=== PATIENT | male | born 1970 | race Caucasian/White ===

== ENCOUNTER 2024-01-07 16:15 | Outpatient (RCR) | payer OTHER, SELFPAY | END 2024-01-07 23:59 | disposition home or self-care (01) | LOC: PURB 16:15 | PROVIDERS: ATTENDING PHYSICIAN Internal Medicine Critical Care Medicine; FAMILY PHYSICIAN Family Medicine | DX: J84.9 Interstitial pulmonary disease, unspecified (principal) | CPT/HCPCS: G0237 ==

== ENCOUNTER 2024-01-19 17:31 | Inpatient (IN) | payer OTHER, SELFPAY ==
[2024-01-19] VITALS (10 sets, daily range): BP systolic 141–188; BP diastolic 80–95; BMI 27.8; BMI 27.5
[2024-01-19 13:23] LABS: % Basophils 0.2 % (0-2); % Eosinophils 0.2 % (0-6); % Immature Granulocytes 0.4 % (0-0.5); % Monocytes 8.1 % (1.7-9.3); % Neutrophils 82.1 % (42.2-75.2); Absolute Immature Granulocytes 0.1 10^3/uL (0-0.05); Absolute Lymphocytes 1.6 10^3/uL (1.2-3.4); Absolute Monocytes 1.5 10^3/uL (0.1-0.6); Absolute Neutrophils 14.9 10^3/uL (1.4-6.5); Hematocrit 39.3 % (39.0-52.0); Hemoglobin 13.1 g/dL (13.0-18.0); Mean Corp Hgb Conc. 33.3 g/dL (33.0-37.0); Mean Corpuscular Hgb 30.1 pg (27.0-31.0); Mean Corpuscular Volume 90.3 fL (80.0-94.0); Mean Platelet Volume 9.6 fL (7.4-10.4); Nucleated Red Blood Cells % 0 % (-); Platelet Count 297 10^3/uL (130-400); Red Blood Cell Count 4.35 10^6/uL (4.70-6.10); Red Cell Dist. Width 13.6 % (11.5-14.5); White Blood Cell Count 18.2 10^3/uL (4.8-10.8)
[2024-01-19] MEDS: MAALOX 50 PO (13:23)
--- NOTE | 2024-01-19 13:26 | ED.GENMED ---
History of Present Illness
General
Chief Complaint: Abdominal Symptoms
Source: patient and spouse
Time Seen by Provider: 01/19/24 13:12
Travel History
Have you had any contact with someone who has COVID-19?: No
Do you have any symptoms of coronavirus? Fever > 100 degrees, chills, cough, shortness of breath, sore throat, loss of taste or smell, muscle aches, or headache?: No
History of Present Illness
History of Present Illness:
53-year-old male presents to the emergency room complaining of severe burning in his chest. Patient began feeling unwell on Saturday when he had some nausea vomiting. Patient thought he may have contracted a GI bug. Yesterday he was feeling a bit
better but during the evening last night he began to have burning in his chest. The burning has become quite severe today. He is breathing rapidly because of the pain. He does not feel particularly short of breath. Breathing does not make the
pain worse. Patient cannot associate any activity with making the pain worse. Patient only has taken a small amount of water today. Swallowing water does not seem to make it better or worse.
Past History
Past History
ED Past Medical History: Other (Microscopic polyangiitis, interstitial lung disease, pericarditis)
ED Past Surgical History: None
Social History
Tobacco: Non-smoker
Alcohol: Occasional
Drug: None
Personal:
Living: with family
Employment: Employed
Family History
Family History: Hypertension, CAD and Other (Grandmother with Parkinson's)
Phy Exam
Physical Exam
Physical Exam:
General: Awake, Alert, Oriented X3. Patient appears uncomfortable, breathing rapidly
Vitals: Tachypneic
Head: Atraumatic
Eyes: Pupils equal, EOMI
Throat: Airway intact, no exudates, dry mucosa
Neck: Trachea midline
Lungs: Clear and equal b/l
Heart: Regular rate, no murmurs
Abd: Soft, Nontender, No pulsatile mass
Neuro: Nonfocal
Skin: Warm, dry, no rash
Extremities: pulses equal b/l, no edema
Course
Orders/Labs/Results
Orders:
Orders
01/19/24 12:44
Electrocardiogram (*1) Urgent
Reason for Study: Abdominal Pain
01/19/24 13:16
Complete Blood Count/With Diff Urgent
Comprehensive Metabolic Panel Urgent
Lipase Urgent
Troponin I Urgent
01/19/24 13:20
Mag Hydrox/Al Hydrox/Simeth [Maalox] 30 ml Phenobarb/Hyoscy/Atropine/Scop [] 10 ml Viscous Lidocaine 2% [Xylocaine Viscous Cup] 10 ml PO NOW
CR Chest Portable - 1 View Urgent
Comment:
Reason For Exam: severe chest pain
Reason Study Needs to be Portable: Patient Unstable
01/19/24 13:22
Mag Hydrox/Al Hydrox/Simeth [Maalox] 30 ml .ROUTE .STK-MED ONE
Phenobarb/Hyoscy/Atropine/Scop [] 10 ml .ROUTE .STK-MED ONE
Viscous Lidocaine 2% [Xylocaine Viscous Cup] 15 ml .ROUTE .STK-MED ONE
01/19/24 13:41
HYDROmorphone [Dilaudid] 1 mg IV NOW STA
01/19/24 13:56
Iohexol [Omnipaque] See Protocol PO NOW STA
01/19/24 14:01
CT Abd/pelvis W Iv Cont Urgent
Comment:
Reason For Exam: abd pain
01/19/24 14:02
Electrocardiogram (*1) Urgent
Reason for Study: Abdominal Pain
01/19/24 14:23
HYDROmorphone [Dilaudid] 1 mg IV NOW STA
01/19/24 15:14
Ketorolac [Toradol] 15 mg IV NOW STA
01/19/24 15:53
HYDROmorphone [Dilaudid] 0.5 mg IV NOW STA
01/19/24 16:05
LevoFLOXacin 750 MG/150 ML [Levaquin] 750 mg in 150 ml IV NOW
MetroNIDAZOLE 500 MG/100 ML [Flagyl 500 mg] 100 ml IV NOW
01/19/24 17:14
Admit/Transfer Patient As Directed
Co-Sign Provider:
Level of Care: Inpatient admission
Assign to:: Telemetry
Physician / Group: samreen lombardo
Diagnosis: acute choleycystitis, dvt/pe hx on eliquis
Reason for Telemetry: Arrhythmia
Date to Stop Telemetry: 01/22/24
Time to Stop Telemetry: 11:00
Reason for Hospitalization: acute choleycystitis, dvt/pe hx on eliquis
Expected length of stay greater than two midnights?: Yes
ELOS- Estimated Length of Stay in days: 4
I certify the patient meets the requirements for IP care: Yes
01/19/24 17:18
Code Status As Directed
Resuscitation Status: Full Code
01/19/24 17:21
SURGICAL CONSULT Routine
Consulting Provider: Mark Reyes
Was physician already notified: Yes
Reason for consult: acute choleycystitis
01/19/24 17:29
HYDROmorphone [Dilaudid] 1 mg IV Q4HPRN PRN
01/19/24 17:33
HEMATOLOGY CONSULT Routine
Consulting Provider: Tru Lovell
Was physician already notified: Yes
Reason for consult: hx dvt pe jan 2023, ? heparin bridge
01/19/24 18:49
0.9% Sodium Chloride 1000 ml [Nss] 1,000 ml IV 100 mls/hr
Acetaminophen [Tylenol] 650 mg PO Q4HPRN PRN
HYDROmorphone [Dilaudid] 0.5 mg IV Q4HPRN PRN
Ondansetron Injectable [Zofran] 4 mg IV Q6HPRN PRN
01/19/24 18:49
VTE Contraindication Routine
VTE Mechanical Device Contraindication: Medical Contraindication
Pharmocologic Contraindication: Medical Contraindication
Comment: pt on eliquis
Activity As Directed
Activity Level: As Tolerated
Intake/ Output As Directed
Frequency: Per unit guidelines
Vital Signs As Directed
Frequency: Per unit guidelines
Pulse Ox/spot Check [RESP] Routine
Quantity: 1
Ot Eval And Treat Routine
Pt Eval And Treat Routine
Activity Level: As Tolerated
01/19/24 20:00
Clonidine [Catapres] 0.3 mg PO Q8
Famotidine [Pepcid] 20 mg IV Q12
01/19/24 22:00
Gabapentin [Neurontin] 400 mg PO TID
01/20/24 00:00
MetroNIDAZOLE 500 MG/100 ML [Flagyl 500 mg] 100 ml IV Q8H
01/20/24 06:29
Cardiovascular Evaluation IN AM
Complete Blood Count/With Diff IN AM
Comprehensive Metabolic Panel IN AM
01/20/24 08:00
Dapsone 100 mg PO DAILY
MethylPREDNISolone [Medrol] 6 mg PO DAILY
Sertraline HCl [Zoloft] 100 mg PO DAILY
01/20/24 16:00
LevoFLOXacin 500 MG/100 ML [Levaquin] 500 mg in 100 ml IV Q24H
01/21/24 06:00
Complete Blood Count/With Diff IN AM
Comprehensive Metabolic Panel IN AM
01/22/24 06:00
Complete Blood Count/With Diff IN AM
Comprehensive Metabolic Panel IN AM
01/22/24 11:00
DC Protocol for Telemetry ONCE
01/23/24 06:00
Complete Blood Count/With Diff IN AM
Comprehensive Metabolic Panel IN AM
Abnormal Lab Results
01/19/24
13:16
WBC 18.2 H 10^3/uL
(4.8-10.8)
RBC 4.35 L 10^6/uL
(4.70-6.10)
Abs Immat Gran (auto) 0.1 H 10^3/uL
(0-0.05)
Absolute Neuts (auto) 14.9 H 10^3/uL
(1.4-6.5)
Absolute Monos (auto) 1.5 H 10^3/uL
(0.1-0.6)
Neutrophils % 82.1 H %
(42.2-75.2)
Lymphocytes % 9.0 L %
(20.5-51.1)
Glucose 155 H mg/dl
(70-99)
Total Bilirubin 2.3 H mg/dl
(0.2-1.3)
01/19/24 13:16
01/19/24 13:16
Vital Signs
Initial and Last Documented VS:
Initial Vital Signs
Temp Pulse Resp BP Pulse Ox
98.2 F 63 16 166/92 98
01/19/24 12:42 01/19/24 12:42 01/19/24 12:42 01/19/24 12:42 01/19/24 12:42
Last Documented Vital Signs
Temp Pulse Resp BP Pulse Ox
99.5 F 77 19 98/61 94
01/20/24 07:00 01/20/24 07:00 01/20/24 07:00 01/20/24 07:00 01/20/24 07:00
MDM/Problems Addressed
Differential Diagnosis Includes:
Gastritis/esophagitis, acute coronary syndrome, pancreatitis, perforated viscus
MDM/Problems Addressed:
Patient presents with what is described as abdominal burning which began a couple days ago after vomiting and has increased in intensity. At the time of his arrival to the emergency room it is very intense. Patient is breathing rapidly though he
denies being short of breath. His EKG does not show any acute ischemic changes. He does endorse some pain with palpation of his abdomen but he does not appear to have a surgical abdomen. A repeat EKG was obtained to assure there is no dynamic
changes and the second EKG is unremarkable. Initial labs show a white count of 18,000 with an otherwise unremarkable CBC. Chemistry show a mildly elevated glucose of 155. His T bilirubin is mildly elevated at 2.3. His total bilirubin has been
elevated in a similar level previously and suspect this is [place] syndrome. Remainder of his chemistries are unremarkable including a troponin to <0.012.
CT of abd/pelvis shows findings c/w acute cholecystitis. Pt allergic to pcn so levaquin/flagyl orderd. Discussed with Dr. Reyes.....given last dose of Eliquis was today will need to allow for washout of anticoagulation effect prior to surgery.
Given complicated past medical hx pt will be admitted to hospitalist service. Pt has significant pain requiring frequent re-dosing of analgesia.
Chronic conditions affecting care: HTN and Other (ILD, thromboembolic dz, GERD)
*Radiology
Radiology exam reviewed: radiology read reviewed
*Pulse Oximetry
Patient hypoxic: no
*EKG
Interpreted by ED Provider?: Yes
Interpretation: abnormal
Heart Rate: 57
Rate: bradycardiac
Rhythm: sinus
Byars: normal axis
Interval: normal interval
QRS Pattern: normal QRS
Ischemia: non-specific ST changes
*[employer] Interpretation
Rate: bradycardiac
Heart Rate: 57
Rhythm: sinus
*Critical Care Note
Total Time (30-74mins, 75-104mins- exclusive of procedures): 35 min
comment:
Critical care statement: A total of 35 minutes of critical care time was provided for this patient. This includes management of unstable vital signs, evaluation of the patient at bedside, reviewing the patient's pertinent medical records, discussion
with consultants, review of old EKGs and review of pertinent medical records. This time with separate from time utilized to perform the aforementioned documented procedures
Patient Management
Social determinants of health affecting care: Strong social support
ED Attending Note
-
Portions of this chart may have been created with voice recognition software.� Occasional wrong word or��sound alike� substitutions may have occurred due to the inherent limitations of voice recognition software.
Discharge Plan
Departure
Patient Disposition: Admit
Date of Disposition: 01/19/24
Time of Disposition: 16:07
Presentation/result/management discussed w/ accepting MD/DO: Hospitalist
Condition: Fair
Discharge Problem:
Acute cholecystitis
Interventions
Interventions:
*Risk Screen - Suicide Last Done: 01/19/24 13:54
*General Assessment Last Done: 01/19/24 13:51
*Neglect/Abuse Screening Last Done: 01/19/24 13:30
ED- Fall Risk Assessment Last Done: 01/19/24 18:32
*ED COVID-19 Vaccine History Last Done: 01/19/24 12:42
*Nursing Disposition Last Done: 01/19/24 18:32
DZ-Tiqtuv-Znvyznknkh Assessment Last Done: 01/19/24 13:00
Discharge Date and Time
Discharge Date/Time: 01/19/24 18:30
[2024-01-19 13:43] LABS: ALT (SGPT) 25 U/L (0-50); AST (SGOT) 24 U/L (17-59); Albumin 4.2 g/dl (3.5-5.0); Alkaline Phosphatase 84 U/L (38-126); Blood Urea Nitrogen 14 mg/dl (9-20); Calcium 9.1 mg/dl (8.4-10.2); Carbon Dioxide 25 mmol/L (22-30); Chloride 103 mmol/L (98-107); Estimated Creatinine Clearance > 125 ml/min; Glucose 155 mg/dl (70-99); Lipase 45 U/L (23-300); Potassium 3.9 mmol/L (3.5-5.1); Sodium 136 mmol/L (135-145); Total Bilirubin 2.3 mg/dl (0.2-1.3); Total Protein 6.6 g/dl (6.3-8.2); eGFR > 60.00
[2024-01-19] MEDS: DILAUDID 1 MG IV ×5 (13:43→23:21)
[2024-01-19 13:46] LABS: Troponin I < 0.012 ng/ml
[2024-01-19] MEDS: TORADOL 15 MG IV ×2 (15:20→22:22)
[2024-01-19] MEDS: FLAGYL 500 MG 100 IV ×2 (16:14→23:22)
[2024-01-19] MEDS: DILAUDID 0.5 MG IV (16:14)
--- NOTE | 2024-01-19 16:23 | CON.GS ---
Addendum entered and electronically signed by Sagar Silver MD 01/20/24 09:49:
I saw and examined the patient independently.
The Tail Trimmer's note was reviewed and I agree with the note, assessment and plan except where noted below.
Comment: This is a 53-year-old gentleman with a history of PE on Eliquis (last dose 01/19/2024 10 AM) who presents with a 3-day history of postprandial right upper quadrant pain in the setting of several months of intermittent abdominal pain. CT
imaging and exam consistent with acute cholecystitis. Marked leukocytosis as well as elevated bilirubinemia concerning for superimposed choledocholithiasis/ascending cholangitis.
Rapid response overnight for soft blood pressures, and tachycardia.
N.p.o., IV fluids, IV levofloxacin/Flagyl.
Continue holding anticoagulation.
Urgent MRCP. If positive for choledocholithiasis would defer to GI for an ERCP. If negative for choledocholithiasis recommend IR consult for percutaneous cholecystostomy tube.
Ideally would like to wait 48 hours for the Eliquis to washout prior to surgery which we could consider this admission versus in 4 to 6 weeks pending clinical course.
General surgical continue to follow.
Original Note:
Medical History
-
Chief Complaint: Abdominal pain
History of Present Illness:
This is a 53 yo male with a h/o influenza with concurrent covid with 79 day admission at [facility] starting in November 2022 where he required ECMO and tracheostomy for VDRF complicated ICH and PE (On Eliquis which is to be discontinued this month as
testing WNL, LD 01/19 at 10am), ILD (wears O2 with exercise), recent PFT's with improvement and recent relatively normal echo who presents with epigastric discomfort which began 2 days ago a few hours after eating dinner accompanied by nausea and
vomiting. His pain was better the following day but he had poor appetite and ate very little. Today, he awakened early this morning and tried to eat breakfast. His pain worsened after this causing him to present for evaluation. He has been afebrile.
He notes his pain has improved since being medicated. He denies active nausea. He is tender to light palpation to the RUQ.
Past Medical History
Past Medical History: Other (ILD, Flu/covid with ECMO/VDRF/Trach 11/22)
Past Surgical History: Other (Previous tracheostomy)
Social History
Tobacco: Non-Smoker
Alcohol: Occasional
Personal:
Living: With Family
Family History
Family History: Reviewed & Not Pertinent
Allergies / Home Medications
Allergy/AdvReac Type Severity Reaction Status Date / Time
vancomycin Allergy Severe Anaphylaxis/throat Verified 01/19/24 12:44
irritation
latex Allergy swelling - Verified 01/19/24 12:44
long skin
Penicillins Allergy Hives Verified 01/19/24 12:44
Sulfa (Sulfonamide Allergy Rash Verified 01/19/24 12:44
Antibiotics)
venom-honey bee Allergy swelling - Verified 01/19/24 12:44
[bee venom (honey bee)] throat
tightness
Medication Instructions Recorded Confirmed Type
Pepcid 2 tab PO ONCE PRN stomach 01/19/24 01/19/24 History
discomfort
apixaban 5 mg tablet (Eliquis) 5 mg PO Q12H 01/19/24 01/19/24 History
ascorbic acid (vitamin C) 500 mg 500 mg PO DAILY 01/19/24 01/19/24 History
tablet (Vitamin C)
bismuth subsalicylate 262 mg 524 mg PO ONCE PRN stomach 01/19/24 01/19/24 History
tablet (Pepto-Bismol) discomfort
calcium carbonate 500 mg calcium 3,000 mg PO ONCE PRN stomach 01/19/24 01/19/24 History
(1,250 mg) chewable tablet discomfort
clonidine HCl 0.3 mg tablet 0.3 mg PO Q8H 01/19/24 01/19/24 History
dapsone 100 mg tablet 100 mg PO DAILY 01/19/24 01/19/24 History
famotidine 40 mg tablet 40 mg PO DAILY 01/19/24 01/19/24 History
gabapentin 400 mg capsule 400 mg PO TID 01/19/24 01/19/24 History
methylprednisolone 4 mg tablet 6 mg PO DAILY 01/19/24 01/19/24 History
sertraline 100 mg tablet 100 mg PO DAILY 01/19/24 01/19/24 History
Review of Systems
-
History Source: Patient and Family
All other systems: Negative unless noted
A 10 point review of systems was completed, and was negative except as per HPI.
Physical Exam
Vital Signs
Temp Pulse Resp BP Pulse Ox
98.2 F 62 25 171/89 95
01/19/24 12:42 01/19/24 13:45 01/19/24 13:45 01/19/24 13:43 01/19/24 13:45
01/18/24 01/19/24 01/20/24
06:59 06:59 06:59
Actual Weight 102.3 kg
Body Mass Index (BMI) 27.8
Lab Results
01/19/24 13:16
01/19/24 13:16
WBC 18.2 10^3/uL (4.8-10.8) H 01/19/24 13:16
Hgb 13.1 g/dL (13.0-18.0) 01/19/24 13:16
Hct 39.3 % (39.0-52.0) 01/19/24 13:16
Plt Count 297 10^3/uL (130-400) 01/19/24 13:16
Abs Immat Gran (auto) 0.1 10^3/uL (0-0.05) H 01/19/24 13:16
Neutrophils % 82.1 % (42.2-75.2) H 01/19/24 13:16
Physical Exam
General: Well Developed and No Apparent Distress
HEENT: Moist Mucous Membranes
Respiratory: Non Labored Respirations
GI: Soft, Non Distended and Tender (RUQ/epigastric area)
Skin: Warm and Dry
Neuro: Awake, Alert and AO x 3
Psych: Calm
Data Reviewed
-
CT Scan: Image Personally Visualized and interpreted, Report Reviewed by me, Discussed with Physician, Discussed with Nurse, Discussed with Patient and Discussed with Family
Labs: Labs Reviewed by me, Discussed with Physician, Discussed with Nurse, Discussed with Patient and Discussed with Family
Old Records: Reviewed
Assessment / Plan
-
Assessment:
53 yo male with a h/o influenza with concurrent covid with 79 day admission at [facility] starting in November 2022 where he required ECMO and tracheostomy for VDRF complicated ICH and PE (On Eliquis which was likely to be discontinued this month as
testing WNL, LD 01/19 at 10am), ILD (wears O2 with exercise) who developed RUQ/Epigastric pain 2 days ago several hours after a large meal. CT imaging and exam consistent with acute calculous cholecystitis. Leukocytosis and mild elevation in
bilirubin noted (has been mildly elevated in the past). AFVSS. Wearing O2 currently.
Plan:
--Being admitted to medicine service
--Ok for clear liquids
--Start IV abx
--Analgesics/antiemetics prn
--Tentative HIDA scan in am
--Trend LFT's
--Hold Eliquis: tentative OR for lap cesar later this week after Eliquis washout
--- NOTE | 2024-01-19 16:28 | HPS.HSE ---
Addendum entered and electronically signed by Manuelito Mcclure MD 01/19/24 19:23:
I saw and examined the patient.
The REPAIR ARMATURE WINDER HELPER or PA's note was reviewed and I agree with the note.
Comment:
53M hx Influenza/COVID/ARDS/PNA requiring ECMO prolonged Hospital Stay Nov 2022-March 2023 complicated w/ PE/DVT cardiac arrest stroke GIB cauterization, hx autoimmune vasculitis, hypertension, GERD, Neuropathy, ILD vs Long COVID p/w N/V/abd pain 2
days.� CT consistent with acute cholecystitis.� VSS stable.� Labs notable for leukocytosis and TBili elevation 2.3, LFTs otherwise wnl.�
Physical Exam
General:�Mild moderat distress d/t pain, jaundice
HEENT:�NormoCephalic, Scleral icterus, PERRLA, [place] Conjunctivae and No Ptosis
Respiratory:�Clear; No Wheezes, Rales or Rhonchi
Cardiac:�S1/S2 and Regular Rhythm; No Murmur, Rub, Gallop or Peripheral Edema
GI:�Soft, Normal Bowel Sounds, and Tender Midepigastric, upper left and right quadrant
Musculoskeletal:�No Clubbing, No Cyanosis and No Edema
Neuro:�AO x 3
Psych:�Calm
#Cholecystitis
#Hx PE/DVT on Eliquis
Surgery eval appreciated planned for cholecystectomy following Eliquis washout
Hematology eval requested for AM consideration Hep gtt while off vs monitoring off
pain control
trend wbc
abx flagyll Levaquin
diet as per surgery
Original Note:
Family Physician
-
Family Physician: Jabier Vela
Chief Complaint
-
Nausea, vomiting
History of Present Illness
53-year-old male complaining of nausea, vomiting since Saturday 2 days ago along with burning sensation in his chest. He reports only having water today but did not seem to make it better or worse. He denies fever, chills, chest pain, palpitations,
shortness breath, cough, diarrhea, urinary symptoms. In the ER he was noted to have acute cholecystitis on CT of his abdomen and pelvis. He is on oral Eliquis for history of DVT/PE while on ECMO nov 2022-jan 2023. He did take a dose of Eliquis
01/19/2024 in a.m. he has PMH influenza/COVID /ARDS /pneumonia requiring ECMO with prolonged hospital stay from November- March 18, 2023 DVT/PE while on ECMO on current Eliquis, cardiac arrest January 2023,'s CVA left frontal hemorrhagic
January 08, 2023, GI bleed requiring cauterization 2022, pneumonia requiring thoracentesis, prior autoimmune vasculitis, HTN,, GERD, neuropathy, ILD vs long COVID, COVID infection 2020 received antibodies, neuropathy bilateral feet and hands,
depression.
Medical History
Past Medical History
Past Medical History: Reports Other
Additional Past Medical History:
Microscopic polyangiitis vasculitis
Interstitial lung disease vs long covid
Gastroesophageal reflux disease
Influenza/COVID /ARDS requiring ECMO March 2023, DVT/PE while on ECMO on current Eliquis,
Cardiac arrest 2022
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
GI bleed January 2023 requiring cauterization
HTN
neuropathy hands and feet
depression
Past Surgical History: Reports Other (ecmo November 2022, pneumonia requiring thoracentesis, GI bleed, required cauterization during hospital stay January 2023)
Social History
Tobacco: Non-smoker
Alcohol: Occasional
Drug: Marijuana (Had been on medical marijuana in the past but has not taken for months)
Personal:
Living: With Family ()
Employment: Disabled
Family History
Family History: Other (Mother with coronary artery disease and essential hypertension, pancreatic cancer November 2023, father currently living with lymphoma)
Allergies / Home Medications
Allergies reflects when Allergies were last updated in [facility].
Home Medications with original date entered in [facility]
Allergy/Medication List:
Allergies
Allergy/AdvReac Type Severity Reaction Status Date / Time
vancomycin Allergy Severe Anaphylaxis/throat Verified 01/19/24 12:44
irritation
latex Allergy swelling - Verified 01/19/24 12:44
long skin
Penicillins Allergy Hives Verified 01/19/24 12:44
Sulfa (Sulfonamide Allergy Rash Verified 01/19/24 12:44
Antibiotics)
venom-honey bee Allergy swelling - Verified 01/19/24 12:44
[bee venom (honey bee)] throat
tightness
Home Medications
Pepcid 2 tab PO ONCE PRN stomach discomfort 01/19/24
apixaban 5 mg tablet (Eliquis) 5 mg PO Q12H 01/19/24
ascorbic acid (vitamin C) 500 mg tablet (Vitamin C) 500 mg PO DAILY 01/19/24
bismuth subsalicylate 262 mg tablet (Pepto-Bismol) 524 mg PO ONCE PRN stomach discomfort 01/19/24
calcium carbonate 500 mg calcium (1,250 mg) chewable tablet 3,000 mg PO ONCE PRN stomach discomfort 01/19/24
clonidine HCl 0.3 mg tablet 0.3 mg PO Q8H 01/19/24
dapsone 100 mg tablet 100 mg PO DAILY 01/19/24
famotidine 40 mg tablet 40 mg PO DAILY 01/19/24
gabapentin 400 mg capsule 400 mg PO TID 01/19/24
methylprednisolone 4 mg tablet 6 mg PO DAILY 01/19/24
sertraline 100 mg tablet 100 mg PO DAILY 01/19/24
Review of Systems
-
History Source: Patient and Family ( at bedside)
A 12 point ROS was completed and negative except as noted: Yes
Constitutional: Denies Fever, Fatigue or Chills
EENT: Denies Sore Throat or Runny Nose
Respiratory: Denies Cough or Trouble Breathing
Cardiac: Denies Chest Pain, Diaphoresis or Palpitations
Abdomen/GI: Reports Abdominal Pain (Upper abdomen and epigastric), Nausea and Vomiting; Denies Diarrhea, Constipated or Bloody Stools
: Denies Dysuria, Frequency, Flank Pain, Incontinence, Difficulty Voiding or Urgency
Musculoskeletal: Denies Joint Pain, Joint Swelling or Edema
Skin: Denies Itching or Rash
Neurological: Denies Dizzy, Headache or Weakness
Endocrine: Reports No Symptoms
Hematologic/Lymphatic: Reports No Symptoms
Psych: Reports Calm
Physical Exam
Vital Signs
Vital Signs
Temp Pulse Resp BP Pulse Ox
98.2 F 62 25 171/89 95
01/19/24 12:42 01/19/24 13:45 01/19/24 13:45 01/19/24 13:43 01/19/24 13:45
Physical Exam
General: Comfortable and Conversant; No Fever or Chills
HEENT: NormoCephalic, Anicteric, PERRLA, [place] Conjunctivae and No Ptosis
Respiratory: Clear; No Wheezes, Rales or Rhonchi
Cardiac: S1/S2 and Regular Rhythm; No Murmur, Rub, Gallop or Peripheral Edema
Breast: Deferred by me
GI: Soft, Non Distended, Normal Bowel Sounds and Tender (Midepigastric, upper left and right quadrant)
Rectal: Deferred by Provider
Genito-urinary: Deferred by me
Musculoskeletal: No Clubbing, No Cyanosis and No Edema
Neuro: AO x 3, No Motor Deficits, Nonfocal/grossly intact and No Sensory Deficits; No Slurred Speech, Facial Droop or Tremors
Psych: Calm
Laboratory Results
-
01/19/24 13:16
01/19/24 13:16
Laboratory Results
Total Bilirubin 2.3 mg/dl (0.2-1.3) H 01/19/24 13:16
AST 24 U/L (17-59) 01/19/24 13:16
ALT 25 U/L (0-50) 01/19/24 13:16
Alkaline Phosphatase 84 U/L (38-126) 01/19/24 13:16
Troponin I < 0.012 ng/ml 01/19/24 13:16
Lipase 45 U/L (23-300) 01/19/24 13:16
Data Reviewed
-
CT Scan: Report Reviewed by me
Lab Data: Labs Reviewed by me
Impression/Plan
-
Impression/plan:
Admit to [facility]
#Acute cholecystitis
WBC 18.2
-CLEARS today 01/19/24
-N.p.o. for OR 01/20/2024
-IV NSS 100 cc/hr
-HOLD Eliquis last dose 01/19/2020 4 AM
-Blood cultures x 2
-Consult Dr. Reyes
- Iv levaquin, flagyl
-IV Zofran
-IV Dilaudid as needed pain
-Follow CBC, CMP
-PT/OT/case management eval
CT abdomen pelvis: Acute cholecystitis
CXR: Chronic fibrotic changes both lungs. Increased mild patchy opacities bilaterally may be progression of fibrosis versus mild pneumonitis
EKG: NSR 62 bpm, QTc 424 MS otherwise normal
#History of ECMO [id number] 17, 2023 2/ ARDS/FLu /Covid/PNA
#DVT/PE while on ECMO
# Cardiac arrest during above hospital stay
-Is on current Eliquis
-HOLD Eliquis due to acute cholecystitis last dose was today 01/19/2020 AM
#GERD
#Hx GI bleed
Required cauterization during hospital stay January 2023
-Continue famotidine 40 mg daily
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
-No residual deficits
#ILD vs long COVID on chronic steroids
# Uses [place] O2 with exercise
#Hx COVID 2020 received antibodies
-Continue methylprednisolone 6 mg daily,
-Continue dapsone 100 mg daily
#HTN�benign
-Continue clonidine 0.3 mg 3 times daily
#Hx Erin syndrome
#Peripheral neuropathy hands and feet
-Continue gabapentin for 100 mg 3 times daily
#Depression
-Continue Zoloft 100 mg daily
dvt prop
hold Eliquis
Full code
[2024-01-19] MEDS: LEVAQUIN 150 IV (17:21)
[2024-01-19] MEDS: TYLENOL 650 MG PO (22:18)
[2024-01-19 22:19] LABS: Glucose - Point of Care 122 mg/dl (70-99)
--- NOTE | 2024-01-19 22:30 | PTCARENOTE ---
Pt change in condition. Increased respirations, increased pain with little response to meds, tachycardia, and a rectal temp of 102.8. PARISH NURSE called to assess further.
[2024-01-19] MEDS: NEURONTIN 400 MG PO (22:34)
[2024-01-19] MEDS: NSS 1000 IV (22:34)
[2024-01-19 22:35] LABS: % Basophils 0.2 % (0-2); % Immature Granulocytes 0.7 % (0-0.5); % Monocytes 8.8 % (1.7-9.3); % Neutrophils 86.3 % (42.2-75.2); Absolute Immature Granulocytes 0.2 10^3/uL (0-0.05); Absolute Lymphocytes 1.1 10^3/uL (1.2-3.4); Absolute Monocytes 2.3 10^3/uL (0.1-0.6); Absolute Neutrophils 22.8 10^3/uL (1.4-6.5); Hematocrit 38.1 % (39.0-52.0); Mean Corp Hgb Conc. 34.1 g/dL (33.0-37.0); Mean Corpuscular Hgb 29.4 pg (27.0-31.0); Mean Corpuscular Volume 86.2 fL (80.0-94.0); Mean Platelet Volume 9.4 fL (7.4-10.4); Nucleated Red Blood Cells % 0 % (-); Platelet Count 312 10^3/uL (130-400); Red Blood Cell Count 4.42 10^6/uL (4.70-6.10); Red Cell Dist. Width 13.4 % (11.5-14.5); White Blood Cell Count 26.4 10^3/uL (4.8-10.8)
[2024-01-19] MEDS: PEPCID 20 MG IV (22:35)
[2024-01-19] MEDS: CATAPRES 0.299999999999999989 MG PO (22:36)
[2024-01-19 22:45] LABS: INR 1.37; Lactic Acid 1.7 mmol/L (0.7-2.0); PT 16.7 Sec (11.4-14.6)
[2024-01-19 22:53] LABS: ALT (SGPT) 216 U/L (0-50); AST (SGOT) 271 U/L (17-59); Albumin 4.1 g/dl (3.5-5.0); Alkaline Phosphatase 222 U/L (38-126); Blood Urea Nitrogen 16 mg/dl (9-20); Calcium 9.2 mg/dl (8.4-10.2); Carbon Dioxide 19 mmol/L (22-30); Chloride 104 mmol/L (98-107); Estimated Creatinine Clearance > 125 ml/min; Glucose 124 mg/dl (70-99); Potassium 4.3 mmol/L (3.5-5.1); Sodium 135 mmol/L (135-145); Total Protein 6.6 g/dl (6.3-8.2); eGFR > 60.00
--- NOTE | 2024-01-19 23:01 | W.PN.UPDATE ---
Addendum entered and electronically signed by SIMA Padilla 01/20/24 01:26:
TT send to Dr garza to update on labs:
WBC 18.2 to 26.4
AST 271 was 24
ALT 216 was 25
Alk phos 222
T bili 5.0 was 2.3
With concerns for cholangitis dr garza request GI consult. Likely will need perc tube prior to OR.
TT sent to Dr Drummond GI--> Order MRCP with and without contrast urgent in am, and NPO
Original Note:
Update Note
Progress Note Update
HEALTH OUTCOMES LIAISON called due to increased respirations and pain. Pt admitted today with acute cholecystitis awaiting eliquis washout OR tues.
Found also to have temp 102.8 Rectal. On levaquin and flagyl.
Pain difficult to control since admit too- increased dilaudid frequency and added toradol x1
For completeness will check labs, blood cutlures, covid and flu swabs
Dr garza updated on above. Will see in am.
[2024-01-19 23:02] LABS: COVID-19 Antigen Negative (Negative)
[2024-01-20] VITALS (17 sets, daily range): BP systolic 20–168; BP diastolic 57–94; BMI 27.5
[2024-01-20] MEDS: CATAPRES PO ×2 (01:26→08:09)
[2024-01-20] MEDS: DILAUDID 0.5 MG IV ×5 (01:35→17:47)
[2024-01-20] MEDS: TYLENOL 650 MG PO ×2 (03:16→17:40)
[2024-01-20] MEDS: DILAUDID 1 MG IV ×5 (04:05→21:38)
[2024-01-20] MEDS: NSS 1000 IV ×3 (06:09→21:42)
[2024-01-20 06:55] LABS: % Basophils 0.2 % (0-2); % Eosinophils 0.1 % (0-6); % Immature Granulocytes 0.8 % (0-0.5); % Lymphocytes 4.8 % (20.5-51.1); % Monocytes 7.5 % (1.7-9.3); % Neutrophils 86.6 % (42.2-75.2); Absolute Immature Granulocytes 0.2 10^3/uL (0-0.05); Absolute Lymphocytes 1.2 10^3/uL (1.2-3.4); Absolute Monocytes 1.9 10^3/uL (0.1-0.6); Absolute Neutrophils 21.7 10^3/uL (1.4-6.5); Hematocrit 35.7 % (39.0-52.0); Hemoglobin 12.1 g/dL (13.0-18.0); Mean Corp Hgb Conc. 33.9 g/dL (33.0-37.0); Mean Corpuscular Volume 88.4 fL (80.0-94.0); Nucleated Red Blood Cells % 0 % (-); Red Blood Cell Count 4.04 10^6/uL (4.70-6.10); Red Cell Dist. Width 13.4 % (11.5-14.5)
--- NOTE | 2024-01-20 06:58 | W.PN.HOSP.TC ---
Today's Communication/Plan
-
transfer to IMU for closer monitoring
GI surgery IR eval cholecystectomy vs ERCP vs per cesar
Pulm eval risk assessment patient potentially may require intubation for above procedures (except per cesar)
cont pain control
diet as per GI
monitor LFTs
Assessment / Plan
Assessment / Plan
Physical Exam
General:�Mild moderat distress d/t pain, jaundice
HEENT:�NormoCephalic, Scleral icterus, PERRLA, [place] Conjunctivae and No Ptosis
Respiratory:�Clear; No Wheezes, Rales or Rhonchi
Cardiac:�S1/S2 and Regular Rhythm; No Murmur, Rub, Gallop or Peripheral Edema
GI:�Soft, Normal Bowel Sounds, and Tender Midepigastric, upper left and right quadrant
Musculoskeletal:�No Clubbing, No Cyanosis and No Edema
Neuro:�AO x 3
Psych:�Calm
53M hx Influenza/COVID/ARDS/PNA requiring ECMO prolonged Hospital Stay Nov 2022-March 2023 complicated w/ PE/DVT, CVA no residual symptoms, cardiac arrest stroke GIB cauterization, hx autoimmune vasculitis, hypertension, GERD, Neuropathy, ILD vs
Long COVID p/w N/V/abd pain 2 days.� CT consistent with acute cholecystitis.� Initial VSS stable. Patient however rapid response overnight soon following admission due to fever tachypnea intractable pain. Eventually pain control improved with
increased freq dose dilaudid. Overnight evaluation however concerning for biliary obstruction cholangitis worsening LFTs and Tbili elevation to 5. VSS otherwise stable following morning though low normotensive.
#Acute cholecystitis
#Likely Biliary Obstruction Cholangitis causing Liver Dysfunction bilirubinemia
#Leukocytosis
#Severe sepsis Fever Tachynea Tachycardia
-transferred to IMU for closer monitoring
-Monitor LFTs improving though Bili remains elevated
-NPO as per GI
-IVF NSS 100 cc/hr
-HOLD Eliquis last dose 01/19/2020 4 AM, Hematology eval requested question need for bridging vs considering discontinuing therapeutic anticoagulation given PE/DVT were provoked and yr ago
-follow cultures
-Surgery consult appreciated tentatively planned for cholecystectomy Tues Eliquis washout
-GI eval appreciated possible benefit ERCP vs per cholecystomy with IR (eval requested)
-MRCP appreciated possible gall stone inferior CBD no intra/extrahepatic dilation
- cont Iv levaquin, flagyl
-IV Zofran
-cont IV Dilaudid as needed pain
�� ��� CT abdomen pelvis: Acute cholecystitis
�� � ��CXR:�Chronic fibrotic changes both lungs.� Increased mild patchy opacities bilaterally may be progression of fibrosis versus mild pneumonitis
#History of ECMO [id number] 17, 2023 2/2 ARDS/FLu /Covid/PNA
#hx DVT/PE while on ECMO
# Cardiac arrest during previous hospital stay
#GERD
#Hx GI bleed
Required cauterization during hospital stay January 2023
-home famotidine converted to IV during acute illness current hospitalization GI ppx
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
-No residual deficits
#ILD vs long COVID on chronic steroids
# Uses [place] O2 with exercise
#Hx COVID 2020 received antibodies
#Acute hypoxic insufficiency/failure requiring 4L at rest
-Continue methylprednisolone 6 mg daily,
-Continue dapsone 100 mg daily
-pulm eval requested, potentially will require intubation if ERCP or surgery is performed
#hx HTN
#currently low normotensive
hold clonidine
cont IVF support
midodrine scheduled and prn started
#Hx Erin syndrome
#Peripheral neuropathy hands and feet
-Continue gabapentin for 100 mg 3 times daily
#Depression
-Continue Zoloft 100 mg daily
dvt prop SCD
gi ppx famotidine
Full code�
Discussed with patient and his Arlene, GI, IR, Pulm, Nurse
I spent a total of 60 minutes with the patient or on the floor. More than 50% of this time involved counseling and coordination of care.
Anticipated Discharge: > 48 hours
Subjective/Interval History
-
Date of Service: January 20, 2024
BOARD TURNER overnight due to fever tachypnea pain. Overnight evaluation notable for likely biliary obstruction cholangitis. Pain control improved with increased frequency Dilaudid and dose. BP low normotensive improved with IVF bolus. Respiratory status
stable on nasal cannula 4L
Objective Data
-
Labs:
Laboratory Results
01/19/24 01/20/24
22:28 06:29
WBC 26.4 H Pending
Hgb 13.0 Pending
Hct 38.1 L Pending
Plt Count 312 Pending
PT 16.7 H
INR 1.37
APTT 50.0 H
Sodium 135 Pending
Potassium 4.3 Pending
Chloride 104 Pending
Carbon Dioxide 19 L Pending
BUN 16 Pending
Creatinine 0.8 Pending
Glucose 124 H Pending
Calcium 9.2 Pending
Total Bilirubin 5.0 H D Pending
AST 271 H Pending
ALT 216 H Pending
Alkaline Phosphatase 222 H Pending
Vital Signs:
Vital Signs
Temp Pulse Resp BP Pulse Ox
99.7 F 81 22 112/57 95
01/20/24 06:17 01/20/24 03:25 01/20/24 03:25 01/20/24 03:25 01/20/24 03:25
I&O
01/18/24 01/19/24 01/20/24
06:59 06:59 06:59
Intake Total 1140 / 1140
Output Total 200 / 200
Balance 940 / 940
--- NOTE | 2024-01-20 07:00 | CON.GI ---
Addendum entered and electronically signed by Carolina Drummond MD 01/20/24 12:45:
I saw and examined the patient.
The SADDLE STITCH OPERATOR or PA's note was reviewed and I agree with the note.
Comment: 53-year-old male past medical history of interstitial lung disease with prolonged hospitalization as outlined below with COVID, history of PE and DVT on Eliquis, history of cardiac arrest, presenting with abdominal pain, nausea, vomiting.
Found to have leukocytosis up to 26,000, LFTs with bili of 6, fevers last night up to 102.8, blood pressure dipped down to the high 90s, underwent CT which showed acute cholecystitis. Surgery was consulted. GI was consulted for possible element of
cholangitis. I was called last night about the case and I recommended MRCP.
MRCP was done and reviewed the report which showed possible 1 mm choledocholithiasis no intra or extrahepatic bile duct dilation. I reviewed with our biliary team here who felt due to his overall tenuous clinical condition, they recommended to do a
PERC cholecystostomy rather than ERCP especially given the fact that the stone was so small and there is no dilation of the ducts. discussed with IR, surgery, hospitalist team. I went back and talk to the patient twice as well as his .
All questions were answered.
Plan for perc cholecystostomy today, trend LFTs, white blood cell, fever curve, continue broad-spectrum antibiotics, keep NPO. GI will continue to follow.
Original Note:
Consultation
-
Date/Time Consultation Requested: 01/19/24 [id number]
Date/Time Consultation Performed: 01/20/24 0830
Requesting Provider: SIMA Blackwell
Performing Provider: SIMA Espino, Renetta Drummond MD
Reason for Consultation: eval for cholangitis
Medical History
Chief Complaint / HPI
Chief Complaint: abdominal pain, fever
History of Present Illness:
Pt is a 53yo with hx prolonged hospital admission 11/2022- March 2023 with long covid requiring ecmo, trach, PE/DVT on Eliquis, cardiac arrest, GIB with cauterization,ICH, autoimmune vasculitis, HTN, GERD with onset of nausea, vomiting, abdominal
pain x 2 days. After admission noted with leukocytosis with WBC up to 26,400 and rise in LFT's to bili 6, AST 143, ALT 164, alk phos 170. Ct notable for acute cholecystitis. Pt was seen by surgery and recommended HIDA and hold Eliquis for possible
cesar but noted overnight with rapid response with increased pain and increased respirations with fever 102.8, Pt has been placed on Abx with cultures, MRI pending.
At this time patient complain of 8/10 abdominal pain with 10/10 pain on admission. He states pain started on Saturday with GERD, vomiting food and persistent symptoms since that time. He denies dysphagia, diarrhea, constipation, blood or black
in stools.
Past Medical History
Past Medical History: GERD, HTN and Other (PNA, interstitial lung disease, chronic bronchitis, PE/DVT, prior ecmo, ARDS, microscopic polyangitis, GI bleed, autoimmune vasculitis, connective tissue disease, cushings, pericarditis, covid 19, cardiac
arrest, hemorragic CVA, trach, neuropathy, colon polyps)
Social History
Tobacco: Non-Smoker
Alcohol: Occasional
Drug: Marijuana (in past )
Living: With Family
Employment: Employed
Family History
Family History: Other (no family hx colon CA or polyps, no family hx gallbladder problems that he is aware of )
Allergies / Home Medications
Allergy/AdvReac Type Severity Reaction Status Date / Time
vancomycin Allergy Severe Anaphylaxis/throat Verified 01/19/24 12:44
irritation
latex Allergy swelling - Verified 01/19/24 12:44
long skin
Penicillins Allergy Hives Verified 01/19/24 12:44
Sulfa (Sulfonamide Allergy Rash Verified 01/19/24 12:44
Antibiotics)
venom-honey bee Allergy swelling - Verified 01/19/24 12:44
[bee venom (honey bee)] throat
tightness
Medication Instructions Recorded
Pepcid 2 tab PO ONCE PRN stomach 01/19/24
discomfort
apixaban 5 mg tablet (Eliquis) 5 mg PO Q12H 01/19/24
ascorbic acid (vitamin C) 500 mg 500 mg PO DAILY 01/19/24
tablet (Vitamin C)
bismuth subsalicylate 262 mg 524 mg PO ONCE PRN stomach 01/19/24
tablet (Pepto-Bismol) discomfort
calcium carbonate 500 mg calcium 3,000 mg PO ONCE PRN stomach 01/19/24
(1,250 mg) chewable tablet discomfort
clonidine HCl 0.3 mg tablet 0.3 mg PO Q8H 01/19/24
dapsone 100 mg tablet 100 mg PO DAILY 01/19/24
famotidine 40 mg tablet 40 mg PO DAILY 01/19/24
gabapentin 400 mg capsule 400 mg PO TID 01/19/24
methylprednisolone 4 mg tablet 6 mg PO DAILY 01/19/24
sertraline 100 mg tablet 100 mg PO DAILY 01/19/24
Review of Systems
-
History Source: Patient
Constitutional: Reports Fever, Weight Loss (wt loss with covid then gain ) and Chills
EENT: Reports No Symptoms
Respiratory: Reports Trouble Breathing (chronic with ILD)
Cardiac: Reports Chest Pain (at time )
Abdomen/GI: Reports Abdominal Pain, Nausea and Vomiting
: Reports Dark Urine
Musculoskeletal: Reports No Symptoms
Skin: Reports No Symptoms
Neurological: Reports Weakness
Endocrine: Reports No Symptoms
Hematologic/Lymphatic: Reports Bleeding
Vital Signs
Temp Pulse Resp BP Pulse Ox
99.7 F 81 22 112/57 95
01/20/24 06:17 01/20/24 03:25 01/20/24 03:25 01/20/24 03:25 01/20/24 03:25
Physical Exam
Exam
General: Well Developed, Well Nourished and Other (some distress with pain )
HEENT: Normocephalic and Other (jaundice )
Respiratory: Other (course lungs )
Cardiac: Regular Rhythm
GI: Soft, Tender (RUQ with some guarding) and Distended (minimal )
Musculoskeletal: No Clubbing and No Cyanosis
Skin: Warm and Dry
Neuro: Awake, Alert and AO x 3
Psych: Calm
Results
WBC 26.4 10^3/uL (4.8-10.8) H 01/19/24:
Hgb 13.0 g/dL (13.0-18.0) 01/19/24:
Hct 38.1 % (39.0-52.0) L 01/19/24:
MCV 86.2 fL (80.0-94.0) 01/19/24:
Plt Count 312 10^3/uL (130-400) 01/19/24:
Absolute Neuts (auto) 22.8 10^3/uL (1.4-6.5) H 01/19/24:
PT 16.7 Sec (11.4-14.6) H 01/19/24:
INR 1.37 01/19/24:
APTT 50.0 Sec (23.4-35.0) H 01/19/24:
Sodium 135 mmol/L (135-145) 01/19/24:
Potassium 4.3 mmol/L (3.5-5.1) 01/19/24:
Chloride 104 mmol/L (98-107) 01/19/24:
Carbon Dioxide 19 mmol/L (22-30) L 01/19/24:
BUN 16 mg/dl (9-20) 01/19/24:
Creatinine 0.8 mg/dL (0.7-1.3) 01/19/24:
Calcium 9.2 mg/dl (8.4-10.2) 01/19/24 22:28
Total Bilirubin 5.0 mg/dl (0.2-1.3) H D 01/19/24 22:28
AST 271 U/L (17-59) H 01/19/24 22:28
ALT 216 U/L (0-50) H 01/19/24 22:28
Alkaline Phosphatase 222 U/L (38-126) H 01/19/24 22:28
Lipase 45 U/L (23-300) 01/19/24 13:16
Diagnostic Image Results:
01/19/24 CXR Chronic fibrotic changes in both lungs. Increased mild patchy opacities bilaterally may represent progression of fibrosis versus superimposed mild pneumonitis/pneumonia in the appropriate clinical setting.
01/19/24 CT Abd/pelvis W Iv Cont CT findings are most compatible with acute cholecystitis.
Prior GI Procedures:
EGD: at [place] with GI bleed ? NGT trauma with ulcer
Colonoscopy: 09/2022 [facility] 5mm polyp AC, diverticulosis, IH bx TA
Assessment / Plan
-
Pt is a 53yo with hx prolonged hospital admission 11/2022- March 2023 with long covid requiring ecmo, trach, PE/DVT on Eliquis, cardiac arrest, GIB with cauterization,ICH, autoimmune vasculitis, HTN, GERD with onset of nausea, vomiting, abdominal
pain x 2 days. After admission noted with leukocytosis with WBC up to 26,400 and rise in LFT's to bili 6, AST 143, ALT 164, alk phos 170. Ct notable for acute cholecystitis. On admission Eliquis hold for possible cesar but noted overnight with
rapid response with increased pain and increased respirations with fever 102.8, Pt has been placed on Abx with cultures, MRI pending.
-RUQ pain concern for acute cholecystitis vs cholangitis
-increased LFT's
-leukocytosis/fever with concern for sepsis with hypotension this am
-PE/DVT on Eliquis prior to admission
other medical problems:
-interstitial lung disease with prior prolonged covid, ecmo, trach
-hx GI bleed ? ulcer from NGT trauma per pt recall
-hx ICH
-vasculitis
-colon polyps
-HTN
-GERD
PLAN:
etiology of symptoms with concern for acute cholecystitis vs cholangitis with rise in LFT's vs other
reviewed with surgery Dr. Silver for MRI -staff called to do BENNIE
if + stone will need ERCP with ? stent with recent Eliquis (01/19 am)vs perc cesar tube
NPO
cont abx on Levaquin/flagyl with multiple allergies
blood cx pending
still with some shortness of breath at rest - for pulm eval if intervention needed
for heme eval with AC on hold
pain control
reviewed with Dr. Mcclure with concern for sepsis/hypotension for transfer to IMU
reviewed with Dr. Drummond
updated
-
-
Thank you for consultation and allowing me to participate in the patient's care. Please call the mission support specialist GI physician during the after hours with any questions or concerns.
[2024-01-20 07:06] LABS: ALT (SGPT) 164 U/L (0-50); AST (SGOT) 143 U/L (17-59); Albumin 3.2 g/dl (3.5-5.0); Alkaline Phosphatase 170 U/L (38-126); Blood Urea Nitrogen 21 mg/dl (9-20); Calcium 8.6 mg/dl (8.4-10.2); Carbon Dioxide 24 mmol/L (22-30); Chloride 102 mmol/L (98-107); Direct Bilirubin 3.4 mg/dl (0.0-0.4); Estimated Creatinine Clearance > 125 ml/min; Glucose 123 mg/dl (70-99); HDL Cholesterol 38 mg/dl; LDL Cholesterol, Calculated 93 mg/dl; Potassium 4.5 mmol/L (3.5-5.1); Sodium 136 mmol/L (135-145); Total Cholesterol 144 mg/dl (50-199); Total Protein 5.6 g/dl (6.3-8.2); Triglyceride 68 mg/dl (10-149); Very Low Density Lipoprotein 13 mg/dl (0-30); eGFR > 60.00
[2024-01-20 07:39] LABS: Mean Platelet Volume 9.7 fL (7.4-10.4)
[2024-01-20 07:40] LABS: Platelet Count 244 10^3/uL (130-400)
--- NOTE | 2024-01-20 08:15 | PTCARENOTE ---
assumed care of pt, who is awake and alert but complaining of 9/10 pain in the abdomen. BP low, tachypneic. pt requesting pain meds. Attending ordering IV bolus. GI at bedside, MRI late AM. pt NPO.
[2024-01-20] MEDS: NEURONTIN 400 MG PO ×3 (08:46→21:38)
[2024-01-20] MEDS: ZOLOFT 100 MG PO (08:47)
[2024-01-20] MEDS: PEPCID 20 MG IV ×2 (08:47→19:27)
[2024-01-20] MEDS: MEDROL 6 MG PO (08:48)
[2024-01-20] MEDS: FLAGYL 500 MG 100 IV ×2 (08:49→16:49)
[2024-01-20] MEDS: DAPSONE 100 MG PO (08:49)
[2024-01-20] MEDS: NSS 500 IV ×2 (08:53→17:47)
--- NOTE | 2024-01-20 09:56 | CON.ONC ---
Impression
Impression
Acute cholecystitis
Acute choledocholithiasis/cholangitis
H/o DVT and PE on eliquis
H/o stroke
Plan
Plan
- Hold eliquis for 48 hours until surgery.
- Patient is scheduled for MRCP for presumed acute choledocholithiasis
- Can start with IV heparin postop since no past history if HIT
- Platelet count WNL, elevated absolute neutrophile due to infection
-Hb level 12.1
Patient History
History of Present Illness
53-year-old male complaining of nausea, vomiting since Saturday 2 days ago along with burning sensation in his chest.� He reports only having water today but did not seem to make it better or worse.� He denies fever, chills, chest pain, palpitations,
shortness breath, cough, diarrhea, urinary symptoms.� In the ER he was noted to have acute cholecystitis on CT of his abdomen and pelvis.� He is on oral Eliquis for history of DVT/PE while on ECMO nov 2022-jan 2023. He did take a dose of Eliquis
01/19/2024 in a.m. he has PMH influenza/COVID /ARDS /pneumonia requiring ECMO with prolonged hospital stay from November- March 18, 2023� DVT/PE while on ECMO on current Eliquis, cardiac arrest January 2023,'s CVA left frontal hemorrhagic
January 08, 2023, GI bleed requiring cauterization 2022, pneumonia requiring thoracentesis, prior autoimmune vasculitis, HTN,, GERD, neuropathy, ILD vs long COVID, COVID infection 2020 received antibodies, neuropathy bilateral feet and hands,
depression.
Past-Medical/Surgical History
Microscopic polyangiitis vasculitis
Interstitial lung disease vs long covid
Gastroesophageal reflux disease
Influenza/COVID /ARDS requiring ECMO March 2023, DVT/PE while on ECMO on current Eliquis,
Cardiac arrest 2022
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
GI bleed January 2023 requiring cauterization
�HTN
neuropathy hands and feet
depression
Past Surgical History: Reports Other (ecmo November 2022, pneumonia requiring thoracentesis, GI bleed, required cauterization during hospital stay January 2023)
Patient Medication
Medication Instructions Recorded Confirmed Last Taken Type
Pepcid 2 tab PO ONCE PRN stomach 01/19/24 01/19/24 01/19/24 History
discomfort
apixaban 5 mg tablet (Eliquis) 5 mg PO Q12H 01/19/24 01/19/24 Unknown History
ascorbic acid (vitamin C) 500 mg 500 mg PO DAILY 01/19/24 01/19/24 Unknown History
tablet (Vitamin C)
bismuth subsalicylate 262 mg 524 mg PO ONCE PRN stomach 01/19/24 01/19/24 01/19/24 History
tablet (Pepto-Bismol) discomfort
calcium carbonate 500 mg calcium 3,000 mg PO ONCE PRN stomach 01/19/24 01/19/24 01/19/24 History
(1,250 mg) chewable tablet discomfort
clonidine HCl 0.3 mg tablet 0.3 mg PO Q8H 01/19/24 01/19/24 Unknown History
dapsone 100 mg tablet 100 mg PO DAILY 01/19/24 01/19/24 Unknown History
famotidine 40 mg tablet 40 mg PO DAILY 01/19/24 01/19/24 Unknown History
gabapentin 400 mg capsule 400 mg PO TID 01/19/24 01/19/24 01/18/24 History
methylprednisolone 4 mg tablet 6 mg PO DAILY 01/19/24 01/19/24 Unknown History
sertraline 100 mg tablet 100 mg PO DAILY 01/19/24 01/19/24 Unknown History
Active Medications
Generic Name Dose Route Start Last Admin
Trade Name Freq PRN Reason Stop Dose Admin
Acetaminophen 650 mg 01/19/24 18:49 01/20/24 03:16
Acetaminophen 325 Mg Tablet PO 02/16/24 18:48 650 mg
Q4HPRN PRN Administration
mild pain/CHRISTENSEN/temp> 100.4F
Clonidine HCl 0.3 mg 01/19/24 20:00 01/20/24 08:09
Clonidine 0.3 Mg Tablet PO 02/16/24 19:59 Not Given
Q8 LAMONT
Dapsone 100 mg 01/20/24 08:00 01/20/24 08:49
Dapsone 100 Mg Tablet PO 02/17/24 07:59 100 mg
DAILY LAMONT Administration
Famotidine 20 mg 01/19/24 20:00 01/20/24 08:47
Famotidine 20 Mg/2 Ml Vial IV 02/16/24 19:59 20 mg
Q12 LAMONT Administration
Gabapentin 400 mg 01/19/24 22:00 01/20/24 08:46
Gabapentin 400 Mg Capsule PO 02/16/24 21:59 400 mg
TID LAMONT Administration
Hydromorphone HCl 0.5 mg 01/19/24 18:49 01/20/24 01:35
Hydromorphone 0.5 Mg/0.5 Ml Syringe IV 02/02/24 18:48 0.5 mg
Q4HPRN PRN Administration
mod pain
Hydromorphone HCl 1 mg 01/19/24 21:53 01/20/24 06:10
Hydromorphone 1 Mg/Ml Carpuject IV 02/02/24 21:50 1 mg
Q2HPRN PRN Administration
severe pain
Levofloxacin/Dextrose 500 mg in 100 mls @ 100 mls/hr 01/20/24 16:00
Levaquin IV
Q24H LAMONT
Metronidazole 100 mls @ 100 mls/hr 01/20/24 00:00 01/20/24 08:49
Flagyl 500 Mg IV 100 mls
Q8H LAMONT Administration
Sodium Chloride 1,000 mls @ 125 mls/hr 01/19/24 18:49 01/20/24 06:09
Nss IV 1,000 mls
.Q8H LAMONT Administration
Methylprednisolone 6 mg 01/20/24 08:00 01/20/24 08:48
Methylprednisolone 4 Mg Tablet PO 02/17/24 07:59 6 mg
DAILY LAMONT Administration
Midodrine 5 mg 01/20/24 09:12
Midodrine 5 Mg Tablet PO 02/17/24 09:11
Q4HPRN PRN
SBP<110
Ondansetron HCl 4 mg 01/19/24 18:49
Ondansetron 4 Mg/2 Ml Vial IV 02/16/24 18:48
Q6HPRN PRN
NAUSEA/VOMITING
Sertraline HCl 100 mg 01/20/24 08:00 01/20/24 08:47
Sertraline 100 Mg Tablet PO 02/17/24 07:59 100 mg
DAILY LAMONT Administration
Sodium Chloride 0 flush 01/20/24 09:00
Sodium Chloride 0.9% (Flush) Syringe IV 02/17/24 08:59
PER PROTOCOL LAMONT
Review of Systems
-
History Source: Patient
Physical Exam
-
Cardiology: Normal Sinus Rhythm
Pulmonary: Clear
GI: Tense
Labs
Lab Results
WBC 25.0 10^3/uL (4.8-10.8) H 01/20/24 06:29
RBC 4.04 10^6/uL (4.70-6.10) L 01/20/24 06:29
Hgb 12.1 g/dL (13.0-18.0) L 01/20/24 06:29
Hct 35.7 % (39.0-52.0) L 01/20/24 06:29
MCV 88.4 fL (80.0-94.0) 01/20/24 06:29
MCH 30.0 pg (27.0-31.0) 01/20/24 06:29
MCHC 33.9 g/dL (33.0-37.0) 01/20/24 06:
RDW 13.4 % (11.5-14.5) 01/20/24 06:29
Plt Count 244 10^3/uL (130-400) D 01/20/24 06:29
MPV 9.7 fL (7.4-10.4) 01/20/24 06:
Abs Immat Gran (auto) 0.2 10^3/uL (0-0.05) H 01/20/24 06:29
Absolute Neuts (auto) 21.7 10^3/uL (1.4-6.5) H 01/20/24 06:
Absolute Lymphs (auto) 1.2 10^3/uL (1.2-3.4) 01/20/24 06:
Absolute Monos (auto) 1.9 10^3/uL (0.1-0.6) H 01/20/24 06:
Absolute Eos (auto) 0.0 10^3/uL (0-0.7) 01/20/24 06:
Absolute Basos (auto) 0.0 10^3/uL (0-0.2) 01/20/24:
Immature Gran % 0.8 % (0-0.5) H 01/20/24 06:
Neutrophils % 86.6 % (42.2-75.2) H 01/20/24 06:
Lymphocytes % 4.8 % (20.5-51.1) L 01/20/24 06:
Monocytes % 7.5 % (1.7-9.3) 01/20/24 06:
Eosinophils % 0.1 % (0-6) 01/20/24:
Basophils % 0.2 % (0-2) 01/20/24 06:
Creatinine 0.8 mg/dL (0.7-1.3) 01/20/24 06:
Vital Signs
Vital Signs
Temp Pulse Resp BP Pulse Ox
99.5 F 77 19 98/61 94
01/20/24 07:00 01/20/24 07:00 01/20/24 07:00 01/20/24 07:00 01/20/24 07:00
--- NOTE | 2024-01-20 12:17 | W.PN.UPDATE ---
Update Note
Progress Note Update
MRCP with tiny 1 mm stone in inferior CBD at level of ampulla. No duct dilation, acute cholecystitis. Reviewed with Dr. Drummond, Dr. López and surgery team. Will proceed with perc cesar tube today and follow need for ERCP at later date. Updated pt,
family, hospitalist, and IR.
--- NOTE | 2024-01-20 12:35 | PTCARENOTE ---
Patient received from 3W, at bedside. Patient was able to stand and pivot to IMU bed. In obvious pain, just received 0.5mg Dilaudid prior to arrival. Currently on 4L N/C, Room Air at baseline. Shallow breaths. BP stable. Oriented to room.
Call mariano in reach.
[2024-01-20] MEDS: ProAmatine 5 MG PO ×2 (12:44→18:27)
--- NOTE | 2024-01-20 14:44 | PTCARENOTE ---
Patient to IR
[2024-01-20] MEDS: LEVAQUIN 100 IV (16:49)
[2024-01-20] MEDS: ZOFRAN 4 MG IV (17:21)
--- NOTE | 2024-01-20 17:30 | PTCARENOTE ---
Patient with episode of Rigors. Temp 101, SaO2 85% on NRB +10L Midflow N/C, shivering. Hospitalist made aware. Dilaudid 0.5mg STAT given along with PRN dose that was already administered. 500mL NSS bolus also given. Ice packs placed. GI and IR
physicians made aware. Call mariano in reach.
--- NOTE | 2024-01-20 18:37 | CON.PUL ---
Consultation
Consultation Request
Date/Time Consultation Requested: 01-20-24
Date/Time Consultation Performed: 01-20-24
Requesting Provider: Hospitalist
Performing Provider: Dr Dudley
Medical History
-
Chief Complaint: abd pain
History of Present Illness:
Mr Errol Angela is a 53/M adm 01-19 with acute abd pain, work up revealed acute cholecystitis, seen by Azalea Red and GI, candidate for perc cholecystostomy, procedure performed with no issue 01-20.
Seen at IMU, recovering well from procedure
Past Medical History
Past Medical History: Other (see A&P for PMH/PSH)
Social History
Tobacco: Non-smoker
Alcohol: None
Drug: None
Personal:
Living: With Family
Family History
Family History: Reviewed & Not Pertinent
Allergies / Home Medications
Allergies
Allergy/AdvReac Type Severity Reaction Status Date / Time
vancomycin Allergy Severe Anaphylaxis/throat Verified 01/19/24 12:44
irritation
latex Allergy swelling - Verified 01/19/24 12:44
long skin
Penicillins Allergy Hives Verified 01/19/24 12:44
Sulfa (Sulfonamide Allergy Rash Verified 01/19/24 12:44
Antibiotics)
venom-honey bee Allergy swelling - Verified 01/19/24 12:44
[bee venom (honey bee)] throat
tightness
Home Medications
Medication Instructions Recorded Confirmed Last Taken Type
Pepcid 2 tab PO ONCE PRN stomach 01/19/24 01/19/24 01/19/24 History
discomfort
apixaban 5 mg tablet (Eliquis) 5 mg PO Q12H Blood Clot 01/19/24 01/19/24 Unknown History
Prevention/Tx
ascorbic acid (vitamin C) 500 mg 500 mg PO DAILY Supplement 01/19/24 01/19/24 Unknown History
tablet (Vitamin C)
bismuth subsalicylate 262 mg 524 mg PO ONCE PRN stomach 01/19/24 01/19/24 01/19/24 History
tablet (Pepto-Bismol) discomfort
calcium carbonate 500 mg calcium 3,000 mg PO ONCE PRN stomach 01/19/24 01/19/24 01/19/24 History
(1,250 mg) chewable tablet discomfort
clonidine HCl 0.3 mg tablet 0.3 mg PO Q8H blood pressure 01/19/24 01/19/24 Unknown History
dapsone 100 mg tablet 100 mg PO DAILY Autoimmune Disorder 01/19/24 01/19/24 Unknown History
famotidine 40 mg tablet 40 mg PO DAILY Gastrointestinal 01/19/24 01/19/24 Unknown History
Issue
gabapentin 400 mg capsule 400 mg PO TID Pain 01/19/24 01/19/24 01/18/24 History
methylprednisolone 4 mg tablet 6 mg PO DAILY Anti-Inflammatory 01/19/24 01/19/24 Unknown History
sertraline 100 mg tablet 100 mg PO DAILY depression 01/19/24 01/19/24 Unknown History
Review of Systems
-
History Source: Patient
All other systems: Negative unless noted
Abdomen/GI: Abdominal Pain
Neuro: Weakness
Vitals / Labs / Diagnostic Testing
Vital Signs
Temp Pulse Resp BP Pulse Ox
101.1 F H 107 24 108/71 93
01/20/24 17:30 01/20/24 18:27 01/20/24 16:15 01/20/24 18:27 01/20/24 16:00
Lab Data
01/20/24 06:29
01/20/24 06:29
Laboratory Results
01/19/24
22:28
PT 16.7 H
INR 1.37
APTT 50.0 H
Microbiology
01/20/24 15:35 Bile Gram Stain - Preliminary
01/19/24 23:00 Nasal Swab Influenza Types A & B (NEIL) - Final
Negative for Influenza A & B, NAAT
Negative results must be combined with clinical observations
and patient history.
Nucleic Acid Amplification test (NAAT)performed on the
[employer] NOW platform.
Diagnostic Testing:
Physical Exam
-
HEENT: Normocephalic and Moist Mucous Membranes
Cardiovascular: Regular Rhythm, Murmur (n), Peripheral Edema (n), Calf Tenderness and JVD (n)
Respiratory: Rales (subtle basilar velcro) and Non-Labored Respirations
GI: Soft, Non Distended, Tender and Other (RUQ cholecystostomy)
Neurology: Awake, AO x 3 and No Motor Deficits
Skin: Dry
General: Respiratory Distress (n)
Assessment
-
Assessment:
Mr Errol Angela is a 53/M adm 01-19 with acute abd pain, work up revealed acute cholecystitis, seen by [facility]a Red and GI, candidate for perc cholecystostomy, procedure performed with no issue 01-20. Seen at IMU, recovering well from procedure
Impression:
Acute abdomen
Acute cholecystitis
MRCP: 1 mm choledocholithiasis
S/p percutaneous cholecystostomy 01-20
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
Influenza/COVID/ARDS/PNA requiring ECMO prolonged Hospital Stay Nov 2022-March 2023, complicated w/ PE/DVT, cardiac arrest, ICH, GI. On apixaban
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
GIB Jan 2023, required cauterization
Influenza A, adm 10-29 to [id number] 2021
COVID pneumonia, adm 17 to 24 , d/c on O2 2L
Breakthrough case in vaccinated Pfizer/J&J
2 weeks onset of symptoms, COVID + 10/13/22
Did not receive Paxlovid
Diffuse GGOs consistent with COVID PNA
Received remdesivir and dexamethasone
Completed 5 d atbs (doxycycline) through 10-23
Checked PR2/MPO negative, IgG 496 (10-24)
Chronic immunosuppression
History of microscopic polyangiitis, on chronic methylprednisone 6 mg qd, past h/o use of rituxan
Follows with Rheum Dr. Velázquez ([phone])
ILD: multifactorial, bilateral fibrotic changes, traction bronchiectasis
GERD
Restrictive lung disease
History of pneumonia
Mixed simple and mucopurulent chronic bronchitis
Nonsmoker
Depression
Medical marijuana
Plan:
Continue O2 protocol
Was on home O2 2LPM after COVID pneumonia in Oct 2023
Did not require to continue O2 as recovered well few m after above
Reportedly told to return to O2 at 2L for the last 3-4 m
Has h/o ILD with fibrotic changes
Evaluate O2 needs PTD
S/p perc cholecystostomy 01-20
Continue empiric atbs: levofloxacin/metronidazole IV
Follow bile cx and blood cxs
GI and Sx following closely
IS
Asp precs
DVT prophylaxis: was on AC COORDINATING PRODUCER (apixaban, h/o VTE), return to full AC once OK by Sx
OOB as tolerated
Pain mgmt
Follow with Dr Gonzalez at [facility] and Dr Henry ([facility])
Follow with Rheum Dr Velázquez, on dapsone(?)as rec by Rheum
From PJP prophylaxis perspective does not need dapsone as dose of MP is very low and below threshold for prophylaxis
D/w Mr Angela and his at bedside 01-20, all questions answered to satisfaction
Diagnostic Data
CXR 01-19-24: no change in mild basilar fibrotic changes
Chest CTA 10/18/22
Comparison examination: 08/21/2022
FINDINGS:
There is no pulmonary embolism.
There is no aortic dissection.
There is no pneumothorax.
There are no abnormal pleural or parenchymal masses.
There is no pleural effusion.
There are patchy ground-glass opacities throughout all lobes. This is moderate. This is most prominent in the lower lobes and left upper lobe.
The mediastinum is normal.
There is no hilar or mediastinal lymphadenopathy.
There is no axillary lymphadenopathy.
No significant osseous abnormalities are demonstrated.
There is a small hiatal hernia.
The osseous structures show mild degenerative disease.
IMPRESSION: No evidence of pulmonary embolus.
Moderate bilateral patchy ground-glass opacities as described above concerning for developing pneumonia. This pattern is commonly seen with Covid 19 type pneumonia.
document embedded image
HRCT 08-21, c/w CT April 2021
COMPARISON STUDY: CT chest 04/27/2021
Technique: Noncontiguous 1 mm slices and 5 mm contiguous slices were obtained through the lungs to survey the lung parenchyma. Supine inspiratory and expiratory images were obtained.
FINDINGS:
* Mild peripheral interstitial thickening throughout the mid to lower lung zones bilaterally.
* No significant ground glass opacities, centrilobular nodules, emphysematous changes, bronchiectasis, fibrosis/honeycombing. No pleural effusion
* Mild to moderate coronary artery calcifications. Fusiform ectasia of the ascending thoracic aorta measuring up to 4.0 cm.
IMPRESSION:
1. Mild peripheral interstitial thickening throughout the mid to lower lung zones bilaterally which may be on the basis of mild/developing interstitial lung disease, not otherwise specified. No fibrosis.
2. Fusiform ectasia of the ascending thoracic aorta measuring up to 4.0 cm.
document embedded image
[2024-01-21] VITALS (15 sets, daily range): BP systolic 97–162; BP diastolic 68–85; PULSE 72–74; O2SAT 94; BMI 27.7
[2024-01-21] MEDS: ZOFRAN 4 MG IV ×2 (00:08→10:45)
[2024-01-21] MEDS: DILAUDID 1 MG IV ×6 (02:03→21:06)
[2024-01-21 03:35] LABS: % Basophils 0.2 % (0-2); % Immature Granulocytes 0.6 % (0-0.5); % Lymphocytes 3.6 % (20.5-51.1); % Monocytes 6.3 % (1.7-9.3); % Neutrophils 89.3 % (42.2-75.2); Absolute Basophils 0.1 10^3/uL (0-0.2); Absolute Immature Granulocytes 0.1 10^3/uL (0-0.05); Absolute Lymphocytes 0.8 10^3/uL (1.2-3.4); Absolute Monocytes 1.5 10^3/uL (0.1-0.6); Absolute Neutrophils 20.8 10^3/uL (1.4-6.5); Hematocrit 32.3 % (39.0-52.0); Hemoglobin 10.7 g/dL (13.0-18.0); Mean Corp Hgb Conc. 33.1 g/dL (33.0-37.0); Mean Corpuscular Hgb 30.7 pg (27.0-31.0); Mean Corpuscular Volume 92.6 fL (80.0-94.0); Mean Platelet Volume 9.5 fL (7.4-10.4); Nucleated Red Blood Cells % 0 % (-); Platelet Count 234 10^3/uL (130-400); Red Blood Cell Count 3.49 10^6/uL (4.70-6.10); Red Cell Dist. Width 13.9 % (11.5-14.5); White Blood Cell Count 23.3 10^3/uL (4.8-10.8)
[2024-01-21 04:03] LABS: ALT (SGPT) 120 U/L (0-50); AST (SGOT) 64 U/L (17-59); Albumin 3.1 g/dl (3.5-5.0); Alkaline Phosphatase 166 U/L (38-126); Blood Urea Nitrogen 20 mg/dl (9-20); Carbon Dioxide 21 mmol/L (22-30); Chloride 110 mmol/L (98-107); Estimated Creatinine Clearance 115 ml/min; Glucose 91 mg/dl (70-99); Potassium 4.8 mmol/L (3.5-5.1); Sodium 137 mmol/L (135-145); Total Bilirubin 5.6 mg/dl (0.2-1.3); Total Protein 5.3 g/dl (6.3-8.2); eGFR > 60.00
--- NOTE | 2024-01-21 05:37 | PTCARENOTE ---
No acute events overnight. Afebrile. Remains on 10 liters midflow. PRN dilaudid given for pain every 2 hours overnight. Right cesar drain with brown drainage.
[2024-01-21] MEDS: NSS 1000 IV ×3 (06:03→23:29)
--- NOTE | 2024-01-21 07:29 | W.PN.HOSP.TC ---
Today's Communication/Plan
-
diet as per GI
ID eval
continue levaquin flagyll for now, consider switch to meropenem if patient's fever returns or patient develops signs worsening infection, avoiding zosyn d/t pcn allergy
pain control
headach control
follow cultures
monitor LFTs.
start hep gtt
wean oxygen supplementation as tolerated
Assessment / Plan
Assessment / Plan
Physical Exam
General:�Mild moderat distress d/t headache, jaundice
HEENT:�NormoCephalic, Scleral icterus, pinpoint pupils b/l, [place] Conjunctivae and No Ptosis
Respiratory:�Clear; No Wheezes, Rales or Rhonchi
Cardiac:�S1/S2 and Regular Rhythm; No Murmur, Rub, Gallop or Peripheral Edema
GI:�Soft, Normal Bowel Sounds, and Tender Midepigastric, upper left and right quadrant
Musculoskeletal:�No Clubbing, No Cyanosis and No Edema
Neuro:�AO x 3
Psych:�Calm
53M hx Influenza/COVID/ARDS/PNA requiring ECMO prolonged Hospital Stay Nov 2022-March 2023 complicated w/ PE/DVT, CVA no residual symptoms, cardiac arrest stroke GIB cauterization, hx autoimmune vasculitis, hypertension, GERD, Neuropathy, ILD vs
Long COVID p/w N/V/abd pain 2 days.� CT consistent with acute cholecystitis.� Initial VSS stable. Patient however rapid response overnight soon following admission due to fever tachypnea intractable pain. Eventually pain control improved with
increased freq dose dilaudid. Overnight evaluation however concerning for biliary obstruction cholangitis worsening LFTs and Tbili elevation to 5. VSS otherwise stable following morning though low normotensive.
#Acute cholecystitis
#Likely Biliary Obstruction Cholangitis causing Liver Dysfunction bilirubinemia
#Leukocytosis
#Severe sepsis Fever Tachynea Tachycardia
-transferred to IMU for closer monitoring
-Monitor LFTs improving though Bili remains elevated
-NPO as per GI
-IVF NSS 100 cc/hr
-HOLD Eliquis last dose 01/19/2020 4 AM, Hematology eval appreciated as below
-follow cultures
-MRCP appreciated possible gall stone inferior CBD no intra/extrahepatic dilation
-IR eval appreciated per cesar placed 01/20 post-procedure complicated with rigors tachypnea tachypneaa pain fever, eventually resolved with Tylenol IVF bolus 500 cc and additional prn Dilaudid increased oxygen supplementation
-Patient since improved in morning
- cont Iv levaquin, flagyl, consider switch to meropenem if fever returns/persists/pt worsens (avoiding zosyn due to hx pcn allergy)
-ID eval requested
-Surgery Eval appreciated Cholecystostomy tube to remain in place for 4-6 weeks, outpatient discussion regarding cholecystectomy
-GI eval appreciated diet advanced to clear liquid, ERCP on hold for now given clinical and LFT improvement
-IV Zofran prn
-cont IV Dilaudid as needed pain
�� ��� CT abdomen pelvis: Acute cholecystitis
�� � ��CXR:�Chronic fibrotic changes both lungs.� Increased mild patchy opacities bilaterally may be progression of fibrosis versus mild pneumonitis
#Headache 01/21 refractory to Tylenol
Headache cocktail Benadryl Compazine Toradol given with improvement
#History of ECMO [id number] 17, 2023 2/2 ARDS/FLu /Covid/PNA
#hx DVT/PE while on ECMO
home Eliquis on hold as above
Hematology eval appreciated, though provoked event, anticoagulation is lifelong given severity of even, hep gtt started 01/21
# Cardiac arrest during previous hospital stay
#GERD
#Hx GI bleed Required cauterization during hospital stay January 2023
-home famotidine converted to IV during acute illness current hospitalization GI ppx
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
-No residual deficits
#ILD vs long COVID on chronic steroids
# Uses [place] O2 with exercise
#Hx COVID 2020 received antibodies
#Acute hypoxic insufficiency/failure requiring 4L at rest, increased to midflow 10L d/t rigors post- per cesar as noted above, since weaned down to 4L at rest
-Continue methylprednisolone 6 mg daily,
-Continue dapsone 100 mg daily
-jasbir nugent appreciated encourage incentive spirometer use
-wean O2 supplementation as tolerated
#hx HTN
#currently low normotensive
hold clonidine
cont IVF support
midodrine scheduled and prn started
#Hx [place] syndrome
#Peripheral neuropathy hands and feet
-Continue gabapentin for 100 mg 3 times daily
#Depression
-Continue Zoloft 100 mg daily
dvt prop SCD
gi ppx famotidine
Full code�
Discussed with patient and his ArleneELOISE Pulm, Surgery Nurse
I spent a total of 60 minutes with the patient or on the floor. More than 50% of this time involved counseling and coordination of care.
Anticipated Discharge: > 48 hours
Subjective/Interval History
-
Date of Service: January 21, 2024
Vitals improved fever resolved abdomen pain signficantly improved. Reporting headache on high oxygen feeling anxious possibly due to oxygen level. Weaned from 8L to 4L doing well saturating mid 90s denies shortness of breath reports some relief.
Reports headache w associated nausea Tylenol no improvement. Some improvement nausea.
Objective Data
-
Labs:
Laboratory Results
01/21/24
03:22
WBC 23.3 H
Hgb 10.7 L
Hct 32.3 L
Plt Count 234
Sodium 137
Potassium 4.8
Chloride 110 H
Carbon Dioxide 21 L
BUN 20
Creatinine 0.9
Glucose 91
Calcium 8.0 L
Total Bilirubin 5.6 H
AST 64 H
ALT 120 H
Alkaline Phosphatase 166 H
Vital Signs:
Vital Signs
Temp Pulse Resp BP Pulse Ox
97.7 F 77 12 108/68 94
01/21/24 03:53 01/21/24 06:15 01/21/24 06:15 01/21/24 06:15 01/21/24 06:15
I&O
01/20/24 01/21/24 01/22/24
06:59 06:59 06:59
Intake Total 1140 / 1140 2825 / 2825
Output Total 200 / 200 780 / 780
Balance 940 / 940 2044 / 2044
[2024-01-21] MEDS: FLAGYL 500 MG 100 IV ×4 (08:13→23:29)
[2024-01-21] MEDS: PEPCID 20 MG IV ×2 (08:14→19:51)
[2024-01-21] MEDS: ZOLOFT 100 MG PO (08:16)
[2024-01-21] MEDS: MEDROL 6 MG PO (08:16)
[2024-01-21] MEDS: NEURONTIN 400 MG PO ×3 (08:16→21:04)
[2024-01-21] MEDS: ProAmatine PO ×3 (08:17→17:58)
[2024-01-21] MEDS: DAPSONE 100 MG PO (08:17)
[2024-01-21] MEDS: TYLENOL 650 MG PO (08:23)
--- NOTE | 2024-01-21 08:33 | W.PN.GS2 ---
Today's Communication / Plan
-
-- NPO, IVF
-- Zosyn
-- Would continue to hold Eliquis until sure no further procedures needed, OK for Hep gtt from surgical perspective
-- Cholecystostomy tube to remain in place for 4-6 weeks, outpatient discussion regarding cholecystectomy
Assessment / Plan
-
Patient is a 53 yo M p/w choledocholithiasis and cholangitis vs acute cholecystitis
IR cholecystostomy tube (01/20): no opacification of cystic duct or CBD
Febrile overnight
Leukocytosis, bilirubin and LFTs down slightly
-- NPO, IVF
-- Zosyn
-- Would continue to hold Eliquis until sure no further procedures needed, OK for Hep gtt from surgical perspective
-- GI consulted, holding on ERCP for now, trend labs
-- Cholecystostomy tube to remain in place for 4-6 weeks, outpatient discussion regarding cholecystectomy
Subjective Data
-
Date of Service: January 21, 2024
Slightly better after IR tube placement yesterday, complains of continued abdominal pain this AM. Febrile overnight postprocedure, currently afebrile. Nauseous, no vomiting.
Objective Data
-
Intake and Output
01/20/24 01/21/24 01/22/24
06:59 06:59 06:59
Intake Total 1140 / 1140 2825 / 2825
Output Total 200 / 200 780 / 780 200 / 200
Balance 940 / 940 2045 / 2045 -200 / -200
Intake:
Oral fluids 240 / 240 325 / 325
IV fluids (Total) 800 / 800 2000 / 1999
IV piggybacks 100 / 100 500 / 500
Output:
Drain Output (Total)
Right Upper Abdomen
Urine, Voided 200 / 200 575 / 575 200 / 200
Other:
Number of approximated MODERATE 1
amounts of urine
Vital Signs
Temp Pulse Resp BP Pulse Ox
97.7 F 77 12 108/68 94
01/21/24 03:53 01/21/24 06:15 01/21/24 06:15 01/21/24 06:15 01/21/24 06:15
Lab Results
01/21/24 03:22
01/21/24 03:22
Calcium 8.0 mg/dl (8.4-10.2) L 01/21/24 03:22
Total Bilirubin 5.6 mg/dl (0.2-1.3) H 01/21/24 03:22
Direct Bilirubin 3.4 mg/dl (0.0-0.4) H 01/20/24 06:29
AST 64 U/L (17-59) H 01/21/24 03:22
ALT 120 U/L (0-50) H 01/21/24 03:22
Alkaline Phosphatase 166 U/L (38-126) H 01/21/24 03:22
Total Protein 5.3 g/dl (6.3-8.2) L 01/21/24 03:22
Albumin 3.1 g/dl (3.5-5.0) L 01/21/24 03:22
Physical Exam
-
Gen: uncomfortable
Skin: jaundice
Abd: soft, tender within upper abdomen, distended, non-peritoneal, IR drain with bloody brown bile, insertion site c/d/i
--- NOTE | 2024-01-21 09:23 | W.PN.GI.CBS2 ---
Today's Communication / Plan
-
Blood culture today
Add miralax
Adv to full liquid diet
Monitor biliary fluid output and LFTs
Will follow with you
Assessment / Plan
-
Pt is a 53yo with hx prolonged hospital admission 11/2022- March 2023 with long covid requiring ecmo, trach, PE/DVT on Eliquis, cardiac arrest, GIB with cauterization,ICH, autoimmune vasculitis, HTN, GERD with onset of nausea, vomiting, abdominal
pain x 2 days. After admission noted with leukocytosis with WBC up to 26,400 and rise in LFT's to bili 6, AST 143, ALT 164, alk phos 170. Ct notable for acute cholecystitis. On admission Eliquis hold for possible cesar but noted overnight with
rapid response with increased pain and increased respirations with fever 102.8, Pt has been placed on Abx with cultures, MRI pending.
Impression:
-RUQ pain concern for acute cholecystitis vs cholangitis
-increased LFT's
-leukocytosis/fever with concern for sepsis with hypotension this am
-PE/DVT on Eliquis prior to admission
-interstitial lung disease with prior prolonged covid, ecmo, trach
-hx GI bleed ? ulcer from NGT trauma per pt recall
-hx ICH
-vasculitis
-colon polyps
-HTN
-GERD
Plan:
- s/p IR perc drain 01/20
- Monitor output
- C/w abx
- Repeat blood cultures today given fever yesterday
- Appreciate surgical recs
- Agree with holding oral anticoagulation. Ok to start heparin gtt if indicated per primary team
- Serial LFT
- Advance to FLD
- Start miralax
Will follow with you
Subjective
Subjective
Date of Service: January 21, 2024
He states abd pain much improved. Denies nausea/vomiting. Wants diet advancement
Objective
Data Reviewed
Laboratory Data:
Laboratory Results
01/21/24 03:22
01/21/24 03:22
Laboratory Results
PT 16.7 Sec (11.4-14.6) H 01/19/24 22:28
INR 1.37 01/19/24 22:28
APTT 50.0 Sec (23.4-35.0) H 01/19/24 22:28
Total Bilirubin 5.6 mg/dl (0.2-1.3) H 01/21/24 03:22
AST 64 U/L (17-59) H 01/21/24 03:22
ALT 120 U/L (0-50) H 01/21/24 03:22
Alkaline Phosphatase 166 U/L (38-126) H 01/21/24 03:22
Lipase 45 U/L (23-300) 01/19/24 13:16
Vital Signs and I&O:
Vital Signs
Temp Pulse Resp BP Pulse Ox
98.2 F 75 11 121/74 94
01/21/24 07:51 01/21/24 08:00 01/21/24 08:00 01/21/24 08:00 01/21/24 08:31
I&O
01/20/24 01/21/24 01/22/24
06:59 06:59 06:59
Intake Total 1140 / 1140 2825 / 2825
Output Total 200 / 200 780 / 780 200 / 200
Balance 940 / 940 2045 / 2045 -200 / -200
Physical Exam
Physical Exam
GEN: No acute distress, conversant, pleasant
HEENT: anicteric, extraocular movements intact, clear oropharynx without exudates
GI: soft, obese -distended, not tender to palpation, normal active bowel sounds, no hepatosplenomegaly
EXT: warm, well perfused, trace edema bilaterally
NEURO: AAOx3, non-focal
--- NOTE | 2024-01-21 10:33 | W.PN.ONC ---
Addendum entered and electronically signed by Patsy Tirado MD 01/21/24 16:09:
Agree w/ A&P as below
Original Note:
Today's Communication / Plan
-
01/21 Hgb 10.7
Transfuse as needed to maintain Hgb >7
CBC w/ diff daily
Urinalysis ordered
Reticulocyte count added
Monitor biliary output
Supportive care
Holding Eliquis until no further procedures are planned
Recommend resuming AC with heparin gtt 12-24 hours after surgery assuming hemostasis with transition back to home Eliquis dose prior to discharge.
We will continue to follow
Impression
Impression
Acute cholecystitis
Acute choledocholithiasis/cholangitis
IR cholecystostomy tube (01/20/24)
Leukocytosis
Fevers
Hx DVT/PE on Eliquis
Hx CVA
Subjective/Objective
Subjective/Objective
Patient is resting in bed. He complains of acute headache unrelieved by Tylenol and intermittent nausea. Denies pain at tube site.
Vital Signs:
Vital Signs
Temp Pulse Resp BP Pulse Ox
98.2 F 75 11 121/74 94
01/21/24 07:51 01/21/24 08:00 01/21/24 08:00 01/21/24 08:00 01/21/24 08:31
physical exam:
aaox3, pleasant, jaundice
HRR, lungs dim, 6L nasal cannula
hypoactive bowel sounds
RUQ perc cesar tube with dark bilious output
urinal with dark je/blood-tinged urine
Lab Results:
Laboratory Data
WBC 23.3 10^3/uL (4.8-10.8) H 01/21/24 03:22
Hgb 10.7 g/dL (13.0-18.0) L 01/21/24 03:22
Plt Count 234 10^3/uL (130-400) 01/21/24 03:22
PT 16.7 Sec (11.4-14.6) H 01/19/24 22:28
INR 1.37 01/19/24 22:28
APTT 50.0 Sec (23.4-35.0) H 01/19/24 22:28
eGFR > 60.00 01/21/24 03:22
01/19/24 CT abd/pelvis: CT findings are most compatible with acute cholecystitis
01/20/24: Percutaneous drainage: Return of dark brown blood-tinged bile from the gallbladder with placement, sample sent for microbiology. No opacification of the distal cystic duct or the common bile duct with contrast injection. Satisfactory
position of percutaneous cholecystostomy tube post placement. Ultrasound and fluoroscopically guided percutaneous cholecystostomy tube placement as described.
01/20/24 Abdominal MRI/MRCP: Possible tiny 1 mm choledocholithiasis in the inferior common bile duct at the level of the ampulla. No intrahepatic or extrahepatic bile duct dilatation. Acute cholecystitis.
[2024-01-21] MEDS: TORADOL 30 MG IV (11:28)
[2024-01-21] MEDS: BENADRYL 25 MG IV ×2 (11:28→19:50)
[2024-01-21] MEDS: COMPAZINE 10 MG IV ×2 (11:29→19:50)
--- NOTE | 2024-01-21 11:36 | CM ---
CM met with pt and spouse bedside
They resides in a multi-level home with 1 TIFFANY
14 steps up to 2nd floor bed and bathroom
Pt is independent with his ADLs
Denies use of DMEs and no current home O2 needs but has home O2 set up/[employer] from past medical issues
Pt has concentrators on each floor of home with capacity to 10 L- he has a [employer] up to 5L as well
Pt has hx with [facility] and they are preferred provider
PCP- Jabier Vela
Rx- [facility] [address]
Plan for perc cesar drain to remain on dc
VN recommended by PT
Referral made to [facility] and pending
Discharge Disposition- home with VN
--- NOTE | 2024-01-21 11:45 | W.PN.PUL3 ---
Today's Communication / Plan
-
O2
Atbs
Asp precs
IS
AC
Assessment
-
Assessment:
Mr Errol Angela is a 53/M adm 01-19 with acute abd pain, work up revealed acute cholecystitis, seen by [facility] and GI, candidate for perc cholecystostomy, procedure performed with no issue 01-20. Seen at IMU, recovering well from procedure
Impression:
Acute abdomen
Acute cholecystitis
MRCP: 1 mm choledocholithiasis
S/p percutaneous cholecystostomy 01-20
Conditions present [employer]:
Influenza/COVID/ARDS/PNA requiring ECMO prolonged Hospital Stay Nov 2022-March 2023, complicated w/ PE/DVT, cardiac arrest, ICH, GI. On apixaban
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
GIB Jan 2023, required cauterization
Influenza A, adm 10-29 to [id number] 2022
COVID pneumonia, adm 10-18 to , d/c on O2 2L
Breakthrough case in vaccinated Pfizer/J&J
2 weeks onset of symptoms, COVID + 10/13/22
Did not receive Paxlovid
Diffuse GGOs consistent with COVID PNA
Received remdesivir and dexamethasone
Completed 5 d atbs (doxycycline) through 10-23
Checked PR2/MPO negative, IgG 496 (10-24)
Chronic immunosuppression
History of microscopic polyangiitis, on chronic methylprednisone 6 mg qd, past h/o use of rituxan
Follows with Rheum Dr. Velázquez ([phone])
ILD: multifactorial, bilateral fibrotic changes, traction bronchiectasis
GERD
Restrictive lung disease
History of pneumonia
Mixed simple and mucopurulent chronic bronchitis
Nonsmoker
Depression
Medical marijuana
Plan:
Continue O2 protocol
Was on home O2 2LPM after COVID pneumonia in Oct 2023
Did not require to continue O2 as recovered well few m after above
Reportedly told to return to O2 at 2L for the last 3-4 m
Has h/o ILD with fibrotic changes
Evaluate O2 needs PTD
S/p perc cholecystostomy 01-20
Continue empiric atbs: levofloxacin/metronidazole IV
Follow bile cx and blood cxs: pending
GI and Sx following closely
IS encouraged
Asp precs, keep HOB elevated at least 30 degree and as higher as tolerated
DVT prophylaxis: was on AC [employer] (apixaban, h/o VTE), return to full AC once OK by Sx, can start IV heparin nomogram now, d/w Dr Mcclure
OOB as tolerated
Pain mgmt
Follow with Dr Gonzalez at [facility] and Dr Henry ([facility])
Follow with Rheum Dr Velázquez, on dapsone(?)as rec by Rheum
From PJP prophylaxis perspective does not need dapsone as dose of MP is very low and below threshold for prophylaxis
D/w Mr Angela and his at bedside , all questions answered to satisfaction
Diagnostic Data
CXR 01-19-24: no change in mild basilar fibrotic changes
Chest CTA 10/18/22
Comparison examination: 08/21/2022
FINDINGS:
There is no pulmonary embolism.
There is no aortic dissection.
There is no pneumothorax.
There are no abnormal pleural or parenchymal masses.
There is no pleural effusion.
There are patchy ground-glass opacities throughout all lobes. This is moderate. This is most prominent in the lower lobes and left upper lobe.
The mediastinum is normal.
There is no hilar or mediastinal lymphadenopathy.
There is no axillary lymphadenopathy.
No significant osseous abnormalities are demonstrated.
There is a small hiatal hernia.
The osseous structures show mild degenerative disease.
IMPRESSION: No evidence of pulmonary embolus.
Moderate bilateral patchy ground-glass opacities as described above concerning for developing pneumonia. This pattern is commonly seen with Covid 19 type pneumonia.
document embedded image
HRCT 08-21, c/w CT April 2021
COMPARISON STUDY: CT chest 04/27/2021
Technique: Noncontiguous 1 mm slices and 5 mm contiguous slices were obtained through the lungs to survey the lung parenchyma. Supine inspiratory and expiratory images were obtained.
FINDINGS:
* Mild peripheral interstitial thickening throughout the mid to lower lung zones bilaterally.
* No significant ground glass opacities, centrilobular nodules, emphysematous changes, bronchiectasis, fibrosis/honeycombing. No pleural effusion
* Mild to moderate coronary artery calcifications. Fusiform ectasia of the ascending thoracic aorta measuring up to 4.0 cm.
IMPRESSION:
1. Mild peripheral interstitial thickening throughout the mid to lower lung zones bilaterally which may be on the basis of mild/developing interstitial lung disease, not otherwise specified. No fibrosis.
2. Fusiform ectasia of the ascending thoracic aorta measuring up to 4.0 cm.
document embedded image
Subjective Data
-
Date of Service:
Date of Service: January 21, 2024
Chief Complaint: Pulmonary Follow Up
Subjective:
No major events overnight
Migraine today, n/v
Incisional pain
Review of Systems
General: Fever (latest 101.1 at 5:30 pm yesterday), Sweats (n), Chills (n) and Satisfactory Appetite (n)
HEENT: Epistaxis (n) and Dysphagia (n)
Cardiopulmonary: Dyspnea (n), Cough (n), Chest Pain and Hemoptysis (n)
GI: Abdominal Pain (incisional), Nausea and Vomiting
Neuro: Weakness
Objective Data
Data Reviewed
Vital Signs / I&O / Oxygen:
Vital Signs
Temp Pulse Resp BP Pulse Ox
98.7 F 75 11 121/74 94
01/21/24 11:37 01/21/24 08:00 01/21/24 08:00 01/21/24 08:00 01/21/24 08:31
Intake and Output
01/20/24 01/21/24 01/22/24
06:59 06:59 06:59
Intake Total 1140 / 1140 2825 / 2825
Output Total 200 / 200 780 / 780 200 / 200
Balance 940 / 940 2045 / 2045 -200 / -200
SaO2 94
Nasal Cannula flow liters per 8
minute
Physical Exam
General: Respiratory Distress (n)
HEENT: Normocephalic and Moist Mucous Membranes
Cardiovascular: Regular Rhythm, Murmur, Peripheral Edema (n) and Calf Tenderness (n)
Respiratory: Clear, Non-Labored Respirations and Stridor (n)
Neurology: Awake, AO x 3 and No Motor Deficits
Skin: Dry
Labs/Micro/Reports
Lab Data
01/21/24 03:22
01/21/24 03:22
Microbiology
01/19/24 22:44 Blood/Venous Blood Culture - Preliminary
No Growth in 24 hours- Final report to follow
01/19/24 22:44 Blood/Venous Blood Culture - Preliminary
No Growth in 24 hours- Final report to follow
01/20/24 15:35 Bile Gram Stain - Preliminary
01/19/24 23:00 Nasal Swab Influenza Types A & B (NEIL) - Final
Negative for Influenza A & B, NAAT
Negative results must be combined with clinical observations
and patient history.
Nucleic Acid Amplification test (NAAT)performed on the
[employer] platform.
[2024-01-21] MEDS: HEPARIN 25000 UNITS/250 ML IV (11:53)
[2024-01-21 11:55] LABS: Reticulocyte Count 2.2 % (0.4-2.8)
[2024-01-21 12:09] LABS: APTT 60.4 Sec (23.4-35.0)
--- NOTE | 2024-01-21 14:48 | PTCARENOTE ---
Pt presents as assessed. Aox3. NSR on tele monitor. Weaned to 5L MF with sats in the low to mid 90's. Medicated with PRN pain meds for abdominal pain, nauea, and headaches. R cesar tube draining dark liquid; flushed per orders. IVF infusing. Heparin
gtt initiated per orders- see MAR and intervention. at bedside, both updated on plan of care. Ringing appropriately, call mariano within reach.
[2024-01-21 14:59] LABS: Urine Albumin 1+ (Neg - Trace); Urine Bilirubin 2+ (Negative); Urine Character Clear (Clear); Urine Color Brown; Urine Glucose Negative (Negative); Urine Ketone 3+ (Negative); Urine Leukocyte 1+ (Negative); Urine Nitrite Positive (Negative); Urine Occult Blood 1+ (Negative); Urine Specific Gravity 1.025 (<1.030); Urine Urobilinogen 3+ (Neg - 1+)
[2024-01-21 15:19] LABS: Urine Red Blood Cell 0-2 /HPF (0-2); Urine White Cell 0-2 /HPF (0-5)
[2024-01-21] MEDS: LEVAQUIN 100 IV (17:58)
--- NOTE | 2024-01-21 18:59 | CON.ID ---
Consultation
-
Date/Time Consultation Requested: 01/20/24 18:00
Date/Time Consultation Performed: 01/21/24 12:32
Requesting Provider: Dr Mcclure
Performing Provider: Dr Gutiérrez
Reason for Consultation: severe sepsis cholecystitis cholangitis s/p per cesar
Chief Complaint / Past History
Chief Complaint
abdominal pain
History of Present Illness
Mr Angela is a 53 year old male with history of complicated hospitalization due to COVID/influenza requiring ECMO 11/22-03/24, hx autoimmune vasculitis who presented here 01/20 for nausea, vomiting, abdominal pain x2 days.
Since arrival here he has been afebrile, bp stable, wbc initially 18.2 peaked at 26 and downtrending to 23 today, hgb 10.7, plt 234, L shift has persisted throughout this time, cr 0.9, t bili peaked at 6.0 now 5.6, d bili 3.4, ast peaked at 271 now
64, alt peaked at 216 now 120, alk phos 220 now 166, CT a/p 01/19 with acute cholecystitis, 01/20 patient underwent percutaneous drain placement with brown/blood tinged bile, with good positioning, no opacification of the cystic duct or common bile
duct, body fluid thus far with enterocococcus, blood cultures x2 now growth to date. Patient reports anaphylaxis to vancomycin and hives to penicillin. He remains on levofloxacin and metronidazole. ID is consulted for assistance with management.
Past History
Additional Past Medical History:
Microscopic polyangiitis vasculitis
Interstitial lung disease vs long covid
Gastroesophageal reflux disease
Influenza/COVID /ARDS requiring ECMO March 2023, DVT/PE while on ECMO on current Eliquis,
Cardiac arrest 2022
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
GI bleed January 2023 requiring cauterization
�HTN
neuropathy hands and feet
depression
Additional Past Surgical History:
ecmo November 2022, pneumonia requiring thoracentesis, GI bleed, required cauterization during hospital stay January 2023
Allergy History:
vancomycin Allergy (Severe, Verified 01/19/24 12:44)
Anaphylaxis/throat irritation
latex Allergy (Verified 01/19/24 12:44)
swelling - long skin
Penicillins Allergy (Verified 01/19/24 12:44)
Hives
Sulfa (Sulfonamide Antibiotics) Allergy (Verified 01/19/24 12:44)
Rash
venom-honey bee [bee venom (honey bee)] Allergy (Verified 01/19/24 12:44)
swelling - throat tightness
Medications Reviewed: Yes
Social History
Tobacco: Non-Smoker
Alcohol: Occasional
Drug: Marijuana
Family History
Family History: Not Pertinent
Review of Systems
Review of Systems
General: Negative Fever or Chills
All systems: All other systems were reviewed and were negative
Vital Signs
Temp Pulse Resp BP Pulse Ox
98.6 F 77 15 134/75 93
01/21/24 15:42 01/21/24 18:00 01/21/24 18:00 01/21/24 18:00 01/21/24 18:00
Physical Exam
Physical Exam
Constitutional: No Acute Distress
Cardiovascular: Regular Rate and S1/S2; Negative Murmur or Rub
Pulmonary: Clear and Symmetric; Negative Wheezes, Rales or Rhonchi
Gastrointestinal: Soft, Non Tender, Non Distended and Normal Bowel Sounds
Skin: Warm and Dry; Negative Rash or Jaundice
Neurological: Negative Awake
Lines: Other (drain with bloody fluid)
Lab / Diagnostic Study Results
01/21/24 03:22
01/21/24 03:22
Abs Immat Gran (auto) 0.1 10^3/uL (0-0.05) H 01/21/24 03:22
Absolute Neuts (auto) 20.8 10^3/uL (1.4-6.5) H 01/21/24 03:22
Absolute Lymphs (auto) 0.8 10^3/uL (1.2-3.4) L 01/21/24 03:22
Absolute Monos (auto) 1.5 10^3/uL (0.1-0.6) H 01/21/24 03:22
Absolute Basos (auto) 0.1 10^3/uL (0-0.2) 01/21/24 03:22
Immature Gran % 0.6 % (0-0.5) H 01/21/24 03:22
Neutrophils % 89.3 % (42.2-75.2) H 01/21/24 03:22
Lymphocytes % 3.6 % (20.5-51.1) L 01/21/24 03:22
Monocytes % 6.3 % (1.7-9.3) 01/21/24 03:22
Eosinophils % 0.0 % (0-6) 01/21/24 03:22
Basophils % 0.2 % (0-2) 01/21/24 03:22
PT 16.7 Sec (11.4-14.6) H 01/19/24 22:28
INR 1.37 01/19/24 22:28
Lactic Acid 1.7 mmol/L (0.7-2.0) 01/19/24 22:28
Microbiology Results
Micro:
01/21/24 14:37 Urine Culture - Pending
Urine
01/20/24 15:35 Body Fluid Culture - Preliminary
Bile Enterococcus species
Gram Stain - Preliminary
01/21/24 11:33 Blood Culture - Pending
Blood/Venous
01/19/24 22:44 Blood Culture - Preliminary
Blood/Venous No Growth in 24 hours- Final report to follow
01/19/24 22:44 Blood Culture - Preliminary
Blood/Venous No Growth in 24 hours- Final report to follow
01/19/24 23:00 Influenza Types A & B (NEIL) - Final
Nasal Swab Negative for Influenza A & B, NAAT
Negative results must be combined with clinical observations
and patient history.
Nucleic Acid Amplification test (NAAT)performed on the
[employer] platform.
Assessment / Plan
Cholecystitis
Leukocytosis
H/o allergy to vancomycin, penicillin, sulfa
- body fluid with enterococcus
- blood cultures no growth to date
- QTc acceptable
- continue levofloxacin/metronidazole
- follow clinically
[2024-01-21 19:45] LABS: APTT 62.4 Sec (23.4-35.0)
[2024-01-21] MEDS: TORADOL 15 MG IV (19:48)
[2024-01-21] MEDS: SENOKOT-S PO (20:02)
[2024-01-21] MEDS: SENOKOT-S 1 TABLET PO (21:10)
--- NOTE | 2024-01-21 23:43 | W.PN.UPDATE ---
Update Note
Progress Note Update
At 193 RN notified SCHOOL LABORATORY TECHNICIAN, patient has migraine headache. Cocktail of IV Benadryl, Compazine and Toradol was given.
At 2321, Patient still c/o headache, will give one dose of Fioricet now and monitor.
At 010, patient continuing to c/o headache, seen and evaluated. neurologically intact, complaints frontal headache, nausea without aura, sensitive to light, PERRL Stated he never had this margo headache before though has hx of Migraine.
will order CT head to rule out aneurism
CT head resulted negative.
Patient resting in bed at present per nursing.
RN stated Ca 6.6, Corrected Calcium noted to be 8.2, wont replete at this time
[2024-01-22] VITALS (14 sets, daily range): BP systolic 136–170; BP diastolic 83–97; BMI 28.2
[2024-01-22] MEDS: FIORICET 2 TAB PO (00:02)
[2024-01-22] MEDS: HEPARIN 25000 UNITS/250 ML IV ×2 (00:26→13:32)
--- NOTE | 2024-01-22 01:04 | PTCARENOTE ---
Addendum entered by Rose Alva RN 01/22/24 06:35:
Stat head CT obtained.
Original Note:
Patient with ongoing headache since dayshift. Start of shift patient requested something to help his headache. call center operations manager provider made aware and ordered 'migraine cocktail.' Administered without relief. PRN dilaudid administered x1 with no relief. On
call provider made aware and ordered 1x dose fiorcet. Fiorcet administered without relief. Patient continues with 8/10 headache. call center operations manager provider made aware.
[2024-01-22 04:17] LABS: % Basophils 0.1 % (0-2); % Eosinophils 0.2 % (0-6); % Immature Granulocytes 0.5 % (0-0.5); % Lymphocytes 3.5 % (20.5-51.1); % Monocytes 4.6 % (1.7-9.3); % Neutrophils 91.1 % (42.2-75.2); Absolute Immature Granulocytes 0.1 10^3/uL (0-0.05); Absolute Lymphocytes 0.3 10^3/uL (1.2-3.4); Absolute Monocytes 0.5 10^3/uL (0.1-0.6); Absolute Neutrophils 8.9 10^3/uL (1.4-6.5); Hematocrit 29.7 % (39.0-52.0); Hemoglobin 9.5 g/dL (13.0-18.0); Mean Corpuscular Hgb 30.4 pg (27.0-31.0); Mean Corpuscular Volume 95.2 fL (80.0-94.0); Nucleated Red Blood Cells % 0 % (-); Platelet Count 239 10^3/uL (130-400); Red Blood Cell Count 3.12 10^6/uL (4.70-6.10); Red Cell Dist. Width 14.5 % (11.5-14.5); White Blood Cell Count 9.8 10^3/uL (4.8-10.8)
[2024-01-22 04:19] LABS: APTT 106.4 Sec (23.4-35.0)
--- NOTE | 2024-01-22 04:19 | DOWNTIME ---
There was a [employer] Client Pellet Post Inspector Downtime on 01/22/2024 from 0111 to 01/22/2024 at 0405. Downtime documentation of patient's care, including medication administrations, has been reconciled in the electronic record per guidelines. Refer to the
patient's paper chart under the miscellaneous tab to see printed paper medication records and downtime forms.
[2024-01-22 04:38] LABS: ALT (SGPT) 57 U/L (0-50); AST (SGOT) 22 U/L (17-59); Alkaline Phosphatase 100 U/L (38-126); Blood Urea Nitrogen 16 mg/dl (9-20); Calcium 6.6 mg/dl (8.4-10.2); Carbon Dioxide 17 mmol/L (22-30); Chloride 113 mmol/L (98-107); Estimated Creatinine Clearance > 125 ml/min; Glucose 101 mg/dl (70-99); Potassium 3.8 mmol/L (3.5-5.1); Sodium 139 mmol/L (135-145); Total Bilirubin 1.3 mg/dl (0.2-1.3); Total Protein 3.9 g/dl (6.3-8.2); eGFR > 60.00
[2024-01-22] MEDS: NSS 1000 IV ×2 (06:30→20:08)
--- NOTE | 2024-01-22 07:14 | W.PN.HOSP.TC ---
Today's Communication/Plan
-
Follow up CT Head
sumatriptan prn if headache worsens
start oxycodone prn mod severe pain, dilaudid remains available for severe breakthrough pain
cont abx
follow up culture sensitivities
check Mg Phos levels
Assessment / Plan
Assessment / Plan
Physical Exam
General:�appears comfortable at this time, less jaundice compared to prior presentation
HEENT:�NormoCephalic, Scleral icterus, pinpoint pupils b/l, Ramsey Conjunctivae and No Ptosis
Respiratory:�Clear; No Wheezes, Rales or Rhonchi
Cardiac:�S1/S2 and Regular Rhythm; No Murmur, Rub, Gallop or Peripheral Edema
GI:�Soft, Normal Bowel Sounds, and Tender Midepigastric, upper left and right quadrant
Musculoskeletal:�No Clubbing, No Cyanosis and No Edema
Neuro:�AO x 3
Psych:�Calm
53M hx Influenza/COVID/ARDS/PNA requiring ECMO prolonged Hospital Stay Nov 2022-March 2023 complicated w/ PE/DVT, CVA no residual symptoms, cardiac arrest stroke GIB cauterization, hx autoimmune vasculitis, hypertension, GERD, Neuropathy, ILD vs
Long COVID p/w N/V/abd pain 2 days.� CT consistent with acute cholecystitis.� Initial VSS stable. Patient however rapid response overnight soon following admission due to fever tachypnea intractable pain. Eventually pain control improved with
increased freq dose dilaudid. Overnight evaluation however concerning for biliary obstruction cholangitis worsening LFTs and Tbili elevation to 5. VSS otherwise stable following morning though low normotensive.
#Acute cholecystitis
#Likely Biliary Obstruction Cholangitis causing Liver Dysfunction bilirubinemia
#Leukocytosis
#Severe sepsis Fever Tachynea Tachycardia
-transferred to IMU for closer monitoring
-Monitor LFTs improving though Bili remains elevated
-NPO as per GI
-IVF NSS 100 cc/hr
-HOLD Eliquis last dose 01/19/2020 4 AM, Hematology eval appreciated as below
-Bile Culture appreciated Enterococcus species, awaiting identification sensitivities
-MRCP appreciated possible gall stone inferior CBD no intra/extrahepatic dilation
-IR eval appreciated per cesar placed 01/20 post-procedure complicated with rigors tachypnea tachypneaa pain fever, eventually resolved with Tylenol IVF bolus 500 cc and additional prn Dilaudid increased oxygen supplementation
- cont Iv levaquin, flagyl, patient improving white count resolved afebrile
-ID eval requested
-Surgery Eval appreciated Cholecystostomy tube to remain in place for 4-6 weeks, outpatient discussion regarding cholecystectomy
-GI eval appreciated diet advanced to clear liquid, ERCP on hold for now given clinical and LFT improvement
-IV Zofran prn
-started oxycodone to wean off IV dilaudid, dilaudid remains available severe breakthrough pain
�� ��� CT abdomen pelvis: Acute cholecystitis
�� � ��CXR:�Chronic fibrotic changes both lungs.� Increased mild patchy opacities bilaterally may be progression of fibrosis versus mild pneumonitis
#Headache 01/21 refractory to Tylenol
Headache cocktail Benadryl Compazine Toradol given with improvement
Headache later returned overnight, headache cocktail not effective then, fioricet also attempted
agree CT head as ordered by night staff will follow
prn sumatriptan ordered, headache starting to improve this am however 01/22
check Mg and phos levels, replete as necessary
#Hypocalcemia mild
6.6 corrected for low albumin 8.2
though mild would correct as electrolyte abn's can contribute to headache
monitor and replete as necessary
#History of ECMO [id number] 17, 2023 2/2 ARDS/FLu /Covid/PNA
#hx DVT/PE while on ECMO
home Eliquis on hold as above
Hematology eval appreciated, though provoked event, anticoagulation is lifelong given severity of even, hep gtt started 01/21
# Cardiac arrest during previous hospital stay
#GERD
#Hx GI bleed Required cauterization during hospital stay January 2023
-home famotidine converted to IV during acute illness current hospitalization GI ppx
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
-No residual deficits
#ILD vs long COVID on chronic steroids
# Uses [place] O2 with exercise
#Hx COVID 2020 received antibodies
#Acute hypoxic insufficiency/failure requiring 4L at rest, increased to midflow 10L d/t rigors post- per cesar as noted above, since weaned down to 4L at rest
-Continue methylprednisolone 6 mg daily,
-Continue dapsone 100 mg daily
-pulsukhjinder nugent appreciated encourage incentive spirometer use
-wean O2 supplementation as tolerated
#hx HTN
clonidine held due to low normotensive values severe sepsis, patient since improved,
BP increasing resumed clonidine with holding parameters at reduced dose 0.1 TID instead of 0.3
prn midodrine discontinued has not required
#Hx Erin syndrome
#Peripheral neuropathy hands and feet
-Continue gabapentin for 100 mg 3 times daily
#Depression
-Continue Zoloft 100 mg daily
dvt prop SCD
gi ppx famotidine
Full code�
Discussed with patient and his ArleneELOISE Pulm, Surgery Nurse
I spent a total of 60 minutes with the patient or on the floor. More than 50% of this time involved counseling and coordination of care.
Anticipated Discharge: > 48 hours
Subjective/Interval History
-
Date of Service: January 22, 2024
overnight events reviewed. Continues to report headache this morning but reports improving. Pain controlled at this time with current regimen.
Objective Data
-
Labs:
Laboratory Results
01/21/24 01/22/24 01/22/24
19:28 03:05 10:30
WBC 9.8
Hgb 9.5 L
Hct 29.7 L
Plt Count 239
APTT 62.4 H 106.4 H Pending
Sodium 139
Potassium 3.8
Chloride 113 H
Carbon Dioxide 17 L
BUN 16
Creatinine 0.4 L
Glucose 101 H
Calcium 6.6 L*
Total Bilirubin 1.3 D
AST 22
ALT 57 H
Alkaline Phosphatase 100
Vital Signs:
Vital Signs
Temp Pulse Resp BP Pulse Ox
98.3 F 83 21 156/96 95
01/22/24 03:00 01/22/24 06:00 01/22/24 06:00 01/22/24 06:00 01/22/24 06:00
I&O
01/21/24 01/22/24 01/23/24
06:59 06:59 06:59
Intake Total 2825 / 2825 1830 / 1830
Output Total 780 / 780 830 / 830 600 / 600
Balance 2045 / 2045 1000 / 1000 -600 / -600
[2024-01-22 08:09] LABS: Magnesium 1.8 mg/dl (1.6-2.3); Phosphorus 2.3 mg/dl (2.5-4.5)
[2024-01-22] MEDS: CALCIUM GLUCONATE 100 IV (08:23)
--- NOTE | 2024-01-22 08:34 | W.PN.GI.CBS2 ---
Addendum entered and electronically signed by Luz Elena Zamarripa Do, MD 01/22/24 12:36:
I saw and examined the patient.
The [employer] [employer]'s note was reviewed and I agree with the note.
Comment: He had head ache overnight. CT head was done. This AM abd pain is improved down to 4 out of 10 in nature. Tolerating FLD. Vitals stable AF in past 24hrs. obese abd NTTP, biliary drain with je fluid. Labs reviewed LFTs improving.
BC thus far upon repeat NGTD
Recommendations
- s/p IR perc drain 01/20 for acute cholecystitis and choledocholithiasis
- C/w abx course per ID
- C/w monitor of biliary drain OP
- Adv to low fat diet
- LFTs downtrending
At this juncture GI will sign off. Will need FU with Dr López or GI [facility] [employer] [facility] in 3-4 wks for possible ERCP.
Original Note:
Today's Communication / Plan
-
continue antibiotics, blood cx pending
advance to full liquid diet
continue Miralax
Assessment / Plan
-
Pt is a 53yo with hx prolonged hospital admission 11/2022- March 2023 with long covid requiring ecmo, trach, PE/DVT on Eliquis, cardiac arrest, GIB with cauterization,ICH, autoimmune vasculitis, HTN, GERD with onset of nausea, vomiting, abdominal
pain x 2 days. After admission noted with leukocytosis with WBC up to 26,400 and rise in LFT's to bili 6, AST 143, ALT 164, alk phos 170. Ct notable for acute cholecystitis. On admission Eliquis hold for possible cesar but noted overnight with
rapid response with increased pain and increased respirations with fever 102.8, Pt has been placed on Abx with cultures, MRI pending.
Impression:
-RUQ pain concern for acute cholecystitis vs cholangitis
-increased LFT's
-leukocytosis/fever with concern for sepsis with hypotension this am
-PE/DVT on Eliquis prior to admission
-interstitial lung disease with prior prolonged covid, ecmo, trach
-hx GI bleed ? ulcer from NGT trauma per pt recall
-hx ICH
-vasculitis
-colon polyps
-HTN
-GERD
Plan:
- s/p IR perc drain 01/20
- Monitor output
- C/w abx
- Repeat blood culture pending
- Appreciate surgical recs
- LFTs improving, will continue to trend
- Pt was on clears, will advance to full liquid diet
- Continue Miralax
- Oral anticoagulation currently held. Cholecystostomy tube in place, draining. OK to re-start Eliquis from a GI standpoint as we will plan for outpatient followup and eventual ERCP
Will follow with you
Subjective
Subjective
Date of Service: January 22, 2024
abdominal pain improved. He had a 'bad migraine' yesterday and last night, improved with pain medication.
-denies fever, chills, vomiting. +mild nausea
Objective
Data Reviewed
Laboratory Data:
Laboratory Results
01/22/24 03:05
01/22/24 03:05
Laboratory Results
PT 16.7 Sec (11.4-14.6) H 01/19/24 22:28
INR 1.37 01/19/24 22:28
APTT 106.4 Sec (23.4-35.0) H 01/22/24 03:05
Phosphorus 2.3 mg/dl (2.5-4.5) L 01/22/24 03:05
Magnesium 1.8 mg/dl (1.6-2.3) 01/22/24 03:05
Total Bilirubin 1.3 mg/dl (0.2-1.3) D 01/22/24 03:05
AST 22 U/L (17-59) 01/22/24 03:05
ALT 57 U/L (0-50) H 01/22/24 03:05
Alkaline Phosphatase 100 U/L (38-126) 01/22/24 03:05
Lipase 45 U/L (23-300) 01/19/24 13:16
Vital Signs and I&O:
Vital Signs
Temp Pulse Resp BP Pulse Ox
98.3 F 76 24 161/93 94
01/22/24 03:00 01/22/24 08:00 01/22/24 08:00 01/22/24 08:00 01/22/24 08:00
I&O
01/21/24 01/22/24 01/23/24
06:59 06:59 06:59
Intake Total 2825 / 2825 1830 / 1830
Output Total 780 / 780 830 / 830 600 / 600
Balance 2045 / 2045 1000 / 1000 -600 / -600
Physical Exam
Physical Exam
HEENT: Anicteric
Cardiology: Normal Sinus Rhythm
Pulmonary: Clear
GI: Soft, Non Distended, Tender (+mildly tender RUQ and epigastric) and Other (obese abdomen)
Extremities: No Edema
[2024-01-22] MEDS: FLAGYL 500 MG 100 IV ×2 (08:39→15:37)
[2024-01-22] MEDS: ROXICODONE 5 MG PO (08:39)
[2024-01-22] MEDS: SENOKOT-S 1 TABLET PO ×2 (08:42→20:07)
[2024-01-22] MEDS: NEURONTIN 400 MG PO ×3 (08:42→20:08)
[2024-01-22] MEDS: DAPSONE 100 MG PO (08:42)
[2024-01-22] MEDS: ZOLOFT 100 MG PO (08:42)
[2024-01-22] MEDS: PEPCID 20 MG IV ×2 (08:42→20:11)
[2024-01-22] MEDS: CATAPRES 0.100000000000000006 MG PO ×2 (08:42→15:38)
[2024-01-22] MEDS: MEDROL 6 MG PO (08:44)
--- NOTE | 2024-01-22 09:32 | W.PN.PUL3 ---
Today's Communication / Plan
-
O2
IS
Atbs
AC
Assessment
-
Assessment:
Mr Errol Angela is a 53/M adm 01-19 with acute abd pain, work up revealed acute cholecystitis, seen by [facility] and GI, candidate for perc cholecystostomy, procedure performed with no issue 01-20. Seen at IMU, recovering well from procedure
Impression:
Acute abdomen
Acute cholecystitis
MRCP: 1 mm choledocholithiasis
S/p percutaneous cholecystostomy 01-20
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
Influenza/COVID/ARDS/PNA requiring ECMO prolonged Hospital Stay Nov 2022-March 2023, complicated w/ PE/DVT, cardiac arrest, ICH, GI. On apixaban
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
GIB Jan 2023, required cauterization
Influenza A, adm 10-29 to [id number] 2022
COVID pneumonia, adm 10-18 to , d/c on O2 2L
Breakthrough case in vaccinated Pfizer/J&J
2 weeks onset of symptoms, COVID + 10/13/22
Did not receive Paxlovid
Diffuse GGOs consistent with COVID PNA
Received remdesivir and dexamethasone
Completed 5 d atbs (doxycycline) through 10-23
Checked PR2/MPO negative, IgG 496 (10-24)
Chronic immunosuppression
History of microscopic polyangiitis, on chronic methylprednisone 6 mg qd, past h/o use of rituxan
Follows with Rheum Dr. Velázquez ([phone])
ILD: multifactorial, bilateral fibrotic changes, traction bronchiectasis
GERD
Restrictive lung disease
History of pneumonia
Mixed simple and mucopurulent chronic bronchitis
Nonsmoker
Depression
Medical marijuana
Plan:
Continue O2 protocol
Was on home O2 2LPM after COVID pneumonia in Oct 2023
Did not require to continue O2 as recovered well few m after above
Reportedly told to return to O2 at 2L for the last 3-4 m
Has h/o ILD with fibrotic changes
Evaluate O2 needs PTD
S/p perc cholecystostomy 01-20
Continue empiric atbs: levofloxacin/metronidazole IV
Bile cx with Ent sp
Blood cxs: so far negative
GI and Sx following closely
IS encouraged
Asp precs, keep HOB elevated at least 30 degree and as higher as tolerated
DVT prophylaxis: was on AC CAMP NURSE (apixaban, h/o VTE), started IV heparin nomogram 01-21
OOB as tolerated
Pain mgmt
Migraine
Negative head CT 01-22 re acute findings (showed encephalomalacia at L frontal lobe from prior ICH)
Follow with Dr Gonzalez at [facility] and Dr Henry ([facility])
Follow with Rheum Dr Velázquez, on dapsone(?)as rec by Rheum
From PJP prophylaxis perspective does not need dapsone as dose of MP is very low and below threshold for prophylaxis
D/w Mr Angela and his at bedside , all questions answered to satisfaction
Diagnostic Data
CXR 01-19-24: no change in mild basilar fibrotic changes
Chest CTA 10/18/22
Comparison examination: 08/21/2022
FINDINGS:
There is no pulmonary embolism.
There is no aortic dissection.
There is no pneumothorax.
There are no abnormal pleural or parenchymal masses.
There is no pleural effusion.
There are patchy ground-glass opacities throughout all lobes. This is moderate. This is most prominent in the lower lobes and left upper lobe.
The mediastinum is normal.
There is no hilar or mediastinal lymphadenopathy.
There is no axillary lymphadenopathy.
No significant osseous abnormalities are demonstrated.
There is a small hiatal hernia.
The osseous structures show mild degenerative disease.
IMPRESSION: No evidence of pulmonary embolus.
Moderate bilateral patchy ground-glass opacities as described above concerning for developing pneumonia. This pattern is commonly seen with Covid 19 type pneumonia.
document embedded image
HRCT 08-21, c/w CT April 2021
COMPARISON STUDY: CT chest 04/27/2021
Technique: Noncontiguous 1 mm slices and 5 mm contiguous slices were obtained through the lungs to survey the lung parenchyma. Supine inspiratory and expiratory images were obtained.
FINDINGS:
* Mild peripheral interstitial thickening throughout the mid to lower lung zones bilaterally.
* No significant ground glass opacities, centrilobular nodules, emphysematous changes, bronchiectasis, fibrosis/honeycombing. No pleural effusion
* Mild to moderate coronary artery calcifications. Fusiform ectasia of the ascending thoracic aorta measuring up to 4.0 cm.
IMPRESSION:
1. Mild peripheral interstitial thickening throughout the mid to lower lung zones bilaterally which may be on the basis of mild/developing interstitial lung disease, not otherwise specified. No fibrosis.
2. Fusiform ectasia of the ascending thoracic aorta measuring up to 4.0 cm.
document embedded image
Subjective Data
-
Date of Service:
Date of Service: January 22, 2024
Chief Complaint: Pulmonary Follow Up
Subjective:
No major events reported x for migraine
Review of Systems
General: Fever (n), Sweats (n), Chills and Satisfactory Appetite
HEENT: Epistaxis and Dysphagia (n)
Cardiopulmonary: Dyspnea (n), Cough (trace), Sputum Production (n), Wheezing (n), Chest Pain and Hemoptysis (n)
GI: Abdominal Pain (incisional)
Neuro: Headache
Objective Data
Data Reviewed
Vital Signs / I&O / Oxygen:
Vital Signs
Temp Pulse Resp BP Pulse Ox
98.2 F 76 24 161/93 94
01/22/24 07:15 01/22/24 08:00 01/22/24 08:00 01/22/24 08:00 01/22/24 08:00
Intake and Output
01/21/24 01/22/24 01/23/24
06:59 06:59 06:59
Intake Total 2825 / 2825 1830 / 1830 440 / 440
Output Total 780 / 780 830 / 830 790 / 790
Balance 2044 1000 / 1000 -350 / -350
SaO2 94
Nasal Cannula flow liters per 5
minute
Physical Exam
General: Respiratory Distress (n)
HEENT: Normocephalic and Moist Mucous Membranes
Cardiovascular: Regular Rhythm, Murmur, Peripheral Edema (n) and Calf Tenderness (n)
Respiratory: Clear, Non-Labored Respirations and Stridor (n)
Neurology: Awake, AO x 3 and No Motor Deficits
Skin: Dry
Labs/Micro/Reports
Lab Data
01/22/24 03:05
01/22/24 03:05
Laboratory Results
01/21/24 01/21/24 01/21/24
11:33 18:14 19:28
APTT 60.4 H Cancelled 62.4 H
01/22/24
03:05
APTT 106.4 H
Microbiology
01/19/24 22:44 Blood/Venous Blood Culture - Preliminary
No Growth in 48 hours- Final report to follow
01/19/24 22:44 Blood/Venous Blood Culture - Preliminary
No Growth in 48 hours- Final report to follow
01/20/24 15:35 Bile Body Fluid Culture - Preliminary
Enterococcus species
01/20/24 15:35 Bile Gram Stain - Preliminary
01/19/24 23:00 Nasal Swab Influenza Types A & B (NEIL) - Final
Negative for Influenza A & B, NAAT
Negative results must be combined with clinical observations
and patient history.
Nucleic Acid Amplification test (NAAT)performed on the
[employer] platform.
--- NOTE | 2024-01-22 09:49 | W.PN.ID1 ---
Date of Service
Date of Service: January 22, 2024
Today's Communication
improving on levo/metro
Assessment / Plan
Cholecystitis
Leukocytosis
H/o allergy to vancomycin, penicillin, sulfa
- body fluid with enterococcus - lab will release sensi for quinolones when available
- blood cultures no growth to date
- QTc acceptable
- continue levofloxacin/metronidazole
- follow clinically
Chief Complaint
-: Other (cholecystitis)
Subjective / Review of Systems
no further fevers
bp hypertensive
leukocytosis resolved
L shift persists
lfts further improved
MRCP last ngiht - Possible tiny 1 mm choledocholithiasis in the inferior common bile duct at the level of the ampulla. No intrahepatic or extrahepatic bile duct dilatation.
ct head encephalomalacia
mild abdominal tenderness
Vital Signs / Physical Exam
Vital Signs
Vital Signs
Temp Pulse Resp BP Pulse Ox
98.2 F 76 24 161/93 94
01/22/24 07:15 01/22/24 08:00 01/22/24 08:00 01/22/24 08:00 01/22/24 08:00
Physical Exam
Constitutional: No Acute Distress
Cardiovascular: Regular Rate and S1/S2; Negative Murmur or Rub
Pulmonary: Clear and Symmetric; Negative Wheezes or Rales
Gastrointestinal: Soft, Tender (mild diffuse), Non Distended and Normal Bowel Sounds
Skin: Warm and Dry; Negative Rash or Jaundice
Objective Data
Lab Data
Lab Results
01/22/24 03:05
01/22/24 03:05
PT 16.7 Sec (11.4-14.6) H 01/19/24 22:28
INR 1.37 01/19/24 22:28
APTT 106.4 Sec (23.4-35.0) H 01/22/24 03:05
Estimated Creat Clear > 125 ml/min 01/22/24 03:05
Lactic Acid 1.7 mmol/L (0.7-2.0) 01/19/24 22:28
Total Bilirubin 1.3 mg/dl (0.2-1.3) D 01/22/24 03:05
AST 22 U/L (17-59) 01/22/24 03:05
ALT 57 U/L (0-50) H 01/22/24 03:05
Alkaline Phosphatase 100 U/L (38-126) 01/22/24 03:05
Most recent labs reviewed.
Micro Results:
01/19/24 22:44 Blood Culture - Preliminary
Blood/Venous No Growth in 48 hours- Final report to follow
01/19/24 22:44 Blood Culture - Preliminary
Blood/Venous No Growth in 48 hours- Final report to follow
01/21/24 14:37 Urine Culture - Pending
Urine
01/20/24 15:35 Body Fluid Culture - Preliminary
Bile Enterococcus species
Gram Stain - Preliminary
01/21/24 11:33 Blood Culture - Pending
Blood/Venous
01/19/24 23:00 Influenza Types A & B (NEIL) - Final
Nasal Swab Negative for Influenza A & B, NAAT
Negative results must be combined with clinical observations
and patient history.
Nucleic Acid Amplification test (NAAT)performed on the
[employer] platform.
[2024-01-22] MEDS: POTASSIUM PHOSPHATE 259.090899999999976 MEQ IV (10:20)
[2024-01-22] MEDS: MAGNESIUM SULFATE 50 IV (10:21)
--- NOTE | 2024-01-22 10:53 | PTCARENOTE ---
Patient tolerated full liquid diet for breakfast. Rachele drain intact, dressing c/d/i. Draining brown colored drainage. Replacing electrolytes as ordered. Heparin drip infusing at 2200 units, 22mls/hr. Headache after pain medication is now 3/10.
[2024-01-22] MEDS: ROXICODONE 10 MG PO (12:41)
[2024-01-22] MEDS: MIRALAX 17 GRAMS PO (12:41)
--- NOTE | 2024-01-22 13:17 | PN.CDI ---
CDI
- -
CDI:
Physician Documentation Request
Admit Date: 01/19/24 17:31
Dear Doctor Ren,
Patient admitted with acute cholecystitis.
01/22 Hospitalist PN: 'Acute hypoxic insufficiency/failure requiring 4L at rest, increased to midflow 10L d/t rigors post- per cesar as noted above, since weaned down to 4L at rest'
Clarify which of the following accurately represents the type of insufficiency/failure being treated/monitored:
Respiratory
Other
Use of terms such as suspected, likely, concern for, or probable (associated with a specific diagnosis that is being evaluated, monitored, or treated as if it exists) are acceptable and can be coded in the inpatient setting, when documented at the
time of discharge.
Thank you,
Marilia Troy RN, BSN
CDI Specialist
Available via [employer] text
Please use your independent medical judgment in providing your response.
[2024-01-22 13:31] LABS: APTT 79.8 Sec (23.4-35.0)
[2024-01-22] MEDS: DILAUDID 0.5 MG IV (13:34)
[2024-01-22] MEDS: FLUSH (NSS) 1 FLUSH IV ×2 (13:35→18:28)
[2024-01-22] MEDS: SODIUM BICARBONATE 650 MG PO (15:38)
[2024-01-22] MEDS: IMITREX PO (15:38)
[2024-01-22] MEDS: TYLENOL 650 MG PO (15:47)
[2024-01-22 16:38] LABS: Blood Urea Nitrogen 11 mg/dl (9-20); Calcium 8.3 mg/dl (8.4-10.2); Carbon Dioxide 27 mmol/L (22-30); Chloride 106 mmol/L (98-107); Estimated Creatinine Clearance > 125 ml/min; Glucose 100 mg/dl (70-99); Magnesium 2.2 mg/dl (1.6-2.3); Phosphorus 3.3 mg/dl (2.5-4.5); Potassium 4.3 mmol/L (3.5-5.1); Sodium 138 mmol/L (135-145); eGFR > 60.00
[2024-01-22] MEDS: CATAPRES 0.200000000000000011 MG PO (16:57)
[2024-01-22] MEDS: IMITREX 50 MG PO (16:57)
[2024-01-22] MEDS: FLEXERIL 5 MG PO ×2 (16:57→21:35)
[2024-01-22] MEDS: ZOSTRIX 0.025% CREAM 1 APPLIC TOPICAL ×2 (16:59→20:07)
[2024-01-22] MEDS: LEVAQUIN 100 IV (16:59)
--- NOTE | 2024-01-22 17:00 | PTCARENOTE ---
Patient headache seemed to be improving after pain medication. Patient then started complaining of left sided neck/shoulder pain. This then seemed to make his headache pain worse. Oxygen demand increased and patient now on 7 L of 02. Spo2
89%-92% Dr. Mcclure notified and new orders obtained. Dr. Mcclure back to room to assess the patient.
--- NOTE | 2024-01-22 17:16 | CM ---
Patient with Dx Acute cholecystitis, Likely Biliary Obstruction Cholangiti, sepsis, S/p percutaneous cholecystostomy 01-20. Per prior CM notes- Plan for perc cesar drain to remain at d/c. Receiving heparin gtt, IV levaquin, IV Flagyl. PT
recommends HH. OT recommends outpatient therapy.
Maikel accepted in [employer].
CM continuing to follow.
Plan home with Maikel FLORES.
--- NOTE | 2024-01-22 18:08 | PTCARENOTE ---
Heparin drip discontinued as per MD order. Eliquis will be restarted tonight.
[2024-01-22] MEDS: BENADRYL 25 MG IV (18:26)
[2024-01-22] MEDS: COMPAZINE 10 MG IV (18:28)
[2024-01-22] MEDS: TORADOL 30 MG IV (18:31)
--- NOTE | 2024-01-22 19:00 | PTCARENOTE ---
Administered headache cocktail as per MD order. Midflow o2 at 10L. Patient is currently sleeping. Sp02 92% SR with HR in the 60's.
[2024-01-22] MEDS: LIDOCAINE 4% PATCH 1 PATCH TOPICAL (20:07)
[2024-01-22] MEDS: ELIQUIS 5 MG PO (20:08)
[2024-01-22] MEDS: NSS IV (20:14)
[2024-01-23] VITALS (18 sets, daily range): BP systolic 102–141; BP diastolic 66–84; PULSE 64; O2SAT 94
[2024-01-23] MEDS: CATAPRES 0.200000000000000011 MG PO ×4 (00:09→23:19)
[2024-01-23] MEDS: FLAGYL 500 MG 100 IV ×2 (00:09→09:14)
[2024-01-23 03:39] LABS: % Basophils 0.3 % (0-2); % Eosinophils 2.3 % (0-6); % Immature Granulocytes 0.4 % (0-0.5); % Lymphocytes 8.7 % (20.5-51.1); % Monocytes 10.4 % (1.7-9.3); % Neutrophils 77.9 % (42.2-75.2); Absolute Eosinophils 0.2 10^3/uL (0-0.7); Absolute Lymphocytes 0.8 10^3/uL (1.2-3.4); Absolute Neutrophils 7.3 10^3/uL (1.4-6.5); Hematocrit 28.4 % (39.0-52.0); Hemoglobin 9.2 g/dL (13.0-18.0); Mean Corp Hgb Conc. 32.4 g/dL (33.0-37.0); Mean Corpuscular Hgb 29.4 pg (27.0-31.0); Mean Corpuscular Volume 90.7 fL (80.0-94.0); Mean Platelet Volume 9.4 fL (7.4-10.4); Nucleated Red Blood Cells % 0 % (-); Platelet Count 266 10^3/uL (130-400); Red Blood Cell Count 3.13 10^6/uL (4.70-6.10); Red Cell Dist. Width 14.2 % (11.5-14.5); White Blood Cell Count 9.4 10^3/uL (4.8-10.8)
[2024-01-23 03:56] LABS: ALT (SGPT) 47 U/L (0-50); AST (SGOT) 19 U/L (17-59); Albumin 2.5 g/dl (3.5-5.0); Alkaline Phosphatase 95 U/L (38-126); Blood Urea Nitrogen 12 mg/dl (9-20); Calcium 7.7 mg/dl (8.4-10.2); Carbon Dioxide 26 mmol/L (22-30); Chloride 109 mmol/L (98-107); Estimated Creatinine Clearance > 125 ml/min; Glucose 127 mg/dl (70-99); Phosphorus 2.9 mg/dl (2.5-4.5); Potassium 4.2 mmol/L (3.5-5.1); Sodium 137 mmol/L (135-145); Total Bilirubin 1.1 mg/dl (0.2-1.3); Total Protein 4.5 g/dl (6.3-8.2); eGFR > 60.00
[2024-01-23] MEDS: NSS 1000 IV (05:43)
--- NOTE | 2024-01-23 06:14 | PTCARENOTE ---
No acute events overnight. No complaints of pain. Patient drowsy but awakes to voice- slept throughout the night. Remains on 10 liters midflow.
--- NOTE | 2024-01-23 06:44 | W.PN.HOSP.TC ---
Today's Communication/Plan
-
stop IVF
transition IV abx to oral
check Chest XR
pain control
wean O2 supplementation as tolerated
Assessment / Plan
Assessment / Plan
Physical Exam
General:�appears comfortable at this time, less jaundice compared to prior presentation, no acute distress
HEENT:�NormoCephalic, Scleral icterus, pinpoint pupils b/l, [place] Conjunctivae and No Ptosis
Respiratory:�Clear; No Wheezes, Rales or Rhonchi, Decreased breath sounds lower lobes
Cardiac:�S1/S2 and Regular Rhythm; No Murmur, Rub, Gallop or Peripheral Edema
GI:�Soft, Normal Bowel Sounds, and Tender Midepigastric, upper left and right quadrant
Musculoskeletal:�No Clubbing, No Cyanosis and No Edema
Neuro:�AO x 3
Psych:�Calm
53M hx Influenza/COVID/ARDS/PNA requiring ECMO prolonged Hospital Stay Nov 2022-March 2023 complicated w/ PE/DVT, CVA no residual symptoms, cardiac arrest stroke GIB cauterization, hx autoimmune vasculitis, hypertension, GERD, Neuropathy, ILD vs
Long COVID p/w N/V/abd pain 2 days.� CT consistent with acute cholecystitis.� Initial VSS stable. Patient however rapid response overnight soon following admission due to fever tachypnea intractable pain. Eventually pain control improved with
increased freq dose dilaudid. Overnight evaluation however concerning for biliary obstruction cholangitis worsening LFTs and Tbili elevation to 5. VSS otherwise stable following morning though low normotensive.
#Acute cholecystitis
#Likely Biliary Obstruction Cholangitis causing Liver Dysfunction bilirubinemia
#Leukocytosis
#Severe sepsis Fever Tachynea Tachycardia
-transferred to IMU for closer monitoring
-Monitor LFTs improving though Bili remains elevated
-NPO as per GI
-IVF NSS 100 cc/hr
-Eliquis briefly held for possible procedure since resumed, Hematology eval appreciated as below
-Bile Culture appreciated Enterococcus species, awaiting identification sensitivities
-MRCP appreciated possible gall stone inferior CBD no intra/extrahepatic dilation
-IR eval appreciated per cesar placed 01/20 post-procedure complicated with rigors tachypnea tachypneaa pain fever, eventually resolved with Tylenol IVF bolus 500 cc and additional prn Dilaudid increased oxygen supplementation
- cont Iv levaquin, flagyl, patient improving white count resolved afebrile, transitioned to oral 01/23
-ID eval requested
-Surgery Eval appreciated Cholecystostomy tube to remain in place for 4-6 weeks, outpatient discussion regarding cholecystectomy
-GI eval appreciated diet advanced to clear liquid, ERCP on hold for now given clinical and LFT improvement
-IV Zofran prn
-started oxycodone to wean off IV dilaudid, dilaudid remains available severe breakthrough pain
�� ��� CT abdomen pelvis: Acute cholecystitis
�� � ��CXR:�Chronic fibrotic changes both lungs.� Increased mild patchy opacities bilaterally may be progression of fibrosis versus mild pneumonitis
#Severe Headache migraine 01/21-01/22
CT head appreciated no acute abn's
prn sumatriptan received one dose
received migraine cocktail benadryl compazine toradol with mixed results
oxygen supplementation increased possible headache exacerbated by hypoxia
since resolved
Left Sided Neck shoulder pain
-likely muscle strain vs cramping
-eventually resolved with lidocaine patch and flexeril
#Hypophosphatemia
#Hypomagnesemia
#Hypocalcemia
monitor and replete as necessary
#History of ECMO [id number] 17, 2023 2/2 ARDS/FLu /Covid/PNA
#hx DVT/PE while on ECMO
home Eliquis briefly held for procedure since resumed
Hematology eval appreciated, though provoked event, anticoagulation is lifelong given severity of even, hep gtt started 01/21 transitioned to Eliquis 01/22
discussed with patient's outpt Logging Worker and there was a plan to discontinue Eliquis based on repeat D-dimer, however recommends against discontinuing anticoagulation at this time given acute illness increased risk thromboembolism event.
# Cardiac arrest during previous hospital stay
#GERD
#Hx GI bleed Required cauterization during hospital stay January 2023
-home famotidine converted to IV during acute illness current hospitalization GI ppx
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
-No residual deficits
#ILD vs long COVID on chronic steroids
# Uses [place] O2 with exercise
#Hx COVID 2020 received antibodies
#Acute hypoxic respiratory insufficiency/failure oxygen requirement increased to 10L midflow during this hospitalization
-Continue methylprednisolone 6 mg daily,
-Continue dapsone 100 mg daily
-pulm eval appreciated encourage incentive spirometer use
-wean O2 supplementation as tolerated
-checking repeat CXR 01/23
#hx HTN
clonidine held due to low normotensive values severe sepsis, patient since improved
BP increasing resumed clonidine with holding parameters at reduced dose 0.1 TID instead of 0.3, since titrated up to 0.2 TID
prn midodrine discontinued has not required
#Hx [place] syndrome
#Peripheral neuropathy hands and feet
-Continue gabapentin for 100 mg 3 times daily
#Depression
-Continue Zoloft 100 mg daily
dvt prop SCD
gi ppx famotidine
Full code�
Discussed with patient and his Arlene, Infectious disease, Nurse
I spent a total of 55 minutes with the patient or on the floor. More than 50% of this time involved counseling and coordination of care.
Anticipated Discharge: 24 - 48 hours
Subjective/Interval History
-
Date of Service: January 23, 2024
Seen and examined at bedside in no acute distress reports feeling well. Headache resolved. Left neck shoulder pain also resolved. Tolerating diet. Overall patient reports feeling well. Nasal congestion noted. Oxygen requirement high on midflow
10L though no respiratory distress.
Objective Data
-
Labs:
Laboratory Results
01/23/24
03:18
WBC 9.4
Hgb 9.2 L
Hct 28.4 L
Plt Count 266
Sodium 137
Potassium 4.2
Chloride 109 H
Carbon Dioxide 26
BUN 12
Creatinine 0.5 L
Glucose 127 H
Calcium 7.7 L
Total Bilirubin 1.1
AST 19
ALT 47
Alkaline Phosphatase 95
Vital Signs:
Vital Signs
Temp Pulse Resp BP Pulse Ox
97.4 F 47 17 102/66 93
01/23/24 03:04 01/23/24 06:00 01/23/24 06:00 01/23/24 06:00 01/23/24 06:00
I&O
01/21/24 01/22/24 01/23/24
06:59 06:59 06:59
Intake Total 2825 / 2825 1830 / 1830 4055 / 4055
Output Total 780 / 780 830 / 830 2710 / 2710
Balance 2045 / 2045 1000 / 1000 1345 / 1345
[2024-01-23] MEDS: ELIQUIS 5 MG PO ×2 (09:13→19:43)
[2024-01-23] MEDS: DAPSONE 100 MG PO (09:13)
--- NOTE | 2024-01-23 09:13 | W.PN.PUL3 ---
Addendum entered and electronically signed by Alfie Dudley MD 01/23/24 17:21:
CXR: increase in pulm vasc and parenchymal congestion
Respiratory flores appears only in mild resp distress
Reports no change in mild cough, though now expectorating tiny amount of sputum, cannot tell color of expectorate
Continues on O2 10L
Received one dose of furosemide 40 mg IV this afternoon. Pending BNP
Instructed on correct use of IS
Already ordered acapella valve, not yet brought to bedside, RT called by RN
Sputum cx ordered
Opiate naive, speech evaluation ordered
Repeat CXR in AM
TTE in AM
Original Note:
Today's Communication / Plan
-
O2
Atbs
Acap, guaifen, IS
CXR
Assessment
-
Assessment:
Mr Errol Angela is a 53/M adm 01-19 with acute abd pain, work up revealed acute cholecystitis, seen by [facility] and GI, candidate for perc cholecystostomy, procedure performed with no issue 01-20. Seen at IMU, recovering well from procedure
Impression:
Acute abdomen
Acute cholecystitis
MRCP: 1 mm choledocholithiasis, Ent faec
S/p percutaneous cholecystostomy 01-20
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
Influenza/COVID/ARDS/PNA requiring ECMO prolonged Hospital Stay Nov 2022-March 2023, complicated w/ PE/DVT, cardiac arrest, ICH, GI. On apixaban
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
GIB Jan 2023, required cauterization
Influenza A, adm 10-29 to [id number] 2022
COVID pneumonia, adm 10-18 to , d/c on O2 2L
Breakthrough case in vaccinated Pfizer/J&J
2 weeks onset of symptoms, COVID + 10/13/22
Did not receive Paxlovid
Diffuse GGOs consistent with COVID PNA
Received remdesivir and dexamethasone
Completed 5 d atbs (doxycycline) through 10-23
Checked PR2/MPO negative, IgG 496 (10-24)
Chronic immunosuppression
History of microscopic polyangiitis, on chronic methylprednisone 6 mg qd, past h/o use of rituxan
Follows with Rheum Dr. Velázquez ([phone])
ILD: multifactorial, bilateral fibrotic changes, traction bronchiectasis
GERD
Restrictive lung disease
History of pneumonia
Mixed simple and mucopurulent chronic bronchitis
Nonsmoker
Depression
Medical marijuana
Plan:
Continue O2 protocol
Was on home O2 2LPM after COVID pneumonia in Oct 2023
Did not require to continue O2 as recovered well few m after above
Reportedly told to return to O2 at 2L for the last 3-4 m
Has h/o ILD with fibrotic changes
Evaluate O2 needs PTD
Currently on 10L, POx 94%, increased O2 needs likely due to acute cholecystitis and splinting from abd pain, compounding underlying ILD
Update CXR 01-23
Remains afebrile and hemodyn stable
S/p perc cholecystostomy 01-20
Continue empiric atbs: levofloxacin/metronidazole IV
Bile cx with Ent faecalis
Blood cxs: so far negative
Ucx negative
ID following
IS encouraged to continue
Added acapella valve and mucolytic
Asp precs, keep HOB elevated at least 30 degree and as higher as tolerated
OOB as tolerated
Continue PT/OT: 01-23, able to walk up to 200 ft in between room and hallway, POx on 10L 94% at rest and 95% on activity
DVT prophylaxis: was on AC SHINGLE CARRIER (apixaban, h/o VTE), started IV heparin nomogram 01-21, now transitioned to apixaban since 01-22
OOB as tolerated
Pain mgmt
Migraine
Negative head CT 01-22 re acute findings (showed encephalomalacia at L frontal lobe from prior ICH)
Follow with Dr Gonzalez at [facility] and Dr Henry ([facility])
Follow with Rheum Dr Velázquez, on dapsone(?)as rec by Rheum
From PJP prophylaxis perspective does not need dapsone as dose of MP is very low and below threshold for prophylaxis
D/w Mr Angela and his at bedside on daily basis, all questions answered to satisfaction
Diagnostic Data
CXR 01-19-24: no change in mild basilar fibrotic changes
Chest CTA 10/18/22
Comparison examination: 08/21/2022
FINDINGS:
There is no pulmonary embolism.
There is no aortic dissection.
There is no pneumothorax.
There are no abnormal pleural or parenchymal masses.
There is no pleural effusion.
There are patchy ground-glass opacities throughout all lobes. This is moderate. This is most prominent in the lower lobes and left upper lobe.
The mediastinum is normal.
There is no hilar or mediastinal lymphadenopathy.
There is no axillary lymphadenopathy.
No significant osseous abnormalities are demonstrated.
There is a small hiatal hernia.
The osseous structures show mild degenerative disease.
IMPRESSION: No evidence of pulmonary embolus.
Moderate bilateral patchy ground-glass opacities as described above concerning for developing pneumonia. This pattern is commonly seen with Covid 19 type pneumonia.
document embedded image
HRCT 08-21, c/w CT April 2021
COMPARISON STUDY: CT chest 04/27/2021
Technique: Noncontiguous 1 mm slices and 5 mm contiguous slices were obtained through the lungs to survey the lung parenchyma. Supine inspiratory and expiratory images were obtained.
FINDINGS:
* Mild peripheral interstitial thickening throughout the mid to lower lung zones bilaterally.
* No significant ground glass opacities, centrilobular nodules, emphysematous changes, bronchiectasis, fibrosis/honeycombing. No pleural effusion
* Mild to moderate coronary artery calcifications. Fusiform ectasia of the ascending thoracic aorta measuring up to 4.0 cm.
IMPRESSION:
1. Mild peripheral interstitial thickening throughout the mid to lower lung zones bilaterally which may be on the basis of mild/developing interstitial lung disease, not otherwise specified. No fibrosis.
2. Fusiform ectasia of the ascending thoracic aorta measuring up to 4.0 cm.
document embedded image
Subjective Data
-
Date of Service:
Date of Service: January 23, 2024
Chief Complaint: Pulmonary Follow Up
Subjective:
No major events reported
Continues on supplemental O2
Still with incisional RUQ pain
Review of Systems
General: Fever (n), Sweats (n), Chills and Satisfactory Appetite (n)
HEENT: Dysphagia (n)
Cardiopulmonary: Dyspnea (n at rest on O2), Dyspnea on Exertion (mild), Cough (trace), Sputum Production (n), Wheezing, Edema (n) and Hemoptysis (n)
GI: Abdominal Pain (RUQ), Nausea (n) and Vomiting
Neuro: Weakness
Objective Data
Data Reviewed
Vital Signs / I&O / Oxygen:
Vital Signs
Temp Pulse Resp BP Pulse Ox
97.7 F 47 17 102/66 93
01/23/24 07:00 01/23/24 06:00 01/23/24 06:00 01/23/24 06:00 01/23/24 06:00
Intake and Output
01/22/24 01/23/24 01/24/24
06:59 06:59 06:59
Intake Total 1830 / 1830 4055 / 4055
Output Total 830 / 830 2710 / 2710
Balance 1000 / 1000 1345 / 1345
SaO2 93
Nasal Cannula flow liters per 10
minute
Physical Exam
General: Respiratory Distress (n)
HEENT: Normocephalic and Moist Mucous Membranes
Cardiovascular: Regular Rhythm, Murmur, Peripheral Edema (n) and Calf Tenderness (n)
Respiratory: Clear, Non-Labored Respirations and Stridor (n)
GI: Soft, Non Distended, Tender and Other (cholecystostomy tube)
Neurology: Awake, AO x 3 and No Motor Deficits
Skin: Dry
Labs/Micro/Reports
Lab Data
01/23/24 03:18
01/23/24 03:18
Laboratory Results
01/22/24
13:14
APTT 79.8 H
Microbiology
01/19/24 22:44 Blood/Venous Blood Culture - Preliminary
No Growth in 72 hours- Final report to follow
01/19/24 22:44 Blood/Venous Blood Culture - Preliminary
No Growth in 72 hours- Final report to follow
01/20/24 15:35 Bile Body Fluid Culture - Final
Enterococcus faecalis
01/20/24 15:35 Bile Gram Stain - Final
01/21/24 14:37 Urine Urine Culture - Final
NO GROWTH
01/21/24 11:33 Blood/Venous Blood Culture - Preliminary
No Growth in 24 hours- Final report to follow
[2024-01-23] MEDS: FLEXERIL 5 MG PO ×3 (09:14→21:16)
[2024-01-23] MEDS: LIDOCAINE 4% PATCH 1 PATCH TOPICAL (09:15)
[2024-01-23] MEDS: MEDROL 6 MG PO (09:15)
[2024-01-23] MEDS: MIRALAX 17 GRAMS PO (09:16)
[2024-01-23] MEDS: NEURONTIN 400 MG PO ×3 (09:16→21:17)
[2024-01-23] MEDS: PEPCID 20 MG PO ×2 (09:16→19:43)
[2024-01-23] MEDS: ZOLOFT 100 MG PO (09:17)
[2024-01-23] MEDS: SENOKOT-S 1 TABLET PO ×2 (09:17→19:43)
--- NOTE | 2024-01-23 10:53 | W.PN.ID1 ---
Date of Service
Date of Service: January 23, 2024
Today's Communication
- continue levofloxacin/metronidazole x 10 days total 01/19-01/28
- drain management per surgery
- follow up with surgery
Assessment / Plan
Cholecystitis
Leukocytosis
H/o allergy to vancomycin, penicillin, sulfa
- body fluid with enterococcus - sensitive to quinolones as expected
- blood cultures no growth to date
- QTc acceptable
- continue levofloxacin/metronidazole x 10 days total 01/19-01/28
- drain management per surgery
- follow up with surgery
Chief Complaint
-: Other (cholecystitis)
Subjective / Review of Systems
afebrile
bp stable
without leukocytosis
cr stable
sensi back on the enterococcus
Vital Signs / Physical Exam
Vital Signs
Vital Signs
Temp Pulse Resp BP Pulse Ox
97.7 F 63 17 122/75 91
01/23/24 07:00 01/23/24 09:11 01/23/24 06:00 01/23/24 09:11 01/23/24 10:41
Physical Exam
Constitutional: No Acute Distress
Cardiovascular: Regular Rate and S1/S2; Negative Murmur or Rub
Pulmonary: Clear and Symmetric; Negative Wheezes or Rales
Gastrointestinal: Soft, Non Tender, Non Distended and Normal Bowel Sounds
Skin: Warm and Dry; Negative Rash or Jaundice
Objective Data
Lab Data
Lab Results
01/23/24 03:18
01/23/24 03:18
PT 16.7 Sec (11.4-14.6) H 01/19/24 22:28
INR 1.37 01/19/24 22:28
APTT 79.8 Sec (23.4-35.0) H 01/22/24 13:14
Estimated Creat Clear > 125 ml/min 01/23/24 03:18
Lactic Acid 1.7 mmol/L (0.7-2.0) 01/19/24 22:28
Total Bilirubin 1.1 mg/dl (0.2-1.3) 01/23/24 03:18
AST 19 U/L (17-59) 01/23/24 03:18
ALT 47 U/L (0-50) 01/23/24 03:18
Alkaline Phosphatase 95 U/L (38-126) 01/23/24 03:18
Most recent labs reviewed.
Micro Results:
01/19/24 22:44 Blood Culture - Preliminary
Blood/Venous No Growth in 72 hours- Final report to follow
01/19/24 22:44 Blood Culture - Preliminary
Blood/Venous No Growth in 72 hours- Final report to follow
01/20/24 15:35 Body Fluid Culture - Final
Bile Enterococcus faecalis
Gram Stain - Final
01/21/24 14:37 Urine Culture - Final
Urine NO GROWTH
01/21/24 11:33 Blood Culture - Preliminary
Blood/Venous No Growth in 24 hours- Final report to follow
01/19/24 23:00 Influenza Types A & B (NEIL) - Final
Nasal Swab Negative for Influenza A & B, NAAT
Negative results must be combined with clinical observations
and patient history.
Nucleic Acid Amplification test (NAAT)performed on the
[employer] platform.
[2024-01-23] MEDS: TYLENOL 650 MG PO (11:16)
--- NOTE | 2024-01-23 11:30 | W.PN.ONC ---
Today's Communication / Plan
-
Leukocytosis resolved
Initiated apixaban
Hb level 9.2
Impression
Impression
Acute cholecystitis
Acute choledocholithiasis/cholangitis
IR cholecystostomy tube (01/20/24)
Leukocytosis
Fevers
Hx DVT/PE on Eliquis
Hx CVA
Subjective/Objective
Subjective/Objective
Sitting in a chair comfortable.
Vital Signs:
Vital Signs
Temp Pulse Resp BP Pulse Ox
97.7 F 61 24 113/77 91
01/23/24 07:00 01/23/24 10:58 01/23/24 10:58 01/23/24 10:58 01/23/24 11:02
Physical exam unchanged
Lab Results:
Laboratory Data
WBC 9.4 10^3/uL (4.8-10.8) 01/23/24 03:18
Hgb 9.2 g/dL (13.0-18.0) L 01/23/24 03:18
Plt Count 266 10^3/uL (130-400) 01/23/24 03:18
PT 16.7 Sec (11.4-14.6) H 01/19/24 22:28
INR 1.37 01/19/24 22:28
APTT 79.8 Sec (23.4-35.0) H 01/22/24 13:14
eGFR > 60.00 01/23/24 03:18
[2024-01-23] MEDS: CLARITIN 10 MG PO (12:21)
--- NOTE | 2024-01-23 13:40 | PTCARENOTE ---
Accompanied Pt to chest XR. Pt tolerated transport and returned to bed and is now resting, on 10L with humidification, 02 Sats at rest 92%. Pt complained of headache at a /, administered Tylenol for head pain with good effect. Pt has no new
complaints at this time.
[2024-01-23] MEDS: FLAGYL 500 MG PO ×2 (16:39→23:19)
[2024-01-23] MEDS: LASIX 40 MG PO (16:58)
[2024-01-23] MEDS: LEVAQUIN 500 MG PO (17:04)
[2024-01-23 17:41] LABS: NT-proBNP 2980 pg/ml
[2024-01-24] VITALS (10 sets, daily range): BP systolic 88–134; BP diastolic 53–81
--- NOTE | 2024-01-24 04:00 | PTCARENOTE ---
Pt drowsy, but arousable to voice. Maintains 10L O2 midflow with SaO2 90-94%. SR-SB on monitor, 54-65. Pt denies any complaints at this time. Pt able to use urinal in the bed independently. Call mariano placed within reach.
[2024-01-24 05:03] LABS: Hematocrit 28.7 % (39.0-52.0); Hemoglobin 9.3 g/dL (13.0-18.0); Mean Corp Hgb Conc. 32.4 g/dL (33.0-37.0); Mean Corpuscular Hgb 29.3 pg (27.0-31.0); Mean Corpuscular Volume 90.5 fL (80.0-94.0); Mean Platelet Volume 9.3 fL (7.4-10.4); Platelet Count 291 10^3/uL (130-400); Red Blood Cell Count 3.17 10^6/uL (4.70-6.10); Red Cell Dist. Width 14.4 % (11.5-14.5); White Blood Cell Count 11.3 10^3/uL (4.8-10.8)
[2024-01-24 05:22] LABS: Blood Urea Nitrogen 15 mg/dl (9-20); Carbon Dioxide 32 mmol/L (22-30); Chloride 102 mmol/L (98-107); Estimated Creatinine Clearance > 125 ml/min; Glucose 119 mg/dl (70-99); Magnesium 1.8 mg/dl (1.6-2.3); Phosphorus 3.3 mg/dl (2.5-4.5); Potassium 3.5 mmol/L (3.5-5.1); Sodium 136 mmol/L (135-145); eGFR > 60.00
[2024-01-24] MEDS: TYLENOL 650 MG PO ×3 (06:12→23:54)
--- NOTE | 2024-01-24 07:36 | W.PN.HOSP.TC ---
Today's Communication/Plan
-
cont abx as per ID
lasix 40 mg PO BID
follow up ECHO
oxygen prn, wean as tolerated
daily weight I/O
Assessment / Plan
Assessment / Plan
Physical Exam
General:�appears comfortable at this time, less jaundice compared to prior presentation, no acute distress
HEENT:�NormoCephalic, Scleral icterus, pinpoint pupils b/l, [place] Conjunctivae and No Ptosis
Respiratory:�Clear; No Wheezes, Rales or Rhonchi, Decreased breath sounds lower lobes
Cardiac:�S1/S2 and Regular Rhythm; No Murmur, Rub, Gallop or Peripheral Edema
GI:�Soft, Normal Bowel Sounds, and Tender Midepigastric, upper left and right quadrant
Musculoskeletal:�No Clubbing, No Cyanosis and No Edema
Neuro:�AO x 3
Psych:�Calm
53M hx Influenza/COVID/ARDS/PNA requiring ECMO prolonged Hospital Stay Nov 2022-March 2023 complicated w/ PE/DVT, CVA no residual symptoms, cardiac arrest stroke GIB cauterization, hx autoimmune vasculitis, hypertension, GERD, Neuropathy, ILD vs
Long COVID p/w N/V/abd pain 2 days.� CT consistent with acute cholecystitis.� Initial VSS stable. Patient however rapid response overnight soon following admission due to fever tachypnea intractable pain. Eventually pain control improved with
increased freq dose dilaudid. Overnight evaluation however concerning for biliary obstruction cholangitis worsening LFTs and Tbili elevation to 5. VSS otherwise stable following morning though low normotensive.
#Acute cholecystitis
#Likely Biliary Obstruction Cholangitis causing Liver Dysfunction bilirubinemia
#Leukocytosis
#Severe sepsis Fever Tachynea Tachycardia
-transferred to IMU for closer monitoring
-Monitor LFTs improving though Bili remains elevated
-NPO as per GI
-IVF NSS 100 cc/hr
-Eliquis briefly held for possible procedure since resumed, Hematology eval appreciated as below
-Bile Culture appreciated Enterococcus species, awaiting identification sensitivities
-MRCP appreciated possible gall stone inferior CBD no intra/extrahepatic dilation
-IR eval appreciated per cesar placed 01/20 post-procedure complicated with rigors tachypnea tachypneaa pain fever, eventually resolved with Tylenol IVF bolus 500 cc and additional prn Dilaudid increased oxygen supplementation
- cont Iv levaquin, flagyl, patient improving white count resolved afebrile, transitioned to oral 01/23
-ID eval requested
-Surgery Eval appreciated Cholecystostomy tube to remain in place for 4-6 weeks, outpatient discussion regarding cholecystectomy
-GI eval appreciated diet advanced to clear liquid, ERCP on hold for now given clinical and LFT improvement
-IV Zofran prn
-started oxycodone to wean off IV dilaudid, dilaudid remains available severe breakthrough pain
�� ��� CT abdomen pelvis: Acute cholecystitis
�� � ��CXR:�Chronic fibrotic changes both lungs.� Increased mild patchy opacities bilaterally may be progression of fibrosis versus mild pneumonitis
#Severe Headache migraine 01/21-01/22
CT head appreciated no acute abn's
prn sumatriptan received one dose
received migraine cocktail benadryl compazine toradol with mixed results
oxygen supplementation increased possible headache exacerbated by hypoxia
since resolved
Left Sided Neck shoulder pain
-likely muscle strain vs cramping
-eventually resolved with lidocaine patch and flexeril
-patch discontinued, flexeril converted to prn
#Hypophosphatemia
#Hypomagnesemia
#Hypocalcemia
monitor and replete as necessary
#History of ECMO [id number] 17, 2023 2/2 ARDS/FLu /Covid/PNA
#hx DVT/PE while on ECMO
home Eliquis briefly held for procedure since resumed
Hematology eval appreciated, though provoked event, anticoagulation is lifelong given severity of even, hep gtt started 01/21 transitioned to Eliquis 01/22
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
# Cardiac arrest during previous hospital stay
#GERD
#Hx GI bleed Required cauterization during hospital stay January 2023
-home famotidine converted to IV during acute illness current hospitalization GI ppx
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
-No residual deficits
#ILD vs long COVID on chronic steroids
# Uses [place] O2 with exercise
#Hx COVID 2020 received antibodies
#Acute hypoxic respiratory insufficiency/failure oxygen requirement increased to 10L midflow during this hospitalization
#Fluid Overloaded possible iatrogenic non-cardiogenic pulm edema vs heart failure
-Continue methylprednisolone 6 mg daily,
-Continue dapsone 100 mg daily
-pulm eval appreciated encourage incentive spirometer use
-wean O2 supplementation as tolerated
-CXR 01/23 concerning for edema, weight gain noted, started on lasix, increased urine output noted, Checking ECHO
#hx HTN
clonidine held due to low normotensive values severe sepsis, patient since improved
BP increasing resumed clonidine with holding parameters at reduced dose 0.1 TID instead of 0.3, since titrated up to 0.2 TID
prn midodrine discontinued has not required
#Hx [place] syndrome
#Peripheral neuropathy hands and feet
-Continue gabapentin for 100 mg 3 times daily
#Depression
-Continue Zoloft 100 mg daily
dvt prop SCD
gi ppx famotidine
Full code�
Discussed with patient and his Arlene
I spent a total of 57 minutes with the patient or on the floor. More than 50% of this time involved counseling and coordination of care.
Anticipated Discharge: 24 - 48 hours
Subjective/Interval History
-
Date of Service: January 24, 2024
Seen and examined at bedside in no acute distress resting comfortably in bed. Reports overall feeling well. Mild headache in morning resolved with tylenol. Left neck shoulder pain resolved. remains on 10L
Objective Data
-
Labs:
Laboratory Results
01/24/24
04:38
WBC 11.3 H
Hgb 9.3 L
Hct 28.7 L
Plt Count 291
Sodium 136
Potassium 3.5
Chloride 102
Carbon Dioxide 32 H
BUN 15
Creatinine 0.6 L
Glucose 119 H
Calcium 8.0 L
Vital Signs:
Vital Signs
Temp Pulse Resp BP Pulse Ox
99.2 F 64 23 124/73 90
01/24/24 03:37 01/24/24 06:00 01/24/24 06:00 01/24/24 02:00 01/24/24 06:00
I&O
01/23/24 01/24/24 01/25/24
06:59 06:59 06:59
Intake Total 4055 / 4055 1175 / 1175
Output Total 2710 / 2710 3975 / 3975
Balance 1345 / 1345 -2800 / -2800
--- NOTE | 2024-01-24 09:05 | PTOTSP ---
Speech Language Pathology
Pt seen for clinical bedside swallow evaluation. Set up pt to brush teeth. He reported hx of dysphagia with prolonged hospitalization in [id number] (at another institution). 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 He was started
on softer foods initially, but was advanced to regular solids/thin liquids by time of discharge. He reports some 'throat changes' since that hospitalization, such as dry throat and feeling like he has to swallow harder at times. He reported
occasional globus sensation specifically with meats. Stated he saw GI in the last year for reflux, but did not mention this. Question whether related to esophageal phase of swallow function given issue only with meats, but pharyngeal issue
possible given hx. He denied having had PNA since last hospitalization.
P.O. trials of puree, regular solids, and thin liquids provided. Adequate mastication, bolus formation, and A-P transit noted with no oral residue. No overt signs of aspiration. Also seen with multiple pills whole at once with liquid with no
difficulty.
As pt tolerating diet at this time and has had VSEs in the past clearing pt for P.O. intake coupled with lack of PNA since last hospitalization, will defer repeat VSE.
Recommend:
(1) Continue regular solids/thin liquids
(2) General aspiration precautions
(3) Meds as tolerated
(4) [employer] to sign off. Please reconsult as indicated
[2024-01-24] MEDS: LIDOCAINE 4% PATCH 1 PATCH TOPICAL (09:08)
[2024-01-24] MEDS: MIRALAX 17 GRAMS PO (09:08)
[2024-01-24] MEDS: MEDROL 6 MG PO (09:11)
[2024-01-24] MEDS: CLARITIN 10 MG PO (09:11)
[2024-01-24] MEDS: NEURONTIN 400 MG PO ×3 (09:11→21:11)
[2024-01-24] MEDS: ZOLOFT 100 MG PO (09:12)
[2024-01-24] MEDS: SENOKOT-S 1 TABLET PO ×2 (09:13→19:22)
[2024-01-24] MEDS: FLAGYL 500 MG PO ×3 (09:13→23:55)
[2024-01-24] MEDS: ELIQUIS 5 MG PO ×2 (09:13→19:22)
[2024-01-24] MEDS: DAPSONE 100 MG PO (09:13)
[2024-01-24] MEDS: CATAPRES 0.200000000000000011 MG PO ×3 (09:13→23:57)
[2024-01-24] MEDS: PEPCID 20 MG PO ×2 (09:13→19:22)
[2024-01-24] MEDS: FLEXERIL 5 MG PO (09:13)
[2024-01-24] MEDS: LASIX 40 MG PO (09:14)
--- NOTE | 2024-01-24 09:58 | W.PN.PUL.V3 ---
Today's Communication / Plan
-
Still tenuous
Recommend continuing antibiotics
Methylprednisolone without change
Wean supplemental oxygen-still on high flow
Mucus clearing devices added
Diuresis recommended as tolerated
Outpatient pulmonary follow-up
Assessment
-
Assessment:
Mr Errol Angela is a 53/M adm 01-19 with acute abd pain, work up revealed acute cholecystitis, seen by [facility] and GI, candidate for perc cholecystostomy, procedure performed with no issue 01-20. Seen at IMU, recovering well from procedure
Impression:
Acute abdomen
Acute cholecystitis
MRCP: 1 mm choledocholithiasis, Ent faec
S/p percutaneous cholecystostomy 01-20
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
Influenza/COVID/ARDS/PNA requiring ECMO prolonged Hospital Stay Nov 2022-March 2023, complicated w/ PE/DVT, cardiac arrest, ICH, GI. On apixaban
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
GIB Jan 2023, required cauterization
Influenza A, adm 10-29 to [id number] 2022
COVID pneumonia, adm 10-18 to , d/c on O2 2L
Breakthrough case in vaccinated Pfizer/J&J
2 weeks onset of symptoms, COVID + 10/13/22
Did not receive Paxlovid
Diffuse GGOs consistent with COVID PNA
Received remdesivir and dexamethasone
Completed 5 d atbs (doxycycline) through 10-23
Checked PR2/MPO negative, IgG 496 (10-24)
Chronic immunosuppression
History of microscopic polyangiitis, on chronic methylprednisone 6 mg qd, past h/o use of rituxan
Follows with Rheum Dr. Velázquez ([phone])
ILD: multifactorial, bilateral fibrotic changes, traction bronchiectasis
GERD
Restrictive lung disease
History of pneumonia
Mixed simple and mucopurulent chronic bronchitis
Nonsmoker
Depression
Medical marijuana
Plan:
Respiratory status remains tenuous-still on high flow oxygen-baseline 2 L at home after lengthy hospitalization outlined above October 2023
Recommend assessing discharge supplemental oxygen needs with rest and exercise oximetry prior to discharge
Incentive spirometry
Flutter
Aspiration precautions recommended
Out of bed mobilization
Side and prone positioning if able
Patient is status post percutaneous cholecystostomy 01/20/2024
Empiric antibiotics continue
Follow cultures
Infectious disease following-correspondence reviewed
DVT prophylaxis-on Eliquis
GI prophylaxis-on famotidine
Nutrition
Physical therapy/Occupational Therapy
Follow with Dr Gonzalez at [facility] and Dr Henry ([facility])
Follow with Rheum Dr Velázquez, on dapsone(?)as rec by Rheum
From PJP prophylaxis perspective does not need dapsone as dose of MP is very low and below threshold for prophylaxis
Reviewed with nursing
Diagnostic Data
CXR 01-19-24: no change in mild basilar fibrotic changes
Chest CTA 10/18/22
Comparison examination: 08/21/2022
FINDINGS:
There is no pulmonary embolism.
There is no aortic dissection.
There is no pneumothorax.
There are no abnormal pleural or parenchymal masses.
There is no pleural effusion.
There are patchy ground-glass opacities throughout all lobes. This is moderate. This is most prominent in the lower lobes and left upper lobe.
The mediastinum is normal.
There is no hilar or mediastinal lymphadenopathy.
There is no axillary lymphadenopathy.
No significant osseous abnormalities are demonstrated.
There is a small hiatal hernia.
The osseous structures show mild degenerative disease.
IMPRESSION: No evidence of pulmonary embolus.
Moderate bilateral patchy ground-glass opacities as described above concerning for developing pneumonia. This pattern is commonly seen with Covid 19 type pneumonia.
document embedded image
HRCT 08-21, c/w CT April 2021
COMPARISON STUDY: CT chest 04/27/2021
Technique: Noncontiguous 1 mm slices and 5 mm contiguous slices were obtained through the lungs to survey the lung parenchyma. Supine inspiratory and expiratory images were obtained.
FINDINGS:
* Mild peripheral interstitial thickening throughout the mid to lower lung zones bilaterally.
* No significant ground glass opacities, centrilobular nodules, emphysematous changes, bronchiectasis, fibrosis/honeycombing. No pleural effusion
* Mild to moderate coronary artery calcifications. Fusiform ectasia of the ascending thoracic aorta measuring up to 4.0 cm.
IMPRESSION:
1. Mild peripheral interstitial thickening throughout the mid to lower lung zones bilaterally which may be on the basis of mild/developing interstitial lung disease, not otherwise specified. No fibrosis.
2. Fusiform ectasia of the ascending thoracic aorta measuring up to 4.0 cm.
document embedded image
Subjective Data
-
Date of Service:
Date of Service: January 24, 2024
Chief Complaint: Pulmonary Follow Up and Dyspnea Follow Up
Subjective:
Still short of breath with minimal exertion, no chest pain, minimal productive cough, no pleurisy, abdominal pain controlled
Review of Systems
General: Other (Per HPI)
Objective Data
Data Reviewed
Vital Signs / I&O:
Vital Signs
Temp Pulse Resp BP Pulse Ox
98.2 F 64 23 124/73 90
01/24/24 07:24 01/24/24 06:00 01/24/24 06:00 01/24/24 02:00 01/24/24 06:00
Intake and Output
01/23/24 01/24/24 01/25/24
06:59 06:59 06:59
Intake Total 4055 / 4055 1175 / 1175
Output Total 2710 / 2710 3975 / 3975
Balance 1345 / 1345 -2800 / -2800
SaO2: 90
Nasal Cannula flow liters per minute: 10
Physical Exam
General: Respiratory Distress (n)
HEENT: Normocephalic, Anicteric and Moist Mucous Membranes
Cardiovascular: Regular Rhythm, Murmur, Peripheral Edema (n) and Calf Tenderness (n)
Respiratory: Clear, Wheeze (n), Crackles (Bases), Non-Labored Respirations and Stridor (n)
GI: Soft, Non Distended, Tender and Other (cholecystostomy tube)
Neurology: Awake, Alert and No Motor Deficits
Skin: Dry, Good Color, Cyanosis (n), Jaundice (n) and Rash (n)
Labs/Micro/Reports
Lab Data
01/24/24 04:38
01/24/24 04:38
Microbiology
01/19/24 22:44 Blood/Venous Blood Culture - Preliminary
No Growth in 4 days- Final report to follow
01/19/24 22:44 Blood/Venous Blood Culture - Preliminary
No Growth in 4 days- Final report to follow
01/21/24 11:33 Blood/Venous Blood Culture - Preliminary
No Growth in 48 hours- Final report to follow
01/20/24 15:35 Bile Body Fluid Culture - Final
Enterococcus faecalis
01/20/24 15:35 Bile Gram Stain - Final
01/21/24 14:37 Urine Urine Culture - Final
NO GROWTH
--- NOTE | 2024-01-24 10:26 | W.PN.ID1 ---
Date of Service
Date of Service: January 24, 2024
Today's Communication
- agree with diuresis given hypoxemia, my suspicion for pneumonia at this time is low
- continue levofloxacin/metronidazole x 10 days total 01/19-01/28
- drain management per surgery
Assessment / Plan
Cholecystitis
Leukocytosis
H/o allergy to vancomycin, penicillin, sulfa
- agree with diuresis given hypoxemia, my suspicion for pneumonia at this time is low
- body fluid with enterococcus - sensitive to quinolones as expected
- continue levofloxacin/metronidazole x 10 days total 01/19-01/28
- drain management per surgery
- follow up with surgery
Chief Complaint
-: Other (cholecystitis)
Subjective / Review of Systems
afebrile
bp stable
progressive O2 requirements overnight - now back to 6L during my exam
minimal leukocytosis today
cr 0.6
cxr: most likely atelectasis and scarring
no cough, no sputum production
Vital Signs / Physical Exam
Vital Signs
Vital Signs
Temp Pulse Resp BP Pulse Ox
98.2 F 64 22 121/75 90
01/24/24 07:24 01/24/24 10:00 01/24/24 10:00 01/24/24 09:11 01/24/24 10:03
Physical Exam
Constitutional: No Acute Distress
Cardiovascular: Regular Rate and S1/S2; Negative Murmur or Rub
Pulmonary: Clear and Symmetric; Negative Wheezes or Rales
Gastrointestinal: Soft, Non Tender, Non Distended and Normal Bowel Sounds
Skin: Warm and Dry; Negative Rash or Jaundice
Lines: Other (drain)
Objective Data
Lab Data
Lab Results
01/24/24 04:38
01/24/24 04:38
PT 16.7 Sec (11.4-14.6) H 01/19/24 22:28
INR 1.37 01/19/24 22:28
APTT 79.8 Sec (23.4-35.0) H 01/22/24 13:14
Estimated Creat Clear > 125 ml/min 01/24/24 04:38
Lactic Acid 1.7 mmol/L (0.7-2.0) 01/19/24 22:28
Total Bilirubin 1.1 mg/dl (0.2-1.3) 01/23/24 03:18
AST 19 U/L (17-59) 01/23/24 03:18
ALT 47 U/L (0-50) 01/23/24 03:18
Alkaline Phosphatase 95 U/L (38-126) 01/23/24 03:18
Most recent labs reviewed.
Micro Results:
01/19/24 22:44 Blood Culture - Preliminary
Blood/Venous No Growth in 4 days- Final report to follow
01/19/24 22:44 Blood Culture - Preliminary
Blood/Venous No Growth in 4 days- Final report to follow
01/21/24 11:33 Blood Culture - Preliminary
Blood/Venous No Growth in 48 hours- Final report to follow
01/20/24 15:35 Body Fluid Culture - Final
Bile Enterococcus faecalis
Gram Stain - Final
01/21/24 14:37 Urine Culture - Final
Urine NO GROWTH
01/19/24 23:00 Influenza Types A & B (NEIL) - Final
Nasal Swab Negative for Influenza A & B, NAAT
Negative results must be combined with clinical observations
and patient history.
Nucleic Acid Amplification test (NAAT)performed on the
[employer] platform.
[2024-01-24] MEDS: LASIX 40 MG IV (16:50)
[2024-01-24] MEDS: LEVAQUIN 500 MG PO (16:50)
--- NOTE | 2024-01-24 17:07 | CM ---
Patient with Dx Acute cholecystitis, Likely Biliary Obstruction Cholangitis, sepsis, S/p percutaneous cholecystostomy 01-20. Per prior CM notes- Plan for perc cesar drain to remain at d/c. O2 10L midflow. Receiving IV Lasix. PT Eval 01/23;
recommend home PT v pulm rehab. OT recommends outpatient therapy.
Per prior CM notes: was not using home O2 but has [facility]2 [facility].
CM continuing to follow.
Plan home with Maikel FLORES.
--- NOTE | 2024-01-24 17:15 | PTCARENOTE ---
Pt resting throughout the day. Aox3 and pleasant. NSR on tele monitor. Weaned to 6L NC and pt tolerating well. Medicated for generalized body aches with PRN Tylenol with good effect. Rachele drain dressing C/D/I. Pt encouraged to get OOB to chair,
requests to try later this evening. at bedside, updated on plan of care. Pt ringing appropriately, call mariano within reach.
[2024-01-25] VITALS (16 sets, daily range): BP systolic 92–138; BP diastolic 59–89; PULSE 104; O2SAT 90–93; BMI 26.9
--- NOTE | 2024-01-25 03:54 | PTCARENOTE ---
Pt drowsy, but arousable to voice. Presents very pleasant and thankful for care. Pt able to use urinal independently in the bed. R cesar drain patent and producing thin brown drainage, see I&O. Maintained on 6L O2 at 90-94% SaO2, denies SOB or FRIEDMAN.
Pt stood and got OOB to chair for bed bath while this RN and PCT changed bedsheets. Pt back in bed and resting comfortably. Pt c/o general aches and headache once and requested tylenol which seemed to relieve pt's discomfort.
[2024-01-25 04:36] LABS: Hematocrit 33.2 % (39.0-52.0); Hemoglobin 10.8 g/dL (13.0-18.0); Mean Corp Hgb Conc. 32.5 g/dL (33.0-37.0); Mean Corpuscular Hgb 29.5 pg (27.0-31.0); Mean Corpuscular Volume 90.7 fL (80.0-94.0); Mean Platelet Volume 9.4 fL (7.4-10.4); Platelet Count 319 10^3/uL (130-400); Red Blood Cell Count 3.66 10^6/uL (4.70-6.10); Red Cell Dist. Width 14.3 % (11.5-14.5); White Blood Cell Count 13.3 10^3/uL (4.8-10.8)
[2024-01-25 05:02] LABS: Blood Urea Nitrogen 20 mg/dl (9-20); Calcium 8.8 mg/dl (8.4-10.2); Carbon Dioxide 34 mmol/L (22-30); Chloride 95 mmol/L (98-107); Estimated Creatinine Clearance > 125 ml/min; Glucose 98 mg/dl (70-99); Magnesium 1.7 mg/dl (1.6-2.3); Phosphorus 4.9 mg/dl (2.5-4.5); Potassium 3.5 mmol/L (3.5-5.1); Sodium 138 mmol/L (135-145); eGFR > 60.00
[2024-01-25] MEDS: LASIX 40 MG IV ×2 (07:18→17:38)
[2024-01-25] MEDS: MEDROL 6 MG PO (07:18)
[2024-01-25] MEDS: NEURONTIN 400 MG PO ×3 (07:18→22:13)
[2024-01-25] MEDS: CLARITIN 10 MG PO (07:19)
[2024-01-25] MEDS: ROXICODONE 10 MG PO ×2 (07:19→14:05)
[2024-01-25] MEDS: CATAPRES 0.200000000000000011 MG PO ×2 (07:20→17:38)
[2024-01-25] MEDS: FLEXERIL 5 MG PO ×3 (07:20→22:10)
[2024-01-25] MEDS: SENOKOT-S 1 TABLET PO ×2 (07:20→19:41)
[2024-01-25] MEDS: PEPCID 20 MG PO ×2 (07:20→19:41)
[2024-01-25] MEDS: ELIQUIS 5 MG PO ×2 (07:20→19:41)
[2024-01-25] MEDS: ZOLOFT 100 MG PO (07:20)
[2024-01-25] MEDS: DAPSONE 100 MG PO (07:21)
[2024-01-25] MEDS: MIRALAX 17 GRAMS PO (07:21)
[2024-01-25] MEDS: FLAGYL 500 MG PO ×2 (07:21→17:38)
--- NOTE | 2024-01-25 07:37 | W.PN.HOSP.TC ---
Today's Communication/Plan
-
cont abx as per ID
cont lasix 40 mg IV BID
oxygen prn, wean as tolerated
daily weight I/O
drain care
Assessment / Plan
Assessment / Plan
Physical Exam
General:�appears comfortable at this time, less jaundice compared to prior presentation, no acute distress
HEENT:�NormoCephalic, Scleral icterus, pinpoint pupils b/l, Halfway Conjunctivae and No Ptosis
Respiratory:�Clear; No Wheezes, Rales or Rhonchi, Decreased breath sounds lower lobes
Cardiac:�S1/S2 and Regular Rhythm; No Murmur, Rub, Gallop or Peripheral Edema
GI:�Soft, Normal Bowel Sounds, and Tender Midepigastric, upper left and right quadrant
Musculoskeletal:�No Clubbing, No Cyanosis and No Edema
Neuro:�AO x 3
Psych:�Calm
53M hx Influenza/COVID/ARDS/PNA requiring ECMO prolonged Hospital Stay Nov 2022-March 2023 complicated w/ PE/DVT, CVA no residual symptoms, cardiac arrest stroke GIB cauterization, hx autoimmune vasculitis, hypertension, GERD, Neuropathy, ILD vs
Long COVID p/w N/V/abd pain 2 days.� CT consistent with acute cholecystitis.� Initial VSS stable. Patient however rapid response overnight soon following admission due to fever tachypnea intractable pain. Eventually pain control improved with
increased freq dose dilaudid. Overnight evaluation however concerning for biliary obstruction cholangitis worsening LFTs and Tbili elevation to 5. VSS otherwise stable following morning though low normotensive.
#Acute cholecystitis
#Likely Biliary Obstruction Cholangitis causing Liver Dysfunction bilirubinemia
#Leukocytosis
#Severe sepsis Fever Tachynea Tachycardia
-transferred to IMU for closer monitoring
-Monitor LFTs improving though Bili remains elevated
-NPO as per GI
-IVF NSS 100 cc/hr
-Eliquis briefly held for possible procedure since resumed, Hematology eval appreciated as below
-Bile Culture appreciated Enterococcus species, awaiting identification sensitivities
-MRCP appreciated possible gall stone inferior CBD no intra/extrahepatic dilation
-IR eval appreciated per cesar placed 01/20 post-procedure complicated with rigors tachypnea tachypneaa pain fever, eventually resolved with Tylenol IVF bolus 500 cc and additional prn Dilaudid increased oxygen supplementation
- cont Iv levaquin, flagyl, patient improving white count resolved afebrile, transitioned to oral 01/23
-ID eval requested
-Surgery Eval appreciated Cholecystostomy tube to remain in place for 4-6 weeks, outpatient discussion regarding cholecystectomy
-GI eval appreciated diet advanced to clear liquid, ERCP on hold for now given clinical and LFT improvement
-IV Zofran prn
-started oxycodone to wean off IV dilaudid, dilaudid remains available severe breakthrough pain
�� ��� CT abdomen pelvis: Acute cholecystitis
�� � ��CXR:�Chronic fibrotic changes both lungs.� Increased mild patchy opacities bilaterally may be progression of fibrosis versus mild pneumonitis
#Severe Headache migraine 01/21-01/22
CT head appreciated no acute abn's
prn sumatriptan received one dose
received migraine cocktail benadryl compazine toradol with mixed results
oxygen supplementation increased possible headache exacerbated by hypoxia
since resolved
Left Sided Neck shoulder pain resolved
-likely muscle strain vs cramping
-eventually resolved with lidocaine patch and flexeril
-patch discontinued, flexeril converted to prn
#Hypophosphatemia
#Hypomagnesemia
#Hypocalcemia
monitor and replete as necessary
#History of ECMO [id number] 17, 2023 2/ ARDS/FLu /Covid/PNA
#hx DVT/PE while on ECMO
home Eliquis briefly held for procedure since resumed
Hematology eval appreciated, though provoked event, anticoagulation is lifelong given severity of even, hep gtt started 01/21 transitioned to Eliquis 01/22
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
# Cardiac arrest during previous hospital stay
#GERD
#Hx GI bleed Required cauterization during hospital stay January 2023
-home famotidine converted to IV during acute illness current hospitalization GI ppx
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
-No residual deficits
#ILD vs long COVID on chronic steroids
# Uses [place] O2 with exercise
#Hx COVID 2020 received antibodies
#Acute hypoxic respiratory insufficiency/failure oxygen requirement increased to 10L midflow during this hospitalization
#Fluid Overloaded possible iatrogenic non-cardiogenic pulm edema vs heart failure
-Continue methylprednisolone 6 mg daily,
-Continue dapsone 100 mg daily
-pulm eval appreciated encourage incentive spirometer use
-wean O2 supplementation as tolerated
-CXR 01/23 concerning for edema, weight gain noted, started on lasix, increased urine output noted
-Official ECHO results 01/24 remains pending but results discussed with cardio, no significant acute abn's noted EF remains preserved
#hx HTN
clonidine held due to low normotensive values severe sepsis, patient since improved
BP increasing resumed clonidine with holding parameters at reduced dose 0.1 TID instead of 0.3, since titrated up to 0.2 TID
prn midodrine discontinued has not required
#Hx Concord syndrome
#Peripheral neuropathy hands and feet
-Continue gabapentin for 100 mg 3 times daily
#Depression
-Continue Zoloft 100 mg daily
dvt prop SCD
gi ppx famotidine
Full code�
Discussed with patient and his Arlene
I spent a total of 55 minutes with the patient or on the floor. More than 50% of this time involved counseling and coordination of care.
Anticipated Discharge: 24 - 48 hours
Subjective/Interval History
-
Date of Service: January 25, 2024
Reports feeling well at this time. denies new acute issues at this time. Weight notably improved. Oxygen requirement weaned to 5L.
Objective Data
-
Labs:
Laboratory Results
01/25/24
04:14
WBC 13.3 H
Hgb 10.8 L
Hct 33.2 L
Plt Count 319
Sodium 138
Potassium 3.5
Chloride 95 L
Carbon Dioxide 34 H
BUN 20
Creatinine 0.6 L
Glucose 98
Calcium 8.8
Vital Signs:
Vital Signs
Temp Pulse Resp BP Pulse Ox
97.8 F 63 14 124/68 89
01/25/24 07:06 01/25/24 06:00 01/25/24 06:00 01/25/24 06:00 01/25/24 06:00
I&O
01/24/24 01/25/24 01/26/24
06:59 06:59 06:59
Intake Total 1175 / 1175
Output Total 3975 / 3975 2570 / 2570 200 / 200
Balance -2800 / -2800 -2570 / -2570 -200 / -200
--- NOTE | 2024-01-25 09:32 | W.PN.ID1 ---
Date of Service
Date of Service: January 25, 2024
Today's Communication
- continue levofloxacin/metronidazole x 10 days total 01/19-01/28
- drain management per surgery - output may be dropping off
- follow up with surgery
Assessment / Plan
Cholecystitis -resolving
Leukocytosis - on steroids
H/o allergy to vancomycin, penicillin, sulfa
- agree with diuresis given hypoxemia, my suspicion for pneumonia remains low at this time given lack of cough/sputum production
- body fluid with enterococcus - sensitive to quinolones as expected
- continue levofloxacin/metronidazole x 10 days total 01/19-01/28
- drain management per surgery - output may be dropping off
- follow up with surgery
Chief Complaint
-: Other (cholecystitis)
Subjective / Review of Systems
afebrile
bp stable now, intermittent mild hypotension
remains on 6L NC
small increase in wbc count on steroids
cr stable
no cough, no sputum production
in the chair - no edema of the lower extremitis - 'im peeing a lot'
minimal abdominal tenderness
Vital Signs / Physical Exam
Vital Signs
Vital Signs
Temp Pulse Resp BP Pulse Ox
97.8 F 63 14 124/68 93
01/25/24 07:06 01/25/24 06:00 01/25/24 06:00 01/25/24 06:00 01/25/24 08:09
Physical Exam
Constitutional: No Acute Distress
Cardiovascular: Regular Rate and S1/S2; Negative Murmur or Rub
Pulmonary: Clear and Symmetric; Negative Wheezes or Rales
Gastrointestinal: Soft, Tender (minimal tenderness), Non Distended and Normal Bowel Sounds
Skin: Warm and Dry; Negative Rash or Jaundice
Lines: Other (drain - minimal output)
Objective Data
Lab Data
Lab Results
01/25/24 04:14
01/25/24 04:14
PT 16.7 Sec (11.4-14.6) H 01/19/24 22:28
INR 1.37 01/19/24 22:28
APTT 79.8 Sec (23.4-35.0) H 01/22/24 13:14
Estimated Creat Clear > 125 ml/min 01/25/24 04:14
Lactic Acid 1.7 mmol/L (0.7-2.0) 01/19/24 22:28
Total Bilirubin 1.1 mg/dl (0.2-1.3) 01/23/24 03:18
AST 19 U/L (17-59) 01/23/24 03:18
ALT 47 U/L (0-50) 01/23/24 03:18
Alkaline Phosphatase 95 U/L (38-126) 01/23/24 03:18
Most recent labs reviewed.
Micro Results:
01/19/24 22:44 Blood Culture - Final
Blood/Venous No Growth - Final Report
01/19/24 22:44 Blood Culture - Final
Blood/Venous No Growth - Final Report
01/21/24 11:33 Blood Culture - Preliminary
Blood/Venous No Growth in 72 hours- Final report to follow
01/20/24 15:35 Body Fluid Culture - Final
Bile Enterococcus faecalis
Gram Stain - Final
01/21/24 14:37 Urine Culture - Final
Urine NO GROWTH
01/19/24 23:00 Influenza Types A & B (NEIL) - Final
Nasal Swab Negative for Influenza A & B, NAAT
Negative results must be combined with clinical observations
and patient history.
Nucleic Acid Amplification test (NAAT)performed on the
[employer] platform.
--- NOTE | 2024-01-25 14:56 | W.PN.PUL3 ---
Today's Communication / Plan
-
Ambulate and assess oxygenation with walk test
Incentive spirometry, airway clearance
No change with methylprednisolone
Continue anticoagulation
Disposition efforts
Assessment
-
Mr Errol Angela is a 53/M adm 01-19 with acute abd pain, work up revealed acute cholecystitis, seen by [facility] and GI, candidate for perc cholecystostomy, procedure performed with no issue 01-20. Seen at IMU, recovering well from procedure
Acute abdomen
Acute cholecystitis
MRCP: 1 mm choledocholithiasis, Ent faec
S/p percutaneous cholecystostomy 01-20
Conditions present [employer]:
Influenza/COVID/ARDS/PNA requiring ECMO prolonged Hospital Stay Nov 2022-March 2023, complicated w/ PE/DVT, cardiac arrest, ICH, GI. On apixaban
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
GIB Jan 2023, required cauterization
Influenza A, adm 10-29 to [id number] 2022
COVID pneumonia, adm 10-18 to , d/c on O2 2L
Breakthrough case in vaccinated Pfizer/J&J
2 weeks onset of symptoms, COVID + 10/13/22
Did not receive Paxlovid
Diffuse GGOs consistent with COVID PNA
Received remdesivir and dexamethasone
Completed 5 d atbs (doxycycline) through 10-23
Checked PR2/MPO negative, IgG 496 (10-24)
Chronic immunosuppression
History of microscopic polyangiitis, on chronic methylprednisone 6 mg qd, past h/o use of rituxan
Follows with Rheum Dr. Velázquez ([phone])
ILD: multifactorial, bilateral fibrotic changes, traction bronchiectasis
GERD
Restrictive lung disease
History of pneumonia
Mixed simple and mucopurulent chronic bronchitis
Nonsmoker
Depression
Medical marijuana
Plan:
Patient appears to be comfortable
Presently 90% on 5 L
Chest exam with crackles, right greater than left
Abdominal imaging when compared to August 2023, lung bases without any worsening interstitial process
Moving forward
Increase activity as able, wean oxygen as able
Patient is status post percutaneous cholecystostomy 01/20/2024
Empiric antibiotics continue
Follow cultures
Infectious disease following-correspondence reviewed
DVT prophylaxis-on Eliquis, resumed. This should continue for at least the next month
GI prophylaxis-on famotidine
Nutrition
Physical therapy/Occupational Therapy
Follow with Dr Gonzalez at [facility] and Dr Henry ([facility])
Follow with Rheum Dr Velázquez
Disposition efforts
Diagnostic Data
CXR 01-19-24: no change in mild basilar fibrotic changes
Chest CTA 10/18/22
Comparison examination: 08/21/2022
FINDINGS:
There is no pulmonary embolism.
There is no aortic dissection.
There is no pneumothorax.
There are no abnormal pleural or parenchymal masses.
There is no pleural effusion.
There are patchy ground-glass opacities throughout all lobes. This is moderate. This is most prominent in the lower lobes and left upper lobe.
The mediastinum is normal.
There is no hilar or mediastinal lymphadenopathy.
There is no axillary lymphadenopathy.
No significant osseous abnormalities are demonstrated.
There is a small hiatal hernia.
The osseous structures show mild degenerative disease.
IMPRESSION: No evidence of pulmonary embolus.
Moderate bilateral patchy ground-glass opacities as described above concerning for developing pneumonia. This pattern is commonly seen with Covid 19 type pneumonia.
document embedded image
HRCT 08-21, c/w CT April 2021
COMPARISON STUDY: CT chest 04/27/2021
Technique: Noncontiguous 1 mm slices and 5 mm contiguous slices were obtained through the lungs to survey the lung parenchyma. Supine inspiratory and expiratory images were obtained.
FINDINGS:
* Mild peripheral interstitial thickening throughout the mid to lower lung zones bilaterally.
* No significant ground glass opacities, centrilobular nodules, emphysematous changes, bronchiectasis, fibrosis/honeycombing. No pleural effusion
* Mild to moderate coronary artery calcifications. Fusiform ectasia of the ascending thoracic aorta measuring up to 4.0 cm.
IMPRESSION:
1. Mild peripheral interstitial thickening throughout the mid to lower lung zones bilaterally which may be on the basis of mild/developing interstitial lung disease, not otherwise specified. No fibrosis.
2. Fusiform ectasia of the ascending thoracic aorta measuring up to 4.0 cm.
document embedded image
Subjective Data
-
Date of Service:
Date of Service: January 25, 2024
Chief Complaint: Pulmonary Follow Up and Dyspnea Follow Up
Subjective:
Patient seen and examined earlier this morning. Mild shortness of breath noted, but otherwise in good spirits. Has mild cough but denies chest pain, abdominal pain, nausea. Mild pain at p cholecystostomy tube
Objective Data
Data Reviewed
Vital Signs / I&O / Oxygen:
Vital Signs
Temp Pulse Resp BP Pulse Ox
97.8 F 75 24 108/72 90
01/25/24 12:36 01/25/24 12:00 01/25/24 10:00 01/25/24 12:00 01/25/24 12:34
Intake and Output
01/24/24 01/25/24 01/26/24
06:59 06:59 06:59
Intake Total 1175 / 1175
Output Total 3975 / 3975 2570 / 2570 200 / 200
Balance -2800 / -2800 -2570 / -2570 -200 / -200
SaO2 90
Nasal Cannula flow liters per 5
minute
Physical Exam
General: Comfortable
HEENT: Normocephalic, Anicteric and Moist Mucous Membranes
Cardiovascular: Regular Rhythm, Murmur, Peripheral Edema (n) and Calf Tenderness (n)
Respiratory: Clear, Wheeze (n), Crackles (Bases, right greater than left), Non-Labored Respirations and Stridor (n)
GI: Soft, Non Distended, Tender and Other (cholecystostomy tube)
Neurology: Awake, Alert and No Motor Deficits
Skin: Cyanosis (n), Jaundice (n) and Rash (n)
Labs/Micro/Reports
Lab Data
01/25/24 04:14
01/25/24 04:14
Microbiology
01/21/24 11:33 Blood/Venous Blood Culture - Preliminary
No Growth in 4 days- Final report to follow
01/19/24 22:44 Blood/Venous Blood Culture - Final
No Growth - Final Report
01/19/24 22:44 Blood/Venous Blood Culture - Final
No Growth - Final Report
01/20/24 15:35 Bile Body Fluid Culture - Final
Enterococcus faecalis
01/20/24 15:35 Bile Gram Stain - Final
01/21/24 14:37 Urine Urine Culture - Final
NO GROWTH
--- NOTE | 2024-01-25 16:09 | PTCARENOTE ---
Pt resting throughout the day. Aox3 and pleasant. NSR on tele monitor. Weaned to 5L NC and pt tolerating well. Medicated for pain with PRN Flexeril and Kasey with good effect. Rachele drain dressing C/D/I. Pt ambulated in elena and OOB to chair.
and many other family members at bedside. Able to make needs known. Pt ringing appropriately, call mariano within reach.
[2024-01-25] MEDS: LEVAQUIN 500 MG PO (17:38)
[2024-01-25] MEDS: ROXICODONE 5 MG PO (22:11)
[2024-01-26] VITALS (7 sets, daily range): BP systolic 107–120; BP diastolic 70–86; O2SAT 92–94; BMI 26.8
[2024-01-26] MEDS: CATAPRES 0.200000000000000011 MG PO ×3 (00:02→15:17)
[2024-01-26] MEDS: FLAGYL 500 MG PO ×3 (00:03→15:17)
[2024-01-26] MEDS: MELATONIN 5 MG PO (00:05)
[2024-01-26] MEDS: TYLENOL 650 MG PO (00:05)
[2024-01-26 04:41] LABS: Hematocrit 32.9 % (39.0-52.0); Hemoglobin 11.1 g/dL (13.0-18.0); Mean Corp Hgb Conc. 33.7 g/dL (33.0-37.0); Mean Corpuscular Hgb 30.2 pg (27.0-31.0); Mean Corpuscular Volume 89.4 fL (80.0-94.0); Mean Platelet Volume 9.5 fL (7.4-10.4); Platelet Count 381 10^3/uL (130-400); Red Blood Cell Count 3.68 10^6/uL (4.70-6.10); Red Cell Dist. Width 14.4 % (11.5-14.5); White Blood Cell Count 15.7 10^3/uL (4.8-10.8)
[2024-01-26 05:26] LABS: Blood Urea Nitrogen 26 mg/dl (9-20); Calcium 8.7 mg/dl (8.4-10.2); Carbon Dioxide 35 mmol/L (22-30); Chloride 95 mmol/L (98-107); Estimated Creatinine Clearance > 125 ml/min; Glucose 107 mg/dl (70-99); Magnesium 1.7 mg/dl (1.6-2.3); Phosphorus 4.6 mg/dl (2.5-4.5); Potassium 3.8 mmol/L (3.5-5.1); Sodium 134 mmol/L (135-145); eGFR > 60.00
--- NOTE | 2024-01-26 07:20 | W.PN.HOSP.TC ---
Today's Communication/Plan
-
discharge
Assessment / Plan
Assessment / Plan
Physical Exam
General:�appears comfortable at this time, no jaundice, no acute distress
HEENT:�NormoCephalic, Scleral icterus, pinpoint pupils b/l, [place] Conjunctivae and No Ptosis
Respiratory:�Clear; No Wheezes, Rales or Rhonchi, Decreased breath sounds lower lobes
Cardiac:�S1/S2 and Regular Rhythm; No Murmur, Rub, Gallop or Peripheral Edema
GI:�Soft, Normal Bowel Sounds, and Tender Midepigastric, upper left and right quadrant
Musculoskeletal:�No Clubbing, No Cyanosis and No Edema
Neuro:�AO x 3
Psych:�Calm
53M hx Influenza/COVID/ARDS/PNA requiring ECMO prolonged Hospital Stay Nov 2022-March 2023 complicated w/ PE/DVT, CVA no residual symptoms, cardiac arrest stroke GIB cauterization, hx autoimmune vasculitis, hypertension, GERD, Neuropathy, ILD vs
Long COVID p/w N/V/abd pain 2 days.� CT consistent with acute cholecystitis.� Initial VSS stable. Patient however rapid response overnight soon following admission due to fever tachypnea intractable pain. Eventually pain control improved with
increased freq dose dilaudid. Overnight evaluation however concerning for biliary obstruction cholangitis worsening LFTs and Tbili elevation to 5. VSS otherwise stable following morning though low normotensive.
#Acute cholecystitis
#Likely Biliary Obstruction Cholangitis causing Liver Dysfunction bilirubinemia
#Leukocytosis
#Severe sepsis Fever Tachynea Tachycardia
-transferred to IMU for closer monitoring
-transaminitis bilirubin elevation resolved
-IVF support completed
-Eliquis briefly held for possible procedure since resumed, Hematology eval appreciated as below
-Bile Culture appreciated Enterococcus species appreciated pansensitive
-MRCP appreciated possible gall stone inferior CBD no intra/extrahepatic dilation
-IR eval appreciated per cesar placed 01/20 post-procedure complicated with rigors tachypnea tachypneaa pain fever, eventually resolved with Tylenol IVF bolus 500 cc and additional prn Dilaudid increased oxygen supplementation
- cont Iv levaquin, flagyl, patient improving white count resolved afebrile, transitioned to oral 01/23 course to continue for total 10 days 01/19-01/28 as per ID
-ID eval appreciated
-Surgery Eval appreciated Cholecystostomy tube to remain in place for 4-6 weeks, outpatient discussion regarding cholecystectomy
-GI eval appreciated diet advanced to clear liquid, ERCP on hold for now given clinical and LFT improvement
-IV Zofran prn
-started oxycodone to wean off IV dilaudid, dilaudid remains available severe breakthrough pain
�� ��� CT abdomen pelvis: Acute cholecystitis
�� � ��CXR:�Chronic fibrotic changes both lungs.� Increased mild patchy opacities bilaterally may be progression of fibrosis versus mild pneumonitis
#Severe Headache migraine 01/21-01/22
CT head appreciated no acute abn's
prn sumatriptan received one dose
received migraine cocktail benadryl compazine toradol with mixed results
oxygen supplementation increased possible headache exacerbated by hypoxia
since resolved
Left Sided Neck shoulder pain resolved
-likely muscle strain vs cramping
-eventually resolved with lidocaine patch and flexeril
-patch discontinued, flexeril converted to prn
#Hypophosphatemia
#Hypomagnesemia
#Hypocalcemia
monitor and replete as necessary
#History of ECMO [id number] 17, 2023 2/2 ARDS/FLu /Covid/PNA
#hx DVT/PE while on ECMO
home Eliquis briefly held for procedure since resumed
Hematology eval appreciated, though provoked event, anticoagulation is lifelong given severity of even, hep gtt started 01/21 transitioned to Eliquis 01/22
discussed with patient's outpt Utility Manager and there was a plan to discontinue Eliquis based on repeat D-dimer, however recommends against discontinuing anticoagulation at this time given acute illness increased risk thromboembolism event.
# Cardiac arrest during previous hospital stay
#GERD
#Hx GI bleed Required cauterization during hospital stay January 2023
-home famotidine converted to IV during acute illness current hospitalization GI ppx
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
-No residual deficits
#ILD vs long COVID on chronic steroids
# Uses [place] O2 with exercise
#Hx COVID 2020 received antibodies
#Acute hypoxic respiratory insufficiency/failure oxygen requirement increased to 10L midflow during this hospitalization
#Fluid Overloaded possible iatrogenic non-cardiogenic pulm edema vs heart failure
-Continue methylprednisolone 6 mg daily,
-Continue dapsone 100 mg daily
-pulm eval appreciated encourage incentive spirometer use
-wean O2 supplementation as tolerated
-CXR 01/23 concerning for edema, weight gain noted, started on lasix, increased urine output noted
-Official ECHO results 01/24 remains pending but results discussed with cardio, no significant acute abn's noted EF remains preserved
#hx HTN
clonidine held due to low normotensive values severe sepsis, patient since improved
BP increasing resumed clonidine with holding parameters at reduced dose 0.1 TID instead of 0.3, since titrated up to 0.2 TID
prn midodrine discontinued has not required
#Hx Erin syndrome
#Peripheral neuropathy hands and feet
-Continue gabapentin for 100 mg 3 times daily
#Depression
-Continue Zoloft 100 mg daily
dvt prop SCD
gi ppx famotidine
Full code�
Medically stable for discharge home with VN and outpatient follow up recommendations.
Discussed with patient and his Arlene
Total Time Preparing Discharge __50 minutes including examination of the patient, summary of the hospital stay, instructions for continuing care to all relevant caregivers; and preparation of discharge records, prescriptions, and referral
forms if necessary.
Anticipated Discharge: Today
Subjective/Interval History
-
Date of Service: January 26, 2024
Seen and examined at bedside in no acute distress ambulating without issues. Reports feeling well. Denies new acute issues. Eager to go home
Objective Data
-
Labs:
Laboratory Results
01/26/24
04:26
WBC 15.7 H
Hgb 11.1 L
Hct 32.9 L
Plt Count 381
Sodium 134 L
Potassium 3.8
Chloride 95 L
Carbon Dioxide 35 H
BUN 26 H
Creatinine 0.7
Glucose 107 H
Calcium 8.7
Vital Signs:
Vital Signs
Temp Pulse Resp BP Pulse Ox
98.4 F 64 16 107/81 94
01/26/24 03:28 01/26/24 04:00 01/26/24 04:00 01/26/24 04:00 01/26/24 04:00
I&O
01/25/24 01/26/24 01/27/24
06:59 06:59 06:59
Intake Total 480 / 480
Output Total 2570 / 2570 1300 / 1300 425 / 425
Balance -2570 / -2570 -820 / -820 -425 / -425
[2024-01-26] MEDS: MAGNESIUM SULFATE 50 IV (07:56)
[2024-01-26] MEDS: ZOLOFT 100 MG PO (07:56)
[2024-01-26] MEDS: DAPSONE 100 MG PO (07:56)
[2024-01-26] MEDS: SENOKOT-S PO (07:57)
[2024-01-26] MEDS: MEDROL 6 MG PO (07:58)
[2024-01-26] MEDS: PEPCID 20 MG PO (07:58)
[2024-01-26] MEDS: ELIQUIS 5 MG PO (07:58)
[2024-01-26] MEDS: NEURONTIN 400 MG PO ×2 (07:58→15:17)
[2024-01-26] MEDS: CLARITIN 10 MG PO (07:59)
[2024-01-26] MEDS: LASIX 40 MG IV (07:59)
[2024-01-26] MEDS: KCL 40 MEQ PO (08:05)
[2024-01-26] MEDS: MIRALAX PO (08:05)
--- NOTE | 2024-01-26 09:18 | CM ---
CM was consulted for VN. As per previous CM notes, patient has been referred to [facility].
--- NOTE | 2024-01-26 09:25 | W.PN.ID1 ---
Date of Service
Date of Service: January 26, 2024
Today's Communication
- continue levofloxacin/metronidazole x 10 days total 01/19-01/28
- drain management per surgery
- follow up with surgery
Assessment / Plan
Cholecystitis -resolving
Leukocytosis - on steroids
H/o allergy to vancomycin, penicillin, sulfa
- continue levofloxacin/metronidazole x 10 days total 01/19-01/28
- drain management per surgery
- follow up with surgery
Chief Complaint
-: Other (cholecystitis)
Subjective / Review of Systems
afebrile
bp stable
down to 2L NC
leukocytosis persists on steroids
cr stable
blood cultures no growth to date
Vital Signs / Physical Exam
Vital Signs
Vital Signs
Temp Pulse Resp BP Pulse Ox
97.7 F 71 16 114/78 92
01/26/24 07:30 01/26/24 07:59 01/26/24 04:00 01/26/24 07:59 01/26/24 07:54
Physical Exam
Constitutional: No Acute Distress
Cardiovascular: Regular Rate and S1/S2; Negative Murmur or Rub
Pulmonary: Clear and Symmetric; Negative Wheezes or Rales
Gastrointestinal: Soft, Non Tender, Non Distended and Normal Bowel Sounds
Skin: Warm and Dry; Negative Rash or Jaundice
Lines: Other (drain with minimal fluid)
Objective Data
Lab Data
Lab Results
01/26/24 04:26
01/26/24 04:26
PT 16.7 Sec (11.4-14.6) H 01/19/24 22:28
INR 1.37 01/19/24 22:28
APTT 79.8 Sec (23.4-35.0) H 01/22/24 13:14
Estimated Creat Clear > 125 ml/min 01/26/24 04:26
Lactic Acid 1.7 mmol/L (0.7-2.0) 01/19/24 22:28
Total Bilirubin 1.1 mg/dl (0.2-1.3) 01/23/24 03:18
AST 19 U/L (17-59) 01/23/24 03:18
ALT 47 U/L (0-50) 01/23/24 03:18
Alkaline Phosphatase 95 U/L (38-126) 01/23/24 03:18
Most recent labs reviewed.
Micro Results:
01/21/24 11:33 Blood Culture - Preliminary
Blood/Venous No Growth in 4 days- Final report to follow
01/19/24 22:44 Blood Culture - Final
Blood/Venous No Growth - Final Report
01/19/24 22:44 Blood Culture - Final
Blood/Venous No Growth - Final Report
01/20/24 15:35 Body Fluid Culture - Final
Bile Enterococcus faecalis
Gram Stain - Final
01/21/24 14:37 Urine Culture - Final
Urine NO GROWTH
01/19/24 23:00 Influenza Types A & B (NEIL) - Final
Nasal Swab Negative for Influenza A & B, NAAT
Negative results must be combined with clinical observations
and patient history.
Nucleic Acid Amplification test (NAAT)performed on the
[employer] platform.
Care Review
Plan reviewed with: Physician (Dr Mcclure - leukocytosis)
--- NOTE | 2024-01-26 11:38 | W.PN.PUL3 ---
Today's Communication / Plan
-
Continue oxygen therapy, requires 5 L with activity
Antibiotics per ID
Encourage incentive spirometry, activity, ambulation
Cholecystostomy tube in place
Remains on anticoagulation
Follow-up with pulmonary, information left in chart
Okay for discharge from pulmonary standpoint. We will sign off. Please call with questions
Assessment
-
Mr Errol Angela is a 53/M adm 01-19 with acute abd pain, work up revealed acute cholecystitis, seen by [facility] and GI, candidate for perc cholecystostomy, procedure performed with no issue 01-20. Seen at IMU, recovering well from procedure
Acute abdomen
Acute cholecystitis
MRCP: 1 mm choledocholithiasis, Ent faec
S/p percutaneous cholecystostomy 01-20
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
Influenza/COVID/ARDS/PNA requiring ECMO prolonged Hospital Stay Nov 2022-March 2023, complicated w/ PE/DVT, cardiac arrest, ICH, GI. On apixaban
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
GIB Jan 2023, required cauterization
Influenza A, adm 10-29 to [id number] 2022
COVID pneumonia, adm 10-18 to , d/c on O2 2L
Breakthrough case in vaccinated Pfizer/J&J
2 weeks onset of symptoms, COVID + 10/13/22
Did not receive Paxlovid
Diffuse GGOs consistent with COVID PNA
Received remdesivir and dexamethasone
Completed 5 d atbs (doxycycline) through 10-23
Checked PR2/MPO negative, IgG 496 (10-24)
Chronic immunosuppression
History of microscopic polyangiitis, on chronic methylprednisone 6 mg qd, past h/o use of rituxan
Follows with Rheum Dr. Velázquez ([phone])
ILD: multifactorial, bilateral fibrotic changes, traction bronchiectasis
GERD
Restrictive lung disease
History of pneumonia
Mixed simple and mucopurulent chronic bronchitis
Nonsmoker
Depression
Medical marijuana
Plan:
Patient appears to be comfortable
Presently 97% on 6 L
Wean down to 2 L while examined by myself. Maintain saturation 93 to 96%
Chest exam with mild crackles, right greater than left
Abdominal imaging when compared to August 2023, lung bases without any worsening interstitial process
Walk test today, adequate on 5 L, 90 to 92%
Moving forward
Increase activity as able, wean oxygen as able
Patient has to concentrators is at home, able to increase oxygen as needed
Patient is status post percutaneous cholecystostomy 01/20/2024
Empiric antibiotics continue, remains on Levaquin/Flagyl for 10 days total to end 01/28
Follow cultures
Infectious disease following-correspondence reviewed
DVT prophylaxis-on Eliquis, resumed. This should continue for at least the next month
GI prophylaxis-on famotidine
Nutrition
Physical therapy/Occupational Therapy
Follow with Dr Gonzlaez at [facility] and Dr Henry ([facility])
Follow with Rheum Dr Velázquez
Disposition efforts. Okay for discharge from pulmonary standpoint
We will sign off. Please call with questions
Diagnostic Data
CXR 01-19-24: no change in mild basilar fibrotic changes
Chest CTA 10/18/22
Comparison examination: 08/21/2022
FINDINGS:
There is no pulmonary embolism.
There is no aortic dissection.
There is no pneumothorax.
There are no abnormal pleural or parenchymal masses.
There is no pleural effusion.
There are patchy ground-glass opacities throughout all lobes. This is moderate. This is most prominent in the lower lobes and left upper lobe.
The mediastinum is normal.
There is no hilar or mediastinal lymphadenopathy.
There is no axillary lymphadenopathy.
No significant osseous abnormalities are demonstrated.
There is a small hiatal hernia.
The osseous structures show mild degenerative disease.
IMPRESSION: No evidence of pulmonary embolus.
Moderate bilateral patchy ground-glass opacities as described above concerning for developing pneumonia. This pattern is commonly seen with Covid 19 type pneumonia.
document embedded image
HRCT 08-21, c/w CT April 2021
COMPARISON STUDY: CT chest 04/27/2021
Technique: Noncontiguous 1 mm slices and 5 mm contiguous slices were obtained through the lungs to survey the lung parenchyma. Supine inspiratory and expiratory images were obtained.
FINDINGS:
* Mild peripheral interstitial thickening throughout the mid to lower lung zones bilaterally.
* No significant ground glass opacities, centrilobular nodules, emphysematous changes, bronchiectasis, fibrosis/honeycombing. No pleural effusion
* Mild to moderate coronary artery calcifications. Fusiform ectasia of the ascending thoracic aorta measuring up to 4.0 cm.
IMPRESSION:
1. Mild peripheral interstitial thickening throughout the mid to lower lung zones bilaterally which may be on the basis of mild/developing interstitial lung disease, not otherwise specified. No fibrosis.
2. Fusiform ectasia of the ascending thoracic aorta measuring up to 4.0 cm.
document embedded image
Subjective Data
-
Date of Service:
Date of Service: January 26, 2024
Chief Complaint: Pulmonary Follow Up and Dyspnea Follow Up
Subjective:
Patient is feeling well. Mild cough, mild incisional discomfort at cholecystostomy tube placement. Lying flat. Denies nausea, abdominal pain
Objective Data
Data Reviewed
Vital Signs / I&O / Oxygen:
Vital Signs
Temp Pulse Resp BP Pulse Ox
97.7 F 93 14 119/82 89
01/26/24 07:30 01/26/24 10:27 01/26/24 08:00 01/26/24 10:27 01/26/24 10:27
Intake and Output
01/25/24 01/26/24 01/27/24
06:59 06:59 06:59
Intake Total 480 / 480
Output Total 2570 / 2570 1300 / 1300 425 / 425
Balance -2570 / -2570 -820 / -820 -425 / -425
SaO2 89
Nasal Cannula flow liters per 2
minute
Physical Exam
General: Comfortable
HEENT: Normocephalic, Anicteric and Moist Mucous Membranes
Cardiovascular: Regular Rhythm, Murmur, Peripheral Edema (n) and Calf Tenderness (n)
Respiratory: Clear, Wheeze (n), Crackles (Bases, right greater than left), Non-Labored Respirations and Stridor (n)
GI: Soft, Non Distended, Tender and Other (cholecystostomy tube)
Neurology: Awake, Alert and No Motor Deficits
Skin: Cyanosis (n), Jaundice (n) and Rash (n)
Labs/Micro/Reports
Lab Data
01/26/24 04:26
01/26/24 04:26
Microbiology
01/21/24 11:33 Blood/Venous Blood Culture - Preliminary
No Growth in 4 days- Final report to follow
01/19/24 22:44 Blood/Venous Blood Culture - Final
No Growth - Final Report
01/19/24 22:44 Blood/Venous Blood Culture - Final
No Growth - Final Report
--- NOTE | 2024-01-26 12:56 | PTCARENOTE ---
Pt decreased to 2 L NC, at rest 92%. RT walked pt in hallways, requiring 6L NC. Pt tolerated well. DC planning continues. L biliary drain instruction and education given to pt by this RN. VSS. NSR w/ ambulation, on monitor. Will continue to
monitor.
--- NOTE | 2024-01-26 14:12 | CM ---
Addendum entered by Alycia Gaxiola RN 01/26/24 14:48:
CM updated [facility] with today discharge.
PLAN: Home with [facility]
Original Note:
CM spoke with patient to confirm that he has oxygen at home. Patient's know to bring concentrator to hospital for discharge. CM will update [facility] if discharged today.
PLAN: home with [facility]
--- NOTE | 2024-01-26 14:46 | W.DCSUMMARY ---
Discharge Summary
Discharge Data
Date of Admission: 01/19/24
Date of Discharge: 01/26/24
-
Pending Results: No
Hospital Course
53M hx Influenza/COVID/ARDS/PNA required ECMO prolonged Hospital Stay Nov 2022-March 2023 complicated w/ PE/DVT, CVA no residual symptoms, cardiac arrest stroke GIB cauterization, hx autoimmune vasculitis, hypertension, GERD, Neuropathy, ILD vs Long
COVID p/w N/V/abd pain 2 days.� CT consistent with acute cholecystitis.� Initial VSS stable. Patient however rapid response overnight soon following admission due to fever tachypnea intractable pain.� Eventually pain control improved with increased
freq dose Dilaudid.� Overnight evaluation however concerning for biliary obstruction cholangitis worsening LFTs and Tbili elevation to 5.� VSS otherwise stable following morning though low normotensive.� Acute cholecystitis, likely Biliary
Obstruction Cholangitis causing Liver Dysfunction bilirubinemia, Leukocytosis, Severe sepsis Fever Tachynea Tachycardia, transferred to IMU for closer monitoring. Eliquis briefly held for possible procedure, Bile Culture appreciated Enterococcus
species appreciated pansensitive. MRCP appreciated possible gall stone inferior CBD no intra/extrahepatic dilation. IR evaluated and performed per cesar placed 01/20 post-procedure complicated with rigors tachypnea tachypnea pain fever, eventually
resolved with Tylenol IVF bolus 500 cc and additional prn Dilaudid increased oxygen supplementation.
Symptoms eventually improved with antibiotic regimen Levaquin and Flagyll as per ID recommendations. Surgery evaluated and recommended Cholecystostomy tube to remain in place for 4-6 weeks, outpatient follow up for potential cholecystectomy. GI
evaluated and advanced diet, potential ERCP on hold given clinical and LFT improvement, outpatient follow up recommended. Severe Headache migraine 01/21-01/22, CT head appreciated no acute abn's, prn sumatriptan received one dose,
received migraine cocktail benadryl compazine toradol with mixed results, oxygen supplementation increased possible headache exacerbated by hypoxia. Headache since resolved. Left Sided Neck shoulder pain, likely muscle strain vs cramping
eventually resolved with Lidocaine patch and Flexeril- patch was eventually discontinued and Flexeril converted to prn. ILD vs long COVID on chronic steroids, uses [place] O2 with exercise, Hx COVID 2020 received antibodies, Acute hypoxic respiratory
insufficiency/failure oxygen requirement increased to 10L midflow during this hospitalization. Fluid Overloaded possible iatrogenic non-cardiogenic pulm edema vs heart failure. CXR 01/23 concerning for edema, weight gain noted, started on lasix,
increased urine output noted. Official ECHO results 01/24 remained pending but results discussed with cardio, no significant acute abn's noted EF remains preserved. Patient on diuresis was eventually weaned to 5L. Hx HTN, clonidine held due to
low normotensive values severe sepsis, patient since improved. BP increasing resumed clonidine with holding parameters at reduced dose 0.1 TID instead of 0.3, since titrated up to 0.2 TID prior to discharge. Medically stabilized, patient was
discharged home with home services and outpatient follow up recommendations.
Discharge Plan
-
Patient Disposition: Home with Home Care
Discharge Diagnosis/Procedures: Acute Abdomen
Severe Sepsis due to Acute cholecystitis status post percutaneous cholecystostomy 01-20
Non-Cardiogenic Pulmonary Edema vs heart failure with preserved ejection fraction
Hypertension
History Pulmonary Embolism/Deep Vein thrombosis
Acute on Chronic Hypoxic Respiratory Failure
Interstitial Lung Disease vs Long COVID
Condition: Fair
Diet: Low Fat
Activity: As tolerated
Driving Restrictions: Not until seen by your Dr
Bathing Restrictions: None
Blood Work: Please repeat CBC and CMP in 2-3 days of discharge, results to be forwarded to primary care provider and Pulmonology, script has been provided to facilitate
Wound Care: Cover the drain in your abdomen with gauze and change daily and as needed if soiled. If the drain is pulled out/accidentally removed, please call your surgeon or come to the emergency room as soon as possible.
Specialty Instructions: Weigh Daily- Call MD for wt gain/loss 3 lbs overnight/5 lbs in 1 week
Stop these medications:: Clonidine 0.3 mg has been discontinued in favor of 0.2 mg as blood pressure has been well controlled on reduced dose. Please follow up with primary care provider and/or other healthcare provider involved in your care before
considering to resume prior dosing.
Activity Restrictions/Additional Instructions:
Please follow up with primary care provider in 1 week of discharge, surgeon in 2-3 weeks of discharge, keep your appointment with GI, and continue follow up with your finisher plate.
Pepcid 2 tab PO ONCE PRN stomach discomfort
apixaban 5 mg tablet (Eliquis) 5 mg PO Q12H Blood Clot Prevention/Tx
ascorbic acid (vitamin C) 500 mg tablet (Vitamin C) 500 mg PO DAILY Supplement
bismuth subsalicylate 262 mg tablet (Pepto-Bismol) 524 mg PO ONCE PRN stomach discomfort
calcium carbonate 500 mg calcium (1,250 mg) chewable tablet 3,000 mg PO ONCE PRN stomach discomfort
dapsone 100 mg tablet 100 mg PO DAILY Autoimmune Disorder
famotidine 40 mg tablet 40 mg PO DAILY Gastrointestinal Issue
gabapentin 400 mg capsule 400 mg PO TID Pain
methylprednisolone 4 mg tablet 6 mg PO DAILY Anti-Inflammatory
sertraline 100 mg tablet 100 mg PO DAILY depression
New/Changed medications
clonidine HCl 0.2 mg tablet 0.2 mg PO Q8 For hypertension home dose reduced from 0.3 to 0.2 mg
furosemide 40 mg tablet (Lasix) 40 mg PO DAILY for likely non-cardiogenic pulmonary edema, please discuss with primary care provider when safe to discontinue or convert to as needed. Also discuss with your primary care provider if outpatient
cardiology follow-up is warranted.
levofloxacin 500 mg tablet 500 mg PO QPM for septic cholecystitis, last day 01/28
metronidazole 500 mg tablet 500 mg PO Q8 for septic cholecystitis, last day 01/28
oxycodone 5 mg tablet 5 mg PO Q8HPRN PRN moderate pain #21 tabs prescribed, ok to take 10 mg (2tabs) if pain is severe
sennosides 8.6 mg-docusate sodium 50 mg tablet (Stool Softener-Stimulant Laxative) 1 tab PO BID to prevent opiate induced constipation, ok to discontinue if not on opiate pain meds.
Please take prescriptions as prescribed/recommended and follow up with primary care provider and/or other healthcare provider involved in your care for refills and/or further adjustments to your medication regimen as necessary.
Referrals:
Keshia Gonzalez MD [Active] - (Due for appt in April 2024)
Jabier Vela MD [Family Provider] - in one week
Travis López MD [Active] - 02/21/24 7:30 am
(acute cholecystitis, choledcoho bacteremia. FU with Dr López in 3-4wks for possible ERCP
Please call our office if you are not able to keep this appointment.)
Sagar Silver MD [Active] - in two to three weeks
Prescriptions:
New
metronidazole 500 mg Tablet
500 mg PO Q8 Qty: 9 0RF
Rx Instructions:
continue through 01/28/24 then stop
clonidine HCl 0.2 mg Tablet
0.2 mg PO Q8 30 Days Qty: 90 0RF
levofloxacin 500 mg Tablet
500 mg PO QPM Qty: 2 0RF
Rx Instructions:
continue through 01/28/24 then stop
oxycodone 5 mg Tablet
5 mg PO Q8HPRN PRN (Reason: moderate pain) Qty: 21 0RF
Rx Instructions:
take 10 mg (2 tabs) if pain is severe
sennosides-docusate sodium [Stool Softener-Stimulant Laxat] 8.6-50 mg Tablet
1 tab PO BID 30 Days Qty: 60 0RF
Rx Instructions:
hold if diarrhea. Ok to stop if not taking opiate pain meds
furosemide [Lasix] 40 mg tablet
40 mg PO DAILY 30 Days Qty: 30 0RF
Continued
famotidine 40 mg Tablet
40 mg PO DAILY
gabapentin 400 mg Capsule
400 mg PO TID
sertraline 100 mg Tablet
100 mg PO DAILY
methylprednisolone 4 mg Tablet
6 mg PO DAILY
ascorbic acid (vitamin C) [Vitamin C] 500 mg Tablet
500 mg PO DAILY
dapsone 100 mg Tablet
100 mg PO DAILY
Pepto-Bismol 262 mg Tablet
524 mg PO ONCE PRN (Reason: stomach discomfort)
calcium carbonate 500 mg calcium (1,250 mg) Tablet,Chewable
3,000 mg PO ONCE PRN (Reason: stomach discomfort)
Eliquis 5 mg Tablet
5 mg PO Q12H
Pepcid tablet
2 tab PO ONCE PRN (Reason: stomach discomfort)
Patient Comments:
01/19/2024, OTC but spouse unsure of strength.
Discontinued
clonidine HCl 0.3 mg Tablet
0.3 mg PO Q8H
Discharge Orders:
Discharge Patient (As Directed); Ordered 01/26/24
Ordered By: Manuelito Mcclure
Discharge Date and Time
Discharge Date/Time: 01/26/24 15:26
== END 2024-01-26 15:26 | disposition home health service (06) | DRG 871 ==
LOC: IMU 17:31
PROVIDERS: Clinical Nurse Specialist Family Health; Nurse Practitioner Family; Radiology Vascular & Interventional Radiology; Registered Nurse; ADMITTING PHYSICIAN Internal Medicine; CONSULT PHYSICIAN Internal Medicine Gastroenterology; CONSULT PHYSICIAN Student in an Organized Health Care Education/Training Program; EMERGENCY PHYSICIAN Emergency Medicine; FAMILY PHYSICIAN Family Medicine; OTHER PHYSICIAN Internal Medicine Hematology & Oncology; OTHER PHYSICIAN Internal Medicine Pulmonary Disease; OTHER PHYSICIAN Surgery
PROC: 0F9430Z Drainage of Gallbladder with Drainage Device, Percutaneous Approach (ICD-10-PCS; 2024-01-20)
DX: A41.9 Sepsis, unspecified organism (principal); J96.21 Acute and chronic respiratory failure with hypoxia; K80.63 Calculus of gallbladder and bile duct with acute cholecystitis with obstruction; J84.9 Interstitial pulmonary disease, unspecified; M31.7 Microscopic polyangiitis; D84.9 Immunodeficiency, unspecified; J81.1 Chronic pulmonary edema; R65.20 Severe sepsis without septic shock; J98.4 Other disorders of lung; J41.8 Mixed simple and mucopurulent chronic bronchitis; K21.9 Gastro-esophageal reflux disease without esophagitis; E83.39 Other disorders of phosphorus metabolism; B95.2 Enterococcus as the cause of diseases classified elsewhere; E83.42 Hypomagnesemia; E83.51 Hypocalcemia; I11.9 Hypertensive heart disease without heart failure; F32.A Depression, unspecified; K76.89 Other specified diseases of liver; G62.9 Polyneuropathy, unspecified; R51.9 Headache, unspecified; Z82.0 Family history of epilepsy and other diseases of the nervous system; Z82.49 Family history of ischemic heart disease and other diseases of the circulatory system; Z11.52 Encounter for screening for COVID-19; Z86.711 Personal history of pulmonary embolism; Z86.718 Personal history of other venous thrombosis and embolism; Z86.16 Personal history of COVID-19; Z87.01 Personal history of pneumonia (recurrent); Z86.74 Personal history of sudden cardiac arrest; Z86.73 Personal history of transient ischemic attack (TIA), and cerebral infarction without residual deficits; Z87.19 Personal history of other diseases of the digestive system; Z92.81 Personal history of extracorporeal membrane oxygenation (ECMO); Z88.0 Allergy status to penicillin; Z88.2 Allergy status to sulfonamides; Z88.1 Allergy status to other antibiotic agents; Z91.030 Bee allergy status; Z91.040 Latex allergy status; Z79.01 Long term (current) use of anticoagulants; Z86.010 Personal history of colon polyps; Z79.52 Long term (current) use of systemic steroids
CPT/HCPCS: 47490; 70450; 71045; 71046; 74177; 74181; 80048; 80053; 80061; 81003; 81015; 82248; 82962; 83605; 83690; 83735; 83880; 84100; 84484; 85025; 85027; 85045; 85610; 85730; 87015; 87040; 87070; 87077; 87086; 87186; 87205; 87502; 87811; 92610; 93005; 93306; 94761; 96365; 96375; 96376; 97116; 97162; 97167; 97530; 99152; 99291; C1729; C1769; Q9967

== ENCOUNTER 2024-03-17 06:34 | Day surgery (SDC) | payer OTHER, SELFPAY ==
[2024-03-05 12:17] VITALS: BMI 28.0
--- NOTE | 2024-03-05 13:36 | PTCARENOTE ---
ECG from 01/19/[address] at [address] abnormality, and was unchanged when compared with ECG of 11/04/24 at 0341.
[2024-03-17] VITALS (10 sets, daily range): BP systolic 136–167; BP diastolic 85–100; BMI 28.0
[2024-03-17] MEDS: NORMOSOL-R 1000 IV (08:17)
[2024-03-17] MEDS: TYLENOL 1000 MG PO (08:18)
--- NOTE | 2024-03-17 11:17 | W.SUR.PREOP ---
Pre-Operative Surgical Note
-
I have examined this patient prior to the performance of the scheduled procedure.
The patient's condition is unchanged from the time of the current History and
Physical and the patient is able to undergo the scheduled procedure.
--- NOTE | 2024-03-17 11:18 | W.IMMPOSTOP ---
Surgical Immed Post Op Note
-
Primary Surgeon: Sagar Silver MD
Assisting Surgeon: None
Pre-op Diagnosis: Acute cholecystitis, presence of percutaneous cholecystostomy tube
Post-op Diagnosis: Same
Procedure Performed:
1. Laparoscopic cholecystectomy and cholangiogram, with removal of percutaneous cholecystostomy tube
Anesthesia Type: General
Specimen / Cultures: gallbladder and contents
Estimated Blood Loss: 11 cc
Complications: None
Operative Findings: Chronically inflamed gallbladder with percutaneous cholecystostomy going transhepatically into the fundus of the gallbladder. The tube was removed early to allow for better mobilization of the gallbladder. There is significant
adhesions over the surface of the gallbladder which were carefully lysed with bipolar electrocautery. The gallbladder was chronically inflamed but we were able to carefully dissect in the cystic triangle. The cystic artery and posterior branch
were identified high on the gallbladder and ligated with 5 mm titanium clips. A critical view of safety was obtained on the duct prior to a cholangiogram which demonstrated normal biliary anatomy and no distal filling defects. Duct was ligated
with a 5 mm titanium clip and a 0 PDS Endoloop. There was some spillage of presumably infected bile from the percutaneous cholecystostomy tube site but no spillage of stones.
POST OP PLAN:
Will discharge home with a course of antibiotics x1wk.
--- NOTE | 2024-03-17 11:25 | OR.RPT ---
Operative Report
Operative Report
Patient Name: Errol Vu
: 1970
Date of Operation: 03/17/2024
Preoperative Diagnosis: Acute cholecystitis, presence of percutaneous cholecystostomy tube
Postoperative Diagnosis: Same
Procedure(s):
Laparoscopic Cholecystectomy with Cholangiogram, and removal of tube
Surgeon(s):
Dr. Silver
Petroleum Engineering Professor(s):
Dr. Arauz
Anesthesia: General
Estimated Blood Loss: 11 cc
Urine Output: None
Drains/Lines/Implants: None
Specimens:
1. Gallbladder and contents
HPI/Surgical Indications:
This is a 54-year-old male with a history significant for COVID/ARDS requiring ECMO and prolonged hospital stay in November 2022 to March 2023 complicated by PE/DVT on Eliquis, CVA with no residual symptoms, cardiac arrest, stroke, GI bleed who
presented to our hospital in mid January with abdominal pain found to have acute cholecystitis. He was managed with percutaneous cholecystostomy tube and did quite well. He was seen in the office for counseling on interval laparoscopic
cholecystectomy and removal of his percutaneous tube. Risks/Benefits/Alternatives were discussed at length, and the patient agreed to proceed with surgery.
Operative Findings: Chronically inflamed gallbladder with percutaneous cholecystostomy going transhepatically into the fundus of the gallbladder. The tube was removed early to allow for better mobilization of the gallbladder. There was significant
adhesions over the surface of the gallbladder which were carefully lysed with bipolar electrocautery. The gallbladder was chronically inflamed but we were able to carefully dissect in the cystic triangle. The cystic artery and posterior branch
were identified high on the gallbladder and ligated with 5 mm titanium clips. A critical view of safety was obtained on the duct prior to a cholangiogram which demonstrated normal biliary anatomy and no distal filling defects. There is brisk flow
of contrast into duodenum. The duct was ligated with a 5 mm titanium clip and a 0 PDS Endoloop. There was some spillage of bile from the percutaneous cholecystostomy tube site but no spillage of stones.
Procedure Description:
The patient was brought to the Operating Room and placed in the supine position. IV antibiotics were infused and sequential compression devices were confirmed to be on. Following uneventful induction of general endotracheal anesthesia, an
orogastric tube was placed. The abdomen was prepped and draped in the usual sterile fashion. The abdomen was entered using an infraumbilical open Carmina technique with a 12 mm trochar. Pneumoperitoneum to 15 mmHg pressure was obtained without
difficulty and we confirmed that no injury had occurred during our entry. The patient was positioned in reverse trendelenberg and rotated with the right side up slightly. Three (3) 5mm trocars were then placed along the right subcostal margin. The
fundus of the gallbladder was readily visible however there is significant inflammation and adhesions to the surface of the gallbladder wall which also appeared somewhat contracted and intrahepatic. Percutaneous cholecystostomy tube could be seen
coming from the abdominal wall transhepatically into the gallbladder, this was divided/removed to allow for better mobilization of the gallbladder. A locking grasping forceps was placed on the fundus of the gallbladder where it was then retracted
cephalad and to the right. Using appropriate grasping instruments, the adhesions overlying the gallbladder wall were carefully lysed using a ligasure (bipolar cautery). The duodenum was identified and dissected off with blunt and sharp dissection.
The peritoneum overlying the triangle of Calot was incised and the space was carefully dissected. It was at this part of the operation the Dr. Arauz scrubbed in to assist with providing appropriate traction and countertraction as no other
qualified marketing assistant manager was available and his assistance was needed for safe dissection at this critical point of the operation. Anterior and posterior branches of the cystic artery were identified and ligated with 5 mm titanium clips high on the
gallbladder. These were divided to help improve exposure in the cystic triangle. The lateral aspect of the gallbladder wall was also carefully dissected and the window was made through the gallbladder and the cystic plate was exposed completing
our critical view. A clip was then placed on the cystic duct/gallbladder junction and an intraoperative cholangiogram performed using fluoroscopy, which showed good flow of dye into the duodenum. There were no intra- or extrahepatic bile duct
filling defects. The biliary anatomy appeared normal. Following completion of the cholangiogram, the catheter was removed. Two clips were then placed proximally on the cystic duct and the duct divided. The cystic duct stump was reinforced with a
0 PDS Endoloop. The remaining soft tissue attachments of the gallbladder to the liver bed were then divided using electrocautery. There was some spillage of bile, but no spillage of stones. The gallbladder bed was inspected and excellent
hemostasis was obtained. The gallbladder was extracted through the 12 mm trocar site using an endocatch bag. The abdomen was again irrigated and excellent hemostasis was assured. All remaining trocars were then removed and the pneumoperitoneum was
evacuated. The 12 mm trocar site was closed using a figure of 8 of 0 PDS. All trocar sites were closed at the skin level using 4-0 Monocryl followed by Dermabond. Overall, the patient tolerated the procedure well and was taken to the Recovery
Room postoperatively in stable condition.
I was the attending physician and performed the procedure with assistance from Dr. Arauz as detailed above. I was present for all portions of the case
Sagar Silver MD
--- NOTE | 2024-03-17 12:11 | SUR.PHASEI ---
Dr. Denise castaneda to send pt home with sat's 88% or higher on RA and if need can go home on 2LNC which he wears at night. Will continue to monitor
== END 2024-03-17 13:10 | disposition home or self-care (01) ==
LOC: SDS 06:34
PROVIDERS: ATTENDING PHYSICIAN Surgery; FAMILY PHYSICIAN Family Medicine; OTHER PHYSICIAN Internal Medicine Cardiovascular Disease; OTHER PHYSICIAN Internal Medicine Critical Care Medicine
DX: K81.0 Acute cholecystitis (principal); Z96.89 Presence of other specified functional implants
CPT/HCPCS: 47563; 88304; 36415; 74300; 76000; 93005; A4300

== ENCOUNTER 2024-03-19 17:00 | Inpatient (IN) | payer OTHER, SELFPAY ==
[2024-03-18 22:03] VITALS: BMI 27.4
[2024-03-18 22:08] VITALS: BP 145/77
[2024-03-18 22:29] VITALS: BP 160/97
[2024-03-18 22:58] LABS: % Basophils 0.2 % (0-2); % Eosinophils 0.1 % (0-6); % Immature Granulocytes 0.5 % (0-0.5); % Lymphocytes 9.6 % (20.5-51.1); % Monocytes 4.1 % (1.7-9.3); % Neutrophils 85.5 % (42.2-75.2); Absolute Immature Granulocytes 0.1 10^3/uL (0-0.05); Absolute Monocytes 0.9 10^3/uL (0.1-0.6); Hematocrit 42.2 % (39.0-52.0); Hemoglobin 13.1 g/dL (13.0-18.0); Mean Corpuscular Hgb 28.3 pg (27.0-31.0); Mean Corpuscular Volume 91.1 fL (80.0-94.0); Mean Platelet Volume 9.6 fL (7.4-10.4); Nucleated Red Blood Cells % 0 % (-); Platelet Count 308 10^3/uL (130-400); Red Blood Cell Count 4.63 10^6/uL (4.70-6.10); Red Cell Dist. Width 14.8 % (11.5-14.5); White Blood Cell Count 21.1 10^3/uL (4.8-10.8)
[2024-03-18 23:00] VITALS: BP 143/72
[2024-03-18] MEDS: ZOFRAN 4 MG IV (23:07)
[2024-03-18] MEDS: DILAUDID 1 MG IV (23:07)
[2024-03-18 23:10] LABS: Lactic Acid 3.7 mmol/L (0.7-2.0)
[2024-03-18] MEDS: NSS 1000 IV (23:11)
[2024-03-18 23:18] LABS: ALT (SGPT) 102 U/L (0-50); AST (SGOT) 76 U/L (17-59); Albumin 4.8 g/dl (3.5-5.0); Alkaline Phosphatase 70 U/L (38-126); Blood Urea Nitrogen 13 mg/dl (9-20); Calcium 9.2 mg/dl (8.4-10.2); Carbon Dioxide 25 mmol/L (22-30); Chloride 104 mmol/L (98-107); Glucose 116 mg/dl (70-99); Lipase 108 U/L (23-300); Total Bilirubin 1.4 mg/dl (0.2-1.3); Total Protein 7.2 g/dl (6.3-8.2); eGFR > 60.00
[2024-03-18 23:24] LABS: Potassium 5.1 mmol/L (3.5-5.1); Sodium 140 mmol/L (135-145)
--- NOTE | 2024-03-18 23:56 | ED.GENMED ---
History of Present Illness
General
Chief Complaint: Abdominal Pain
Source: patient, spouse and previous hospital records (Previous hospitalization November 2022 with severe COVID requiring transfer to tertiary care center for ECMO and prolonged hospital stay from November 2022 to March 2023. More recent
hospitalization January 19 to January 26 for acute cholecystitis requiring T-tube. Recent cholecystectomy yesterd)
Exam Limitations: none
Time Seen by Provider: 03/18/24 22:41
Nursing documentation reviewed up to this point in time: agreed with
Travel History
Have you had any contact with someone who has COVID-19?: No
Do you have any symptoms of coronavirus? Fever > 100 degrees, chills, cough, shortness of breath, sore throat, loss of taste or smell, muscle aches, or headache?: No
History of Present Illness
History of Present Illness:
This is a 54-year-old gentleman who has extensive past medical history with severe COVID/influenza/are not/pneumonia requiring ECMO and prolonged hospital stay November 2022 to March 2023 complicated with PE/DVT, CVA with no residual symptoms,
cardiac arrest, GI bleed, autoimmune vasculitis, hypertension, GERD, neuropathy, interstitial lung disease requiring supplemental oxygen.
He was then hospitalized January 19 to January 26 for acute cholecystitis requiring T-tube which remained in place until laparoscopic cholecystectomy performed yesterday by Dr. Silver.
Patient was discharged home yesterday and states he was feeling relatively well this morning and this afternoon, taking Tylenol as well as Aleve for pain. He was prescribed oxycodone but did not feel he needed this but then tonight, around 6:30 PM
he began with nausea, multiple episodes of bilious vomitus as well as moderate to severe generalized upper abdominal pain.
He has been using nasal cannula oxygen since discharge yesterday and with increased pain tonight he has had increased shortness of breath and upon arrival to the ED was noted to be moderate hypoxic with initial pulse ox 86%.
He denies cough or chest pain. He does not believe he has been running a fever.
He did pass soft stool earlier today. He denies hematemesis.
Currently feeling mildly to moderately improved with nonrebreather mask in place. Continues with moderate generalized upper abdominal pain and nausea but overall nausea has improved.
Past History
Past History
ED Past Medical History: COPD (Interstitial lung disease/restrictive airway disease status post severe COVID requiring ECMO), Other (Microscopic polyangiitis, interstitial lung disease, pericarditis) and Other (Severe COVID/ours requiring ECMO with
prolonged hospitalization November 2022 to March 2023. Hospitalization complicated by DVT/PE-on Eliquis, CVA with no residual symptoms, cardiac arrest, GI bleed.)
ED Past Surgical History: Cholecystectomy (March 18, 2024) and Other (Tracheostomy during prolonged hospitalization November 2022 to March 2023)
Social History
Tobacco: Non-smoker
Alcohol: Occasional
Drug: None
Personal:
Living: with family
Employment: Employed
Family History
Family History: Hypertension, CAD and Other (Grandmother with Parkinson's)
Phy Exam
Physical Exam
Physical Exam:
GENERAL: 54-year-old gentleman appears his stated age, awake and alert, appears in moderate distress related to pain. Nonrebreather mask in place, mild resting tachypnea. Able to speak in short sentences. and 2 sons are accompanying.
EYE: pupils equal and reactive. anicteric
NECK: Supple, nontender, no meningismus, no significant adenopathy.
ENT: posterior pharynx is clear, oral mucosa is mildly dry. No rhinorrhea.
CARDIAC: Regular rate and rhythm. no murmur.
LUNGS: Mild resting tachypnea, mildly decreased breath sounds bilateral bases with rales right base.
ABDOMEN: Rotund, soft, minimally distended, upper abdomen as well as periumbilical laparoscopy sites dry and intact with wound glue intact, moderate generalized upper abdominal tenderness, no r/g, no cvat. normoactive BS.
NEUROLOGICAL: Alert and oriented x3, no focal neuro deficits.
SKIN: Warm and dry, mild peripheral cyanosis initially, has cleared with nonrebreather mask in place, skin intact. No rash.
MUSCULOSKELETAL: No clubbing no edema, mild peripheral/nailbed cyanosis has resolved with nonrebreather mask in place. Peripheral pulses are full and equal b/l. No palpable tenderness.
PSYCH: Normal and appropriate interaction.
Course
Orders/Labs/Results
Orders:
Orders
03/18/24 22:49
Complete Blood Count/With Diff Urgent
Comprehensive Metabolic Panel Urgent
Lactic Acid Q4H
Comment: ON ICE, CANCEL 2ND ORDER IF FIRST LACTIC ACID LEVEL <2
Lipase Urgent
Blood Culture Q30M
E[facility] Source: Blood/Venous
Specimen Description:
Comment: FROM 2 SEPARATE SITES
03/18/24 22:56
0.9% Sodium Chloride 1000 ml [Nss] 1,000 ml IV BOLUS
HYDROmorphone [Dilaudid] 1 mg IV NOW STA
Ondansetron Injectable [Zofran] 4 mg IV NOW STA
03/18/24 23:20
Blood Culture Q30M
EUG[facility] Source: Blood/Venous
Specimen Description:
Comment: FROM 2 SEPARATE SITES
03/19/24 00:10
CT Abd/pelvis W Iv Cont Urgent
Reason For Exam: severe upper abd pain, N/V-cesar yesterday
03/19/24 01:44
HYDROmorphone [Dilaudid] 0.5 mg IV NOW STA
LevoFLOXacin 500 MG/100 ML [Levaquin] 500 mg in 100 ml IV NOW
MetroNIDAZOLE 500 MG/100 ML [Flagyl 500 mg] 100 ml IV NOW
03/19/24 02:09
Admit/Transfer Patient As Directed
Co-Sign Provider:
Level of Care: Observation services
Assign to:: Medical/Surgical
Physician / Group: [facility]/General Surgery Service
Diagnosis: intractable post op pain, nausea,vomiting, hypoxia
03/19/24 02:12
Code Status As Directed
Resuscitation Status: Full Code
03/19/24 03:03
Lactic Acid Q4H
Comment: ON ICE, CANCEL 2ND ORDER IF FIRST LACTIC ACID LEVEL <2
03/19/24 03:53
0.9% Sodium Chloride 1000 ml [Nss] 1,000 ml IV 60 mls/hr
HYDROmorphone [Dilaudid] 0.5 mg IV Q2HPRN PRN
Prochlorperazine [Compazine] 10 mg IV Q6HPRN PRN
03/19/24 03:53
Activity As Directed
Activity Level: Out of Bed-Early Mobility
Anti-embolism (YAIMA) Hose As Directed
Type: Thigh high
Intake/ Output As Directed
Frequency: Per unit guidelines
Pneumatic Compression Sleeves As Directed
Type: Thigh high
Vital Signs As Directed
Frequency: Per unit guidelines
DX Deep Vein Thrombosis Video Routine
03/19/24 04:01
CBC/No Diff [Complete Blood Count/No Diff] IN AM
CMP [Comprehensive Metabolic Panel] IN AM
03/19/24 Breakfast
NPO
Allow oral meds: No
Allow clear liquids: No
03/19/24 10:00
MetroNIDAZOLE 250 MG/50 ML [Flagyl 250 mg] 50 ml IV Q8H
03/20/24 02:00
LevoFLOXacin 500 MG/100 ML [Levaquin] 500 mg in 100 ml IV Q24H
Abnormal Lab Results
03/18/24
22:49
WBC 21.1 H 10^3/uL
(4.8-10.8)
RBC 4.63 L 10^6/uL
(4.70-6.10)
MCHC 31.0 L g/dL
(33.0-37.0)
RDW 14.8 H %
(11.5-14.5)
Abs Immat Gran (auto) 0.1 H 10^3/uL
(0-0.05)
Absolute Neuts (auto) 18.0 H 10^3/uL
(1.4-6.5)
Absolute Monos (auto) 0.9 H 10^3/uL
(0.1-0.6)
Neutrophils % 85.5 H %
(42.2-75.2)
Lymphocytes % 9.6 L %
(20.5-51.1)
Glucose 116 H mg/dl
(70-99)
Lactic Acid 3.7 H mmol/L
(0.7-2.0)
Total Bilirubin 1.4 H mg/dl
(0.2-1.3)
AST 76 H U/L
(17-59)
ALT 102 H U/L
(0-50)
03/18/24 22:49
03/18/24 22:49
Vital Signs
Initial and Last Documented VS:
Initial Vital Signs
Pulse Resp BP Pulse Ox
79 45 145/77 87
03/18/24 22:08 03/18/24 22:08 03/18/24 22:08 03/18/24 22:08
Last Documented Vital Signs
Temp Pulse Resp BP Pulse Ox
97.9 F 90 23 101/67 92
03/18/24 23:00 03/19/24 06:45 03/19/24 06:45 03/19/24 06:00 03/19/24 06:45
MDM/Problems Addressed
Differential Diagnosis Includes:
Acute on chronic hypoxic respiratory failure may be postop pain related, concern for acute postop pancreatitis, acute bile leak, atelectasis, pleural effusion. Postop infection/sepsis is much less likely.
Will initiate IV fluids and give IV Dilaudid and Zofran for pain and nausea.
To consider imaging/CT abdomen pelvis.
*Radiology
Radiology exam reviewed: radiology read reviewed
*Pulse Oximetry
Patient hypoxic: yes
*Supervisor Dials Interpretation
Rate: normal
Interpretation: normal
Rhythm: sinus
*Critical Care Note
Total Time (30-74mins, 75-104mins- exclusive of procedures): 30
comment:
Critical care statement: A total of 30 minutes of critical care time was provided for this patient. This includes management of unstable vital signs, evaluation of the patient at bedside, reviewing the patient's pertinent medical records, discussion
with consultants, review of old EKGs and review of pertinent medical records. This time with separate from time utilized to perform the aforementioned documented procedures
Update Note
Update Note:
Patient feeling markedly improved after IV Dilaudid and Zofran.
Continues with moderate right upper quadrant tenderness with palpation but no rebound or guarding.
Labs reveal moderately elevated white blood cell count at 21, mildly elevated LFTs as well as T. bili 1.4, normal alkaline phosphatase. Mildly elevated lactic acid at 3.7
CT shows 4 x 4.5 x 3.8 low-density fluid collection in the cholecystectomy bed which could represent seroma versus biloma. Mild surrounding soft tissue stranding and trace pneumoperitoneum likely all postsurgical changes. There is scarring within
the visualized lung bases and bibasilar atelectasis.
These findings can all be routine postop in nature including postoperative pain but must consider postop bile leak.
With elevated lactic acid will initiate IV Levaquin and Flagyl for potential postoperative infection. Blood cultures are pending.
Other consideration is increased O2 requirement, acute on chronic hypoxic respiratory failure which again could be postop pain related but will require acute hospitalization for continued pain control, continued supplemental oxygen and close
monitoring.
Will admit to general surgery service.
ED Attending Note
-
Portions of this chart may have been created with voice recognition software.� Occasional wrong word or��sound alike� substitutions may have occurred due to the inherent limitations of voice recognition software.
Discharge Plan
Departure
Patient Disposition: Admit
Date of Disposition: 03/19/24
Time of Disposition: 01:12
Admit to: Med/Surg
Admit to doctor: Regla
Presentation/result/management discussed w/ accepting MD/DO: gen surgery
Condition: Fair
Discharge Problem:
Intractable post operative pain, Intractable nausea and vomiting, Acute and chronic respiratory failure with hypoxia, post operative seroma vs biloma, Status post laparoscopic cholecystectomy, Elevated lactic acid level
Interventions
Interventions:
*Risk Screen - Suicide Last Done: 03/18/24 22:40
*General Assessment Last Done: 03/18/24 22:09
*Neglect/Abuse Screening Last Done: 03/18/24 22:40
ED- Fall Risk Assessment Last Done: 03/18/24 22:40
*ED COVID-19 Vaccine History Last Done: 03/18/24 22:08
QJ-Dopwcc-Edztsumeka Assessment Last Done: 03/18/24 23:39
[2024-03-19] VITALS (33 sets, daily range): BP systolic 5–153; BP diastolic 62–85
[2024-03-19] MEDS: LEVAQUIN 100 IV (01:56)
[2024-03-19] MEDS: DILAUDID 0.5 MG IV ×5 (01:56→16:56)
[2024-03-19] MEDS: FLAGYL 500 MG 100 IV ×3 (01:56→17:02)
--- NOTE | 2024-03-19 02:41 | HPS.HSE ---
Addendum entered and electronically signed by Mark Reyes MD 03/31/24 08:05:
Severe sepsis, POA, (lactate >2.0 bilirubin >2.0 respiratory rate 29) presumedly due to bile leak pending OR findings
Addendum entered and electronically signed by Mark Reyes MD 03/19/24 12:33:
Patient seen and examined independently of admitting nurse practitioner. Agree with documented history and physical/H&P with additions noted in this addendum.
HPI: 54-year-old male postoperative day 2 today status post laparoscopic cholecystectomy on Saturday. Discharged home but began taking a of increasing abdominal pain yesterday day throughout to the early evening. Subsequently had intractable nausea
with vomiting and shortness of breath secondary to right upper quadrant abdominal pain prompting emergency department evaluation. Imaging notable for postoperative fluid collection in the cholecystectomy field.
Afebrile, sinus tachycardia improving with IV fluid hydration. Normotensive
Acutely ill-appearing and uncomfortable evaluated in the emergency department.
Appears jaundiced and icteric
Abdomen softly distended diffuse tenderness on palpation but localized in the right upper quadrant with voluntary guarding and rebound
laboratory testing reviewed notable for white blood cell count of 27, hemoglobin 11.4 platelet count 188. Electrolytes within normal limits including BUN and creatinine. Bilirubin is up to 2.3. AST ALT elevated. Lipase normal 108.
CT abdomen/pelvis imaging with right upper quadrant fluid collection in the region of cholecystectomy also adjacent to periduodenal tissues. There does not appear to be extraluminal air.
Assessment/plan: 54-year-old male with probable early postoperative bile leak versus intra-abdominal infected fluid collection but given the timing of his recent operation and acute onset of pain bile leak is more likely. Also possibility of
retained stone/choledocholithiasis but intraoperative cholangiogram was performed intraoperatively and negative.
Reviewed with patient and his at bedside. Recommended prompt surgical evaluation with diagnostic laparoscopy, possible laparotomy, abdominal washout. If cystic duct stump leak/bile leak identified and able to be controlled surgically then
will go ahead with this. Otherwise may just be surgical drainage/drain placement. Will also evaluate for potential surrounding iatrogenic injury to additional viscera, we discussed the possibility of this and surgical interventions that would be
needed for repair.
Any of the patient's or his 's concerns or questions were fully addressed and informed consent was obtained.
Original Note:
Family Physician
-
Family Physician: Jabier Vela
Chief Complaint
-
abdominal pain, unable to take deep breaths with nausea/vomiting
History of Present Illness
This is a very pleasant 54 year old male who comes to the ED with his family due to intractable abdominal pain, n/v and difficulty breathing due to pain. He has complicated PMH as outlined thoroughly in HPI of ED record including [place]
hospital[place] after COVID diagnosis requiring ECMO and including CVA (no residual), PE/DVT, cardiac arrest and GI bleed from Nov 2022 to March 2023. PMH includes autoimmune vasculitis, HTN, GERD, COPD, interstitial lung disease (with home
oxygen). In January 2024 he had 7 day stay for acute cholecystitis with T tube placement. Yesterday he underwent cholecystectomy with Dr. Silver. He was discharged home in stable condition but abdominal pain gradually increased earlier today.
Nothing made the pain better. Eventually he started with nausea and vomiting of bilious fluld and unable to take deep breaths. Upon arrival in ED his pulse oximetry was 86%. He had soft stool today but still has stool burden on CT scan. Upon my
interview he has vastly improved stating pain is controlled and he is without further n/v.
Medical History
Past Medical History
Past Medical History: Reports COPD (interstitial lung disease/restrictive airway disease. S/P severe COVID Nov 2022 with ECMO.), CVA (no residual effects), HTN and Other (microscopic polyangitis, pericarditis. Hx DVT/PE, cardiac arrest and GI bleed
during prolonged hospital stay 11/22-03/24 due to COVID/influenza Nov 2022 requiring ECMO.)
Past Surgical History: Reports Cholecystectomy (03/18/24)
Social History
Tobacco: Non-smoker
Alcohol: None
Drug: None
Personal:
Living: With Family
Employment: Employed
Family History
Family History: CAD, Hypertension and Other (grandmother with parkinson's disease)
Allergies / Home Medications
Allergies reflects when Allergies were last updated in [facility].
Home Medications with original date entered in [facility]
Allergy/Medication List:
Allergies
Allergy/AdvReac Type Severity Reaction Status Date / Time
vancomycin Allergy Severe Anaphylaxis/throat Verified 03/17/24 08:12
irritation
latex Allergy swelling - Verified 03/17/24 08:12
long skin
Penicillins Allergy Hives Verified 03/17/24 08:12
Sulfa (Sulfonamide Allergy Rash; Verified 03/17/24 08:12
Antibiotics) tolerates
furosemide
venom-honey bee Allergy swelling - Verified 03/17/24 08:12
[bee venom (honey bee)] throat
tightness
Home Medications
apixaban 5 mg tablet (Eliquis) 5 mg PO Q12H Blood Clot Prevention/Tx 01/19/24
ascorbic acid (vitamin C) 500 mg tablet (Vitamin C) 500 mg PO DAILY Supplement 01/19/24
calcium carbonate 500 mg PO PRN PRN stomach discomfort 01/19/24
dapsone 100 mg tablet 100 mg PO DAILY Autoimmune Disorder 01/19/24
famotidine 40 mg tablet 40 mg PO DAILY Gastrointestinal Issue 01/19/24
gabapentin 400 mg capsule 400 mg PO TID Pain 01/19/24
methylprednisolone 4 mg tablet 6 mg PO DAILY Anti-Inflammatory 01/19/24
sertraline 100 mg tablet 100 mg PO DAILY depression 01/19/24
acetaminophen 325 mg tablet 650 mg (2 x 325 mg) PO Q6HPRN PRN mild pain #14 tabs 03/17/24
clindamycin HCl 300 mg capsule 300 mg PO TID 7 days #21 caps 03/17/24
oxycodone 5 mg tablet 5 mg PO Q6HPRN PRN breakthrough/severe pain #8 tabs 03/17/24
Review of Systems
-
History Source: Patient, Family and Coordinated Provider (previously obtained medical records)
A 12 point ROS was completed and negative except as noted: Yes
Constitutional: Reports Fatigue
EENT: Reports No Symptoms
Respiratory: Reports Other
Cardiac: Reports No Symptoms
Abdomen/GI: Reports Abdominal Pain and Nausea
: Reports No Symptoms
Musculoskeletal: Reports No Symptoms
Skin: Reports No Symptoms
Neurological: Reports No Symptoms
Endocrine: Reports No Symptoms
Hematologic/Lymphatic: Reports No Symptoms
Psych: Reports No Symptoms
Physical Exam
Vital Signs
Vital Signs
Temp Pulse Resp BP Pulse Ox
97.9 F 107 29 111/70 93
03/18/24 23:00 03/19/24 00:15 03/19/24 00:15 03/19/24 00:00 03/19/24 00:15
Physical Exam
General: Well Developed, Well Nourished, Comfortable and Conversant
HEENT: NormoCephalic and Moist mucous membranes
Respiratory: Rales, Non Labored Respirations and Decreased Breath Sounds
Breast: Deferred by me
GI: Soft and Non Distended
Rectal: Deferred by Provider
Musculoskeletal: No Clubbing, No Cyanosis and No Edema
Skin: Warm, Dry and Other (stab sites from robotic procedure CDI)
Neuro: Awake, Alert, AO x 3 and No Motor Deficits
Hematologic/Lymphatic: No Lymphadenopathy
Psych: Calm
Laboratory Results
-
03/18/24 22:49
03/18/24 22:49
Laboratory Results
Lactic Acid 3.7 mmol/L (0.7-2.0) H 03/18/24 22:49
Total Bilirubin 1.4 mg/dl (0.2-1.3) H 03/18/24 22:49
AST 76 U/L (17-59) H 03/18/24 22:49
ALT 102 U/L (0-50) H 03/18/24 22:49
Alkaline Phosphatase 70 U/L (38-126) 03/18/24 22:49
Lipase 108 U/L (23-300) 03/18/24 22:49
Data Reviewed
-
CT Scan: Report Reviewed by me
Lab Data: Labs Reviewed by me
Old Records: Reviewed
Impression/Plan
-
IMPRESSION: intractable abdominal pain with n/v, hypoxia-evaluate possible post op bile leak
PLAN: This is a very pleasant 54 year old male who comes to the ED with his family due to intractable abdominal pain, n/v and difficulty breathing due to pain. He has complicated PMH as outlined thoroughly in HPI of ED record including [place]ization [place] after COVID diagnosis requiring ECMO and including CVA (no residual), PE/DVT, cardiac arrest and GI bleed from Nov 2022 to March 2023. PMH includes autoimmune vasculitis, HTN, GERD, COPD, interstitial lung disease (with home
oxygen). In January 2024 he had 7 day stay for acute cholecystitis with T tube placement. Yesterday he underwent cholecystectomy with Dr. Silver. He was discharged home in stable condition but abdominal pain gradually increased earlier today.
Nothing made the pain better. Eventually he started with nausea and vomiting of bilious fluld and unable to take deep breaths. Upon arrival in ED his pulse oximetry was 86%. He had soft stool today but still has stool burden on CT scan. Upon my
interview he has vastly improved stating pain is controlled and he is without further n/v.
*Lactic acidosis: With mildly elevated WBCs, LFTs and T bili. possible fluid collection noted on CT Abdomen. Continue Levaquin and Flagyl IV. NS IVF. Trend labs in am
*Intractable abdominal pain: S/P Cholecystectomy. Dilaudid IV.
*Intractable n/v: Zofran IV
*Hypoxia: Oxygen to keep saturations >92%
*DVT prophylaxis: SCDs, oob as able. Heparin SQ if ok with surgery service.
*Disposition: FC. Resume home medications as able per General Surgery.
[2024-03-19 03:25] LABS: Lactic Acid 1.5 mmol/L (0.7-2.0)
[2024-03-19 04:09] LABS: Hematocrit 36.3 % (39.0-52.0); Hemoglobin 11.4 g/dL (13.0-18.0); Mean Corp Hgb Conc. 31.4 g/dL (33.0-37.0); Mean Corpuscular Hgb 28.4 pg (27.0-31.0); Mean Corpuscular Volume 90.3 fL (80.0-94.0); Mean Platelet Volume 9.4 fL (7.4-10.4); Platelet Count 188 10^3/uL (130-400); Red Blood Cell Count 4.02 10^6/uL (4.70-6.10); Red Cell Dist. Width 14.6 % (11.5-14.5); White Blood Cell Count 27.2 10^3/uL (4.8-10.8)
[2024-03-19] MEDS: NSS 1000 IV ×2 (04:28→16:06)
[2024-03-19 04:36] LABS: ALT (SGPT) 127 U/L (0-50); AST (SGOT) 94 U/L (17-59); Albumin 3.5 g/dl (3.5-5.0); Alkaline Phosphatase 79 U/L (38-126); Blood Urea Nitrogen 14 mg/dl (9-20); Calcium 8.4 mg/dl (8.4-10.2); Carbon Dioxide 24 mmol/L (22-30); Chloride 109 mmol/L (98-107); Estimated Creatinine Clearance > 125 ml/min; Glucose 98 mg/dl (70-99); Potassium 4.2 mmol/L (3.5-5.1); Sodium 138 mmol/L (135-145); Total Bilirubin 2.3 mg/dl (0.2-1.3); Total Protein 5.5 g/dl (6.3-8.2); eGFR > 60.00
--- NOTE | 2024-03-19 14:22 | W.IMMPOSTOP ---
Addendum entered and electronically signed by Mark Reyes MD 03/24/24 16:27:
#[id number]
Original Note:
Surgical Immed Post Op Note
-
Primary Surgeon: Eric
Assisting Surgeon: Shay Enamorado PGY -1
Pre-op Diagnosis: Peritonitis/Post op intra-abominal fluid collection
Post-op Diagnosis: Bile Peritonitis/biloma; suspected bile duct leak
Procedure Performed: Dx Laparoscopy, Evacuation Biloma, Drain placement; EGD
Anesthesia Type: GETA
Specimen / Cultures: no specimens/biloma-abdominal fluid for culture
Estimated Blood Loss: 6mL
Complications: none immediate
Operative Findings: bile peritonitis found in b/l upper quadrants. biloma and bilious ascites evacuated/washed out. 19blake drain placed x 2. suspected bile leak from region of common hepatic or right branch of hepatic ducts. EGD normal - no
duodenal/gastric abnormality.
Drains: 19 mark x 2 - subhepatic and RUQ and second drain subhepatic into LUQ
[2024-03-19] MEDS: DILAUDID 0.25 MG IV ×3 (15:14→15:42)
--- NOTE | 2024-03-19 17:47 | PTCARENOTE ---
Pt received from OR. Pt AAO, pleasant, c/o slight pain post op. at bedside. Pt RR 24 on 10L simple mask, satting 94%. BP 122/78 (89). Pt c/o difficulty taking deep breaths r/t pain. Pt lungs coarse throughout. Pt with NGT to low int suction,
flushed without difficulty, output light brown. Pt has 2 right sided A&B MARTA drains putting out light yellow drainage. A-10cc and B-20cc. Pt states having slight stomach pain. Pt given Dilaudid per order for pain. See full nursing shift assessment
for head to toe. Call mariano in reach.
[2024-03-19] MEDS: DILAUDID 1 MG IV ×3 (18:14→22:34)
[2024-03-19] MEDS: NSS (PRESERVATIVE FREE) 10 ML IV (20:16)
[2024-03-19] MEDS: PROTONIX IV 40 MG IV (20:16)
[2024-03-19] MEDS: SOLU-CORTEF 50 MG IV (20:17)
--- NOTE | 2024-03-19 21:37 | SUR.PHASEI ---
late pacu addendum - patient in pacu post op -history of covid with complications, sats in pacu 88-95% on 10l mask, Dr Reyes and Dr Gray aware, initially bloody secretions in mouth. NG placement verified with air - to low int suction - no
drainage. pain controlled - discharge to IMU with hand off at bedside.
[2024-03-20] VITALS (32 sets, daily range): BP systolic 65–161; BP diastolic 71–95
[2024-03-20] MEDS: DILAUDID 1 MG IV ×6 (00:40→20:31)
[2024-03-20] MEDS: NSS 1000 IV ×2 (00:41→07:43)
--- NOTE | 2024-03-20 01:33 | PTCARENOTE ---
Received pt at start of shift. aaox3, very pleasant. NSR. Was on 15L simple mask at start of shift, transitioned to 10LMF around 0030. Tolerating well. NGT in place to suction, irrigated Q4h. MARTA drains emptied and assessed Q4h. Abdalla in place,
draining yellow. Ivabx. IVF. Will continue to monitor.
[2024-03-20] MEDS: FLAGYL 500 MG 100 IV ×3 (02:52→18:36)
[2024-03-20] MEDS: LEVAQUIN 100 IV (02:52)
[2024-03-20] MEDS: SOLU-CORTEF 50 MG IV ×2 (07:44→20:28)
[2024-03-20] MEDS: PROTONIX IV 40 MG IV ×2 (07:48→20:27)
[2024-03-20] MEDS: NSS (PRESERVATIVE FREE) 10 ML IV ×2 (07:48→20:28)
[2024-03-20 08:24] LABS: Hematocrit 33.1 % (39.0-52.0); Hemoglobin 10.4 g/dL (13.0-18.0); Mean Corp Hgb Conc. 31.4 g/dL (33.0-37.0); Mean Corpuscular Volume 92.2 fL (80.0-94.0); Mean Platelet Volume 9.6 fL (7.4-10.4); Platelet Count 207 10^3/uL (130-400); Red Blood Cell Count 3.59 10^6/uL (4.70-6.10); Red Cell Dist. Width 14.8 % (11.5-14.5); White Blood Cell Count 25.2 10^3/uL (4.8-10.8)
--- NOTE | 2024-03-20 08:47 | CON.GI ---
Addendum entered and electronically signed by uRth Carranza DO 03/20/24 09:53:
Briefly, Errol Angela is a 54 y.o. male with recent acute cholecystitis s/p cholecystostomy tube with subsequent laparoscopic cholecystectomy on 03/17/24, initially discharged home, later to return with worsening abdominal pain and bilious emesis
found to be septic due to bile leak, now s/p diagnostic laparoscopy, evacuation of biloma and drain placement x2.Blood culture 1/2 positive for enterococcus faecalis. Leukocytosis is starting to downtrend, he remains uncomfortable on exam. He is
afebrile this morning. Plan for ERCP with biliary stent placement today.
Original Note:
Consultation
-
Date/Time Consultation Requested: 03/19/24 1501
Date/Time Consultation Performed: 03/20/24 0815
Requesting Provider: Dr. Reyes
Performing Provider: Dr. Carranza/SIMA Lundberg
Reason for Consultation: bile leak
Medical History
Chief Complaint / HPI
Chief Complaint: abdominal pain, fever
History of Present Illness:
54yo with hx prolonged hospital admission 11/2022- March 2023 with long covid requiring ecmo, trach, PE/DVT on Eliquis, cardiac arrest, GIB with cauterization, ICH, autoimmune vasculitis, HTN, GERD who was hospitalized in January 2024 for acute
cholecystitis requiring cholecystostomy tube. The patient had laparoscopic cholecystectomy on 03/17/24 and was discharged to home. That evening he started to have acute abdominal discomfort out of proportion from what he was feeling earlier that day
associated with bilious vomiting. He also had associated shortness of breath. At that point he presented to the emergency room. The patient had a CT of the abdomen and pelvis with IV contrast that showed surgical clips in the gallbladder fossa.
Small fluid collection in the gallbladder fossa measuring 4.9 x 4.2 x 3.7. Small bubbles of gas seen within the right abdominal wall likely related to recent surgery. No significant biliary ductal dilatation. No pancreatic mass or adjacent
inflammatory change. There is suggestion of mild constipation. No intestinal obstruction. There is reticular interstitial thickening in each lung base unchanged from prior CT. 2.5 cm fluid collection anterior to the left common femoral vessels
likely representing seroma or liquefied hematoma unchanged from prior CT. On presentation the patient had WBC of 21.1, hemoglobin of 13.1, hematocrit 42.2, platelet count of 308. The patient was started on Levaquin and Flagyl. The patient has an
NG tube in place. The patient was seen by surgery and on 03/19/2024 went to the OR for a diagnostic laparoscopy. He had evacuation of a biloma and bilious ascites evacuated and washed out and a 2 drains placed (subhepatic/right upper quadrant and
subhepatic into the left upper quadrant). The patient had an EGD performed that was normal. There were no duodenal or gastric abnormalities noted. Suspected bile leak from region of common hepatic or right branch of hepatic ducts. Patient's
liver function tests are currently total bilirubin of 2.3 with an AST of 94, ALT of 127 alk phos 79 from 03/19/2024. Current labs from today are pending.
The patient was febrile on 03/19/2024 Tmax 101.0. No further fevers patient currently is having abdominal discomfort in the upper abdomen/periumbilical area. Blood culture x 2 ordered, 1 blood culture so far is positive for Enterococcus
faecalis. Other blood culture shows no growth in 24 hours. Body fluid culture pending.
Past Medical History
Past Medical History: GERD, HTN and Other (PNA, interstitial lung disease, chronic bronchitis, PE/DVT, prior ecmo, ARDS, microscopic polyangitis, GI bleed, autoimmune vasculitis, connective tissue disease, cushings, pericarditis, covid 19, cardiac
arrest, hemorragic CVA, trach, neuropathy, colon polyps)
Past Surgical History: Cholecystectomy and Other (Cholecystostomy tube)
Social History
Tobacco: Non-Smoker
Alcohol: Occasional
Drug: Marijuana (in past )
Living: With Family
Employment: Employed
Family History
Family History: Other (no family hx colon CA or polyps, no family hx gallbladder problems that he is aware of )
Allergies / Home Medications
Allergy/AdvReac Type Severity Reaction Status Date / Time
vancomycin Allergy Severe Anaphylaxis/throat Verified 03/17/24 08:12
irritation
latex Allergy swelling - Verified 03/17/24 08:12
long skin
Penicillins Allergy Hives Verified 03/17/24 08:12
Sulfa (Sulfonamide Allergy Rash; Verified 03/17/24 08:12
Antibiotics) tolerates
furosemide
venom-honey bee Allergy swelling - Verified 03/17/24 08:12
[bee venom (honey bee)] throat
tightness
�Medication �Instructions �Recorded
apixaban 5 mg tablet (Eliquis) 5 mg PO Q12H Blood Clot 01/19/24
Prevention/Tx
ascorbic acid (vitamin C) 500 mg 500 mg PO DAILY Supplement 01/19/24
tablet (Vitamin C)
calcium carbonate 500 mg PO PRN PRN stomach 01/19/24
discomfort
dapsone 100 mg tablet 100 mg PO DAILY Autoimmune Disorder 01/19/24
famotidine 40 mg tablet 40 mg PO DAILY Gastrointestinal 01/19/24
Issue
gabapentin 400 mg capsule 400 mg PO TID Pain 01/19/24
methylprednisolone 4 mg tablet 6 mg PO DAILY Anti-Inflammatory 01/19/24
sertraline 100 mg tablet 100 mg PO DAILY depression 01/19/24
acetaminophen 325 mg tablet 650 mg (2 x 325 mg) PO Q6HPRN PRN 03/17/24
mild pain #14 tabs
oxycodone 5 mg tablet 5 mg PO Q6HPRN PRN 03/17/24
breakthrough/severe pain #8 tabs
clindamycin HCl 300 mg capsule 300 mg PO TID Infection 03/20/24
Review of Systems
-
All other systems: A 12 pt ROS was Negative except as stated above in HPI
Vital Signs
Temp Pulse Resp BP Pulse Ox
97.5 F 69 21 119/77 94
03/20/24 02:56 03/20/24 06:00 03/20/24 06:00 03/20/24 06:00 03/20/24 06:00
Physical Exam
Exam
General: Well Developed
HEENT: Anicteric
Respiratory: Clear (Decreased bases bilaterally)
Cardiac: Regular Rhythm
GI: Soft, Non Distended, Tender (Generalized tenderness right upper quadrant, periumbilical) and Other (Hypoactive bowel sounds, ecchymosis periumbilical postoperatively, postop laparoscopic incisions covered, subhepatic and right upper quadrant
drain, tube right upper quadrant with dark bilious brown fluid)
Musculoskeletal: No Edema and Other (SCDs in place)
Skin: Warm and Dry
Neuro: AO x 3
Psych: Calm
Results
WBC 25.2 10^3/uL (4.8-10.8) H 03/20/24 08:03
Hgb 10.4 g/dL (13.0-18.0) L 03/20/24 08:03
Hct 33.1 % (39.0-52.0) L 03/20/24 08:03
MCV 92.2 fL (80.0-94.0) 03/20/24 08:03
Plt Count 207 10^3/uL (130-400) 03/20/24 08:03
Absolute Neuts (auto) 18.0 10^3/uL (1.4-6.5) H 03/18/24 22:49
Sodium 138 mmol/L (135-145) 03/19/24 04:01
Potassium 4.2 mmol/L (3.5-5.1) 03/19/24 04:01
Chloride 109 mmol/L (98-107) H 03/19/24 04:01
Carbon Dioxide 24 mmol/L (22-30) 03/19/24 04:01
BUN 14 mg/dl (9-20) 03/19/24 04:01
Creatinine 0.7 mg/dL (0.7-1.3) 03/19/24 04:01
Calcium 8.4 mg/dl (8.4-10.2) 03/19/24 04:01
Total Bilirubin 2.3 mg/dl (0.2-1.3) H D 03/19/24 04:01
AST 94 U/L (17-59) H 03/19/24 04:01
ALT 127 U/L (0-50) H 03/19/24 04:01
Alkaline Phosphatase 79 U/L (38-126) 03/19/24 04:01
Lipase 108 U/L (23-300) 03/18/24 22:49
Diagnostic Image Results:
CT of the abdomen and pelvis with IV contrast only 03/19/2024:
IMPRESSION:
1. Status post cholecystectomy. Small fluid collection within the gallbladder fossa, measuring 4.9 x 3.7 x 4.2 cm, suggestive of postoperative fluid, seroma, or biloma. Abscess is considered less likely, given that his cholecystectomy was only 2
days ago.
2. Suggestion of mild constipation. No intestinal obstruction.
3. Reticular interstitial thickening at each lung base, unchanged compared to prior CT, suggestive of mild interstitial fibrosis. Interstitial fibrosis was also seen on prior chest CT dated 08/21/2023.
4. 2.5 cm fluid collection anterior to the left common femoral vessels, likely representing seroma or liquefied hematoma. Unchanged compared to prior CT.
Findings are in agreement with the after hours [facility] radiology report.
Electronically signed by Mark Prescott MD 03/19/2024 8:48 AM
Intraoperative cholangiogram 03/17/2024: No filling defect to suggest choledocholithiasis. Thin ringlike stricture suspected in the distal common bile duct with mild luminal narrowing.
Prior GI Procedures:
EGD: EGD: at [place] with GI bleed ? NGT trauma with ulcer
Colonoscopy: 09/2022 [facility] 5mm polyp AC, diverticulosis, IH bx TA
Assessment / Plan
-
54yo with hx prolonged hospital admission 11/2022- March 2023 with long covid requiring ecmo, trach, PE/DVT on Eliquis, cardiac arrest, GIB with cauterization, ICH, autoimmune vasculitis, HTN, GERD who was hospitalized in January 2024 for acute
cholecystitis requiring cholecystostomy tube. Had laparoscopic cholecystectomy on 03/17/2024. Presents back to the hospital on 03/18/2024 with nausea vomiting and increased abdominal pain. Found to have Small fluid collection in the gallbladder
fossa measuring 4.9 x 4.2 x 3.7. The patient was started on Levaquin and Flagyl and taken to the OR on 03/19/2024 for a diagnostic laparoscopy. He had evacuation of a biloma and bilious ascites evacuated and washed out and a 2 drains placed
(subhepatic/right upper quadrant and subhepatic into the left upper quadrant). The patient had an EGD performed that was normal. There were no duodenal or gastric abnormalities noted. Suspected bile leak from region of common hepatic or right
branch of hepatic ducts. Patient's liver function tests are currently total bilirubin of 2.3 with an AST of 94, ALT of 127 alk phos 79 from 03/19/2024. We are asked to evaluate for bile leak and placement of biliary stenting.
Impression:
Bile leak
Evacuation of biloma and bilious ascites
Interstitial lung disease
Constipation, review of imaging shows most stool in right side of colon. Mild amount of stool in rectosigmoid area
Plan:
-Continue Levaquin/Flagyl
-N.p.o./IV fluids
-Plan for ERCP with biliary stenting today with Dr. López
-Trend labs
-Patient with 1 out of 2 positive blood cultures. In the setting of immunosuppression on chronic steroids. May require ID consultation again.
-After procedures would consider enema to help with constipation. When able to take an oral with then start with bowel regimen from above.
-CBC, BMP, LFTs in a.m.
-Recommend incentive spirometer
-Further recommendations to follow.
-
-
Thank you for consultation and allowing me to participate in the patient's care. Please call the paleontological helper GI physician during the after hours with any questions or concerns.
[2024-03-20 09:00] LABS: ALT (SGPT) 85 U/L (0-50); AST (SGOT) 43 U/L (17-59); Alkaline Phosphatase 88 U/L (38-126); Blood Urea Nitrogen 18 mg/dl (9-20); Calcium 8.5 mg/dl (8.4-10.2); Carbon Dioxide 26 mmol/L (22-30); Chloride 106 mmol/L (98-107); Estimated Creatinine Clearance > 125 ml/min; Glucose 106 mg/dl (70-99); Potassium 4.7 mmol/L (3.5-5.1); Sodium 138 mmol/L (135-145); Total Bilirubin 1.8 mg/dl (0.2-1.3); Total Protein 5.1 g/dl (6.3-8.2); eGFR > 60.00
[2024-03-20 09:22] LABS: Amylase 41 U/L (30-110); INR 1.57; Lipase 13 U/L (23-300); PT 18.6 Sec (11.4-14.6)
[2024-03-20 09:23] LABS: Direct Bilirubin 0.5 mg/dl (0.0-0.4)
--- NOTE | 2024-03-20 13:02 | W.PN.GS2 ---
Today's Communication / Plan
-
-- GI consult, ERCP with stent
-- Transfer to ICU
Assessment / Plan
-
Patient is a 54 yo M POD#3 s/p laparoscopic cholecystectomy with IOC on 03/17. Representation and complication of bile duct injury. POD#1 s/p diagnostic laparoscopy, abdominal washout and drainage placement
Difficult to determine based on operative findings exact location of bile duct injury (appeared intra-hepatic, possible duct of Luschka), ERCP will help determine and treat. Control of leak via MARTA drains. GI consulted and tentative plans for ERCP
today. High risk situation given injury/location and patient medical comorbidities.
-- GI consult, ERCP with stent
-- NPO, NGT to suctions
-- Steroids given chronic use
-- Pain control: IV Dialudid PRN
-- Abx: Levo/Flagyl
-- PPI
-- Lovenox
-- Transfer to ICU
Subjective Data
-
Date of Service: March 20, 2024
Complains of abdominal pain. No nausea or vomiting. No fevers.
Objective Data
-
Intake and Output
03/19/24 03/20/24 03/21/24
06:59 06:59 06:59
Intake Total 2400 / 2400 560 / 560
Output Total 1785 / 1785 550 / 550
Balance 615 / 615
Intake:
Oral fluids 0 / 0
IV fluids (Total) 2079 / 0 560 / 560
Normosol 400 / 400
IV piggybacks 200 / 200
Amount instilled into GI Tube ( 120 / 120
Total)
Craig Sump 120 / 120
Output:
Drain Output (Total) 235 / 235 150 / 150
Right Abdomen Rubén-Sood B 40 / 40
Right Lower Abdomen Rubén- 195 / 195 140 / 140
Sood A
Gastrointestinal tube output ( 0 / 0
Total)
Craig Sump 0 / 0
Urine, Abdalla 1550 / 1550
Urine, Voided 400 / 400
Vital Signs
Temp Pulse Resp BP Pulse Ox
97.6 F 72 26 130/81 92
03/20/24 07:10 03/20/24 11:00 03/20/24 11:00 03/20/24 10:00 03/20/24 11:04
Lab Results
03/20/24 08:03
03/20/24 08:03
Calcium 8.5 mg/dl (8.4-10.2) 03/20/24 08:03
Total Bilirubin 1.8 mg/dl (0.2-1.3) H 03/20/24 08:03
Direct Bilirubin 0.5 mg/dl (0.0-0.4) H 03/20/24 08:51
AST 43 U/L (17-59) 03/20/24 08:03
ALT 85 U/L (0-50) H 03/20/24 08:03
Alkaline Phosphatase 88 U/L (38-126) 03/20/24 08:03
Total Protein 5.1 g/dl (6.3-8.2) L 03/20/24 08:03
Albumin 3.0 g/dl (3.5-5.0) L 03/20/24 08:03
Physical Exam
-
Gen: uncomfortable, pain
HEENT: NGT with light bilious outputs
Abd: soft, diffusely tender, moderately distended, mild peritonitis, incisions c/d/i - ecchymosis at umbilicus, no erythema, or drainage, MARTA with bilious output (medial > lateral)
--- NOTE | 2024-03-20 15:13 | CM ---
Addendum entered by Rosalia Dillard RN 03/20/24 15:29:
NPO, IVF, NGT. MARTA Drain.
Original Note:
Patient with recent lap cesar with Dx abdominal pain who is s/p ERCP with stent today. O2 4L. Receiving IV Solucortef, IV Abx, IV Dilaudid prn. Transferred from IMU to ICU.
Spoke with patient's Arlene;
the patient resides in a 3 story house with 1 TIFFANY and 12 steps to 2nd floor bedroom/bath.
He has been independent in ADLs and ambulation.
The patient was active and working.
DME - O2 concentrators on 3 floors of the home, concentrator/portables through [employer], patient purchased [employer] portable capable 4L continuous/6L pulse dose. Has RW, shower seat & w/c available.
Prior [facility]
No prior SNF
PCP - Jabier Vela
Pharmacy - [facility] [address]
CM continuing to follow for d/c needs.
Plan TBD when less medically acute.
--- NOTE | 2024-03-20 15:32 | CON.PUL ---
Consultation
Consultation Request
Date/Time Consultation Requested: 03-20-24
Date/Time Consultation Performed: 03-20-24
Requesting Provider: Dr Arauz
Performing Provider: Dr Dudley
Reason for Consultation: hypoxemia
Medical History
-
Chief Complaint: abd pain
History of Present Illness:
Mr Errol Angela is a 54/M readm 03-18 with recurrent abd pain, n/v with bilious emesis after receiving outpatient laparoscopic cholecystectomy with cholangiogram and removal of previously placed percutaneous cholecystostomy tube on 03-17 (h/o
percutaneous cholecystostomy on 01-20 for acute cholecystitis).
At ER, POx 85% on RA, started on O2 NC, IVFs and empiric atbs (levofloxacin/metronidazole), stress dose HC (h/o chronic use of oral MP for h/o microscopic polyangiitis). Received diagnostic laparoscopy which showed biliary leak, received evacuation
of biloma and drain placement x2 on 03-19. Showed E faecalis bacteriemia. GI consulted, received ERCP 03-20 with biliary sphincterotomy and plastic stent placement at R hepatic duct. ICU transfer after procedure was considered initially, but was
then deemed stable to return to IMU.
Seen at ICU, mild incisional abd pain. Mild dyspnea, no cough
Past Medical History
Past Medical History: Other (see A&P for PMH/PSH)
Social History
Tobacco: Non-smoker
Alcohol: None
Drug: None
Personal:
Living: With Family
Family History
Family History: Reviewed & Not Pertinent
Allergies / Home Medications
Allergies
Allergy/AdvReac Type Severity Reaction Status Date / Time
vancomycin Allergy Severe Anaphylaxis/throat Verified 03/17/24 08:12
irritation
latex Allergy swelling - Verified 03/17/24 08:12
long skin
Penicillins Allergy Hives Verified 03/17/24 08:12
Sulfa (Sulfonamide Allergy Rash; Verified 03/17/24 08:12
Antibiotics) tolerates
furosemide
venom-honey bee Allergy swelling - Verified 03/17/24 08:12
[bee venom (honey bee)] throat
tightness
Home Medications
�Medication �Instructions �Recorded �Confirmed �Last Taken �Type
apixaban 5 mg tablet (Eliquis) 5 mg PO Q12H Blood Clot 01/19/24 03/18/24 03/14/24 22:30 History
Prevention/Tx
ascorbic acid (vitamin C) 500 mg 500 mg PO DAILY Supplement 01/19/24 03/18/24 03/18/24 History
tablet (Vitamin C)
calcium carbonate 500 mg PO PRN PRN stomach 01/19/24 03/18/24 01/19/24 History
discomfort
dapsone 100 mg tablet 100 mg PO DAILY Autoimmune Disorder 01/19/24 03/18/24 03/18/24 History
famotidine 40 mg tablet 40 mg PO DAILY Gastrointestinal 01/19/24 03/18/24 03/18/24 History
Issue
gabapentin 400 mg capsule 400 mg PO TID Pain 01/19/24 03/18/24 03/18/24 History
methylprednisolone 4 mg tablet 6 mg PO DAILY Anti-Inflammatory 01/19/24 03/18/24 03/18/24 History
sertraline 100 mg tablet 100 mg PO DAILY depression 01/19/24 03/18/24 03/18/24 History
acetaminophen 325 mg tablet 650 mg (2 x 325 mg) PO Q6HPRN PRN 03/17/24 03/18/24 Unknown Rx
mild pain #14 tabs
oxycodone 5 mg tablet 5 mg PO Q6HPRN PRN 03/17/24 03/18/24 Unknown Rx
breakthrough/severe pain #8 tabs
clindamycin HCl 300 mg capsule 300 mg PO TID Infection 03/20/24 03/18/24 03/18/24 History
Review of Systems
-
History Source: Patient
All other systems: Negative unless noted
Constitutional: Fatigue
Respiratory: Trouble Breathing
Abdomen/GI: Abdominal Pain
Neuro: Weakness
Vitals / Labs / Diagnostic Testing
Vital Signs
Temp Pulse Resp BP Pulse Ox
98.8 F 69 11 154/95 95
03/20/24 14:15 03/20/24 14:30 03/20/24 14:30 03/20/24 14:30 03/20/24 14:30
Lab Data
03/20/24 08:03
03/20/24 08:03
Laboratory Results
03/20/24
08:51
PT 18.6 H
INR 1.57
Microbiology
03/19/24 13:50 Peritoneal Fluid Body Fluid Culture - Preliminary
Streptococcus agalactiae
03/19/24 13:50 Peritoneal Fluid Gram Stain - Preliminary
03/18/24 22:49 Blood/Venous Blood Culture - Preliminary
Enterococcus faecalis
03/18/24 22:49 Blood/Venous Gram Stain - Preliminary
03/18/24 23:20 Blood/Venous Blood Culture - Preliminary
No Growth in 24 hours- Final report to follow
Diagnostic Testing:
Physical Exam
-
HEENT: Normocephalic, Moist Mucous Membranes and Thrush (n)
Cardiovascular: Regular Rhythm, Murmur, Peripheral Edema and JVD (n)
Respiratory: Clear and Accessory Resp Muscle Use (trace)
GI: Soft, Non Distended, Tender and Other (laparoscopy wounds, Jean Claude drains x2)
Neurology: Awake, AO x 3 and No Motor Deficits
Skin: Warm
General: Respiratory Distress (trace)
Assessment
-
Assessment:
Mr Errol Angela is a 54/M readm 03-18 with recurrent abd pain, n/v with bilious emesis after receiving outpatient laparoscopic cholecystectomy with cholangiogram and removal of previously placed percutaneous cholecystostomy tube on 03-17 (h/o
percutaneous cholecystostomy on 01-20 for acute cholecystitis). At ER, POx 85% on RA, started on O2 NC, IVFs and empiric atbs (levofloxacin/metronidazole), stress dose HC (h/o chronic use of oral MP for h/o microscopic polyangiitis). Received
diagnostic laparoscopy which showed biliary leak, received evacuation of biloma and drain placement x2 on 03-19. Showed E faecalis bacteriemia. GI consulted, received ERCP 03-20 with biliary sphincterotomy and plastic stent placement at R hepatic
duct. ICU transfer after procedure was considered initially but was then deemed stable to return to IMU.
Impression:
Biliary leak
S/p ERCP 03-20: biliary sphincterotomy and plastic stent placement at R hepatic duct
S/p outpatient laparoscopic cholecystectomy with cholangiogram and removal of previously placed percutaneous cholecystostomy tube on 03-17 (h/o percutaneous cholecystostomy on 01-20 for acute cholecystitis)
Hypoxemia
H/o nocturnal hypoxemia on nocturnal O2 2LPM
Ent faecalis bacteriemia (1/2 blood cxs 03-18)
Strep agalactiae bilious ascites 03-19 (reportedly specimen leaked in transit to micro lab, possible contamination)
Conditions present ORDER EXPEDITER:
Acute cholecystitis
MRCP: 1 mm choledocholithiasis, Ent faec
S/p percutaneous cholecystostomy 01-20
Influenza/COVID/ARDS/PNA requiring ECMO prolonged Hospital Stay Nov 2022-March 2023, complicated w/ PE/DVT, cardiac arrest, ICH, GI. On apixaban
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
GIB Jan 2023, required cauterization
Influenza A, adm 10-29 to [id number] 2021
COVID pneumonia, adm 10-18 to , d/c on O2 2L
Breakthrough case in vaccinated Pfizer/J&J
2 weeks onset of symptoms, COVID + 10/13/22
Did not receive Paxlovid
Diffuse GGOs consistent with COVID PNA
Received remdesivir and dexamethasone
Completed 5 d atbs (doxycycline) through 10-23
Checked PR2/MPO negative, IgG 496 (10-24)
Chronic immunosuppression
History of microscopic polyangiitis, on chronic methylprednisone 6 mg qd, past h/o use of rituxan
Follows with Rheum Dr. Velázquez ([phone])
ILD: multifactorial, bilateral fibrotic changes, traction bronchiectasis
GERD
Restrictive lung disease
History of pneumonia
Mixed simple and mucopurulent chronic bronchitis
Nonsmoker
Depression
Medical marijuana
Plan:
Continue O2 protocol
Known multifactorial ILD
Known nocturnal hypoxemia, on nocturnal O2 2LPM
Not on outpatient BDs
Asp precs
IS
Update CXR, reviewed, chronic fibrotic changes, increase in L basilar density seen since Jan 2024 (not seen on basilar cuts from CT abd 03-19) which could represent atelectatic changes
Empiric atbs by Surgery, consider ID consultation
IVFs
Follow cxs to assure clearance of bacteriemia
Continue HC stress dosing for now
Has remained hemodyn stable since adm
H/o chronic use of oral MP 6 mg qd per Rheum (microscopic polyangiitis)
H/o PE/DVT deemed secondary to COVID illness by en 2021/early 2022, kept on apixaban AC
Resumed AC once OK by surgery
D/w Mr Angela
Follow [facility] after d/c, known to Dr Gonzalez
--- NOTE | 2024-03-20 16:15 | PTCARENOTE ---
Received s/p ERCP, AAOx3 89% on 4L increased to 6L and encouraged PLB/ C/DB now maintaining sao2 94%. MARTA drainsx2 intact. C/o diffuse abd. pain 06/10- IV Dilaudid given - will monitor. IVF restarted per prior order. SR 62 on tele. BP 160/94.
Face flushed- had cool cloth on forehead. at bedside- appreciative of care.
--- NOTE | 2024-03-20 16:33 | PTCARENOTE ---
Patient arrived back from ERCP without NGT in place. Patient treated for pain, in good spirits with at bedside.
[2024-03-20] MEDS: LOVENOX 40 MG SC (18:34)
[2024-03-20] MEDS: LR 1000 IV (20:28)
[2024-03-20] MEDS: COMPAZINE 10 MG IV (22:48)
[2024-03-21] VITALS (34 sets, daily range): BP systolic 140–181; BP diastolic 83–101; BMI 28.8
[2024-03-21] MEDS: LEVAQUIN 100 IV (02:51)
[2024-03-21] MEDS: DILAUDID 0.5 MG IV ×3 (03:00→08:58)
[2024-03-21] MEDS: FLAGYL 500 MG 100 IV ×2 (04:01→10:35)
--- NOTE | 2024-03-21 04:26 | PTCARENOTE ---
Received pt at change of shift. Pt drowsy but easily arousable. Pt c/o of pain 5-8. Pain medication provided per orders (see MAR). Pt also c/o nausea for which he received Compazine for (see MAR). MARTA drainx2 intact. Abd tender to palpation
and distended with good bowel sounds. Surgical glue appears intact. Pt resting in bed with call mariano in reach.
[2024-03-21 04:52] LABS: % Basophils 0.1 % (0-2); % Eosinophils 0.2 % (0-6); % Immature Granulocytes 0.4 % (0-0.5); % Lymphocytes 6.6 % (20.5-51.1); % Monocytes 4.6 % (1.7-9.3); % Neutrophils 88.1 % (42.2-75.2); Absolute Immature Granulocytes 0.1 10^3/uL (0-0.05); Absolute Lymphocytes 1.1 10^3/uL (1.2-3.4); Absolute Monocytes 0.7 10^3/uL (0.1-0.6); Absolute Neutrophils 14.1 10^3/uL (1.4-6.5); Hematocrit 31.9 % (39.0-52.0); Hemoglobin 10.1 g/dL (13.0-18.0); Mean Corp Hgb Conc. 31.7 g/dL (33.0-37.0); Mean Corpuscular Hgb 27.9 pg (27.0-31.0); Mean Corpuscular Volume 88.1 fL (80.0-94.0); Mean Platelet Volume 9.5 fL (7.4-10.4); Nucleated Red Blood Cells % 0 % (-); Platelet Count 239 10^3/uL (130-400); Red Blood Cell Count 3.62 10^6/uL (4.70-6.10); Red Cell Dist. Width 14.2 % (11.5-14.5)
[2024-03-21 05:26] LABS: ALT (SGPT) 66 U/L (0-50); AST (SGOT) 26 U/L (17-59); Albumin 2.8 g/dl (3.5-5.0); Alkaline Phosphatase 94 U/L (38-126); Blood Urea Nitrogen 18 mg/dl (9-20); Calcium 8.2 mg/dl (8.4-10.2); Carbon Dioxide 28 mmol/L (22-30); Chloride 106 mmol/L (98-107); Direct Bilirubin 0.5 mg/dl (0.0-0.4); Estimated Creatinine Clearance > 125 ml/min; Glucose 106 mg/dl (70-99); Potassium 4.2 mmol/L (3.5-5.1); Sodium 136 mmol/L (135-145); Total Bilirubin 1.3 mg/dl (0.2-1.3); Total Protein 4.9 g/dl (6.3-8.2); eGFR > 60.00
[2024-03-21] MEDS: LR 1000 IV ×2 (06:01→18:39)
[2024-03-21] MEDS: PROTONIX IV 40 MG IV ×2 (09:00→20:08)
[2024-03-21] MEDS: NSS (PRESERVATIVE FREE) 10 ML IV ×2 (09:01→20:07)
[2024-03-21] MEDS: SOLU-CORTEF 50 MG IV ×2 (09:01→20:08)
[2024-03-21] MEDS: TORADOL 15 MG IV ×2 (10:34→17:24)
--- NOTE | 2024-03-21 12:01 | W.PN.PUL3 ---
Today's Communication / Plan
-
O2
Atbs
IS
Asp precs
Assessment
-
Assessment:
Mr Errol Angela is a 54/M readm 03-18 with recurrent abd pain, n/v with bilious emesis after receiving outpatient laparoscopic cholecystectomy with cholangiogram and removal of previously placed percutaneous cholecystostomy tube on 03-17 (h/o
percutaneous cholecystostomy on 01-20 for acute cholecystitis). At ER, POx 85% on RA, started on O2 NC, IVFs and empiric atbs (levofloxacin/metronidazole), stress dose HC (h/o chronic use of oral MP for h/o microscopic polyangiitis). Received
diagnostic laparoscopy which showed biliary leak, received evacuation of biloma and drain placement x2 on 03-19. Showed E faecalis bacteriemia. GI consulted, received ERCP 03-20 with biliary sphincterotomy and plastic stent placement at R hepatic
duct. ICU transfer after procedure was considered initially but was then deemed stable to return to IMU.
Impression:
Biliary leak
S/p ERCP 03-20: biliary sphincterotomy and plastic stent placement at R hepatic duct
S/p outpatient laparoscopic cholecystectomy with cholangiogram and removal of previously placed percutaneous cholecystostomy tube on 03-17 (h/o percutaneous cholecystostomy on 01-20 for acute cholecystitis)
Hypoxemia
H/o nocturnal hypoxemia on nocturnal O2 2LPM
Ent faecalis bacteriemia (1/2 blood cxs 03-18)
Strep agalactiae bilious ascites 03-19 (reportedly specimen leaked in transit to micro lab, possible contamination)
Conditions present [employer]:
Acute cholecystitis
MRCP: 1 mm choledocholithiasis, Ent faec
S/p percutaneous cholecystostomy 01-20
Influenza/COVID/ARDS/PNA requiring ECMO prolonged Hospital Stay Nov 2022-March 2023, complicated w/ PE/DVT, cardiac arrest, ICH, GI. On apixaban
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
GIB Jan 2023, required cauterization
Influenza A, adm 10-29 to [id number] 2022
COVID pneumonia, adm 10-18 to , d/c on O2 2L
Breakthrough case in vaccinated Pfizer/J&J
2 weeks onset of symptoms, COVID + 10/13/22
Did not receive Paxlovid
Diffuse GGOs consistent with COVID PNA
Received remdesivir and dexamethasone
Completed 5 d atbs (doxycycline) through 10-23
Checked PR2/MPO negative, IgG 496 (10-24)
Chronic immunosuppression
History of microscopic polyangiitis, on chronic methylprednisone 6 mg qd, past h/o use of rituxan
Follows with Rheum Dr. Velázquez ([phone])
ILD: multifactorial, bilateral fibrotic changes, traction bronchiectasis
GERD
Restrictive lung disease
History of pneumonia
Mixed simple and mucopurulent chronic bronchitis
Nonsmoker
Depression
Medical marijuana
Plan:
Continue O2 protocol
Known multifactorial ILD
Known nocturnal hypoxemia, on nocturnal O2 2LPM
Not on outpatient BDs
Asp precs
IS
Updated CXR 03-20, reviewed, chronic fibrotic changes, increase in L basilar density seen since Jan 2024 (not seen on basilar cuts from CT abd 03-19) which could represent atelectatic changes
Continue empiric atbs by Surgery, ID consulted
IVFs
Follow cxs to assure clearance of bacteriemia
Continue HC stress, considering decreasing dose as has remained hemodyn stable
Has remained hemodyn stable since adm
H/o chronic use of oral MP 6 mg qd per Rheum (microscopic polyangiitis)
H/o PE/DVT deemed secondary to COVID illness by en 2021/early 2022, kept on apixaban AC
Resumed AC once OK by surgery
D/w Mr Angela on a daily basis
Subjective Data
-
Date of Service:
Date of Service: March 21, 2024
Chief Complaint: Pulmonary Follow Up
Subjective:
No major events reported overnight
Remains afebrile and hemodynamically stable
On supplemental oxygen, conversant in full sentences, yesterday's dyspnea postprocedure has improved. Denies cough
Review of Systems
General: Fever (n), Sweats (n) and Satisfactory Appetite (n)
Cardiopulmonary: Dyspnea (trace at rest on O2), Cough (n), Wheezing and Chest Pain (n)
GI: Abdominal Pain, Nausea (n) and Vomiting (n)
Neuro: Weakness
Objective Data
Data Reviewed
Vital Signs / I&O / Oxygen:
Vital Signs
Temp Pulse Resp BP Pulse Ox
98.2 F 68 11 163/89 94
03/21/24 11:13 03/21/24 10:00 03/21/24 10:00 03/21/24 09:00 03/21/24 10:00
Intake and Output
03/20/24 03/21/24 03/22/24
06:59 06:59 06:59
Intake Total 2400 / 2400 660 / 660
Output Total 1785 / 1785 1470 / 1470 760 / 760
Balance 615 / 615 -810 / -810 -760 / -760
SaO2 94
Nasal Cannula flow liters per 4
minute
Physical Exam
General: Respiratory Distress (n)
HEENT: Normocephalic and Moist Mucous Membranes
Cardiovascular: Regular Rhythm, Murmur (n) and Peripheral Edema (n)
Respiratory: Clear, Non-Labored Respirations and Stridor (n)
GI: Soft and Tender
Neurology: Awake, AO x 3 and No Motor Deficits
Skin: Warm
Labs/Micro/Reports
Lab Data
03/21/24 04:32
03/21/24 04:32
Microbiology
03/18/24 22:49 Blood/Venous Blood Culture - Preliminary
Enterococcus faecalis
03/18/24 22:49 Blood/Venous Gram Stain - Preliminary
03/18/24 23:20 Blood/Venous Blood Culture - Preliminary
No Growth in 48 hours- Final report to follow
03/19/24 13:50 Peritoneal Fluid Body Fluid Culture - Preliminary
Streptococcus agalactiae
03/19/24 13:50 Peritoneal Fluid Gram Stain - Preliminary
--- NOTE | 2024-03-21 12:28 | CON.ID ---
Consultation
-
Date/Time Consultation Requested: 03/21/24 1004
Date/Time Consultation Performed: 03/21/24 1215
Requesting Provider: Kaitlin Sprague
Performing Provider: Dr. Estrella
Reason for Consultation: Peritonitis
Chief Complaint / Past History
History of Present Illness
Errol Angela is a 54-year-old man being evaluated at the request of Kaitlin Sprague
The patient has a significant past medical history of influenza/COVID/ARDS and pneumonia who underwent a prolonged hospital stay (11/20/2022 - 03/21/2023), during which she received ECMO, with complications of PE/DVT, cardiac arrest, CVA and GI
bleed. He presented to [place] in January, and found to have acute cholecystitis, and ultimately a cholecystostomy tube was placed, and the patient was discharged on 01/26 to home. He underwent definitive cholecystectomy on 03/17/2024, and was
discharged home, but returns late on 03/18 secondary to increasing abdominal pain and discomfort. He was taken to the OR and found to have bile peritonitis. Blood cultures obtained at admission are now positive for Enterococcus faecalis, and
peritoneal fluid is showing growth of Streptococcus agalactiae. Infectious Diseases is asked to comment on further antimicrobial management.
Past History
Additional Past Medical History:
Microscopic polyangiitis
Interstitial lung disease
Pericarditis
GERD
Influenza/COVID /ARDS requiring ECMO March 2023, DVT/PE while on ECMO on current Eliquis,
Cardiac arrest 2022
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
GI bleed January 2023 requiring cauterization
HTN
neuropathy hands and feet
depression
Additional Past Surgical History:
ECMO
Thoracentesis
EGD with cauterization
Allergy History:
vancomycin Allergy (Severe, Verified 03/17/24 08:12)
Anaphylaxis/throat irritation (occured at [facility] 2022)
latex Allergy (Verified 03/17/24 08:12)
swelling - long skin
Penicillins Allergy (Verified 03/17/24 08:12)
- Childhood rxn of some type. Pt not sure of rxn
Sulfa (Sulfonamide Antibiotics) Allergy (Verified 03/17/24 08:12)
Rash; tolerates furosemide
venom-honey bee [bee venom (honey bee)] Allergy (Verified 03/17/24 08:12)
swelling - throat tightness
Medications Reviewed: Yes
Current Antibiotics:
Levofloxacin 500 mg IV every 24 hours
Metronidazole 500 mg IV every 8 hours
Social History
Tobacco: Non-Smoker
Alcohol: Occasional
Drug: None
Personal:
Living: With Family
Employment: Employed
Family History
Family History: Not Pertinent
Review of Systems
Vital Signs
Temp Pulse Resp BP Pulse Ox
98.2 F 68 11 163/89 94
03/21/24 11:13 03/21/24 10:00 03/21/24 10:00 03/21/24 09:00 03/21/24 10:00
Physical Exam
Physical Exam
Constitutional: No Acute Distress, Comfortable and Non-toxic
Head: Normocephalic
Eyes: Pupils Equal, Pupils Round, No Conjunctival Hemorrhage and Sclera Anicteric
Oral: No Thrush and No Ulcers
Lymph Nodes: Negative Lymphadenopathy
Cardiovascular: Regular Rate and S1/S2; Negative S3/S4 or Murmur
Pulmonary: Clear; Negative Wheezes, Rales or Rhonchi
Gastrointestinal: Soft, Tender (mild), Non Distended, Normal Bowel Sounds and Other (JPx2 with bilious drainage)
Extremities: Negative Edema, Cyanosis or Erythema
Skin: Warm and Dry; Negative Rash or Jaundice
Neurological: Awake and Alert
Psychological: Calm
Lab / Diagnostic Study Results
03/21/24 04:32
03/21/24 04:32
Abs Immat Gran (auto) 0.1 10^3/uL (0-0.05) H 03/21/24 04:32
Absolute Neuts (auto) 14.1 10^3/uL (1.4-6.5) H 03/21/24 04:32
Absolute Lymphs (auto) 1.1 10^3/uL (1.2-3.4) L 03/21/24 04:32
Absolute Monos (auto) 0.7 10^3/uL (0.1-0.6) H 03/21/24 04:32
Absolute Basos (auto) 0.0 10^3/uL (0-0.2) 03/21/24 04:32
Immature Gran % 0.4 % (0-0.5) 03/21/24 04:32
Neutrophils % 88.1 % (42.2-75.2) H 03/21/24 04:32
Lymphocytes % 6.6 % (20.5-51.1) L 03/21/24 04:32
Monocytes % 4.6 % (1.7-9.3) 03/21/24 04:32
Eosinophils % 0.2 % (0-6) 03/21/24 04:32
Basophils % 0.1 % (0-2) 03/21/24 04:32
PT 18.6 Sec (11.4-14.6) H 03/20/24 08:51
INR 1.57 03/20/24 08:51
Lactic Acid Cancelled 03/19/24 07:00
Microbiology Results
Micro:
03/18/24 22:49 Blood Culture - Preliminary
Blood/Venous Enterococcus faecalis
Gram Stain - Preliminary
03/18/24 23:20 Blood Culture - Preliminary
Blood/Venous No Growth in 48 hours- Final report to follow
03/19/24 13:50 Body Fluid Culture - Preliminary
Peritoneal Fluid Streptococcus agalactiae
Gram Stain - Preliminary
Imaging:
03/19/2024 CT abdomen/pelvis with contrast: 1. Status post cholecystectomy. Small fluid collection within the gallbladder fossa, measuring 4.9 x 3.7 x 4.2 cm, suggestive of postoperative fluid, seroma, or biloma. Abscess is considered less likely,
given that his cholecystectomy was only 2 days ago. 2. Suggestion of mild constipation. No intestinal obstruction. 3. Reticular interstitial thickening at each lung base, unchanged compared to prior CT, suggestive of mild interstitial fibrosis.
Interstitial fibrosis was also seen on prior chest CT dated 08/21/2023. 4. A 2.5 cm fluid collection anterior to the left common femoral vessels, likely representing seroma or liquefied hematoma. Unchanged compared to prior CT.
Assessment / Plan
S/p recent cholecystectomy
Enterococcal bacteremia
E. coli peritonitis
Bile leak; status postrepair
Multiple antibiotic allergies (PCN, vancomycin, sulfa)
Hx Microscopic polyangiitis
Interstitial lung disease
Pericarditis
GERD
Influenza/COVID /ARDS requiring ECMO March 2023, DVT/PE while on ECMO on current Eliquis,
Cardiac arrest 2022
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
GI bleed January 2023 requiring cauterization
HTN
neuropathy hands and feet
depression
Recommendations:
Repeat blood cultures to assess clearance.
Change Levaquin/metronidazole to meropenem 500 mg IV every 6 hours
Follow repeat cultures to assess clearance of bacteremia.
Monitor white count and temperature curve
--- NOTE | 2024-03-21 12:29 | W.PN.GS2 ---
Today's Communication / Plan
-
-- Clears
-- Decrease IVF
-- Pain control: Tylenol and Toradol, and IV Dilaudid PRN
-- ID consult given bacteremia
-- Maintain in IMU for today
Assessment / Plan
-
Patient is a 54 yo M POD#4 s/p laparoscopic cholecystectomy with IOC on 03/17. Representation and complication of bile duct injury. POD#2 s/p diagnostic laparoscopy, abdominal washout and drainage placement. PPD#1 s/p ERCP and stent placement
Recovering well overall. Expectedly deconditioned and with supplemental oxygen requirements due to acute on chronic pulmonary issues. Appreciate pulmonary's help. MARTA outputs remain bilious though decreased, continue to monitor. Plan for clears.
-- Clears
-- Decrease IVF
-- Pain control: Tylenol and Toradol, and IV Dilaudid PRN
-- Steroids given chronic use
-- Abx: Levo/Flagyl
-- PPI
-- Lovenox
-- Pulm consult appreciate help, anticipate ability to start PO meds tomorrow pending dietary tolerance
-- GI consult appreciate help
-- ID consult given bacteremia
-- Maintain MARTA for weeks until no further bilious output
-- Maintain in IMU for today
Subjective Data
-
Date of Service: March 21, 2024
Reports feeling improved. Abdominal soreness mildly improved. Nausea immediately post ERCP, none currently. Passing flatus, no BM. No fevers. Denies any worsening shortness of breath or chest pain.
Objective Data
-
Intake and Output
03/20/24 03/21/24 03/22/24
06:59 06:59 06:59
Intake Total 2400 / 2400 660 / 660
Output Total 1785 / 1785 1470 / 1470 760 / 760
Balance 615 / 615 -810 / -810 -760 / -760
Intake:
Oral fluids 0 / 0
IV fluids (Total) 2079 / 2079 660 / 660
Normosol 400 / 400 100 / 100
IV piggybacks 200 / 200
Amount instilled into GI Tube ( 120 / 120
Total)
Dilley Sump 120 / 120
Output:
Drain Output (Total) 235 / 235 320 / 320 10 10
Right Abdomen Rubén-Sood B 40 / 40 95 / 95
Right Lower Abdomen Rubén- 195 / 195 225 / 225 10 10
Sood A
Gastrointestinal tube output ( 0 / 0
Total)
Dilley Sump 0 / 0
Urine, Abdalla 1550 / 1550 750 / 750 750 / 750
Urine, Voided 400 / 400
Vital Signs
Temp Pulse Resp BP Pulse Ox
98.2 F 68 11 163/89 94
03/21/24 11:13 03/21/24 10:00 03/21/24 10:00 03/21/24 09:00 03/21/24 10:00
Lab Results
03/21/24 04:32
03/21/24 04:32
Calcium 8.2 mg/dl (8.4-10.2) L 03/21/24 04:32
Total Bilirubin 1.3 mg/dl (0.2-1.3) 03/21/24 04:32
Direct Bilirubin 0.5 mg/dl (0.0-0.4) H 03/21/24 04:32
AST 26 U/L (17-59) 03/21/24 04:32
ALT 66 U/L (0-50) H 03/21/24 04:32
Alkaline Phosphatase 94 U/L (38-126) 03/21/24 04:32
Total Protein 4.9 g/dl (6.3-8.2) L 03/21/24 04:32
Albumin 2.8 g/dl (3.5-5.0) L 03/21/24 04:32
Physical Exam
-
Gen: NAD
Abd: soft, tender to palpation, obese, mild distension, non-peritoneal, incisions c/d/i - ecchymosis at umbilicus, no erythema or drainage, MARTA with serosang x1 and bilious fluid x1
--- NOTE | 2024-03-21 13:00 | PTCARENOTE ---
pt assisted oob to bedside commode. passing flatus, no bm. assisted to chair. tolerated x 45 mins and then asking to go back to bed. discussed importance of remaining oob as much as possible. he will re-attempt later. castellano d/c'd at 0915am. He is
voiding 150-300ml at a time clear je urine. Attempted to wean oxygen off but unsuccessful; pox dropping to 89% on 2L and pt symptomatic. He is anxious. Increased O2 back to 4L nc. Medicating with dilaudid 0.5-1mg IV prn and toradol 15 mg Q6hrs
prn added. Continuing to monitor
--- NOTE | 2024-03-21 13:29 | W.PN.GI.CBS2 ---
Today's Communication / Plan
-
Continue antibiotics as per ID recommendations and postop care per surgery
trend labs
Assessment / Plan
-
54yo with hx prolonged hospital admission 11/2022- March 2023 with long covid requiring ecmo, trach, PE/DVT on Eliquis, cardiac arrest, GIB with cauterization, ICH, autoimmune vasculitis, HTN, GERD who was hospitalized in January 2024 for acute
cholecystitis requiring cholecystostomy tube. Had laparoscopic cholecystectomy on 03/17/2024. Presents back to the hospital on 03/18/2024 with nausea vomiting and increased abdominal pain. Found to have Small fluid collection in the gallbladder
fossa measuring 4.9 x 4.2 x 3.7. The patient was started on Levaquin and Flagyl and taken to the OR on 03/19/2024 for a diagnostic laparoscopy. He had evacuation of a biloma and bilious ascites evacuated and washed out and a 2 drains placed
(subhepatic/right upper quadrant and subhepatic into the left upper quadrant). The patient had an EGD performed that was normal. There were no duodenal or gastric abnormalities noted. Suspected bile leak from region of common hepatic or right
branch of hepatic ducts. Patient's liver function tests are currently total bilirubin of 2.3 with an AST of 94, ALT of 127 alk phos 79 from 03/19/2024. We are asked to evaluate for bile leak and placement of biliary stenting.
Impression:
Bile leak
Evacuation of biloma and bilious ascites
Interstitial lung disease
Constipation, review of imaging shows most stool in right side of colon. Mild amount of stool in rectosigmoid area
Plan:
-Status post ERCP with sphincterotomy and stent placement for bile leak 03/20
-Bacteremia with Enterococcus faecalis and peritoneal fluid is also positive for Enterococcus faecalis noted input from ID his antibiotics have been switched to meropenem
-Postop care per surgery
-Started on clear liquids
-Once able to tolerate p.o. would start MiraLAX for constipation.
-Follow-up with Dr. López in 6 weeks
will sign off and will be available as needed
Subjective
Subjective
Date of Service: March 21, 2024
Status post ERCP yesterday with sphincterotomy and stent placement. His pain seems to be improving and also his MARTA output seems to be decreasing. He has been started on clear liquids noted input from surgery
Objective
Data Reviewed
Laboratory Data:
Laboratory Results
03/21/24 04:32
03/21/24 04:32
Laboratory Results
PT 18.6 Sec (11.4-14.6) H 03/20/24 08:51
INR 1.57 03/20/24 08:51
Total Bilirubin 1.3 mg/dl (0.2-1.3) 03/21/24 04:32
AST 26 U/L (17-59) 03/21/24 04:32
ALT 66 U/L (0-50) H 03/21/24 04:32
Alkaline Phosphatase 94 U/L (38-126) 03/21/24 04:32
Amylase 41 U/L (30-110) 03/20/24 08:51
Lipase 13 U/L (23-300) L 03/20/24 08:51
Vital Signs and I&O:
Vital Signs
Temp Pulse Resp BP Pulse Ox
98.2 F 68 11 163/89 94
03/21/24 11:13 03/21/24 10:00 03/21/24 10:00 03/21/24 09:00 03/21/24 10:00
I&O
03/20/24 03/21/24 03/22/24
06:59 06:59 06:59
Intake Total 2400 / 2400 660 / 660
Output Total 1785 / 1785 1470 / 1470 760 / 760
Balance 615 / 615 -810 / -810 -760 / -760
03/20/24 ERCP
Impression: - A bile leak was found (at the right accessory
intrahepatic duct suggestive of duct of Luschka).
- A biliary sphincterotomy was performed.
- One plastic stent was placed into the right hepatic
duct.
Physical Exam
Physical Exam
Cardiology: Normal Sinus Rhythm
Pulmonary: Clear
GI: Soft, Non Distended, Tender (And right upper quadrant and at the site of the drains) and Other (Hypoactive bowel sounds)
[2024-03-21] MEDS: DILAUDID 1 MG IV ×2 (14:28→20:11)
[2024-03-21] MEDS: MERREM 500 MG IV ×2 (14:45→20:07)
[2024-03-21] MEDS: STERILE WATER FOR INJECTION 10 ML IV ×2 (14:46→20:08)
[2024-03-21] MEDS: APRESOLINE 5 MG IV ×2 (14:58→18:46)
--- NOTE | 2024-03-21 15:00 | PTCARENOTE ---
blood pressure elevated during this shift and systolic escalating to 170's-180; diastolic 94-100. Pt's states he was taking clonidine 0.2 mg TID at home, but stopped taking it a few weeks ago because it was not refilled. Dr. Arauz notified.
Hydralazine 5 mg IV Q6hrs ordered for prn systolic >160. Given IV; b/p 181/86. Clonidine 0.2 mg po ordered BID to begin at 1999. Reviewed with patient and . Continuing to monitor
[2024-03-21] MEDS: LOVENOX 40 MG SC (17:24)
[2024-03-21] MEDS: CATAPRES 0.200000000000000011 MG PO (20:07)
--- NOTE | 2024-03-21 22:22 | PTCARENOTE ---
Pt resting in bed. AAOx3. Admits to pain of 8/10 across abdomen. Medicated with prn Dilaudid as ordered. Pt appears very weak. Encouraged to sit up for all meals at least during the day. Asked if he is using the IS and he stated he was and that he
is getting up to 1500. But when asked if he would use it when asked he declined. BP coming down from beginning of shift currently 167/91 received HS Catapress. Afebrile. POX 95% on 4L MF. SR on CM rate 80's. Currently using urinal at beside without
difficulty. MARTA A with brown drainage and MARTA B with SS drainage. Wounds as documented. Rest of assessment as documented. Maintained on Q2hr turns. Call mariano remains within reach. Will continue to monitor.
[2024-03-22] VITALS (12 sets, daily range): BP systolic 126–165; BP diastolic 76–98; BMI 27.0
[2024-03-22] MEDS: DILAUDID 1 MG IV ×3 (01:01→15:43)
[2024-03-22] MEDS: MERREM 500 MG IV ×4 (03:15→19:59)
[2024-03-22] MEDS: STERILE WATER FOR INJECTION 10 ML IV ×4 (03:16→19:59)
[2024-03-22] MEDS: NSS (PRESERVATIVE FREE) 10 ML IV ×2 (07:29→19:26)
[2024-03-22] MEDS: SOLU-CORTEF 50 MG IV ×2 (07:29→19:23)
[2024-03-22] MEDS: PROTONIX IV 40 MG IV ×2 (07:29→19:26)
[2024-03-22] MEDS: CATAPRES 0.200000000000000011 MG PO ×3 (07:30→21:44)
[2024-03-22 07:47] LABS: Hematocrit 32.8 % (39.0-52.0); Hemoglobin 10.9 g/dL (13.0-18.0); Mean Corp Hgb Conc. 33.2 g/dL (33.0-37.0); Mean Corpuscular Hgb 28.5 pg (27.0-31.0); Mean Corpuscular Volume 85.6 fL (80.0-94.0); Mean Platelet Volume 9.7 fL (7.4-10.4); Platelet Count 292 10^3/uL (130-400); Red Blood Cell Count 3.83 10^6/uL (4.70-6.10); Red Cell Dist. Width 13.9 % (11.5-14.5); White Blood Cell Count 14.8 10^3/uL (4.8-10.8)
[2024-03-22 08:11] LABS: ALT (SGPT) 43 U/L (0-50); AST (SGOT) 18 U/L (17-59); Albumin 3.1 g/dl (3.5-5.0); Alkaline Phosphatase 95 U/L (38-126); Blood Urea Nitrogen 13 mg/dl (9-20); Calcium 8.8 mg/dl (8.4-10.2); Carbon Dioxide 24 mmol/L (22-30); Chloride 102 mmol/L (98-107); Estimated Creatinine Clearance > 125 ml/min; Glucose 88 mg/dl (70-99); Potassium 3.7 mmol/L (3.5-5.1); Sodium 132 mmol/L (135-145); Total Bilirubin 1.5 mg/dl (0.2-1.3); Total Protein 5.4 g/dl (6.3-8.2); eGFR > 60.00
--- NOTE | 2024-03-22 08:47 | W.PN.ID1 ---
Date of Service
Date of Service: March 22, 2024
Today's Communication
Continue antibiotics
Assessment / Plan
S/p recent cholecystectomy
Enterococcal bacteremia
E. coli peritonitis
Bile leak; status postrepair
Multiple antibiotic allergies (PCN, vancomycin, sulfa)
Hx Microscopic polyangiitis
Interstitial lung disease
Pericarditis
GERD
Influenza/COVID /ARDS requiring ECMO March 2023, DVT/PE while on ECMO on current Eliquis,
Cardiac arrest 2022
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
GI bleed January 2023 requiring cauterization
HTN
neuropathy hands and feet
depression
Recommendations:
Repeat blood cultures to assess clearance.
Continue meropenem 500 mg IV every 6 hours
Follow repeat cultures to assess clearance of bacteremia.
Monitor white count and temperature curve
����������������������������������������������������������
Chief Complaint
-: Other (Peritonitis)
Subjective / Review of Systems
Review of Systems: No Fever and No Chills
Vital Signs / Physical Exam
Vital Signs
Vital Signs
Temp Pulse Resp BP Pulse Ox
98.3 F 68 17 161/90 96
03/22/24 03:04 03/22/24 04:47 03/22/24 04:47 03/22/24 07:30 03/22/24 04:47
Physical Exam
Constitutional: No Acute Distress, Comfortable and Non-toxic
Eyes: Sclera Anicteric
Cardiovascular: S1/S2; Negative S3/S4
Pulmonary: Clear and Non Labored
Gastrointestinal: Soft, Tender, Non Distended and Other (MARTA in place with scant bilious fluid.)
Extremities: Edema (Trace)
Skin: Warm and Dry; Negative Rash or Jaundice
Neurological: Awake and Alert
Psychological: Calm
Objective Data
Lab Data
Lab Results
03/22/24 07:02
03/22/24 07:02
PT 18.6 Sec (11.4-14.6) H 03/20/24 08:51
INR 1.57 03/20/24 08:51
Estimated Creat Clear > 125 ml/min 03/22/24 07:02
Lactic Acid Cancelled 03/19/24 07:00
Total Bilirubin 1.5 mg/dl (0.2-1.3) H 03/22/24 07:02
AST 18 U/L (17-59) 03/22/24 07:02
ALT 43 U/L (0-50) 03/22/24 07:02
Alkaline Phosphatase 95 U/L (38-126) 03/22/24 07:02
Amylase 41 U/L (30-110) 03/20/24 08:51
Most recent labs reviewed.
Micro Results:
03/18/24 22:49 Blood Culture - Preliminary
Blood/Venous Enterococcus faecalis
Gram Stain - Preliminary
03/18/24 23:20 Blood Culture - Preliminary
Blood/Venous No Growth in 72 hours- Final report to follow
03/21/24 15:08 Blood Culture - Pending
Blood/Venous
03/21/24 13:45 Blood Culture - Pending
Blood/Venous
03/19/24 13:50 Body Fluid Culture - Preliminary
Peritoneal Fluid Enterococcus faecalis
Gram Stain - Preliminary
Imaging:
03/19/2024 CT abdomen/pelvis with contrast: 1. Status post cholecystectomy. Small fluid collection within the gallbladder fossa, measuring 4.9 x 3.7 x 4.2 cm, suggestive of postoperative fluid, seroma, or biloma. Abscess is considered less likely,
given that his cholecystectomy was only 2 days ago. 2. Suggestion of mild constipation. No intestinal obstruction. 3. Reticular interstitial thickening at each lung base, unchanged compared to prior CT, suggestive of mild interstitial fibrosis.
Interstitial fibrosis was also seen on prior chest CT dated 08/21/2023. 4. A 2.5 cm fluid collection anterior to the left common femoral vessels, likely representing seroma or liquefied hematoma. Unchanged compared to prior CT.
[2024-03-22] MEDS: TORADOL 15 MG IV (09:13)
[2024-03-22] MEDS: TYLENOL 650 MG PO (11:15)
[2024-03-22] MEDS: ROXICODONE 5 MG PO ×2 (11:16→19:22)
--- NOTE | 2024-03-22 13:03 | W.PN.PUL3 ---
Today's Communication / Plan
-
O2
IS
Atb
Assessment
-
Assessment:
Mr Errol Angela is a 54/M readm 03-18 with recurrent abd pain, n/v with bilious emesis after receiving outpatient laparoscopic cholecystectomy with cholangiogram and removal of previously placed percutaneous cholecystostomy tube on 03-17 (h/o
percutaneous cholecystostomy on 01-20 for acute cholecystitis). At ER, POx 85% on RA, started on O2 NC, IVFs and empiric atbs (levofloxacin/metronidazole), stress dose HC (h/o chronic use of oral MP for h/o microscopic polyangiitis). Received
diagnostic laparoscopy which showed biliary leak, received evacuation of biloma and drain placement x2 on 03-19. Showed E faecalis bacteriemia. GI consulted, received ERCP 03-20 with biliary sphincterotomy and plastic stent placement at R hepatic
duct. ICU transfer after procedure was considered initially but was then deemed stable to return to IMU.
Impression:
Biliary leak
S/p ERCP 03-20: biliary sphincterotomy and plastic stent placement at R hepatic duct
S/p outpatient laparoscopic cholecystectomy with cholangiogram and removal of previously placed percutaneous cholecystostomy tube on 03-17 (h/o percutaneous cholecystostomy on 01-20 for acute cholecystitis)
Hypoxemia
H/o nocturnal hypoxemia on nocturnal O2 2LPM
Ent faecalis bacteriemia (1/2 blood cxs 03-18)
Strep agalactiae bilious ascites 03-19 (reportedly specimen leaked in transit to micro lab, possible contamination)
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
Acute cholecystitis
MRCP: 1 mm choledocholithiasis, Ent faec
S/p percutaneous cholecystostomy 01-20
Influenza/COVID/ARDS/PNA requiring ECMO prolonged Hospital Stay Nov 2022-March 2023, complicated w/ PE/DVT, cardiac arrest, ICH, GI. On apixaban
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
GIB Jan 2023, required cauterization
Influenza A, adm 10-29 to [id number] 2022
COVID pneumonia, adm 17 to , d/c on O2 2L
Breakthrough case in vaccinated Pfizer/J&J
2 weeks onset of symptoms, COVID + 10/13/22
Did not receive Paxlovid
Diffuse GGOs consistent with COVID PNA
Received remdesivir and dexamethasone
Completed 5 d atbs (doxycycline) through 10-23
Checked PR2/MPO negative, IgG 496 (10-24)
Chronic immunosuppression
History of microscopic polyangiitis, on chronic methylprednisone 6 mg qd, past h/o use of rituxan
Follows with Rheum Dr. Velázquez ([phone])
ILD: multifactorial, bilateral fibrotic changes, traction bronchiectasis
GERD
Restrictive lung disease
History of pneumonia
Mixed simple and mucopurulent chronic bronchitis
Nonsmoker
Depression
Medical marijuana
Plan:
Continue O2 protocol
Known multifactorial ILD
Known nocturnal hypoxemia, on nocturnal O2 2LPM
Not on outpatient BDs
Asp precs
IS
Updated CXR 03-20, reviewed, chronic fibrotic changes, increase in L basilar density seen since Jan 2024 (not seen on basilar cuts from CT abd 03-19) which could represent atelectatic changes
Continue empiric atbs by Surgery, ID consulted
Levofloxacin/metronidazole changed to meropenem 03-21
IVFs
Follow cxs to assure clearance of bacteriemia
Continue HC, currently at 50 mg IV q12, consider decreasing dose as has remained hemodyn stable
Has remained hemodyn stable since adm
H/o chronic use of oral MP 6 mg qd per Rheum (microscopic polyangiitis)
H/o PE/DVT deemed secondary to COVID illness by en 2021/early 2022, kept on apixaban AC
Resumed AC once OK by surgery
D/w Mr Angela and his at bedside
Subjective Data
-
Date of Service:
Date of Service: March 22, 2024
Chief Complaint: Pulmonary Follow Up
Subjective:
No major events reported overnight
Continues on supplemental oxygen, denies dyspnea otherwise at this time
Abdominal pain improving
visiting at bedside
Review of Systems
General: Fever (n), Sweats (n), Chills (n) and Satisfactory Appetite (n)
Cardiopulmonary: Dyspnea (n at rest), Cough (trace), Sputum Production (n), Wheezing (n) and Chest Pain (n)
GI: Abdominal Pain
Neuro: Weakness
Objective Data
Data Reviewed
Vital Signs / I&O / Oxygen:
Vital Signs
Temp Pulse Resp BP Pulse Ox
99.0 F 68 17 161/90 96
03/22/24 07:56 03/22/24 04:47 03/22/24 04:47 03/22/24 07:30 03/22/24 04:47
Intake and Output
03/21/24 03/22/24 03/23/24
06:59 06:59 06:59
Intake Total 660 / 660 2500 / 2500 120 / 120
Output Total 1470 / 1470 3155 / 3155 500 / 500
Balance -810 / -810 -655 / -655 -380 / -380
SaO2 96
Nasal Cannula flow liters per 4
minute
Physical Exam
General: Respiratory Distress (n)
HEENT: Normocephalic and Moist Mucous Membranes
Cardiovascular: Regular Rhythm, Murmur (n) and Peripheral Edema (n)
Respiratory: Clear, Non-Labored Respirations and Stridor (n)
GI: Soft, Tender and Other (JPs in place)
Neurology: Awake, AO x 3 and No Motor Deficits
Skin: Warm
Labs/Micro/Reports
Lab Data
03/22/24 07:02
03/22/24 07:02
Microbiology
03/18/24 22:49 Blood/Venous Blood Culture - Preliminary
Enterococcus faecalis
03/18/24 22:49 Blood/Venous Gram Stain - Preliminary
03/18/24 23:20 Blood/Venous Blood Culture - Preliminary
No Growth in 72 hours- Final report to follow
03/19/24 13:50 Peritoneal Fluid Body Fluid Culture - Preliminary
Enterococcus faecalis
03/19/24 13:50 Peritoneal Fluid Gram Stain - Preliminary
--- NOTE | 2024-03-22 13:51 | W.PN.GS2 ---
Addendum entered and electronically signed by Ryan Arauz MD 03/22/24 14:15:
Patient seen and examined. Agree with assessment plan as documented below.
Improved energy levels. Pain well-controlled. No nausea or vomiting. Passing flatus, no BMs. No fevers.
Gen: NAD
Abd: soft, mild tenderness, mild distension, non-peritoneal, incisions c/d/i - no erythema, or drainage, ecchymosis at umbilicus, MARTA bilious
Patient is a 54 yo M POD#5 s/p laparoscopic cholecystectomy with IOC on 03/17. Representation and complication of bile duct injury. POD#2 s/p diagnostic laparoscopy, abdominal washout and drainage placement. PPD#2 s/p ERCP and stent placement
Recovering well overall. Expectedly deconditioned and with supplemental oxygen requirements due to acute on chronic pulmonary issues. Appreciate pulmonary's help. MARTA outputs remain bilious, continue to monitor. Plan for fulls.
-- Fulls
-- D/C IVF
-- Pain control: Tylenol and Toradol, and IV Dilaudid PRN
-- Steroids given chronic use, will need to wean down to home in coming days
-- Abx: Merrem per ID
-- PPI
-- Lovenox
-- Pulm consult appreciate help, okay to restart po meds
-- GI consult appreciate help
-- ID consult for abx management
-- Maintain MARTA for weeks until no further bilious output
-- Maintain in IMU for today
Original Note:
Today's Communication / Plan
-
fulls
merrem per ID
d/c ivfs
Assessment / Plan
-
Patient is a 54 yo M POD#5 s/p laparoscopic cholecystectomy with IOC on 03/17. Representation and complication of bile duct injury. POD#2 s/p diagnostic laparoscopy, abdominal washout and drainage placement. PPD#2 s/p ERCP and stent placement
Recovering well overall. Expectedly deconditioned and with supplemental oxygen requirements due to acute on chronic pulmonary issues. Appreciate pulmonary's help. MARTA outputs remain bilious, continue to monitor. Plan for fulls.
-- Fulls
-- D/C IVF
-- Pain control: Tylenol and Toradol, and IV Dilaudid PRN
-- Steroids given chronic use
-- Abx: Merrem per ID
-- PPI
-- Lovenox
-- Pulm consult appreciate help, okay to restart po meds
-- GI consult appreciate help
-- ID consult for abx management
-- Maintain MARTA for weeks until no further bilious output
-- Maintain in IMU for today
Subjective Data
-
Date of Service: March 22, 2024
Patient states he has much more energy today. He denies nausea or vomiting. His pain is controlled.
Objective Data
-
Intake and Output
03/21/24 03/22/24 03/23/24
06:59 06:59 06:59
Intake Total 660 / 660 2500 / 2500 120 / 120
Output Total 1470 / 1470 3155 / 3155 500 / 500
Balance -810 / -810 -655 / -655 -380 / -380
Intake:
Oral fluids 0 / 0 600 / 600 120 / 120
IV fluids (Total) 660 / 660 1800 / 1800
Normosol 100 / 100
IV piggybacks 100 / 100
Output:
Drain Output (Total) 320 / 320 80 / 80
Right Abdomen Rubén-Sood B 95 / 95 10 / 10
Right Lower Abdomen Rubén- 225 / 225 70 / 70
Sood A
Urine, Abdalla 750 / 750 750 / 750
Urine, Voided 400 / 400 2325 / 2325 500 / 500
Vital Signs
Temp Pulse Resp BP Pulse Ox
99.6 F 68 17 161/90 96
03/22/24 11:29 03/22/24 04:47 03/22/24 04:47 03/22/24 07:30 03/22/24 04:47
Lab Results
03/22/24 07:02
03/22/24 07:02
Calcium 8.8 mg/dl (8.4-10.2) 03/22/24 07:02
Total Bilirubin 1.5 mg/dl (0.2-1.3) H 03/22/24 07:02
Direct Bilirubin 0.5 mg/dl (0.0-0.4) H 03/21/24 04:32
AST 18 U/L (17-59) 03/22/24 07:02
ALT 43 U/L (0-50) 03/22/24 07:02
Alkaline Phosphatase 95 U/L (38-126) 03/22/24 07:02
Total Protein 5.4 g/dl (6.3-8.2) L 03/22/24 07:02
Albumin 3.1 g/dl (3.5-5.0) L 03/22/24 07:02
Physical Exam
-
Gen: NAD
Abd: soft, tender to palpation but improving, obese, mild distension, non-peritoneal, incisions c/d/i - ecchymosis at umbilicus, no erythema or drainage, MARTA with serosang x1 and bilious fluid x1
[2024-03-22] MEDS: NEURONTIN 400 MG PO ×2 (15:40→21:43)
[2024-03-22] MEDS: LOVENOX 40 MG SC (17:54)
--- NOTE | 2024-03-22 19:00 | PTCARENOTE ---
Unable to verify VS prior to 190
[2024-03-23] VITALS (15 sets, daily range): BP systolic 100–159; BP diastolic 64–106; BMI 26.6
[2024-03-23] MEDS: STERILE WATER FOR INJECTION 10 ML IV ×2 (01:52→08:52)
[2024-03-23] MEDS: MERREM 500 MG IV ×2 (01:52→08:52)
--- NOTE | 2024-03-23 04:59 | PTCARENOTE ---
Pt received from previous shift in bed. AAOx3, drowsy, arousable to voice. Telemetry = SB. Full physical assessment documented (refer to worklist). MARTA drainx x2 w/bilious drainage. Pt verbalizes adequate pain relief. Observed sleeping at
intervals t/o shift. #22 RFA INT patent. Call mariano within reach. Plan of care ongoing.
[2024-03-23 05:21] LABS: Hematocrit 30.9 % (39.0-52.0); Hemoglobin 10.2 g/dL (13.0-18.0); Mean Corpuscular Hgb 28.2 pg (27.0-31.0); Mean Corpuscular Volume 85.4 fL (80.0-94.0); Mean Platelet Volume 9.2 fL (7.4-10.4); Platelet Count 311 10^3/uL (130-400); Red Blood Cell Count 3.62 10^6/uL (4.70-6.10); Red Cell Dist. Width 14.2 % (11.5-14.5); White Blood Cell Count 11.5 10^3/uL (4.8-10.8)
[2024-03-23 05:58] LABS: ALT (SGPT) 31 U/L (0-50); AST (SGOT) 14 U/L (17-59); Albumin 2.9 g/dl (3.5-5.0); Alkaline Phosphatase 76 U/L (38-126); Blood Urea Nitrogen 15 mg/dl (9-20); Calcium 8.8 mg/dl (8.4-10.2); Carbon Dioxide 28 mmol/L (22-30); Chloride 102 mmol/L (98-107); Estimated Creatinine Clearance > 125 ml/min; Glucose 101 mg/dl (70-99); Potassium 3.9 mmol/L (3.5-5.1); Sodium 134 mmol/L (135-145); Total Bilirubin 1.1 mg/dl (0.2-1.3); Total Protein 5.1 g/dl (6.3-8.2); eGFR > 60.00
[2024-03-23] MEDS: NEURONTIN 400 MG PO ×3 (08:49→22:47)
[2024-03-23] MEDS: CATAPRES 0.200000000000000011 MG PO ×3 (08:50→22:50)
[2024-03-23] MEDS: ZOLOFT 100 MG PO (08:50)
[2024-03-23] MEDS: DILAUDID 1 MG IV ×3 (08:51→18:36)
[2024-03-23] MEDS: PROTONIX IV 40 MG IV ×2 (08:53→19:59)
[2024-03-23] MEDS: NSS (PRESERVATIVE FREE) 10 ML IV ×2 (08:53→19:59)
[2024-03-23] MEDS: SOLU-CORTEF 50 MG IV (08:54)
--- NOTE | 2024-03-23 09:30 | PTCARENOTE ---
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 Pt AAO to person, place, time, and situation. Pt resting in bed. Pts at bedside. Pt makes needs known. Pt maintaining sats above 92% currently on 2L NC. Pt in NSR on monitor. pt with 2 right sided JPs, A&B. A
putting out a darker brown drainage, B with serosanguineous drainage. Dressings clean dry and intact, Pt having slight abdominal tenderness. Pt wearing SCDs. Pt voiding via urinal, call mariano in reach. Please see nursing shift assessment for full
head to toe.
--- NOTE | 2024-03-23 09:46 | W.PN.PUL3 ---
Addendum entered and electronically signed by Kirit Weeks MD 03/24/24 14:02:
Pt had acute on chronic hypoxemic respiratory failure, now resolved back to baseline
Original Note:
Today's Communication / Plan
-
Continue postoperative care
Increase activity as able
Incentive spirometry
Supplemental oxygen to maintain pulse ox above 90%
Sign off
Assessment
-
Assessment:
Mr Errol Angela is a 54/M readm 03-18 with recurrent abd pain, n/v with bilious emesis after receiving outpatient laparoscopic cholecystectomy with cholangiogram and removal of previously placed percutaneous cholecystostomy tube on 03-17 (h/o
percutaneous cholecystostomy on 01-20 for acute cholecystitis). At ER, POx 85% on RA, started on O2 NC, IVFs and empiric atbs (levofloxacin/metronidazole), stress dose HC (h/o chronic use of oral MP for h/o microscopic polyangiitis). Received
diagnostic laparoscopy which showed biliary leak, received evacuation of biloma and drain placement x2 on 03-19. Showed E faecalis bacteriemia. GI consulted, received ERCP 03-20 with biliary sphincterotomy and plastic stent placement at R hepatic
duct. ICU transfer after procedure was considered initially but was then deemed stable to return to IMU.
Impression:
Biliary leak
S/p ERCP 03-20: biliary sphincterotomy and plastic stent placement at R hepatic duct
S/p outpatient laparoscopic cholecystectomy with cholangiogram and removal of previously placed percutaneous cholecystostomy tube on 03-17 (h/o percutaneous cholecystostomy on 01-20 for acute cholecystitis)
Hypoxemia
H/o nocturnal hypoxemia on nocturnal O2 2LPM
Ent faecalis bacteriemia (1/2 blood cxs 03-18)
Strep agalactiae bilious ascites 03-19 (reportedly specimen leaked in transit to micro lab, possible contamination)
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
Acute cholecystitis
MRCP: 1 mm choledocholithiasis, Ent faec
S/p percutaneous cholecystostomy 01-20
Influenza/COVID/ARDS/PNA requiring ECMO prolonged Hospital Stay Nov 2022-March 2023, complicated w/ PE/DVT, cardiac arrest, ICH, GI. On apixaban
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
GIB Jan 2023, required cauterization
Influenza A, adm 10-29 to [id number] 2021
COVID pneumonia, adm 11-17 to 24 '22, d/c on O2 2L
Breakthrough case in vaccinated Pfizer/J&J
2 weeks onset of symptoms, COVID + 10/13/22
Did not receive Paxlovid
Diffuse GGOs consistent with COVID PNA
Received remdesivir and dexamethasone
Completed 5 d atbs (doxycycline) through 10-23
Checked PR2/MPO negative, IgG 496 (10-24)
Chronic immunosuppression
History of microscopic polyangiitis, on chronic methylprednisone 6 mg qd, past h/o use of rituxan
Follows with Rheum Dr. Velázquez ([phone])
ILD: multifactorial, bilateral fibrotic changes, traction bronchiectasis
GERD
Restrictive lung disease
History of pneumonia
Mixed simple and mucopurulent chronic bronchitis
Nonsmoker
Depression
Medical marijuana
Plan:
Respiratory status appears to be baseline.
Known multifactorial ILD
Known nocturnal hypoxemia, on nocturnal O2 2LPM, last 6-minute walk testing in January 2024 patient only required 1 L supplemental oxygen with ambulation.
-
Increase mobility as able
Incentive spirometry encouraged
CXR 03-20,- chronic fibrotic changes, increase in L basilar density seen since Jan 2024 (not seen on basilar cuts from CT abd 03-19) which could represent atelectatic changes
Does not appear to have any decompensation from the pulmonary perspective.
Currently on 3 L, wean off as able. Likely subsegmental atelectasis on top of ILD/fibrosis.
Tolerated surgery from the respiratory perspective.
-
Continue antibiotics per infectious disease.
Follow blood cultures.
-
Continue HC, currently at 50 mg IV q12, consider decreasing to once a day until able to take orals. Patient only on 6 mg of methylprednisolone at home.
Has remained hemodyn stable since adm
H/o chronic use of oral MP 6 mg qd per Rheum (microscopic polyangiitis)
H/o PE/DVT deemed secondary to COVID illness by en 2021/early 2022, kept on apixaban AC
Resumed AC once OK by surgery
-
No additional recommendations from the pulmonary perspective.
Upon discharge should follow-up with Dr. Gonzalez
Subjective Data
-
Date of Service:
Date of Service: March 23, 2024
Chief Complaint: Pulmonary Follow Up
Subjective:
No new complaints.
Stable overnight from the respiratory perspective
No significant increased phlegm production.
Oxygen requirements stable
Review of Systems
General: Fever (n)
Cardiopulmonary: Dyspnea (none at rest)
GI: Abdominal Pain (n)
Neuro: Headache (n)
Objective Data
Data Reviewed
Vital Signs / I&O / Oxygen:
Vital Signs
Temp Pulse Resp BP Pulse Ox
98.3 F 64 22 159/89 96
03/23/24 07:04 03/23/24 08:50 03/23/24 06:00 03/23/24 08:50 03/23/24 06:00
Intake and Output
03/22/24 03/23/24 03/24/24
06:59 06:59 06:59
Intake Total 2500 / 2500 950 / 950
Output Total 3155 / 3155 1425 / 1425 350 / 350
Balance -655 / -655 -475 / -475 -350 / -350
SaO2 96
Nasal Cannula flow liters per 2
minute
Physical Exam
General: Respiratory Distress (n)
HEENT: Normocephalic and Moist Mucous Membranes
Cardiovascular: Regular Rhythm, Murmur (n) and Peripheral Edema (n)
Respiratory: Clear, Non-Labored Respirations and Stridor (n)
GI: Soft, Tender and Other (JPs in place)
Neurology: Awake, AO x 3 and No Motor Deficits
Skin: Warm
Labs/Micro/Reports
Lab Data
03/23/24 04:49
03/23/24 04:49
Microbiology
03/18/24 23:20 Blood/Venous Blood Culture - Preliminary
No Growth in 4 days- Final report to follow
03/21/24 15:08 Blood/Venous Blood Culture - Preliminary
No Growth in 24 hours- Final report to follow
03/21/24 13:45 Blood/Venous Blood Culture - Preliminary
No Growth in 24 hours- Final report to follow
03/18/24 22:49 Blood/Venous Blood Culture - Preliminary
Enterococcus faecalis
03/18/24 22:49 Blood/Venous Gram Stain - Preliminary
03/19/24 13:50 Peritoneal Fluid Body Fluid Culture - Preliminary
Enterococcus faecalis
03/19/24 13:50 Peritoneal Fluid Gram Stain - Preliminary
--- NOTE | 2024-03-23 09:56 | W.PN.ID1 ---
Date of Service
Date of Service: March 23, 2024
Today's Communication
Continue meropenem for today. Ampicillin test dosing to be performed.
Assessment / Plan
S/p recent cholecystectomy (03/17/24)
Bile leak; s/p repair (03/19/24)
Enterococcal bacteremia
Enterococcal peritonitis
Multiple antibiotic allergies (PCN / vancomycin / sulfa)
Hx Microscopic polyangiitis
Interstitial lung disease
Pericarditis
GERD
Influenza/COVID /ARDS requiring ECMO March 2023 with DVT/PE while on ECMO; on Eliquis,
Cardiac arrest 2022
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
GI bleed January 2023 requiring cauterization
HTN
neuropathy hands and feet
depression
Recommendations:
Repeat blood cultures to assess clearance.
Continue meropenem 500 mg IV every 6 hours
Ideally would like to use a penicillin in the treatment of the enterococcal bacteremia. Will perform test dosing of ampicillin to assess tolerability. Discussed with Clinical Pharmacist.
Follow repeat cultures to assess clearance of bacteremia (currently NGTD)
Monitor white count and temperature curve
����������������������������������������������������������
Chief Complaint
-: Other (Peritonitis)
Subjective / Review of Systems
Patient seen and examined. Still with drains in place. No specific complaints at present.
Review of Systems: No Fever and No Chills
Vital Signs / Physical Exam
Vital Signs
Vital Signs
Temp Pulse Resp BP Pulse Ox
98.3 F 64 22 159/89 96
03/23/24 07:04 03/23/24 08:50 03/23/24 06:00 03/23/24 08:50 03/23/24 06:00
Physical Exam
Constitutional: No Acute Distress, Comfortable and Non-toxic
Eyes: Sclera Anicteric
Cardiovascular: S1/S2; Negative S3/S4
Pulmonary: Non Labored
Gastrointestinal: Soft, Non Distended, Normal Bowel Sounds, No Rebound, No Guarding and Other (MARTA [address] 1 with serous drainage. 1 with bilious drainage.)
Extremities: Negative Edema, Cyanosis or Erythema
Neurological: Awake and Alert
Psychological: Calm
Objective Data
Lab Data
Lab Results
03/23/24 04:49
03/23/24 04:49
PT 18.6 Sec (11.4-14.6) H 03/20/24 08:51
INR 1.57 03/20/24 08:51
Estimated Creat Clear > 125 ml/min 03/23/24 04:49
Lactic Acid Cancelled 03/19/24 07:00
Total Bilirubin 1.1 mg/dl (0.2-1.3) 03/23/24 04:49
AST 14 U/L (17-59) L 03/23/24 04:49
ALT 31 U/L (0-50) 03/23/24 04:49
Alkaline Phosphatase 76 U/L (38-126) 03/23/24 04:49
Amylase 41 U/L (30-110) 03/20/24 08:51
Most recent labs reviewed.
Micro Results:
03/18/24 23:20 Blood Culture - Preliminary
Blood/Venous No Growth in 4 days- Final report to follow
03/21/24 15:08 Blood Culture - Preliminary
Blood/Venous No Growth in 24 hours- Final report to follow
03/21/24 13:45 Blood Culture - Preliminary
Blood/Venous No Growth in 24 hours- Final report to follow
03/18/24 22:49 Blood Culture - Preliminary
Blood/Venous Enterococcus faecalis
Gram Stain - Preliminary
03/19/24 13:50 Body Fluid Culture - Preliminary
Peritoneal Fluid Enterococcus faecalis
Gram Stain - Preliminary
Imaging:
03/19/2024 CT abdomen/pelvis with contrast: 1. Status post cholecystectomy. Small fluid collection within the gallbladder fossa, measuring 4.9 x 3.7 x 4.2 cm, suggestive of postoperative fluid, seroma, or biloma. Abscess is considered less likely,
given that his cholecystectomy was only 2 days ago. 2. Suggestion of mild constipation. No intestinal obstruction. 3. Reticular interstitial thickening at each lung base, unchanged compared to prior CT, suggestive of mild interstitial fibrosis.
Interstitial fibrosis was also seen on prior chest CT dated 08/21/2023. 4. A 2.5 cm fluid collection anterior to the left common femoral vessels, likely representing seroma or liquefied hematoma. Unchanged compared to prior CT.
Care Review
Plan reviewed with: Physician (Gen Red)
[2024-03-23] MEDS: TORADOL 15 MG IV ×2 (10:44→19:59)
[2024-03-23] MEDS: AMPICILLIN 10 MG IV (11:06)
--- NOTE | 2024-03-23 11:33 | PTCARENOTE ---
Assumed care of patient at beginning of this shift from previous RN. Dilaudid administered at 08:51 for pain without significant relief; toradol then administered for c/o pain 04/10. Patient currently asleep.
Patient received test dose of ampicillan at 11:08 and had no reaction.
--- NOTE | 2024-03-23 11:46 | W.PN.GS2 ---
Addendum entered and electronically signed by Sagra Silver MD 03/23/24 17:03:
The patient does have some mild hyponatremia that is resolving with fluid resuscitation
Original Note:
Today's Communication / Plan
-
Okay to advance diet.
Assessment / Plan
-
Patient is a 54 yo M POD#6 s/p laparoscopic cholecystectomy with IOC on 03/17. Representation with abdominal pain, jaundice. POD#3 s/p diagnostic laparoscopy, abdominal washout and drainage placement and identification of a bile duct injury. PPD#3
s/p ERCP and stent placement across the right hepatic duct for an accessory cystic duct/duct of Luschka stump leak coming off the right hepatic. Recovering well overall. Expectedly deconditioned and with supplemental oxygen requirements due to
acute on chronic pulmonary issues. Appreciate pulmonary's help. MARTA outputs remain bilious, continue to monitor.
-- Low-fat diet
-- D/C IVFs
-- Pain control: Tylenol and Toradol, and IV Dilaudid PRN
-- Steroids given chronic use
-- Abx: Merrem per ID
-- PPI
-- Lovenox
-- Pulm consult appreciate help, okay to restart po meds
-- GI consult appreciate help
-- ID consult for abx management
-- Maintain MARTA for weeks until no further bilious output. Will coordinate with GI.
-- Maintain in IMU for today
Time Spent
Total Time Spent with Patient (in minutes): 25
Subjective Data
-
Date of Service: March 23, 2024
Interval Events:
No acute events overnight. Slept well. Pain Controlled. Denies Nausea/Vomiting, +bowel function. Tolerating diet.
Objective Data
-
Intake and Output
03/22/24 03/23/24 03/24/24
06:59 06:59 06:59
Intake Total 2500 / 2500 950 / 950
Output Total 3155 / 3155 1425 / 1425 625 / 625
Balance -655 / -655 -475 / -475 -625 / -625
Intake:
Oral fluids 600 / 600 600 / 600
IV fluids (Total) 1800 / 1800 350 / 350
IV piggybacks 100 / 100
Output:
Drain Output (Total) 80 / 80 125 / 125
Right Abdomen Rubén-Sood B 10 / 10 5 / 5
Right Lower Abdomen Rubén- 70 / 70 120 / 120
Sood A
Urine, Abdalla 750 / 750
Urine, Voided 2325 / 2325 1300 / 1300 625 / 625
Vital Signs
Temp Pulse Resp BP Pulse Ox
97.4 F 64 22 159/89 96
03/23/24 11:13 03/23/24 08:50 03/23/24 06:00 03/23/24 08:50 03/23/24 06:00
Lab Results
03/23/24 04:49
03/23/24 04:49
Calcium 8.8 mg/dl (8.4-10.2) 03/23/24 04:49
Total Bilirubin 1.1 mg/dl (0.2-1.3) 03/23/24 04:49
Direct Bilirubin 0.5 mg/dl (0.0-0.4) H 03/21/24 04:32
AST 14 U/L (17-59) L 03/23/24 04:49
ALT 31 U/L (0-50) 03/23/24 04:49
Alkaline Phosphatase 76 U/L (38-126) 03/23/24 04:49
Total Protein 5.1 g/dl (6.3-8.2) L 03/23/24 04:49
Albumin 2.9 g/dl (3.5-5.0) L 03/23/24 04:49
Physical Exam
-
GENERAL/NEURO: Awake, Alert, no distress
CHEST: Unlabored breathing on RA
ABDOMEN: Soft, Non-Tender, Non-Distended, incisions clean dry and intact. MARTA with dark bilious output.
[2024-03-23] MEDS: UNASYN IV ×2 (12:59→17:15)
--- NOTE | 2024-03-23 14:31 | PN.CDI ---
CDI
- -
CDI:
Physician Documentation Request
Admit Date: 03/19/24 17:00
Dear Doctor Eric,
Please review the following and provide your response in the progress notes.
Clinical Indicators:
03/19/24 17:47 - Patient Care Note
#Pt RR 24 on 10L simple mask, satting 94%. BP 122/78 (89).
03/20/24 01:33 - Patient Care Note
#Was on 15L simple mask at start of shift, transitioned to 10LMF around 0030.
03/21/24 22:22 - Patient Care Note
#POX 95% on 4L MF. SR on CM rate 80's.
03/23/24 09:30 (created 03/23/24 14:03) - Patient Care Note
#Pt maintaining sats above 92% currently on 2L NC.
PN, 03/23
3Supplemental oxygen to maintain pulse ox above 90%
#Hypoxemia
#H/o nocturnal hypoxemia on nocturnal O2 2LPM
#Respiratory status appears to be baseline.
#Known multifactorial ILD
#Known nocturnal hypoxemia, on nocturnal O2 2LPM,
#...last 6-minute walk testing in January 2024 patient
#...only required 1 L supplemental oxygen with ambulation.
Please clarify which of the following accurately represents the patient's respiratory status:
Acute respiratory failure
Acute on chronic respiratory failure
Chronic respiratory failure
Hypoxia
Other
Additional information for Respiratory Failure:
Recognized criteria for Respiratory Failure (Source: [employer] Hospitalist Oct 2013)
Symptoms Please indicate type if known
1. Tachypnea, SOB, dyspnea Hypoxic
2. Use of accessory muscles Hypercapnic
3. Pallor or cyanosis Hypoxic and Hypercapnic
4. Anxiety or restlessness
5. Unable to speak in full sentences
Supplemental O2 of > 40% (5LPM) Intubation is not required
Use of terms such as suspected, likely, concern for, or probable (associated with a specific diagnosis that is being evaluated, monitored, or treated as if it exists) are acceptable and can be coded in the inpatient setting, when documented at the
time of discharge.
Thank you,
Isabel Herring RN BSN CCDS
CDI Specialist
please contact via tiger text
Please use your independent medical judgment in providing your response.
[2024-03-23] MEDS: DAPSONE 100 MG PO (14:54)
--- NOTE | 2024-03-23 15:02 | PN.CDI ---
CDI
- -
CDI:
Physician Documentation Request
Admit Date: 03/19/24 17:00
Dear Doctor Micky,
Please review the following and provide your response in the progress notes.
Clinical Indicators:
ED, 03/18
#He has been using nasal cannula oxygen since discharge yesterday and with increased pain tonight
#...he has had increased shortness of breath and
#...upon arrival to the ED was noted to be moderate hypoxic with initial pulse ox 86%.
#Other consideration is increased O2 requirement,
#...acute on chronic hypoxic respiratory failure which again could be postop pain related
#...continued supplemental oxygen and close monitoring.
#Acute and chronic respiratory failure with hypoxia, ...
03/19/24 17:47 - Patient Care Note
#Pt RR 24 on 10L simple mask, satting 94%. BP 122/78 (89).
03/20/24 01:33 - Patient Care Note
#Was on 15L simple mask at start of shift, transitioned to 10LMF around 0030.
03/21/24 22:22 - Patient Care Note
#POX 95% on 4L MF. SR on CM rate 80's.
03/23/24 09:30 (created 03/23/24 14:03) - Patient Care Note
#Pt maintaining sats above 92% currently on 2L NC.
PN, 03/23
3Supplemental oxygen to maintain pulse ox above 90%
#Hypoxemia
#H/o nocturnal hypoxemia on nocturnal O2 2LPM
#Respiratory status appears to be baseline.
#Known multifactorial ILD
#Known nocturnal hypoxemia, on nocturnal O2 2LPM,
#...last 6-minute walk testing in January 2024 patient
#...only required 1 L supplemental oxygen with ambulation.
Please clarify which of the following accurately represents the patient's respiratory status:
Acute respiratory failure
Acute on chronic respiratory failure
Chronic respiratory failure
Hypoxia
Other
Additional information for Respiratory Failure:
Recognized criteria for Respiratory Failure (Source: [employer] Hospitalist Oct 2013)
Symptoms Please indicate type if known
1. Tachypnea, SOB, dyspnea Hypoxic
2. Use of accessory muscles Hypercapnic
3. Pallor or cyanosis Hypoxic and Hypercapnic
4. Anxiety or restlessness
5. Unable to speak in full sentences
Supplemental O2 of > 40% (5LPM) Intubation is not required
Use of terms such as suspected, likely, concern for, or probable (associated with a specific diagnosis that is being evaluated, monitored, or treated as if it exists) are acceptable and can be coded in the inpatient setting, when documented at the
time of discharge.
Thank you,
Isabel Herring RN BSN CCDS
CDI Specialist
please contact via tiger text
Please use your independent medical judgment in providing your response.
--- NOTE | 2024-03-23 15:10 | PN.CDI ---
CDI
- -
CDI:
Physician Documentation Request
Admit Date: 03/19/24 17:00
Dear Doctor Eric,
Please review the following and provide your response in the progress notes.
Clinical Indicators:
H+P, 03/19
#Appears jaundiced and icteric
*Lactic acidosis: With mildly elevated WBCs, LFTs and T bili....
ID PN,
#Enterococcal bacteremia
#E. coli peritonitis
#Bile leak; status postrepair
03/18/24 22:49 Blood Culture - Preliminary
Blood/Venous Gram Stain - Preliminary
Enterococcus faecalis
Selected Entries
03/19/24
15:45 03/19/24
16:00
Temp 100.9 F H
Pulse 95
Resp Rate 26
Oxygen Mode of Delivery Simple mask
Laboratory Tests
03/18/24 03/19/24 03/20/24
22:49 04:01 08:03
WBC 21.1 H 27.2 H 25.2 H
Laboratory Tests
03/18/24 03/19/24 03/19/24
22:49 03:03 04:01
Lactic Acid 3.7 H 1.5
Total Bilirubin 1.4 H 2.3 H D
03/20/24
08:03
Lactic Acid
Total Bilirubin 1.8 H
Please clarify which of the following most accurately describes the status of the patient's infection/initial presentation:
Severe sepsis, POA, (lactate >2.0 bilirubin >2.0 respiratory....)
Sepsis, POA
Localized Infection Only, Without Systemic Illness
- indicate the site/source, such as UTI, pneumonia etc.
Bacteremia
- Abnormal lab finding only, does not indicate systemic illness
Other
Sepsis
- Systemic manifestations of infection, with 2 or more SIRS criteria which include:
- Fever >100.4 degrees F or hypothermia < 96.8 degrees F
- Leukocytosis - WBC > 12,000 or leukopenia - WBC < 4,000 or > 10% bands
- Tachycardia > 90 beats per minute
- Tachypnea - RR > 20 breaths per minute or PaCO2 , 32mmHg
Source: Merck Manual 2013
- Indicate the known or suspected organism
- Indicate the known or suspected underlying infection, such as UTI, pneumonia or cellulitis
Severe Sepsis
- Sepsis with associated acute organ dysfunction, such as renal or respiratory failure
- Documentation should indicate the association between the sepsis and the organ dysfunction
Use of terms such as suspected, likely, concern for, or probable (associated with a specific diagnosis that is being evaluated, monitored, or treated as if it exists) are acceptable and can be coded in the inpatient setting, when documented at the
time of discharge.
Thank you,
Isabel Herring RN BSN CCDS
CDI Specialist
please contact via tiger text
Please use your independent medical judgment in providing your response.
--- NOTE | 2024-03-23 15:28 | PN.CDI ---
CDI
- -
CDI:
Physician Documentation Request
Admit Date: 03/19/24 17:00
Dear Doctor Nadeem,
Please review the following and provide your response in the progress notes.
Clinical Indicators:
Laboratory Tests
03/22/24 03/23/24
07:02 04:49
Sodium 132 L 134 L
Based on the above, please clarify in the progress notes, the appropriate diagnosis, if significant, that supports the above abnormalities and additional evaluation, monitoring and/or treatment rendered:
Hyponatremia
Abnormal lab value, clinically insignificant
Other
Use of terms such as suspected, likely, concern for, or probable (associated with a specific diagnosis that is being evaluated, monitored, or treated as if it exists) are acceptable and can be coded in the inpatient setting, when documented at the
time of discharge.
Thank you,
Isabel Herring RN BSN CCDS
CDI Specialist
please contact via tiger text
Please use your independent medical judgment in providing your response.
[2024-03-23] MEDS: LOVENOX 40 MG SC (17:14)
[2024-03-23] MEDS: ROXICODONE 5 MG PO (22:44)
--- NOTE | 2024-03-23 23:45 | PTCARENOTE ---
Assumed care of Pt from day RN. Pt appeared comfortable in bed respiration even and unlabored. Pt has no complaints at this time. Assessment care and vitals charted.
[2024-03-24] VITALS (13 sets, daily range): BP systolic 103–147; BP diastolic 49–79; BMI 26.5
[2024-03-24] MEDS: UNASYN IV ×5 (00:46→23:45)
[2024-03-24] MEDS: TORADOL 15 MG IV ×2 (02:29→11:20)
[2024-03-24 05:38] LABS: Hematocrit 30.2 % (39.0-52.0); Hemoglobin 10.1 g/dL (13.0-18.0); Mean Corp Hgb Conc. 33.4 g/dL (33.0-37.0); Mean Corpuscular Hgb 28.5 pg (27.0-31.0); Mean Corpuscular Volume 85.3 fL (80.0-94.0); Mean Platelet Volume 9.6 fL (7.4-10.4); Platelet Count 282 10^3/uL (130-400); Red Blood Cell Count 3.54 10^6/uL (4.70-6.10); White Blood Cell Count 12.5 10^3/uL (4.8-10.8)
[2024-03-24] MEDS: CATAPRES 0.200000000000000011 MG PO ×3 (08:36→21:35)
[2024-03-24] MEDS: DAPSONE 100 MG PO (08:36)
[2024-03-24] MEDS: NEURONTIN 400 MG PO ×3 (08:36→21:09)
[2024-03-24] MEDS: ZOLOFT 100 MG PO (08:37)
[2024-03-24] MEDS: TYLENOL 650 MG PO ×2 (08:37→23:02)
[2024-03-24] MEDS: NSS (PRESERVATIVE FREE) 10 ML IV (08:38)
[2024-03-24] MEDS: PROTONIX IV 40 MG IV (08:38)
--- NOTE | 2024-03-24 10:42 | W.PN.GS2 ---
Today's Communication / Plan
-
-- Low-fat diet
-- Steroids given chronic use, plan for Hydrocortisone 25 BID today, 12.5 BID tomorrow, then home PO 6 mg on DC
-- Abx: Unasyn per ID
-- Lovenox, consider transition to home Eliquis given immobility and acute issues, can be DC'd as outpatient
-- Transfer to floors
Assessment / Plan
-
Patient is a 54 yo M POD#7 s/p laparoscopic cholecystectomy with IOC on 03/17. Representation with abdominal pain, jaundice. POD#5 s/p diagnostic laparoscopy, abdominal washout and drainage placement and identification of a bile duct injury. PPD#4
s/p ERCP and stent placement across the right hepatic duct for an accessory cystic duct/duct of Luschka stump leak coming off the right hepatic.
well overall. Expectedly deconditioned and with supplemental oxygen requirements due to acute on chronic pulmonary issues. Appreciate pulmonary's help. MARTA outputs remain bilious, continue to monitor.
-- Low-fat diet
-- D/C IVFs
-- Pain control: Tylenol and Toradol, and IV Dilaudid PRN
-- Steroids given chronic use, plan for Hydrocortisone 25 BID today, 12.5 BID tomorrow, then home PO 6 mg on DC
-- Abx: Unasyn per ID
-- PPI
-- Lovenox, consider transition to home Eliquis given immobility and acute issues, can be DC'd as outpatient
-- Pulm consult appreciate help, okay to restart PO meds
-- GI consult appreciate help
-- Maintain MARTA for weeks until no further bilious output. Will coordinate with GI.
-- Transfer to floors
Subjective Data
-
Date of Service: March 24, 2024
No complaints. No nausea or vomiting. Abdominal discomfort improving. Passing flatus and moving bowels. No fevers. No dizziness or lightheadedness. Denies any worsening shortness of breath.
Objective Data
-
Intake and Output
03/23/24 03/24/24 03/25/24
06:59 06:59 06:59
Intake Total 950 / 950 840 / 840 720 / 720
Output Total 1425 / 1425 1140 / 1140
Balance -475 / -475 -300 / -300 695 / 695
Intake:
Oral fluids 600 / 600 600 / 600 720 / 720
IV fluids (Total) 350 / 350
IV piggybacks 240 / 240
Output:
Drain Output (Total) 125 / 125 165 / 165
Right Abdomen Rubén-Sood B 5 / 5
Right Lower Abdomen Rubén- 120 / 120 140 / 140
Sood A
Urine, Voided 1300 / 1300 975 / 975
Other:
Number of approximated MODERATE 1
amounts of urine
Vital Signs
Temp Pulse Resp BP Pulse Ox
98.5 F 75 14 147/78 94
03/24/24 07:35 03/24/24 08:36 03/24/24 06:00 03/24/24 08:36 03/24/24 04:00
Lab Results
03/24/24 05:25
Calcium 8.8 mg/dl (8.4-10.2) 03/23/24 04:49
Total Bilirubin 1.1 mg/dl (0.2-1.3) 03/23/24 04:49
Direct Bilirubin 0.5 mg/dl (0.0-0.4) H 03/21/24 04:32
AST 14 U/L (17-59) L 03/23/24 04:49
ALT 31 U/L (0-50) 03/23/24 04:49
Alkaline Phosphatase 76 U/L (38-126) 03/23/24 04:49
Total Protein 5.1 g/dl (6.3-8.2) L 03/23/24 04:49
Albumin 2.9 g/dl (3.5-5.0) L 03/23/24 04:49
Physical Exam
-
Gen: NAD
Abd: soft, NT/ND, non-peritoneal, incisions c/d/i - no erythema or drainage, ecchymosis at umbilicus, MARTA bilious
--- NOTE | 2024-03-24 11:00 | PTCARENOTE ---
Pt received from shift supervisor melting. Pt AAO, pleasant and agreeable to care. Pt NSR on the monitor. Pt on 2L NC, SATs remain above 92% while resting in bed. Respirations shallow at times. Pt has 2 MARTA's on the right side. A&B draining, A with brown
drainage, B with serosanguineous drainage. Dressing clean, dry and intact. Pt OOB to the bathroom. Pt brushed teeth this AM. No acute changes at this time. Please see nursing shift assessment for full head to toe. Call mariano in reach, makes needs
known.
--- NOTE | 2024-03-24 14:49 | PTCARENOTE ---
Pt downgraded to [facility], Pt informed of transfer to room 2103. Report given to nurse receiving pt.
[2024-03-24 15:20] LABS: ALT (SGPT) 26 U/L (0-50); AST (SGOT) 25 U/L (17-59); Alkaline Phosphatase 60 U/L (38-126); Blood Urea Nitrogen 23 mg/dl (9-20); Calcium 8.3 mg/dl (8.4-10.2); Carbon Dioxide 29 mmol/L (22-30); Chloride 104 mmol/L (98-107); Estimated Creatinine Clearance > 125 ml/min; Glucose 104 mg/dl (70-99); Potassium 3.9 mmol/L (3.5-5.1); Sodium 136 mmol/L (135-145); Total Bilirubin 0.8 mg/dl (0.2-1.3); Total Protein 5.1 g/dl (6.3-8.2); eGFR > 60.00
[2024-03-24] MEDS: DILAUDID 0.5 MG IV (15:23)
--- NOTE | 2024-03-24 15:54 | CM ---
Patient with recent lap cesar with Dx abdominal pain who is s/p ERCP with stent. Receiving IV Unasyn. 2 MARTA drains.
Met with patient and ; patient says he has been ambulating in room today without difficulty. Offered VN for drain care and patient/ chose [facility].
Patient/ state Dr Estrella mentioned home IV Abx however they want to talk with him again before agreeing to it---> message to Dr Estrella. Dr Estrella responded saying he would place script in chart tomorrow.
Explained home infusion referral process should they agree after talking with MD. Patient would mostly do IV Abx administration himself however available to assist.
Referral to [facility] for [facility] for drain care.
Plan follow up tomorrow for script for possible home IV Abx.
Plan home with [facility] and possible home IV Abx.
--- NOTE | 2024-03-24 16:28 | PTCARENOTE ---
Pt transferred to room 2104, belongings collected, at bedside.
[2024-03-24] MEDS: LOVENOX 40 MG SC (17:50)
[2024-03-24] MEDS: SOLU-CORTEF 25 MG IV (21:07)
[2024-03-24] MEDS: PROTONIX 40 MG PO (21:09)
[2024-03-24] MEDS: DILAUDID 1 MG IV (21:47)
[2024-03-25 03:15] VITALS: BP 127/77
[2024-03-25] MEDS: UNASYN IV (06:10)
[2024-03-25] MEDS: ROXICODONE 5 MG PO (06:30)
[2024-03-25 07:20] VITALS: BP 140/78
[2024-03-25] MEDS: NEURONTIN 400 MG PO ×3 (08:45→21:25)
[2024-03-25] MEDS: PROTONIX 40 MG PO ×2 (08:45→20:53)
[2024-03-25] MEDS: CATAPRES 0.200000000000000011 MG PO ×3 (08:45→21:25)
[2024-03-25] MEDS: DAPSONE 100 MG PO (08:45)
[2024-03-25] MEDS: SOLU-CORTEF 25 MG IV ×2 (08:46→20:52)
[2024-03-25] MEDS: ZOLOFT 100 MG PO (08:46)
[2024-03-25] MEDS: DILAUDID 1 MG IV (08:53)
--- NOTE | 2024-03-25 09:05 | W.PN.GS2 ---
Today's Communication / Plan
-
Dispo planning
Assessment / Plan
-
Patient is a 54 yo M POD#8 s/p laparoscopic cholecystectomy with IOC on 03/17. Representation with abdominal pain, jaundice. POD#6 s/p diagnostic laparoscopy, abdominal washout and drainage placement and identification of a bile duct injury. PPD#5
s/p ERCP and stent placement across the right hepatic duct for an accessory cystic duct/duct of Luschka stump leak coming off the right hepatic. Doing well overall. Expectedly deconditioned and with supplemental oxygen requirements due to acute on
chronic pulmonary issues. Appreciate pulmonary's help. MARTA outputs remain bilious, continue to monitor.
-- Low-fat diet
-- D/C IVFs
-- Pain control: Tylenol and Toradol, and IV Dilaudid PRN
-- Steroids given chronic use, plan for Hydrocortisone 25 BID today, 12.5 BID tomorrow, then home PO 6 mg on DC
-- Abx: Unasyn per ID, Will discuss home-going options.
-- PPI
-- Lovenox, consider transition to home Eliquis given immobility and acute issues, can be DC'd as outpatient
-- Pulm consult appreciate help, okay to restart PO meds
-- GI consult appreciate help
-- Maintain MARTA for weeks until no further bilious output. Will coordinate with GI.
-- Will need MARTA drain teaching prior to discharge.
Time Spent
Total Time Spent with Patient (in minutes): 20
Subjective Data
-
Date of Service: March 25, 2024
Interval Events:
No acute events overnight. Slept well. Pain Controlled. Denies Nausea/Vomiting, +bowel function. Tolerating diet.
Objective Data
-
Intake and Output
03/24/24 03/25/24 03/26/24
06:59 06:59 06:59
Intake Total 840 / 840 2880 / 2880
Output Total 1140 / 1140 790 / 790
Balance -300 / -300 2089
Intake:
Oral fluids 600 / 600 2640 / 2640
IV piggybacks 240 / 240 240 / 240
Output:
Drain Output (Total) 165 / 165 165 / 165
Right Abdomen Rubén-Sood B 25 / 25 60 / 60
Right Lower Abdomen Rubén- 140 / 140 105 / 105
Sood A
Urine, Voided 975 / 975 625 / 625
Other:
Number of approximated MODERATE 1
amounts of urine
Vital Signs
Temp Pulse Resp BP Pulse Ox
98.1 F 60 16 140/78 91
03/25/24 07:20 03/25/24 08:45 03/25/24 07:20 03/25/24 08:45 03/25/24 07:20
Lab Results
03/24/24 05:25
03/24/24 14:10
Calcium 8.3 mg/dl (8.4-10.2) L 03/24/24 14:10
Total Bilirubin 0.8 mg/dl (0.2-1.3) 03/24/24 14:10
Direct Bilirubin 0.5 mg/dl (0.0-0.4) H 03/21/24 04:32
AST 25 U/L (17-59) 03/24/24 14:10
ALT 26 U/L (0-50) 03/24/24 14:10
Alkaline Phosphatase 60 U/L (38-126) 03/24/24 14:10
Total Protein 5.1 g/dl (6.3-8.2) L 03/24/24 14:10
Albumin 3.0 g/dl (3.5-5.0) L 03/24/24 14:10
Physical Exam
-
GENERAL/NEURO: Awake, Alert, no distress
CHEST: Unlabored breathing on RA
ABDOMEN: Soft, Non-Tender, Non-Distended, right upper quadrant MARTA bilious output relatively stable compared to yesterday. Right lower quadrant MARTA with serous fluid-removed at bedside today.
--- NOTE | 2024-03-25 10:30 | W.PN.ID1 ---
Date of Service
Date of Service: March 25, 2024
Today's Communication
Continue abx.
Assessment / Plan
S/p recent cholecystectomy (03/17/24)
Bile leak; s/p repair (03/19/24)
Enterococcal bacteremia
- blood cultures clear 03/21 onward
Enterococcal peritonitis
Multiple antibiotic allergies (PCN / vancomycin / sulfa)
Hx Microscopic polyangiitis
Interstitial lung disease
Pericarditis
GERD
Influenza/COVID /ARDS requiring ECMO March 2023 with DVT/PE while on ECMO; on Eliquis,
Cardiac arrest 2022
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
GI bleed January 2023 requiring cauterization
HTN
neuropathy hands and feet
depression
Recommendations:
Repeat blood cultures NGTD
Patient tolerating ampicillin without difficulty.
Continue 7 more days abx.
IV infusion sheet completed and placed on paper chart. Scanned image sent to
����������������������������������������������������������
Chief Complaint
-: Other (Peritonitis / Enterococcal bacteremia)
Subjective / Review of Systems
Seen / examined. One of 2 drains pulled. No fevers or chills.
Review of Systems: No Fever and No Chills
Vital Signs / Physical Exam
Vital Signs
Vital Signs
Temp Pulse Resp BP Pulse Ox
98.1 F 60 16 140/78 91
03/25/24 07:20 03/25/24 08:45 03/25/24 07:20 03/25/24 08:45 03/25/24 07:20
Physical Exam
Constitutional: No Acute Distress, Comfortable and Non-toxic
Eyes: No Conjunctival Hemorrhage and Sclera Anicteric
Cardiovascular: S1/S2; Negative S3/S4 or Murmur
Pulmonary: Non Labored
Gastrointestinal: Soft, Non Distended and Normal Bowel Sounds
Extremities: Negative Edema, Splinter Hemorrhage or Janeway Lesions
Neurological: Awake and Alert
Psychological: Calm
Objective Data
Lab Data
Lab Results
03/24/24 05:25
03/24/24 14:10
PT 18.6 Sec (11.4-14.6) H 03/20/24 08:51
INR 1.57 03/20/24 08:51
Estimated Creat Clear > 125 ml/min 03/24/24 14:10
Lactic Acid Cancelled 03/19/24 07:00
Total Bilirubin 0.8 mg/dl (0.2-1.3) 03/24/24 14:10
AST 25 U/L (17-59) 03/24/24 14:10
ALT 26 U/L (0-50) 03/24/24 14:10
Alkaline Phosphatase 60 U/L (38-126) 03/24/24 14:10
Amylase 41 U/L (30-110) 03/20/24 08:51
Most recent labs reviewed.
Micro Results:
03/21/24 15:08 Blood Culture - Preliminary
Blood/Venous No Growth in 72 hours- Final report to follow
03/21/24 13:45 Blood Culture - Preliminary
Blood/Venous No Growth in 72 hours- Final report to follow
03/18/24 23:20 Blood Culture - Final
Blood/Venous No Growth - Final Report
03/18/24 22:49 Blood Culture - Preliminary
Blood/Venous Enterococcus faecalis
Gram Stain - Preliminary
03/19/24 13:50 Body Fluid Culture - Preliminary
Peritoneal Fluid Enterococcus faecalis
Gram Stain - Preliminary
Imaging:
03/19/2024 CT abdomen/pelvis with contrast: 1. Status post cholecystectomy. Small fluid collection within the gallbladder fossa, measuring 4.9 x 3.7 x 4.2 cm, suggestive of postoperative fluid, seroma, or biloma. Abscess is considered less likely,
given that his cholecystectomy was only 2 days ago. 2. Suggestion of mild constipation. No intestinal obstruction. 3. Reticular interstitial thickening at each lung base, unchanged compared to prior CT, suggestive of mild interstitial fibrosis.
Interstitial fibrosis was also seen on prior chest CT dated 08/21/2023. 4. A 2.5 cm fluid collection anterior to the left common femoral vessels, likely representing seroma or liquefied hematoma. Unchanged compared to prior CT.
Care Review
Plan reviewed with: Other (Case Management)
Total Time Spent with Patient (in minutes): Gen Sx.
[2024-03-25] MEDS: DILAUDID 0.5 MG IV ×2 (11:51→15:28)
[2024-03-25] MEDS: AMPICILLIN 108 MG IV (11:52)
--- NOTE | 2024-03-25 15:18 | CM ---
Discharge Plan of Care: Home with VN with [facility] and [facility] for IV/AB. Midline placed today. [facility] pet training instructor and education will be provided on 03/26/24. Anticipate discharge 03/26/24 or 03/27/24 dependent on
pharmacy preparation and delivery of medications and equipment. Patient and notified.
--- NOTE | 2024-03-25 17:07 | PTCARENOTE ---
Pt c/o burning/itching to b/l armpits. I went in to assess patient and found b/l armpits to have a deep red rash. Dr. Chua and Dr. Estrella notified.
Dr. Estrella came to bedside to assess. Clotrimazole ordered BID.
[2024-03-25] MEDS: LOVENOX 40 MG SC (18:10)
[2024-03-25] MEDS: LOTRIMIN 1% CREAM 1 APPLIC TOPICAL (18:10)
[2024-03-25] MEDS: TORADOL 15 MG IV (18:12)
[2024-03-25] MEDS: TYLENOL 650 MG PO (21:36)
[2024-03-25 22:58] VITALS: BP 144/75
[2024-03-26 07:37] VITALS: BP 164/88
[2024-03-26] MEDS: PROTONIX 40 MG PO (08:02)
[2024-03-26] MEDS: ZOLOFT 100 MG PO (08:02)
[2024-03-26] MEDS: DAPSONE 100 MG PO (08:02)
[2024-03-26] MEDS: CATAPRES 0.200000000000000011 MG PO ×2 (08:02→16:34)
[2024-03-26] MEDS: LOTRIMIN 1% CREAM 1 APPLIC TOPICAL (08:03)
[2024-03-26] MEDS: NEURONTIN 400 MG PO ×2 (08:03→16:34)
[2024-03-26 08:17] LABS: % Basophils 0.2 % (0-2); % Eosinophils 2.3 % (0-6); % Immature Granulocytes 0.8 % (0-0.5); % Lymphocytes 18.2 % (20.5-51.1); % Monocytes 7.5 % (1.7-9.3); Absolute Eosinophils 0.2 10^3/uL (0-0.7); Absolute Immature Granulocytes 0.1 10^3/uL (0-0.05); Absolute Lymphocytes 1.8 10^3/uL (1.2-3.4); Absolute Monocytes 0.8 10^3/uL (0.1-0.6); Absolute Neutrophils 7.2 10^3/uL (1.4-6.5); Hematocrit 29.8 % (39.0-52.0); Hemoglobin 9.5 g/dL (13.0-18.0); Mean Corp Hgb Conc. 31.9 g/dL (33.0-37.0); Mean Corpuscular Hgb 27.8 pg (27.0-31.0); Mean Corpuscular Volume 87.1 fL (80.0-94.0); Mean Platelet Volume 9.3 fL (7.4-10.4); Nucleated Red Blood Cells % 0 % (-); Platelet Count 353 10^3/uL (130-400); Red Blood Cell Count 3.42 10^6/uL (4.70-6.10); Red Cell Dist. Width 14.6 % (11.5-14.5); White Blood Cell Count 10.1 10^3/uL (4.8-10.8)
[2024-03-26 08:24] LABS: ALT (SGPT) 21 U/L (0-50); AST (SGOT) 16 U/L (17-59); Albumin 2.9 g/dl (3.5-5.0); Alkaline Phosphatase 70 U/L (38-126); Blood Urea Nitrogen 12 mg/dl (9-20); Calcium 8.4 mg/dl (8.4-10.2); Carbon Dioxide 29 mmol/L (22-30); Chloride 104 mmol/L (98-107); Estimated Creatinine Clearance > 125 ml/min; Glucose 101 mg/dl (70-99); Potassium 3.6 mmol/L (3.5-5.1); Sodium 135 mmol/L (135-145); Total Bilirubin 0.9 mg/dl (0.2-1.3); Total Protein 5.1 g/dl (6.3-8.2); eGFR > 60.00
[2024-03-26] MEDS: MEDROL 6 MG PO (08:42)
[2024-03-26] MEDS: TORADOL 15 MG IV (08:42)
--- NOTE | 2024-03-26 08:59 | W.PN.GS2 ---
Addendum entered and electronically signed by Mark Reyes MD 03/26/24 09:15:
pt seen and examined
иван PO
no nausea, appetite okay
abd pain/discomfort stable
AFVSS
WBC normal, LFTs improved
ABD soft, ND, mild TTP epigastric area
A/P: appears stable for d/c with control post cholecystectomy bile leak via surgical placed drain and ERCP with stent
d/c on IV abx per ID recs
okay to resume Eliquis
maintain MARTA
out pt follow up with Dr. Silver and Dr. López
Original Note:
Today's Communication / Plan
-
Dispo planning
Assessment / Plan
-
Patient is a 54 yo M POD#9 s/p laparoscopic cholecystectomy with IOC on 03/17. Representation with abdominal pain, jaundice. POD#7 s/p diagnostic laparoscopy, abdominal washout and drainage placement and identification of a bile duct injury. PPD#6
s/p ERCP and stent placement across the right hepatic duct for an accessory cystic duct/duct of Luschka stump leak coming off the right hepatic. Doing well overall. Expectedly deconditioned and with supplemental oxygen requirements due to acute on
chronic pulmonary issues (has home O2 already). Appreciate pulmonary's help. MARTA outputs remain bilious, continue upon discharge.
AFVSS
Labs stable
-- Low-fat diet
-- PICC in place for home IV abx as per ID
-- Pain control: Tylenol and Toradol, and IV Dilaudid PRN
-- Taper down stress dose steroid. Resume home dosing
-- PPI
-- Resume PO Eliquis
-- GI consult appreciate help. F/U with Dr. López in 6 weeks
-- Maintain MARTA for weeks until no further bilious output. Will coordinate with GI.
-- CM following for arrangements of home IV abx and VNA for assistance with MARTA
Tentative d/c later today once home care arrangements made
Subjective Data
-
Date of Service: March 26, 2024
Patient seen and examined at bedside with Dr. Reyes. Denies n/v. Tolerating diet. Feels ready for discharge. Passing stools/flatus. Pain well managed.
Objective Data
-
Intake and Output
03/25/24 03/26/24 03/27/24
06:59 06:59 06:59
Intake Total 2880 / 2880 1440 / 1440
Output Total 790 / 790 30 / 30
Balance 209 / 2089 1410 / 1410
Intake:
Oral fluids 2640 / 2640 1440 / 1440
IV piggybacks 240 / 240
Output:
Drain Output (Total) 165 / 165 30 / 30
Right Abdomen Rubén-Sood B 60 / 60
Right Lower Abdomen Rubén- 105 / 105 30 / 30
Sood A
Urine, Voided 625 / 625
Other:
Number of approximated MODERATE 3
amounts of urine
Vital Signs
Temp Pulse Resp BP Pulse Ox
97.7 F 52 19 164/88 94
03/26/24 07:37 03/26/24 08:02 03/26/24 07:37 03/26/24 08:02 03/26/24 07:37
Lab Results
03/26/24 07:49
03/26/24 07:49
Calcium 8.4 mg/dl (8.4-10.2) 03/26/24 07:49
Total Bilirubin 0.9 mg/dl (0.2-1.3) 03/26/24 07:49
Direct Bilirubin 0.5 mg/dl (0.0-0.4) H 03/21/24 04:32
AST 16 U/L (17-59) L 03/26/24 07:49
ALT 21 U/L (0-50) 04/25/24 07:49
Alkaline Phosphatase 70 U/L (38-126) 03/26/24 07:49
Total Protein 5.1 g/dl (6.3-8.2) L 03/26/24 07:49
Albumin 2.9 g/dl (3.5-5.0) L 03/26/24 07:49
Physical Exam
-
GENERAL/NEURO: Awake, Alert, no distress
CHEST: Unlabored breathing on 2L
ABDOMEN: Soft, Non-Tender, Non-Distended, right upper quadrant MARTA with bilious output. Bruising around umbilical port site (resolving), lap incisions well approximated/intact glue.
[2024-03-26] MEDS: SOLU-CORTEF IV (09:03)
[2024-03-26] MEDS: ELIQUIS 5 MG PO (09:44)
--- NOTE | 2024-03-26 11:49 | W.PN.ID1 ---
Date of Service
Date of Service: March 26, 2024
Today's Communication
Continue antibiotics.
Assessment / Plan
S/p recent cholecystectomy (03/17/24)
Bile leak; s/p repair (03/19/24)
Enterococcal bacteremia
- blood cultures clear 03/21 onward
Enterococcal peritonitis
Multiple antibiotic allergies (PCN / vancomycin / sulfa)
Axillary rash consistent with cutaneous candidiasis
Hx Microscopic polyangiitis
Interstitial lung disease
Pericarditis
GERD
Influenza/COVID /ARDS requiring ECMO March 2023 with DVT/PE while on ECMO; on Eliquis,
Cardiac arrest 2022
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
GI bleed January 2023 requiring cauterization
HTN
neuropathy hands and feet
depression
Recommendations:
Repeat blood cultures NGTD
Patient tolerating ampicillin without difficulty.
Continue current course of ampicillin.
IV infusion sheet completed and placed on paper chart. Scanned image sent to
����������������������������������������������������������
Chief Complaint
-: Other (Peritonitis / Enterococcal bacteremia)
Subjective / Review of Systems
Patient seen and examined. Reports improvement in the bilateral axillary discomfort and rash. No other body rashes noted.
Review of Systems: No Fever and No Chills
Vital Signs / Physical Exam
Vital Signs
Vital Signs
Temp Pulse Resp BP Pulse Ox
97.7 F 52 19 164/88 94
03/26/24 07:37 03/26/24 08:02 03/26/24 07:37 03/26/24 08:02 03/26/24 08:00
Physical Exam
Constitutional: No Acute Distress, Comfortable and Non-toxic
Eyes: No Conjunctival Hemorrhage and Sclera Anicteric
Cardiovascular: S1/S2; Negative S3/S4
Pulmonary: Clear and Non Labored
Gastrointestinal: Soft, Non Tender and Non Distended
Skin: Rash (Bilateral erythema and rash noted in the axillary areas; improved from yesterday's exam)
Neurological: Awake and Alert
Psychological: Calm
Objective Data
Lab Data
Lab Results
03/26/24 07:49
03/26/24 07:49
PT 18.6 Sec (11.4-14.6) H 03/20/24 08:51
INR 1.57 03/20/24 08:51
Estimated Creat Clear > 125 ml/min 03/26/24 07:49
Lactic Acid Cancelled 03/19/24 07:00
Total Bilirubin 0.9 mg/dl (0.2-1.3) 03/26/24 07:49
AST 16 U/L (17-59) L 03/26/24 07:49
ALT 21 U/L (0-50) 03/26/24 07:49
Alkaline Phosphatase 70 U/L (38-126) 03/26/24 07:49
Amylase 41 U/L (30-110) 03/20/24 08:51
Most recent labs reviewed.
Micro Results:
03/21/24 15:08 Blood Culture - Preliminary
Blood/Venous No Growth in 4 days- Final report to follow
03/19/24 13:50 Body Fluid Culture - Final
Peritoneal Fluid Enterococcus faecalis
Gram Stain - Final
03/21/24 13:45 Blood Culture - Preliminary
Blood/Venous No Growth in 4 days- Final report to follow
03/18/24 22:49 Blood Culture - Final
Blood/Venous Enterococcus faecalis
Gram Stain - Final
03/18/24 23:20 Blood Culture - Final
Blood/Venous No Growth - Final Report
Imaging:
03/19/2024 CT abdomen/pelvis with contrast: 1. Status post cholecystectomy. Small fluid collection within the gallbladder fossa, measuring 4.9 x 3.7 x 4.2 cm, suggestive of postoperative fluid, seroma, or biloma. Abscess is considered less likely,
given that his cholecystectomy was only 2 days ago. 2. Suggestion of mild constipation. No intestinal obstruction. 3. Reticular interstitial thickening at each lung base, unchanged compared to prior CT, suggestive of mild interstitial fibrosis.
Interstitial fibrosis was also seen on prior chest CT dated 08/21/2023. 4. A 2.5 cm fluid collection anterior to the left common femoral vessels, likely representing seroma or liquefied hematoma. Unchanged compared to prior CT.
Care Review
Plan reviewed with: Nurse
[2024-03-26] MEDS: AMPICILLIN 108 MG IV (12:08)
--- NOTE | 2024-03-26 12:09 | W.DCSUMMARY ---
Discharge Summary
Discharge Data
Date of Admission: 03/19/24
Date of Discharge: 03/26/24
-
Pending Results: No
Hospital Course
Mr Angela initially presented with acute cholecystitis with placement of cholecystostomy tube in January of this year with subsequent outpatient laparoscopic cholecystectomy on 03/17/24 after Eliquis washout. He presented through the ED the
following day with worsening abdominal pain with a fluid collection concerning for biloma noted on follow up CT imaging. He was taken back to the OR for diagnostic lap for abdominal washout with biloma and suspected bile leak noted intraop. ERCP was
done the following day for stent placement across the right hepatic duct for an accessory cystic duct/duct of Luschka stump leak.
Initial blood cultures were positive for enterococcus in the setting of peritonitis for which he was followed by ID with plan for continuation of IV agent upon discharge via a midline IV. He developed an ileus during his recovery, but did have
return of bowel function prior to discharge with tolerance of diet advancement. He was also followed by pulmonology during his stay as he had increased O2 requirements from his baseline. He was discharged on continues oxygen at 2L via [place] with
outpatient pulmonary follow up planned. Abdominal MARTA drain was left in place upon discharge with arrangements made for visiting nurse to follow drain as well as home IV antibiotic therapy. Outpatient follow up planned for drain removal in the coming
weeks once bilious drainage no longer present.
Discharge Plan
-
Patient Disposition: Home (Routine Discharge)
Discharge Diagnosis/Procedures: Bile peritonitis status post evacuation of biloma with drain placement and ERCP for stenting of hepatic duct
Condition: Good
Diet: Low Fat
Activity: No strenuous activity
Additional Activity: Do not lift more than 15 pounds
Bathing Restrictions: OK to Shower
Other Services: VN
Wound Care: Change dressing over drain with showering. The glue over your incisions will flake off in 2-3 weeks, avoid scrubbing/picking off the glue.
Activity Restrictions/Additional Instructions:
MARTA DRAIN CARE INSTRUCTIONS
General Information:
Drains help to keep fluid from collecting by removing the extra blood and fluid from under the skin. A drain is temporary. It stays in place until the drainage has slowed down or stopped. Your doctor or nurse will decide when each drain should be
removed: This is usually after each drain has 5cc or less in 24 hours for 2 days in a row. When this happens, you should call the [facility] to schedule an appointment to have it possibly removed. This is usually not painful and only
takes a few seconds.
How do I care for the drains at home?
Pin your drains to your clothing by using a safety pin through the plastic loop on the top of the bulb. If the drain is not attached to your clothing, it may pull out from under your skin. Also, a drain usually feels more comfortable when it�s
attached. To care for the drain at home, you will have to empty the drain, ``strip�� the drain tubing, and change the dressing if applicable. See the following pages for instructions on how to do this.
What problems may I have with my drain?
� The bulb is not compressed- The bulb may not be squeezed tightly enough, the plug may not be closed securely, or the tube has slipped out a bit and is leaking. Follow the instructions on how to empty the drain.
If the bulb remains expanded, then notify your doctor or nurse during business hours.
� No drainage or sudden decrease in amount of drainage- This is usually due to clots in the drain. Follow the instructions on how to strip the drain tubing.
� The tube accidentally falls out- If this happens, place a dry gauze dressing over the drain site and notify your doctor or nurse during business hours.
� Increased redness, swelling, or heat around the tube insertion site- This may be a sign of infection. Take your temperature: if it is higher than 101F or 38.8C, call your doctor or nurse immediately. Otherwise, notify your doctor or nurse during
business hours and keep the dressing clean and dry.
Post-Surgical Drain Care:
After surgery, you will have one or two drains, called a Rubén-Sood (MARTA) drain, placed near the incision. This device collects fluid, under suction, from your surgical area. The drain promotes healing and recovery, and reduces the chance of
infection. The drain will be in place until the drainage slows enough for your body to reabsorb fluid on its own. While you are hospitalized the nursing staff will care for the drain and teach you to continue to do so at home.
How to Empty Your MARTA Drain
Note: Wash your hands thoroughly before emptying your drain(s).
� Have the plastic measuring cup from the hospital ready to collect and measure the drainage. Please measure the output at the same two times every 24 hours and record the amount.
� Unpin the drain from your clothing.
Open the top of the drain. Turn the drain upside down and squeeze the contents of the bulb into the measuring cup. Be sure to empty the bulb as completely as possible. Flush the contents in the toilet.
� Use the drain output log chart to record the amount of drainage twice a day or any time the bulb is full. Record the total for 24 hours for each drain you have.
� If you have more than one drain, remember to record the drainage from each drain separately.
� To prevent infection, do not let the stopper or top of the bottle touch the measuring cup or any other surface.
� Use one hand to squeeze all of the air from the drain. With the drain still squeezed, use your other hand to replace the top. This creates the suction necessary to remove the fluids from your body.
� Pin the drain back on your clothing to avoid pulling it out accidently.
� Wash your hands again. Remember to wash your hands before and after the procedure to reduce the risk of infection.
Stripping the Tube
Often the tube may become blocked with products of healing or clot. If you do not have drainage, then:
� Hold the tube near where it is inserted in to the skin with your one hand.
� Use the other hand to hold a pencil and gently squeeze the tubing with the pencil while moving it down toward the drain away from your skin. This forces the more sold material into the bulb for better drainage.
� Repeat as necessary to start the draining again.
Removal of the Tube
� The tube may be removed once a single tube output is less than 30cc (1 oz.) for 24 hours. Please call the office to arrange a time to come in to have the drain removed.
� Please call the office [phone] if the output becomes thicker or has a bad odor or if you have any questions or concerns
Referrals:
Keshia Gonzalez MD [Active] - in four to six weeks
Jabier Vela MD [Family Provider] -
Kranthi Estrella DO [Active] - (follow regarding home antibiotics)
Travis López MD [Active] - in four to six weeks
Sagar Silver MD [Active] - in one to two weeks
Prescriptions:
New
clotrimazole [Athlete's Foot (clotrimazole)] 1 % Cream
1 applic topical BID Qty: 30 0RF
Rx Instructions:
apply to bilateral underarms
oxycodone 5 mg Tablet
5 mg PO Q4HPRN PRN (Reason: severe pain) Qty: 15 0RF
Ampicillin 2000 MG
0.9% Sodium Chloride 100 ml [Nss] 100 ML
216 mls/hr IV Q6H
Ordered By: Rachel Hector CRNP
Last Taken: 03/25/24 11:52 108 mls
Continued
famotidine 40 mg Tablet
40 mg PO DAILY
gabapentin 400 mg Capsule
400 mg PO TID
sertraline 100 mg Tablet
100 mg PO DAILY
methylprednisolone 4 mg Tablet
6 mg PO DAILY
ascorbic acid (vitamin C) [Vitamin C] 500 mg Tablet
500 mg PO DAILY
dapsone 100 mg Tablet
100 mg PO DAILY
calcium carbonate 500 mg calcium (1,250 mg) Tablet,Chewable
500 mg PO PRN PRN (Reason: stomach discomfort)
Eliquis 5 mg Tablet
5 mg PO Q12H
Hold Instructions: Resume on 03/20/24.
acetaminophen 325 mg tablet
650 mg PO Q6HPRN PRN (Reason: mild pain) Qty: 14 0RF
clonidine HCl 0.2 mg Tablet
0.2 mg PO TID
Discontinued
oxycodone 5 mg tablet
5 mg PO Q6HPRN PRN (Reason: breakthrough/severe pain) Qty: 8 0RF
clindamycin HCl 300 mg capsule
300 mg PO TID
Discharge Orders:
Discharge Patient (As Directed); Ordered 03/26/24
Ordered By: Rachel Hector
Discharge Date and Time
Print Language: KOREAN
[2024-03-26 15:09] VITALS: BP 131/75
--- NOTE | 2024-03-26 15:33 | CM ---
Addendum entered by Erin Mccarthy 03/26/24 15:48:
Discharge postponed until 03/27/24. Picc needs to be placed and IV meds delivered to home by 4:00 PM today in order to discharge today.
Original Note:
Patient was scheduled for discharge on this date. Midline was placed and [facility] completed training. Per [facility] guidelines, patient needs a picc. Order placed and awaiting insertion. Per [facility] Clinical EducatorGood, [facility]
must receive picc report by 4:00 PM today in order for pharmacy to deliver meds to home today. Awaiting picc placement. Discharge may be delayed until tomorrow if not done by 4:00 pm with completed report. Will follow. aware. Patient has MARTA
drain. Ko to follow with MARK.
[2024-03-26] MEDS: DILAUDID 0.5 MG IV (15:43)
--- NOTE | 2024-03-26 17:01 | CM ---
Addendum entered by Erin Mccarthy 03/26/24 17:03:
[facility]
Original Note:
Patient has been medically cleared for discharge to home with [facility] and [facility]. Picc line placed and confirmation of placement via CXR. Both reports faxed to [facility]. Good, [facility] clinical educator and
Lydia at [facility] notified.
== END 2024-03-26 17:52 | disposition home health service (06) | DRG 856 ==
LOC: 2 SOUTH 17:00
PROVIDERS: Internal Medicine Gastroenterology; Nurse Practitioner; Radiology Diagnostic Radiology; Registered Nurse; Surgery; ADMITTING PHYSICIAN Surgery; CONSULT PHYSICIAN Internal Medicine Infectious Disease; EMERGENCY PHYSICIAN Emergency Medicine; FAMILY PHYSICIAN Family Medicine; OTHER PHYSICIAN Internal Medicine; OTHER PHYSICIAN Internal Medicine Pulmonary Disease
PROC: 0W9G40Z Drainage of Peritoneal Cavity with Drainage Device, Percutaneous Endoscopic Approach (ICD-10-PCS; 2024-03-19)
PROC: 0WCG4ZZ Extirpation of Matter from Peritoneal Cavity, Percutaneous Endoscopic Approach (ICD-10-PCS; 2024-03-19)
PROC: 0DJ08ZZ Inspection of Upper Intestinal Tract, Via Natural or Artificial Opening Endoscopic (ICD-10-PCS; 2024-03-19)
PROC: 0F758DZ Dilation of Right Hepatic Duct with Intraluminal Device, Via Natural or Artificial Opening Endoscopic (ICD-10-PCS; 2024-03-20)
PROC: BF101ZZ Fluoroscopy of Bile Ducts using Low Osmolar Contrast (ICD-10-PCS; 2024-03-20)
PROC: 02HV33Z Insertion of Infusion Device into Superior Vena Cava, Percutaneous Approach (ICD-10-PCS; 2024-03-26)
DX: T81.40XA Infection following a procedure, unspecified, initial encounter (principal); A41.81 Sepsis due to Enterococcus; J96.21 Acute and chronic respiratory failure with hypoxia; K65.3 Choleperitonitis; R65.20 Severe sepsis without septic shock; J84.9 Interstitial pulmonary disease, unspecified; J98.11 Atelectasis; R18.8 Other ascites; D84.821 Immunodeficiency due to drugs; M31.7 Microscopic polyangiitis; E87.1 Hypo-osmolality and hyponatremia; K56.7 Ileus, unspecified; T81.44XA Sepsis following a procedure, initial encounter; B37.2 Candidiasis of skin and nail; Y83.8 Other surgical procedures as the cause of abnormal reaction of the patient, or of later complication, without mention of misadventure at the time of the procedure; Y92.9 Unspecified place or not applicable; F32.A Depression, unspecified; I10 Essential (primary) hypertension; K21.9 Gastro-esophageal reflux disease without esophagitis; G62.9 Polyneuropathy, unspecified; Z86.16 Personal history of COVID-19; Z86.718 Personal history of other venous thrombosis and embolism; Z86.711 Personal history of pulmonary embolism; Z86.73 Personal history of transient ischemic attack (TIA), and cerebral infarction without residual deficits; Z86.74 Personal history of sudden cardiac arrest; Z90.49 Acquired absence of other specified parts of digestive tract; Z87.19 Personal history of other diseases of the digestive system; Z82.49 Family history of ischemic heart disease and other diseases of the circulatory system; Z82.0 Family history of epilepsy and other diseases of the nervous system; Z88.0 Allergy status to penicillin; Z88.2 Allergy status to sulfonamides; Z88.1 Allergy status to other antibiotic agents; Z91.030 Bee allergy status; Z91.040 Latex allergy status; Z79.01 Long term (current) use of anticoagulants; Z79.891 Long term (current) use of opiate analgesic; Z79.52 Long term (current) use of systemic steroids
CPT/HCPCS: 71045; 74177; 74330; 76000; 80053; 82150; 82248; 83605; 83690; 85025; 85027; 85610; 87015; 87040; 87070; 87077; 87147; 87149; 87186; 87205; 96374; 96375; 96376; 99291; C1769; C2617; Q9967

== ENCOUNTER → 2024-04-08 15:16 | Outpatient (REF) | payer OTHER, SELFPAY ==
[2024-04-08 16:56] LABS: % Basophils 0.5 % (0-2); % Eosinophils 0.7 % (0-6); % Immature Granulocytes 0.5 % (0-0.5); % Lymphocytes 10.4 % (20.5-51.1); % Monocytes 5.1 % (1.7-9.3); % Neutrophils 82.8 % (42.2-75.2); Absolute Basophils 0.1 10^3/uL (0-0.2); Absolute Eosinophils 0.1 10^3/uL (0-0.7); Absolute Immature Granulocytes 0.1 10^3/uL (0-0.05); Absolute Lymphocytes 1.6 10^3/uL (1.2-3.4); Absolute Monocytes 0.8 10^3/uL (0.1-0.6); Absolute Neutrophils 12.4 10^3/uL (1.4-6.5); Hematocrit 32.2 % (39.0-52.0); Hemoglobin 9.9 g/dL (13.0-18.0); Mean Corp Hgb Conc. 30.7 g/dL (33.0-37.0); Mean Corpuscular Hgb 27.3 pg (27.0-31.0); Nucleated Red Blood Cells % 0 % (-); Platelet Count 461 10^3/uL (130-400); Red Blood Cell Count 3.62 10^6/uL (4.70-6.10); Red Cell Dist. Width 15.6 % (11.5-14.5); White Blood Cell Count 14.9 10^3/uL (4.8-10.8)
== END ==
LOC: REG 15:16
PROVIDERS: ATTENDING PHYSICIAN Internal Medicine Infectious Disease; FAMILY PHYSICIAN Family Medicine
DX: D72.829 Elevated white blood cell count, unspecified (principal)
CPT/HCPCS: 36415; 85025

== ENCOUNTER → 2024-05-04 09:39 | Outpatient (REF) | payer OTHER, SELFPAY ==
[2024-05-04 10:30] LABS: % Basophils 0.4 % (0-2); % Eosinophils 2.2 % (0-6); % Immature Granulocytes 0.4 % (0-0.5); % Lymphocytes 10.8 % (20.5-51.1); % Monocytes 7.1 % (1.7-9.3); % Neutrophils 79.1 % (42.2-75.2); Absolute Basophils 0.1 10^3/uL (0-0.2); Absolute Eosinophils 0.3 10^3/uL (0-0.7); Absolute Immature Granulocytes 0.1 10^3/uL (0-0.05); Absolute Lymphocytes 1.3 10^3/uL (1.2-3.4); Absolute Monocytes 0.9 10^3/uL (0.1-0.6); Absolute Neutrophils 9.8 10^3/uL (1.4-6.5); Hematocrit 36.9 % (39.0-52.0); Hemoglobin 11.8 g/dL (13.0-18.0); Mean Corpuscular Hgb 27.4 pg (27.0-31.0); Mean Corpuscular Volume 85.8 fL (80.0-94.0); Mean Platelet Volume 9.2 fL (7.4-10.4); Nucleated Red Blood Cells % 0 % (-); Platelet Count 297 10^3/uL (130-400); White Blood Cell Count 12.4 10^3/uL (4.8-10.8)
[2024-05-04 11:07] LABS: D-Dimer 0.37 ug/mlFEU (0.00-0.50)
== END ==
LOC: REG 09:39
PROVIDERS: ATTENDING PHYSICIAN Internal Medicine Critical Care Medicine
DX: Z86.711 Personal history of pulmonary embolism (principal)
CPT/HCPCS: 36415; 85025; 85379

== ENCOUNTER 2024-05-28 06:35 | Day surgery (SDC) | payer OTHER, SELFPAY ==
[2024-05-28 13:23] VITALS: BMI 27.5
[2024-05-28 13:24] VITALS: BMI 27.5
[2024-05-28 13:25] VITALS: BP 133/85
[2024-05-28 14:43] VITALS: BP 127/87
[2024-05-28 14:45] VITALS: BP 127/90
[2024-05-28 15:01] VITALS: BP 128/85
== END 2024-05-28 15:25 | disposition home or self-care (01) ==
LOC: SDS 06:35
PROVIDERS: ATTENDING PHYSICIAN Internal Medicine Gastroenterology
DX: K83.8 Other specified diseases of biliary tract (principal); T85.520A Displacement of bile duct prosthesis, initial encounter; Y93.9 Activity, unspecified; Z90.49 Acquired absence of other specified parts of digestive tract
CPT/HCPCS: 43260; 74330; 76000; C1769

== ENCOUNTER 2024-11-26 16:14 | Inpatient (IN) | payer OTHER, SELFPAY ==
[2024-11-26] VITALS (10 sets, daily range): BP systolic 93–144; BP diastolic 67–91; BMI 26.8
--- NOTE | 2024-11-26 12:11 | ED.GENMED ---
History of Present Illness
General
Chief Complaint: Breathing Problem
Source: patient and spouse
Exam Limitations: none
Time Seen by Provider: 11/26/24 11:57
History of Present Illness
History of Present Illness:
See MDM
Past History
Past History
ED Past Medical History: COPD (Interstitial lung disease/restrictive airway disease status post severe COVID requiring ECMO), Other (Microscopic polyangiitis, interstitial lung disease, pericarditis) and Other (Severe COVID/ours requiring ECMO with
prolonged hospitalization November 2022 to March 2023. Hospitalization complicated by DVT/PE-on Eliquis, CVA with no residual symptoms, cardiac arrest, GI bleed.)
ED Past Surgical History: Cholecystectomy (March 18, 2024) and Other (Tracheostomy during prolonged hospitalization November 2022 to March 2023)
Social History
Tobacco: Non-smoker
Alcohol: Occasional
Drug: None
Personal:
Living: with family
Employment: Employed
Family History
Family History: Hypertension, CAD and Other (Grandmother with Parkinson's)
Phy Exam
Physical Exam
Physical Exam:
See MDM
Scores
Heart Failure Risk
Heart Failure Risk Score: Not Applicable
Course
Orders/Labs/Results
Orders:
Orders
11/26/24 12:09
Electrocardiogram (*1) Urgent
Reason for Study: Shortness of Breath
CT Chest Pe Study Urgent
Comment:
Reason For Exam: SOB, hypoxic
EKG- Treatment ONCE
11/26/24 12:11
Complete Blood Count/With Diff Urgent
Comprehensive Metabolic Panel Urgent
NT-proBNP Urgent
PTT Urgent
Prothrombin Time Urgent
Troponin I Urgent
11/26/24 13:15
Ketorolac [Toradol] 15 mg IV NOW STA
11/26/24 13:16
Ketorolac [Toradol] 15 mg .ROUTE .STK-MED ONE
11/26/24 14:44
Piperacillin/Tazo 3.375 Gram [Zosyn] 3.375 gram in 50 ml IV NOW
11/26/24 14:46
COVID-19 Antigen Urgent
Source: Nasal Swab
Abnormal Lab Results
11/26/24
12:11
WBC 15.9 H 10^3/uL
(4.8-10.8)
Plt Count 406 H 10^3/uL
(130-400)
Abs Immat Gran (auto) 0.1 H 10^3/uL
(0-0.05)
Absolute Neuts (auto) 13.2 H 10^3/uL
(1.4-6.5)
Absolute Monos (auto) 1.2 H 10^3/uL
(0.1-0.6)
Immature Gran % 0.6 H %
(0-0.5)
Neutrophils % 82.6 H %
(42.2-75.2)
Lymphocytes % 7.3 L %
(20.5-51.1)
APTT 40.6 H Sec
(23.4-35.0)
Alkaline Phosphatase 163 H U/L
(38-126)
11/26/24 12:11
11/26/24 12:11
Vital Signs
Initial and Last Documented VS:
Initial Vital Signs
Temp Pulse Resp BP Pulse Ox
97.7 F 87 18 129/74 98
11/26/24 10:52 11/26/24 10:52 11/26/24 10:52 11/26/24 10:52 11/26/24 10:52
Last Documented Vital Signs
Temp Pulse Resp BP Pulse Ox
97.7 F 66 29 137/78 96
11/26/24 10:52 11/26/24 14:30 11/26/24 14:30 11/26/24 14:11 11/26/24 14:30
MDM/Problems Addressed
Differential Diagnosis Includes:
HPI and MDM Narrative:
54-year-old male presenting with worsening shortness of breath over the past few days. Patient was placed on amoxicillin for presumed pneumonia. He is on day 5. Patient is starting get worried because he is becoming hypoxic. He did have a prior
history of respiratory failure requiring ECMO. He has oxygen tanks at home but has not required supplemental oxygen in over 2 years
Exam, patient is uncomfortable. He has decreased breath sounds throughout will obtain CT to rule out PE and look for other evidence of pathology such as pulmonary edema or pneumonia
Physical exam
General: Uncomfortable
HEENT: protecting airway
Neck: appears supple
CV: No evidence of cyanosis. Regular rate and rhythm
Resp: No accessory muscle use. Poor air exchange
Abd: Non-distended
Extremities: No deformities. No leg edema
Neuro: alert
Psych: Normal affect
Skin: Intact
Problems Addressed including Acute and Chronic Conditions affecting care:
1. Shortness of breath
Acuity: acute
Prognosis: unstable
Details: Given his prior history, will obtain CT chest
2. Hypoxia
Acuity: acute
Prognosis: unstable
Details: Patient requiring supplemental oxygen
Updates
CT appears to show pneumonia on top of pulmonary fibrosis. Given his oxygen requirement and his leukocytosis, will start antibiotics and admit
Differential Diagnosis (but not limited to): Pulm edema, PE, pneumonia
Testing considered: Chest x-ray
Drug therapy (if applicable): OTC meds, please see d/c instruction regarding Rx drugs
Amount and/or Complexity of Data Reviewed
Clinical info obtained from: Patient
External data reviewed: Prior history of respiratory failure requiring transfer
Labs I independently reviewed (but not limited to): Leukocytosis
Radiology: The CT scan was personally and independently reviewed. In addition, official CT report reviewed.
Pulse Ox: hypoxic
EKG independently reviewed: Sinus rhythm, normal axis, no STEMI
Sports Information Director: Sinus rhythm
Critical Care: N/A
Risk of Complication:
Social Determinants of health: Good social support
Discussed with other providers: Hospitalist
Escalation of Care includes Admit/Obs: Given the increased oxygen requirement and concern for superimposed pneumonia, will start antibiotics and admit
Occasional wrong word or 'sound a like' substitutions may have occurred due to the inherent limitations of voice recognition software. Read the chart carefully and recognize, using context, where substitutions have occurred.
*Critical Care Note
Total Time (30-74mins, 75-104mins- exclusive of procedures): Not Applicable
ED Attending Note
-
Portions of this chart may have been created with voice recognition software.� Occasional wrong word or��sound alike� substitutions may have occurred due to the inherent limitations of voice recognition software.
Discharge Plan
Departure
Patient Disposition: Admit
Date of Disposition: 11/26/24
Time of Disposition: 14:51
Admit to: Med/Surg
Presentation/result/management discussed w/ accepting MD/DO: Hospitalist
Discharge Problem:
Hypoxia, Pulmonary fibrosis, PNA (pneumonia)
Prescriptions:
No Action
famotidine 40 mg Tablet
40 mg PO DAILY
gabapentin 400 mg Capsule
400 mg PO TID
sertraline 100 mg Tablet
100 mg PO DAILY
methylprednisolone 4 mg Tablet
6 mg PO DAILY
dapsone 100 mg Tablet
100 mg PO DAILY
calcium carbonate 500 mg calcium (1,250 mg) Tablet,Chewable
500 mg PO PRN PRN (Reason: stomach discomfort)
acetaminophen 325 mg tablet
650 mg PO Q6HPRN PRN (Reason: mild pain) Qty: 14 0RF
clonidine HCl 0.2 mg Tablet
0.2 mg PO TID Qty: 90 0RF
Referrals:
Jabier Vela MD [Family Provider] -
Interventions
Interventions:
*Risk Screen - Suicide Last Done: 11/26/24 10:52
*General Assessment Last Done: 11/26/24 10:52
ED- Fall Risk Assessment Last Done: 11/26/24 11:16
*ED COVID-19 Vaccine History Last Done: 11/26/24 10:52
ED- Cardiac Assessment Last Done: 11/26/24 11:16
ED- Pulmonary Assessment Last Done: 11/26/24 11:16
Discharge Date and Time
Print Language: MONEGASQUE
[2024-11-26 12:21] LABS: % Basophils 0.3 % (0-2); % Immature Granulocytes 0.6 % (0-0.5); % Lymphocytes 7.3 % (20.5-51.1); % Monocytes 7.2 % (1.7-9.3); % Neutrophils 82.6 % (42.2-75.2); Absolute Eosinophils 0.3 10^3/uL (0-0.7); Absolute Immature Granulocytes 0.1 10^3/uL (0-0.05); Absolute Lymphocytes 1.2 10^3/uL (1.2-3.4); Absolute Monocytes 1.2 10^3/uL (0.1-0.6); Absolute Neutrophils 13.2 10^3/uL (1.4-6.5); Hematocrit 41.9 % (39.0-52.0); Hemoglobin 13.9 g/dL (13.0-18.0); Mean Corp Hgb Conc. 33.2 g/dL (33.0-37.0); Mean Corpuscular Hgb 27.6 pg (27.0-31.0); Mean Corpuscular Volume 83.3 fL (80.0-94.0); Mean Platelet Volume 9.5 fL (7.4-10.4); Nucleated Red Blood Cells % 0 % (-); Platelet Count 406 10^3/uL (130-400); Red Blood Cell Count 5.03 10^6/uL (4.70-6.10); White Blood Cell Count 15.9 10^3/uL (4.8-10.8)
[2024-11-26 12:32] LABS: ALT (SGPT) 37 U/L (0-50); AST (SGOT) 35 U/L (17-59); Albumin 4.2 g/dl (3.5-5.0); Alkaline Phosphatase 163 U/L (38-126); Blood Urea Nitrogen 13 mg/dl (9-20); Calcium 9.4 mg/dl (8.4-10.2); Carbon Dioxide 26 mmol/L (22-30); Chloride 101 mmol/L (98-107); Glucose 98 mg/dl (70-99); PT 13.7 Sec (11.4-14.6); Sodium 139 mmol/L (135-145); Total Protein 7.1 g/dl (6.3-8.2); eGFR > 60.00
[2024-11-26 12:33] LABS: APTT 40.6 Sec (23.4-35.0)
[2024-11-26 12:44] LABS: NT-proBNP 201 pg/ml; Troponin I < 0.012 ng/ml
[2024-11-26] MEDS: TORADOL 15 MG IV (13:17)
--- NOTE | 2024-11-26 14:55 | HPS.HSE ---
Family Physician
-
Family Physician: Jabier Vela
Chief Complaint
-
Cough and short of breath
History of Present Illness
54-year-old male with past medical history for ECMO, flu, COVID-pneumonia, DVT, PE, hemorrhagic CVA, interstitial lung disease , HTN, sotero syndrome, peripheral neuropathy, depression presenting with worsening shortness of breath since .
Patient complained of cough with yellow sputum. Patient had a fever of 101 few days ago. Patient stated chest tightness. He took amoxicillin for last 4 days. He noticed some relief in his cough. Patient denied any headache, dizzy or syncope.
Patient denied abdominal pain, nausea, vomiting. Patient stated diarrhea since amoxicillin. Denied dysuria hematuria.
Chest CT with impression of Bilateral diffuse increased reticular and groundglass opacities as compared with previous examination, most suspicious for predominantly interstitial infectious process superimposed upon previously seen changes of
pulmonary fibrosis.
He was noted hypoxic on arrival he is requiring 2 L of oxygen patient received IV Zosyn in ER admitting for further management.
Medical History
Past Medical History
Past Medical History: Reports Other
Additional Past Medical History:
Bronchitis
GERD
Restrictive lung disease
Pneumonia
PE
Past Surgical History: Reports Other
Additional Past Surgical History:
History of tracheostomy
Lap cesar
Social History
Tobacco: Non-smoker
Alcohol: Occasional
Drug: None
Personal:
Living: With Family
Family History
Family History: Not pertinent
Allergies / Home Medications
Allergies reflects when Allergies were last updated in [facility].
Home Medications with original date entered in [facility]
Allergy/Medication List:
Allergies
Allergy/AdvReac Type Severity Reaction Status Date / Time
latex Allergy swelling - Verified 11/26/24 10:55
long skin
Sulfa (Sulfonamide Allergy Rash; Verified 11/26/24 10:55
Antibiotics) tolerates
furosemide
vancomycin Allergy Anaphylaxis/throat Verified 11/26/24 10:55
irritation
venom-honey bee Allergy swelling - Verified 11/26/24 10:55
[bee venom (honey bee)] throat
tightness
Home Medications
calcium carbonate 500 mg PO PRN PRN stomach discomfort 01/19/24
dapsone 100 mg tablet 100 mg PO DAILY Autoimmune Disorder 01/19/24
famotidine 40 mg tablet 40 mg PO DAILY Gastrointestinal Issue 01/19/24
gabapentin 400 mg capsule 400 mg PO TID Pain 01/19/24
methylprednisolone 4 mg tablet 6 mg PO DAILY Anti-Inflammatory 01/19/24
sertraline 100 mg tablet 100 mg PO DAILY depression 01/19/24
acetaminophen 325 mg tablet 650 mg (2 x 325 mg) PO Q6HPRN PRN mild pain #14 tabs 03/17/24
clonidine HCl 0.2 mg tablet 0.2 mg PO TID #90 tabs 03/26/24
Review of Systems
-
Constitutional: Reports Fever
EENT: Reports No Symptoms
Respiratory: Reports Cough and Trouble Breathing
Cardiac: Reports No Symptoms
Abdomen/GI: Reports No Symptoms
: Reports No Symptoms
Musculoskeletal: Reports No Symptoms
Skin: Reports No Symptoms
Neurological: Reports No Symptoms
Endocrine: Reports No Symptoms
Hematologic/Lymphatic: Reports No Symptoms
Psych: Reports No Symptoms
Physical Exam
Vital Signs
Vital Signs
Temp Pulse Resp BP Pulse Ox
97.7 F 66 29 137/78 96
11/26/24 10:52 11/26/24 14:30 11/26/24 14:30 11/26/24 14:11 11/26/24 14:30
Physical Exam
General: Well Developed, Well Nourished and No Apparent Distress
HEENT: NormoCephalic, Moist mucous membranes and Atraumatic
Respiratory: Clear
Cardiac: S1/S2 and Regular Rhythm; No Murmur or Rub
GI: Soft, Non Tender, Non Distended and Normal Bowel Sounds; No Organomegaly
Rectal: Deferred by Provider
Musculoskeletal: No Clubbing, No Cyanosis and No Edema
Skin: No Rash
Neuro: AO x 3 and Nonfocal/grossly intact
Psych: Calm
Laboratory Results
-
11/26/24 12:11
11/26/24 12:11
Laboratory Results
PT 13.7 Sec (11.4-14.6) 11/26/24 12:11
INR 1.00 11/26/24 12:11
APTT 40.6 Sec (23.4-35.0) H 11/26/24 12:11
Total Bilirubin 1.0 mg/dl (0.2-1.3) 11/26/24 12:11
AST 35 U/L (17-59) 11/26/24 12:11
ALT 37 U/L (0-50) 11/26/24 12:11
Alkaline Phosphatase 163 U/L (38-126) H 11/26/24 12:11
Troponin I < 0.012 ng/ml 11/26/24 12:11
Data Reviewed
-
CT Scan: Report Reviewed by me
Lab Data: Labs Reviewed by me
Impression/Plan
-
# Acute hypoxic respiratory failure pneumonia
#pulmonary fibrosis
# History of autoimmune lung disease
-Failed outpatient antibiotic therapy
-IV Zosyn,doxy continued
-WBCs 15.9
-Continue supplemental oxygen to keep sat greater than 92
-Wean as tolerated
-Mucinex as needed for cough
-Nebs as needed for short of breath and wheezing
-COVID,flu pending. pending
-obtain sputum, legionella urine, strep pneumoniae
-methylprednisolone continued from home
-Chest CT with impression of Limited by respiratory motion artifact. No central or segmental pulmonary embolus.
2. Dilation of the main pulmonary artery system with pulmonary arterial hypertension. There is ectasia of the ascending aorta, 4.0 cm diameter.
3. Bilateral diffuse increased reticular and groundglass opacities as compared with previous examination, most suspicious for predominantly interstitial infectious process superimposed upon previously seen changes of pulmonary fibrosis.
#History of ECMO [id number] 17, 2023 2/2 ARDS/FLu /Covid/PNA
#hx DVT/PE while on ECMO
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
-No residual deficits
# Cardiac arrest during previous hospital stay
#GERD
#Hx GI bleed Required cauterization during hospital stay January 2023
-PPI continued
ILD vs long COVID on chronic steroids
# Uses [place] O2 with exercise
#Hx COVID 2020 received antibodies
#hx HTN
-Continue continue with hold parameter
#Hx [place] syndrome
#Peripheral neuropathy hands and feet
-Continue gabapentin
#Depression
-Continue Zoloft 100 mg daily
dvt prop scd
Full code�
[2024-11-26] MEDS: ZOSYN 50 IV ×2 (14:58→21:31)
[2024-11-26 15:30] LABS: COVID-19 Antigen Negative (Negative)
--- NOTE | 2024-11-26 15:36 | W.PN.UPDATE ---
Update Note
Progress Note Update
This is an addendum to the H&P written by Jelly Kong on 11/26/2024. Patient seen examined independently with MEAL MILLER.
54-year-old male past medical history of microscopic polyangiitis, interstitial lung disease, GERD, hemorrhagic CVA in 2022, GI bleeding, hypertension, neuropathy, depression, presenting with productive cough/shortness of breath and fever over the
past 4 days started on amoxicillin without improvement.
Requiring 2 L of oxygen now. Labs show leukocytosis. CT chest shows bilateral diffuse increased reticular and groundglass opacities suspicious for predominantly interstitial and infectious process superimposed on prior pulmonary fibrosis.
Zosyn and doxycycline to treat pneumonia. Sputum culture. COVID and flu pending. Pulmonary consulted.
--- NOTE | 2024-11-26 15:42 | CON.PUL ---
Consultation
Consultation Request
Date/Time Consultation Requested: 11/26/2024
Date/Time Consultation Performed: 11/26/2024
Requesting Provider: Dr. Cox
Performing Provider: Dr. Kirit Reyes
Reason for Consultation: Acute hypoxemic respiratory failure
Medical History
-
History of Present Illness:
54-year-old man with complicated past medical history, [facility] records reviewed, has history of multifactorial interstitial lung disease including postinflammatory scarring after developing COVID and influenza requiring advanced therapy with ECMO due to
hypoxemic respiratory failure at [facility], also complicated by PE and hemorrhagic stroke. He has been recovering well.
Last time seen in our office was in October 2024, he also is being seen at [facility] pulmonary. He was doing well. Oxygen has been weaned off. Only using nocturnal oxygen.
Functional capacity was improving
-
Now admitted on 11/26/2024 with worsening shortness of breath since November 22. Reports cough and yellow sputum production. Fever of 101 �F. He took amoxicillin for 4 days without improvement. Denies nausea, vomiting, or abdominal pain.
Reported some diarrhea with antibiotics.
CT of the chest showed bilateral diffuse increased reticulonodular and groundglass opacities compared to previous examinations, suspicious for interstitial process possibly infectious versus inflammatory, chronic changes of pulmonary fibrosis.
Patient was requiring 2 L of supplemental oxygen, antibiotics started.
We were consulted on 11/26/2024 for evaluation.
Past Medical History
Past Medical History: Other ( See Assessment and plan)
Social History
Tobacco: Non-smoker
Alcohol: Occasional
Drug: None
Personal:
Living: With Family
Family History
Family History: Reviewed & Not Pertinent
Allergies / Home Medications
Allergies
Allergy/AdvReac Type Severity Reaction Status Date / Time
latex Allergy swelling - Verified 11/26/24 10:55
long skin
Sulfa (Sulfonamide Allergy Rash; Verified 11/26/24 10:55
Antibiotics) tolerates
furosemide
vancomycin Allergy Anaphylaxis/throat Verified 11/26/24 10:55
irritation
venom-honey bee Allergy swelling - Verified 11/26/24 10:55
[bee venom (honey bee)] throat
tightness
Home Medications
�Medication �Instructions �Recorded �Confirmed �Last Taken �Type
calcium carbonate 500 mg PO TIDPRN PRN stomach 01/19/24 11/26/24 05/27/24 22:00 History
discomfort
famotidine 40 mg tablet 40 mg PO DAILY Gastrointestinal 01/19/24 11/26/24 11/26/24 History
Issue
gabapentin 400 mg capsule 400 mg PO TID Pain 01/19/24 11/26/24 11/26/24 History
methylprednisolone 4 mg tablet 4 mg PO DAILY Anti-Inflammatory 01/19/24 11/26/24 11/26/24 History
sertraline 100 mg tablet 100 mg PO DAILY depression 01/19/24 11/26/24 11/26/24 History
clonidine HCl 0.2 mg tablet 0.2 mg PO TID #90 tabs 03/26/24 11/26/24 11/26/24 Rx
acetaminophen 650 mg 1,300 mg PO [id number] PRN mild pain 11/26/24 11/26/24 11/25/24 History
tablet,extended release (Tylenol 8
Hour)
amoxicillin 875 mg-potassium 1 tab PO BID 11/26/24 11/26/24 11/26/24 History
clavulanate 125 mg tablet
ssyurqt-augvsestmmgpb-mvyegxfu 250 1 tab PO DAILYPRN PRN headache 11/26/24 11/26/24 11/26/24 History
mg-250 mg-65 mg tablet (Excedrin
Extra Strength)
Review of Systems
-
History Source: Patient
All other systems: Negative unless noted
Vitals / Labs / Diagnostic Testing
Vital Signs
Temp Pulse Resp BP Pulse Ox
97.7 F 66 29 137/78 96
11/26/24 10:52 11/26/24 14:30 11/26/24 14:30 11/26/24 14:11 11/26/24 14:30
Lab Data
11/26/24 12:11
11/26/24 12:11
Laboratory Results
11/26/24
12:11
PT 13.7
INR 1.00
APTT 40.6 H
Diagnostic Testing:
Physical Exam
-
HEENT: Normocephalic
Cardiovascular: S1/S2
Respiratory: Rales
GI: Soft and Non Distended
Neurology: Awake, Alert, Oriented, AO x 3 and No Motor Deficits
Skin: Warm and Other (Mild facial rash. No blisters.)
General: Comfortable and Other (Able to speak in full sentences)
Assessment
-
54-year-old male with history of interstitial lung disease, microscopic cholangitis has been on prednisone and Rituxan. Chronically on low-dose methylprednisolone up until recently was doing well from the pulmonary perspective. Comes to the
hospital with few days of cough and mild phlegm production. Started on amoxicillin in the outpatient setting. Symptoms progressed with increased shortness of breath and now worsening hypoxemia. CT chest with diffuse groundglass opacities we were
consulted for evaluation.
Acute hypoxemic respiratory failure: Currently on 2 L
Pneumonitis: Infectious versus interstitial lung disease flare.
CT chest 11/26/2024: No evidence for large pulmonary embolism. Bilateral diffuse increased reticulonodular and groundglass opacities as compared with previous examination, infectious versus inflammatory. Chronic fibrotic changes.
Negative influenza/negative COVID
Leukocytosis
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
History of microscopic polyangiitis: On low-dose methylprednisolone-not on Rituxan for years.
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
Biliary leak 03/2024
S/p ERCP 03-20: biliary sphincterotomy and plastic stent placement at R hepatic duct
S/p outpatient laparoscopic cholecystectomy with cholangiogram and removal of previously placed percutaneous cholecystostomy tube on 03-17 (h/o percutaneous cholecystostomy on 01-20 for acute cholecystitis)
Ent faecalis bacteriemia (1/2 blood cxs 03-18)
Strep agalactiae bilious ascites 03-19 (reportedly specimen leaked in transit to micro lab, possible contamination)
Acute cholecystitis
MRCP: 1 mm choledocholithiasis, Ent faec
S/p percutaneous cholecystostomy 01-20
Influenza/COVID/ARDS/PNA requiring ECMO prolonged Hospital Stay Nov 2022-March 2023, complicated w/ PE/DVT, cardiac arrest, ICH, GI. On apixaban
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
GIB Jan 2023, required cauterization
Influenza A, adm 10-29 to [id number] 2022
COVID pneumonia, adm 1117 to 24 '22, d/c on O2 2L
Breakthrough case in vaccinated Pfizer/J&J
2 weeks onset of symptoms, COVID + 10/13/22
Diffuse GGOs consistent with COVID PNA
PR2/MPO negative, IgG 496 (10-24)
Chronic immunosuppression
History of microscopic polyangiitis, on chronic methylprednisone 4mg daily, past h/o use of rituxan
Follows with Rheum Dr. Velázquez ([phone])
ILD: multifactorial, bilateral fibrotic changes, traction bronchiectasis.
Follows Dr. Gonzalez also evaluated at [facility] Dr. Henry
GERD
Restrictive lung disease
History of pneumonia
Mixed simple and mucopurulent chronic bronchitis
Nonsmoker
Depression
Medical marijuana
Assessment and plan:
[facility] records reviewed, patient was doing well up until recently in regards to his underlying pulmonary process.
Last visit with Dr. Gonzalez-10/14/2024-apparently per [facility] records patient was improving.
Only using oxygen at night at 4 L. Maintaining pulse ox above 88%.
Completed full anticoagulation for his history of pulmonary embolism.
He also was contemplated for IVIG infusions due to hypogammaglobulinemia. Was to see immunology at [place].
-
Hypoxemic respiratory failure currently on [address] scan nonspecific could be infectious or inflammatory.
-
Trend leukocytosis
Follow fever curve
Broad-spectrum antibiotics: Zosyn/doxycycline
Negative COVID and influenza.
MRSA screening, if positive will add vancomycin.
Sputum culture
Blood culture
Legionella enterococcal antibiotics will be send
-
Chronically on low-dose methylprednisolone 4 mg, based on last records contemplating to wean it down more, if hypotensive may need to consider stress dose of steroids.
He also has received previously Rituxan few years ago follows up with rheumatology, Dr. Zaman.
If there is negative microbiology without strong evidence of infection or worsening hypoxemia despite antibiotics we will give high doses of IV corticosteroids. Hold for now.
For now we will obtain sed rate, CRP, ANCA antibody, urinalysis, complement levels.
-
Continue oxygen supplementation to maintain pulse ox above 88%.
His oxygen requirements have been weaned off in the outpatient setting.
-
DVT prophylaxis
-
Will continue to follow
Family updated by Dr. Reyes 11/26/2024.
[2024-11-26] MEDS: CATAPRES 0.2 MG PO ×2 (18:02→22:08)
[2024-11-26] MEDS: NEURONTIN 400 MG PO ×2 (18:07→22:08)
[2024-11-26] MEDS: VIBRAMYCIN 260 MG IV (18:08)
[2024-11-26] MEDS: FLUSH (NSS) 2 FLUSH IV (18:10)
[2024-11-26 21:29] LABS: Erythrocyte Sed Rate 52 mm/hour (0-20)
[2024-11-26] MEDS: MUCINEX 600 MG PO (21:31)
[2024-11-26 21:45] LABS: Complement C3 179 mg/dl (88-165)
[2024-11-26] MEDS: TYLENOL 650 MG PO (22:24)
[2024-11-27] MEDS: ZOSYN 50 IV ×4 (03:12→20:42)
[2024-11-27] MEDS: VIBRAMYCIN 260 MG IV ×2 (05:05→17:07)
[2024-11-27 07:00] VITALS: BP 134/77
--- NOTE | 2024-11-27 08:03 | W.PN.HOSP.TC ---
Today's Communication/Plan
-
.
Assessment / Plan
Assessment / Plan
Acute hypoxic respiratory failure pneumonia
Pulmonary fibrosis
History of autoimmune lung disease
Leukocytosis
-Failed outpatient amoxicillin
-IV Zosyn,doxycycline
-Continue supplemental oxygen to keep sat greater than 92. Wean as tolerated
-Mucinex as needed for cough
-Nebs as needed for short of breath and wheezing
-COVID,flu -negative
- legionella, strep pneumoniae negative
- sputum cx, blood cx pending
-methylprednisolone continued from home
-Chest CT: Dilation of the main pulmonary artery system with pulmonary arterial hypertension. There is ectasia of the ascending aorta, 4.0 cm diameter. Bilateral diffuse increased reticular and groundglass opacities as compared with previous
examination, most suspicious for predominantly interstitial infectious process superimposed upon previously seen changes of pulmonary fibrosis.
- pulm consulted
- sed rate, CRP, ANCA antibody, urinalysis, complement levels pending
GERD
Hx GI bleed Requiring cauterization
-cont PPI
ILD vs long COVID on chronic steroids
- Uses [place] O2 with exercise
HTN
-Continue home med with hold parameter
Peripheral neuropathy hands and feet
-Continue gabapentin
Depression
-Continue Zoloft
Diet: cholesterol lowering
DVT ppx: SCDs
Code status: Full code�
Anticipated Discharge: 24 - 48 hours
Subjective/Interval History
-
Date of Service: November 27, 2024
Mr. Errol Angela is a 54 yo M pmh microscopic polyangiitis, interstitial lung disease s/p severe COVID requiring ECMO, hx PE/DVT, HTN, and [place] syndrome admitted for a pneumonia. He has had worsening dyspnea over the past several days. Received
amoxicillin outpt. Pt worried as he became hypoxic. Has not needed supplemental O2 in over two years. + productive cough, -hemoptysis, +fever, -chest tightness.
Objective Data
-
Labs:
Laboratory Results
11/27/24
07:45
WBC Pending
Hgb Pending
Hct Pending
Plt Count Pending
Vital Signs:
Vital Signs
Temp Pulse Resp BP Pulse Ox
97.5 F 62 18 143/81 96
11/26/24 22:30 11/26/24 22:30 11/26/24 22:30 11/26/24 22:30 11/26/24 22:35
I&O
11/26/24 11/27/24 11/28/24
06:59 06:59 06:59
Intake Total 560 / 560
Balance 560 / 560
Review of Systems
-
History Source: Patient
Constitutional: Reports Fever and Chills
EENT: Reports No Symptoms Reported
Respiratory: Reports Trouble Breathing
Cardiac: Reports No Symptoms
Abdomen/GI: Reports Diarrhea
Musculoskeletal: Reports No Symptoms
Neuro: Reports No Symptoms
Physical Exam
-
General: Well Developed and Well Nourished
HEENT: Normocephalic, Atraumatic and Oxygen (2L O2 [place])
Respiratory: Wheezes
Cardiac: Regular Rhythm and S1/S2
GI: Soft, Nontender, Nondistended and Normal Bowel Sounds
Musculoskeletal: No Clubbing, No Cyanosis and No Edema
Skin: Warm
Neuro: AO x 3
Psych: Calm
[2024-11-27] MEDS: ZOLOFT 100 MG PO (08:26)
[2024-11-27] MEDS: PEPCID 40 MG PO (08:26)
[2024-11-27] MEDS: TYLENOL 650 MG PO ×2 (08:26→13:03)
[2024-11-27] MEDS: MUCINEX 600 MG PO ×2 (08:26→20:42)
[2024-11-27] MEDS: NEURONTIN 400 MG PO ×3 (08:26→22:51)
[2024-11-27] MEDS: MEDROL 4 MG PO (08:26)
[2024-11-27] MEDS: CATAPRES 0.2 MG PO ×3 (08:26→22:52)
[2024-11-27 08:37] LABS: Urine Albumin Trace (Neg - Trace); Urine Bilirubin Negative (Negative); Urine Character Clear (Clear); Urine Color Amber; Urine Glucose Negative (Negative); Urine Ketone Trace (Negative); Urine Leukocyte Negative (Negative); Urine Nitrite Negative (Negative); Urine Occult Blood Negative (Negative); Urine Urobilinogen Negative (Neg - 1+)
[2024-11-27 08:44] LABS: Hematocrit 39.6 % (39.0-52.0); Hemoglobin 12.5 g/dL (13.0-18.0); Mean Corp Hgb Conc. 31.6 g/dL (33.0-37.0); Mean Corpuscular Hgb 26.9 pg (27.0-31.0); Mean Corpuscular Volume 85.2 fL (80.0-94.0); Mean Platelet Volume 9.2 fL (7.4-10.4); Platelet Count 343 10^3/uL (130-400); Red Blood Cell Count 4.65 10^6/uL (4.70-6.10); Red Cell Dist. Width 13.2 % (11.5-14.5); White Blood Cell Count 14.1 10^3/uL (4.8-10.8)
--- NOTE | 2024-11-27 14:08 | W.PN.PUL3 ---
Today's Communication / Plan
-
Continue current antibiotic
Follow cultures
Continue current steroids
Follow serology
Continue oxygen supplementation
Will continue to follow closely
Assessment
-
54-year-old male with history of interstitial lung disease, microscopic cholangitis has been on prednisone and Rituxan. Chronically on low-dose methylprednisolone up until recently was doing well from the pulmonary perspective. Comes to the
hospital with few days of cough and mild phlegm production. Started on amoxicillin in the outpatient setting. Symptoms progressed with increased shortness of breath and now worsening hypoxemia. CT chest with diffuse groundglass opacities we were
consulted for evaluation.
Acute hypoxemic respiratory failure: Currently on 2 L
Pneumonitis: Infectious versus interstitial lung disease flare.
CT chest 11/26/2024: No evidence for large pulmonary embolism. Bilateral diffuse increased reticulonodular and groundglass opacities as compared with previous examination, infectious versus inflammatory. Chronic fibrotic changes.
Negative influenza/negative COVID
Leukocytosis
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
History of microscopic polyangiitis: On low-dose methylprednisolone-not on Rituxan for years.
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
Biliary leak 03/2024
S/p ERCP 03-20: biliary sphincterotomy and plastic stent placement at R hepatic duct
S/p outpatient laparoscopic cholecystectomy with cholangiogram and removal of previously placed percutaneous cholecystostomy tube on 03-17 (h/o percutaneous cholecystostomy on 01-20 for acute cholecystitis)
Ent faecalis bacteriemia (1/2 blood cxs 03-18)
Strep agalactiae bilious ascites 03-19 (reportedly specimen leaked in transit to micro lab, possible contamination)
Acute cholecystitis
MRCP: 1 mm choledocholithiasis, Ent faec
S/p percutaneous cholecystostomy 01-20
Influenza/COVID/ARDS/PNA requiring ECMO prolonged Hospital Stay Nov 2022-March 2023, complicated w/ PE/DVT, cardiac arrest, ICH, GI. On apixaban
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
GIB Jan 2023, required cauterization
Influenza A, adm 10-29 to [id number] 2021
COVID pneumonia, adm 10-18 to , d/c on O2 2L
Breakthrough case in vaccinated Pfizer/J&J
2 weeks onset of symptoms, COVID + 10/13/22
Diffuse GGOs consistent with COVID PNA
PR2/MPO negative, IgG 496 (10-24)
Chronic immunosuppression
History of microscopic polyangiitis, on chronic methylprednisone 4mg daily, past h/o use of rituxan
Follows with Rheum Dr. Velázquez ([phone])
ILD: multifactorial, bilateral fibrotic changes, traction bronchiectasis.
Follows Dr. Gonzalez also evaluated at [facility] Dr. Henry
GERD
Restrictive lung disease
History of pneumonia
Mixed simple and mucopurulent chronic bronchitis
Nonsmoker
Depression
Medical marijuana
Assessment and plan:
[facility] records reviewed, patient was doing well up until recently in regards to his underlying pulmonary process.
Last visit with Dr. Gonzalez-10/14/2024-apparently per [facility] records patient was improving.
Only using oxygen at night at 4 L. Maintaining pulse ox above 88%.
Completed full anticoagulation for his history of pulmonary embolism.
He also was contemplated for IVIG infusions due to hypogammaglobulinemia. Was to see immunology at [place].
-
Hypoxemic respiratory failure currently on 2 L. Has been stable overnight.
CT scan nonspecific could be infectious or inflammatory.
-
Leukocytosis stable.
Low-grade fever noted.
-
Broad-spectrum antibiotics: Zosyn/doxycycline
Negative COVID and influenza.
MRSA screening, if positive will add vancomycin.
Sputum culture i-negative so far. f able to produce.
Blood culture
Legionella, pneumococcal antibodies negative.
-
Chronically on low-dose methylprednisolone 4 mg, based on last records contemplating to wean it down more, if hypotensive may need to consider stress dose of steroids.
He also has received previously Rituxan few years ago follows up with rheumatology, Dr. Zaman.
If there is negative microbiology without strong evidence of infection or worsening hypoxemia despite antibiotics we will give high doses of IV corticosteroids. Continue to hold for now.
CRP and sedimentation rate elevated-nonspecific
Wait for rest of antibody testing-LUIZA/ANCA anti-CCP
Complement elevated Acute phase reactant.-
-
Continue oxygen supplementation to maintain pulse ox above 88%.
His oxygen requirements have been weaned off in the outpatient setting.
-
DVT prophylaxis
-
Will continue to follow
Family updated by Dr. Reyes 11/26/2024.
Subjective Data
-
Date of Service:
Date of Service: November 27, 2024
Chief Complaint: Pulmonary Follow Up (Pneumonia/hypoxemic respiratory failure)
Subjective:
No new complaints
No significant hemoptysis
Denies purulent sputum production
Oxygenation not worse.
Review of Systems
Cardiopulmonary: Dyspnea (stable.)
GI: Abdominal Pain (n) and Nausea (n)
Neuro: Headache (n)
Objective Data
Data Reviewed
Vital Signs / I&O / Oxygen:
Vital Signs
Temp Pulse Resp BP Pulse Ox
99.1 F 68 16 134/77 94
11/27/24 07:00 11/27/24 07:00 11/27/24 07:00 11/27/24 07:00 11/27/24 07:55
Intake and Output
11/26/24 11/27/24 11/28/24
06:59 06:59 06:59
Intake Total 560 / 560 840 / 840
Balance 560 / 560 840 / 840
SaO2 94
Nasal Cannula flow liters per 2
minute
Physical Exam
General: Comfortable
HEENT: Normocephalic
Cardiovascular: S1-S2
Respiratory: Crackles and Non-Labored Respirations
GI: Soft and Non Distended
Neurology: Awake, Alert and AO x 3
Skin: Good Color
Labs/Micro/Reports
Lab Data
11/27/24 07:45
11/26/24 12:11
Microbiology
11/26/24 17:34 Urine Legionella Urinary Antigen - Final
Negative for Legionella pneumophila Serogroup 1 antigen.
A negative result does not rule out the possiblity of
Legionella infection due to other serogroups or species of
Legionella. Clinical correlation is recommended.
11/26/24 17:34 Urine Streptococcus pneumoniae Antigen (M - Final
Negative for Streptococcus pneumoniae antigen.
A negative result does not exclude infection with
Streptococcus pneumoniae. Clinical correlation is
recommended.
11/26/24 15:21 Nasal Swab Influenza Types A & B (NEIL) - Final
Negative for Influenza A & B, NAAT
Negative results must be combined with clinical observations
and patient history.
Nucleic Acid Amplification test (NAAT)performed on the
[employer] NOW platform.
[2024-11-27 15:06] VITALS: BP 152/82
--- NOTE | 2024-11-27 15:25 | CM ---
ISMAEL met with Errol at bedside to complete IA. He lives with his in a 3 story house with 1 entry step and 12 steps to 2nd floor bedroom/bath.
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
Errol has an Med[employer] portable capable 4L continuous/6L pulse dose. Has RW, shower seat & w/c available.
Prior [facility]
No prior SNF
Plan: Discharge to home when medically stable with no needs.
PCP - Jabier Vela
Pharmacy - [facility] [address]
[2024-11-27] MEDS: FIORICET 2 TAB PO ×2 (17:11→22:52)
[2024-11-27 23:47] VITALS: BP 147/66
[2024-11-28] MEDS: ZOSYN 50 IV ×4 (04:22→20:02)
[2024-11-28] MEDS: VIBRAMYCIN 260 MG IV ×2 (05:00→16:53)
[2024-11-28 05:30] VITALS: BP 148/80
[2024-11-28] MEDS: TESSALON PERLES 100 MG PO ×2 (06:11→18:09)
[2024-11-28 07:25] LABS: Hematocrit 38.6 % (39.0-52.0); Hemoglobin 12.6 g/dL (13.0-18.0); Mean Corp Hgb Conc. 32.6 g/dL (33.0-37.0); Mean Corpuscular Hgb 26.6 pg (27.0-31.0); Mean Corpuscular Volume 81.4 fL (80.0-94.0); Mean Platelet Volume 8.8 fL (7.4-10.4); Platelet Count 358 10^3/uL (130-400); Red Blood Cell Count 4.74 10^6/uL (4.70-6.10); Red Cell Dist. Width 12.9 % (11.5-14.5); White Blood Cell Count 15.3 10^3/uL (4.8-10.8)
--- NOTE | 2024-11-28 07:39 | PTCARENOTE ---
Pt aaox3 able to make his needs known, pt c/o cough this morning & c/o headache. Pt VSS, on 2litres oxygen pt is 88-91,pt was placed on 4litres pulse oxy 92-94% pt states he feels better.Pt requesting for toradol for sore throat & Headache.SCADA ENGINEER was
made aware of it unable to give toradol as pt has hx of GI bleed, pt made aware & ok with it.Pt refused for tylenol at this time & Prefers to wait.Plan of care continued.
[2024-11-28 07:42] LABS: Blood Urea Nitrogen 10 mg/dl (9-20); Calcium 9.1 mg/dl (8.4-10.2); Carbon Dioxide 24 mmol/L (22-30); Chloride 100 mmol/L (98-107); Estimated Creatinine Clearance > 125 ml/min; Glucose 101 mg/dl (70-99); Potassium 4.4 mmol/L (3.5-5.1); Sodium 134 mmol/L (135-145); eGFR > 60.00
[2024-11-28] MEDS: TYLENOL 650 MG PO (08:09)
[2024-11-28] MEDS: CATAPRES 0.2 MG PO ×2 (08:10→16:52)
[2024-11-28] MEDS: PEPCID 40 MG PO (08:10)
[2024-11-28] MEDS: MUCINEX 600 MG PO ×2 (08:10→20:01)
[2024-11-28] MEDS: ZOLOFT 100 MG PO (08:10)
[2024-11-28] MEDS: NEURONTIN 400 MG PO ×3 (08:11→22:37)
[2024-11-28] MEDS: MEDROL 4 MG PO (08:11)
[2024-11-28 08:44] VITALS: BP 154/71
[2024-11-28 11:00] LABS: Erythrocyte Sed Rate 56 mm/hour (0-20)
[2024-11-28] MEDS: SOLU-MEDROL PF 40 MG IV (13:29)
[2024-11-28] MEDS: FIORICET 2 TAB PO (13:43)
--- NOTE | 2024-11-28 14:40 | W.PN.HOSP.TC ---
Today's Communication/Plan
-
Start Solu-Medrol 40 mg IV every 12 hours
Continue with antibiotics for now
SpO2 goal >90%
Further pulm recommendations appreciated
Assessment / Plan
Assessment / Plan
#Acute hypoxemic respiratory failure
#ILD flare
#Possible CAP
-Initially suspected to be predominantly bacterial pneumonia, not improving despite multiple antibiotic
-Initially requiring 2 L oxygen, overnight worsened and now requiring 4 L
-Patient states he feels worse, his states he looks worse today as well
-Transition his home steroid regimen to IV Solu-Medrol 40 mg every 12 hours
-Continue with antibiotics for now although may have low threshold to DC
-Continue to trend CBC, ESR, CRP, and temperature curve
-F/U ANCA antibody, complement levels from admission
-Continue with as needed bronchodilators
-Wean oxygen for SpO2 goal >90%
#H/O microscopic polyangiitis
#Chronic ILD versus long COVID on chronic prednisone
#Peripheral neuropathy
-Has history of microscopic polyangiitis as well as COVID requiring ECMO
-Chronically on 4 mg methylprednisolone daily at home
-Suspect peripheral neuropathy as part of microscopic polyangiitis complex
-Unclear of ILD is related to microscopic polyangiitis or other etiology
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
-Transitioning to IV steroids as above
-Continue home gabapentin for neuropathy
#GERD
#H/O GIB requiring cauterization
-Home medications include PPI regimen
-No signs or symptoms of active bleeding as of now
#Fresno's syndrome
-Secondary to chronic steroid use, extrinsic etiology
-Initially hesitant to increase steroids however clinically necessary due to his respiratory status
#HTN
-Home medication includes clonidine 0.2 mg 3 times daily
-Blood pressure currently well-controlled on home regimen
#Depression
-Stable on home Zoloft
#H/O PE
-Completed 3 to 6-month course of anticoagulation
-May consider repeat CTA if respiratory status not improving with steroid
DVT prophylaxis: Subcutaneous Lovenox
Diet: Low-cholesterol
CODE STATUS: Full code
Anticipated Discharge: > 48 hours
Subjective/Interval History
-
Date of Service: November 28, 2024
Seen and examined at bedside. No acute events reported overnight. AFVSS on 4 L oxygen today. at the bedside and was updated
Was increasingly short of breath and required escalation from 2 to 4 L of supplemental oxygen.
States that he feels more short of breath. Denies any acute complaints such as chest pain, lightheadedness, palpitations, fevers or chills, GI or urinary issues.
Objective Data
-
Labs:
Laboratory Results
11/28/24
07:05
WBC 15.3 H
Hgb 12.6 L
Hct 38.6 L
Plt Count 358
Sodium 134 L
Potassium 4.4
Chloride 100
Carbon Dioxide 24
BUN 10
Creatinine 0.7
Glucose 101 H
Calcium 9.1
Vital Signs:
Vital Signs
Temp Pulse Resp BP Pulse Ox
97.8 F 76 18 154/71 96
11/28/24 08:44 11/28/24 08:44 11/28/24 08:44 11/28/24 08:44 11/28/24 08:44
I&O
11/27/24 11/28/24 11/29/24
06:59 06:59 06:59
Intake Total 560 / 560 3190 / 3190
Output Total 950 / 950 750 / 750
Balance 560 / 560 2240 / 2240 -750 / -750
Review of Systems
-
History Source: Patient
All other systems: Reviewed and negative
Physical Exam
-
General: Well Developed, Well Nourished, No Apparent Distress and Comfortable
HEENT: Normocephalic, Atraumatic, Moist Mucous Membranes, Anicteric and Oxygen
Respiratory: Crackles (Bilateral midlung) and Non Labored Respirations; Negative Wheezes, Rales or Accessory Resp Muscle Use
Cardiac: Regular Rhythm and S1/S2; Negative Murmur, Rub, JVD or Gallop
GI: Soft, Nontender, Nondistended and Normal Bowel Sounds
Musculoskeletal: No Clubbing, No Cyanosis and No Edema
Skin: Warm, Dry and Normal Turgor; Negative Rash
Neuro: AO x 3 and Nonfocal/Grossly Intact
Psych: Calm
Data Reviewed
-
CT Scan: Discussed with Family
Labs: Labs Reviewed by me, Discussed with Patient and Discussed with Family
[2024-11-28 15:49] VITALS: BP 122/66
[2024-11-28] MEDS: LOVENOX 40 MG SC (16:53)
[2024-11-28 17:33] VITALS: O2SAT 88; O2SAT 96
--- NOTE | 2024-11-28 18:14 | W.PN.PUL3 ---
Today's Communication / Plan
-
Agree with IV steroids
Repeat chest x-ray in a.m.
Continue antibiotics
Continue GERD therapy
Assessment
-
54-year-old male with history of interstitial lung disease, microscopic cholangitis has been on prednisone and Rituxan. Chronically on low-dose methylprednisolone up until recently was doing well from the pulmonary perspective. Comes to the
hospital with few days of cough and mild phlegm production. Started on amoxicillin in the outpatient setting. Symptoms progressed with increased shortness of breath and now worsening hypoxemia. CT chest with diffuse groundglass opacities we were
consulted for evaluation.
Acute hypoxemic respiratory failure: Currently on 2 L
Pneumonitis: Infectious versus interstitial lung disease flare.
CT chest 11/26/2024: No evidence for large pulmonary embolism. Bilateral diffuse increased reticulonodular and groundglass opacities as compared with previous examination, infectious versus inflammatory. Chronic fibrotic changes.
Negative influenza/negative COVID
Leukocytosis
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
History of microscopic polyangiitis: On low-dose methylprednisolone-not on Rituxan for years.
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
Biliary leak 03/2024
S/p ERCP 03-20: biliary sphincterotomy and plastic stent placement at R hepatic duct
S/p outpatient laparoscopic cholecystectomy with cholangiogram and removal of previously placed percutaneous cholecystostomy tube on 03-17 (h/o percutaneous cholecystostomy on 01-20 for acute cholecystitis)
Ent faecalis bacteriemia (1/2 blood cxs 03-18)
Strep agalactiae bilious ascites 03-19 (reportedly specimen leaked in transit to micro lab, possible contamination)
Acute cholecystitis
MRCP: 1 mm choledocholithiasis, Ent faec
S/p percutaneous cholecystostomy 01-20
Influenza/COVID/ARDS/PNA requiring ECMO prolonged Hospital Stay Nov 2022-March 2023, complicated w/ PE/DVT, cardiac arrest, ICH, GI. On apixaban
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
GIB Jan 2023, required cauterization
Influenza A, adm 10-29 to [id number] 2021
COVID pneumonia, adm 11-17 to 24 '22, d/c on O2 2L
Breakthrough case in vaccinated Pfizer/J&J
2 weeks onset of symptoms, COVID + 10/13/22
Diffuse GGOs consistent with COVID PNA
PR2/MPO negative, IgG 496 (10-24)
Chronic immunosuppression
History of microscopic polyangiitis, on chronic methylprednisone 4mg daily, past h/o use of rituxan
Follows with Rheum Dr. Velázquez ([phone])
ILD: multifactorial, bilateral fibrotic changes, traction bronchiectasis.
Follows Dr. Gonzalez also evaluated at [facility] Dr. Henry
GERD
Restrictive lung disease
History of pneumonia
Mixed simple and mucopurulent chronic bronchitis
Nonsmoker
Depression
Medical marijuana
Assessment and plan:
Patient well-known to myself
[facility] records reviewed, patient was doing well up until recently in regards to his underlying pulmonary process.
Last visit with Dr. Gonzalez-10/14/2024-apparently per [facility] records patient was improving.
Only using oxygen at night at 4 L. Maintaining pulse ox above 88%.
Completed full anticoagulation for his history of pulmonary embolism.
He also was contemplated for IVIG infusions due to hypogammaglobulinemia. Was to see immunology at [place].
-
Oxygen requirement seems to have worsened, now on [address] scan nonspecific could be infectious or inflammatory.
-
Leukocytosis stable.
Low-grade fever noted.
-
Broad-spectrum antibiotics: Zosyn/doxycycline
Negative COVID and influenza.
MRSA screening, if positive will add vancomycin.
Sputum culture i-negative so far. f able to produce.
Blood culture
Legionella, pneumococcal antibodies negative.
-
Chronically on low-dose methylprednisolone 4 mg, based on last records contemplating to wean it down more, if hypotensive may need to consider stress dose of steroids.
He also has received previously Rituxan few years ago follows up with rheumatology, Dr. Zaman.
If there is negative microbiology without strong evidence of infection or worsening hypoxemia despite antibiotics we will give high doses of IV corticosteroids. Continue to hold for now.
CRP and sedimentation rate elevated-nonspecific
Wait for rest of antibody testing-LUIZA/ANCA anti-CCP
Complement elevated Acute phase reactant.-
Will start steroids today
Check chest x-ray in a.m.
-
Continue oxygen supplementation to maintain pulse ox above 88%.
His oxygen requirements have been weaned off in the outpatient setting.
-
DVT prophylaxis
-
Will continue to follow
Reviewed with
Subjective Data
-
Date of Service:
Date of Service: November 28, 2024
Chief Complaint: Pulmonary Follow Up (Pneumonia/hypoxemic respiratory failure)
Subjective:
Patient seen earlier today, late entry. Patient had difficult night. Feels he is a little bit more short of breath, requiring 4 L. Denies significant chest pain. Has mild cough
Objective Data
Data Reviewed
Vital Signs / I&O / Oxygen:
Vital Signs
Temp Pulse Resp BP Pulse Ox
98 F 51 18 122/66 97
11/28/24 15:49 11/28/24 15:49 11/28/24 15:49 11/28/24 15:49 11/28/24 15:49
Intake and Output
11/27/24 11/28/24 11/29/24
06:59 06:59 06:59
Intake Total 560 / 560 3190 / 3190
Output Total 950 / 950 750 / 750
Balance 560 / 560 2240 / 2240 -750 / -750
SaO2 97
Nasal Cannula flow liters per 4
minute
Physical Exam
General: Comfortable
HEENT: Normocephalic and Anicteric
Cardiovascular: S1-S2, Regular Rhythm, Murmur (n) and Rub (n)
Respiratory: Wheeze (n), Crackles (Mild bibasilar), Rhonchi (n), Non-Labored Respirations and Stridor (n)
GI: Soft and Non Distended
Neurology: Awake, Alert and No Motor Deficits
Skin: Good Color
Labs/Micro/Reports
Lab Data
11/28/24 07:05
11/28/24 07:05
Microbiology
11/28/24 04:54 Sputum Gram Stain - Preliminary
11/26/24 20:50 Nose MRSA Screen - Final
No Methicillin Resistant Staphylococcus aureus isolated.
11/26/24 17:34 Urine Legionella Urinary Antigen - Final
Negative for Legionella pneumophila Serogroup 1 antigen.
A negative result does not rule out the possiblity of
Legionella infection due to other serogroups or species of
Legionella. Clinical correlation is recommended.
11/26/24 17:34 Urine Streptococcus pneumoniae Antigen (M - Final
Negative for Streptococcus pneumoniae antigen.
A negative result does not exclude infection with
Streptococcus pneumoniae. Clinical correlation is
recommended.
11/26/24 15:21 Nasal Swab Influenza Types A & B (NEIL) - Final
Negative for Influenza A & B, NAAT
Negative results must be combined with clinical observations
and patient history.
Nucleic Acid Amplification test (NAAT)performed on the
[employer] platform.
[2024-11-28] MEDS: CATAPRES PO (20:11)
[2024-11-28 20:15] VITALS: BP 112/67
--- NOTE | 2024-11-28 20:15 | PTCARENOTE ---
Pts expressing concern for pts respiratory status- stating 'when he declines he declines quickly'. Pulse ox 97% 4 L NC, BP 112/67 HR 49- pt stating that his primary care doctor was going to decrease clonidine dose. House INTERNET DATABASE SPECIALIST notified order
for telemetry- sinus bradycardia rates in 40s, and to hold HS dose of clonidine. Care is ongoing.
[2024-11-28 23:19] VITALS: BP 119/68
[2024-11-29] MEDS: SOLU-MEDROL PF 40 MG IV ×2 (00:37→11:38)
[2024-11-29] MEDS: ZOSYN 50 IV ×4 (02:36→20:18)
[2024-11-29 03:26] LABS: ANA, IgG Reflex to HEp-2 None Detected (None Detected)
[2024-11-29 03:31] VITALS: BP 124/74
[2024-11-29] MEDS: VIBRAMYCIN 260 MG IV (05:28)
[2024-11-29 07:24] LABS: % Basophils 0.1 % (0-2); % Immature Granulocytes 0.6 % (0-0.5); % Lymphocytes 7.3 % (20.5-51.1); % Monocytes 2.3 % (1.7-9.3); % Neutrophils 89.7 % (42.2-75.2); Absolute Immature Granulocytes 0.1 10^3/uL (0-0.05); Absolute Monocytes 0.3 10^3/uL (0.1-0.6); Absolute Neutrophils 12.7 10^3/uL (1.4-6.5); Hematocrit 40.4 % (39.0-52.0); Hemoglobin 13.3 g/dL (13.0-18.0); Mean Corp Hgb Conc. 32.9 g/dL (33.0-37.0); Mean Corpuscular Hgb 26.9 pg (27.0-31.0); Mean Corpuscular Volume 81.8 fL (80.0-94.0); Mean Platelet Volume 9.6 fL (7.4-10.4); Nucleated Red Blood Cells % 0 % (-); Platelet Count 433 10^3/uL (130-400); Red Blood Cell Count 4.94 10^6/uL (4.70-6.10); Red Cell Dist. Width 12.9 % (11.5-14.5); White Blood Cell Count 14.2 10^3/uL (4.8-10.8)
[2024-11-29 07:48] LABS: Myeloperoxidase Antibody 5 AU/mL (0-19); Serine Protease-3, IgG 0 AU/mL (0-19)
[2024-11-29 08:11] LABS: Erythrocyte Sed Rate 58 mm/hour (0-20)
[2024-11-29] MEDS: PEPCID 40 MG PO (08:33)
[2024-11-29] MEDS: CATAPRES 0.2 MG PO ×2 (08:33→16:41)
[2024-11-29] MEDS: ZOLOFT 100 MG PO (08:33)
[2024-11-29] MEDS: MUCINEX 600 MG PO ×2 (08:33→20:17)
[2024-11-29] MEDS: NEURONTIN 400 MG PO ×3 (08:33→22:33)
[2024-11-29 08:42] VITALS: BP 154/95
[2024-11-29 09:27] LABS: Blood Urea Nitrogen 13 mg/dl (9-20); Calcium 9.3 mg/dl (8.4-10.2); Carbon Dioxide 27 mmol/L (22-30); Chloride 102 mmol/L (98-107); Estimated Creatinine Clearance > 125 ml/min; Glucose 144 mg/dl (70-99); Potassium 4.7 mmol/L (3.5-5.1); Sodium 139 mmol/L (135-145); eGFR > 60.00
[2024-11-29 11:50] VITALS: BP 126/74
--- NOTE | 2024-11-29 12:45 | W.PN.HOSP.TC ---
Today's Communication/Plan
-
Continue with steroid regimen and antibiotics
Order TTE to assess RV function and pulmonary pressures
Wean oxygen for SpO2 >90%
Trend CBC and inflammatory markers
Assessment / Plan
Assessment / Plan
#Acute hypoxemic respiratory failure
#ILD flare
#Possible CAP
-Initially suspected to be predominantly bacterial pneumonia, not improving despite multiple antibiotic
-Initially requiring 2 L supplemental oxygen however worsened to 4 L on antibiotics alone
-Was transitioned from home steroid regimen to IV Solu-Medrol 40 mg every 12 hours
-Has since clinically improved subjectively, still requiring 4 L with SpO2 mid 90s today
-Inflammatory markers and white cell count stable, has not been febrile here
-Chest x-ray this morning unchanged, likely ILD with superimposed pneumonitis
Plan
-Continue with IV Solu-Medrol 40 mg every 12 hours, likely will need long taper when DC'd
-Continue with antibiotics for now although may have low threshold to DC
-Continue to trend CBC, ESR, CRP, and temperature curve
-Continue with as needed bronchodilators every 6 hours
-Order TTE to assess RV function, pulmonary pressures
-Wean oxygen for SpO2 goal >90%
#H/O microscopic polyangiitis
#Chronic ILD versus long COVID on chronic methylprednisolone
#Peripheral neuropathy
-Has history of microscopic polyangiitis as well as COVID requiring ECMO
-Chronically on 4 mg methylprednisolone daily at home
-Suspect peripheral neuropathy as part of microscopic polyangiitis complex
-Unclear of ILD is related to microscopic polyangiitis or other etiology
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
-Continue home gabapentin for neuropathy
#GERD
#H/O GIB requiring cauterization
-Home medications include PPI regimen
-No signs or symptoms of active bleeding as of now
#Erin's syndrome
-Secondary to chronic steroid use, extrinsic etiology
-Initially hesitant to increase steroids however clinically necessary due to his respiratory status
#HTN
-Home medication includes clonidine 0.2 mg 3 times daily
-Blood pressure currently well-controlled on home regimen
#Depression
-Stable on home Zoloft
#H/O PE
-Completed 3 to 6-month course of anticoagulation
-May consider repeat CTA if respiratory status not improving with steroid
DVT prophylaxis: Subcutaneous Lovenox
Diet: Low-cholesterol
CODE STATUS: Full code
Anticipated Discharge: > 48 hours
Subjective/Interval History
-
Date of Service: November 29, 2024
Seen and examined at the bedside. No acute events reported overnight. AFVSS on 4 L today
He states that he feels improved, breathing better since starting the steroid. Inflammatory markers stable, as his white cell count
He denies any acute complaints today
Objective Data
-
Labs:
Laboratory Results
11/29/24 11/29/24
06:38 08:43
WBC 14.2 H
Hgb 13.3
Hct 40.4
Plt Count 433 H D
Sodium Cancelled 139
Potassium Cancelled 4.7
Chloride Cancelled 102
Carbon Dioxide Cancelled 27
BUN Cancelled 13
Creatinine Cancelled 0.7
Glucose Cancelled 144 H
Calcium Cancelled 9.3
Vital Signs:
Vital Signs
Temp Pulse Resp BP Pulse Ox
98.1 F 56 18 126/74 100
11/29/24 11:50 11/29/24 11:50 11/29/24 11:50 11/29/24 11:50 11/29/24 11:50
I&O
11/28/24 11/29/24 11/30/24
06:59 06:59 06:59
Intake Total 3190 / 3190 1320 / 1320
Output Total 950 / 950 750 / 750
Balance 2240 / 2240 570 / 570
Review of Systems
-
History Source: Patient
All other systems: Reviewed and negative
Physical Exam
-
General: Well Developed, Well Nourished, No Apparent Distress and Comfortable
HEENT: Normocephalic, Atraumatic, Moist Mucous Membranes, Anicteric and Oxygen
Respiratory: Crackles (mid lung, L>R) and Non Labored Respirations; Negative Wheezes, Rhonchi or Accessory Resp Muscle Use
Cardiac: Regular Rhythm and S1/S2; Negative Murmur, Rub, JVD or Gallop
GI: Soft, Nontender, Nondistended and Normal Bowel Sounds
Musculoskeletal: No Clubbing, No Cyanosis and No Edema
Skin: Warm, Dry and Normal Turgor; Negative Rash or Jaundice
Neuro: AO x 3 and Nonfocal/Grossly Intact
Hematologic / Lymphatic: No Lymphadenopathy
Psych: Calm
Data Reviewed
-
Labs: Labs Reviewed by me and Discussed with Patient
--- NOTE | 2024-11-29 15:43 | W.PN.PUL3 ---
Today's Communication / Plan
-
Continue steroids, no change
repeat ambulatory saturation in the a.m., document
GERD therapy
Will require slow taper down to baseline steroid over the next 2 to 4 weeks with close pulmonary follow-up
Echocardiogram ordered per primary
Assessment
-
54-year-old male with history of interstitial lung disease, microscopic cholangitis has been on prednisone and Rituxan. Chronically on low-dose methylprednisolone up until recently was doing well from the pulmonary perspective. Comes to the
hospital with few days of cough and mild phlegm production. Started on amoxicillin in the outpatient setting. Symptoms progressed with increased shortness of breath and now worsening hypoxemia. CT chest with diffuse groundglass opacities we were
consulted for evaluation.
Acute hypoxemic respiratory failure: Currently on 2 L
Pneumonitis: Infectious versus interstitial lung disease flare.
CT chest 11/26/2024: No evidence for large pulmonary embolism. Bilateral diffuse increased reticulonodular and groundglass opacities as compared with previous examination, infectious versus inflammatory. Chronic fibrotic changes.
Negative influenza/negative COVID
Leukocytosis
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
History of microscopic polyangiitis: On low-dose methylprednisolone-not on Rituxan for years.
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
Biliary leak 03/2024
S/p ERCP 03-20: biliary sphincterotomy and plastic stent placement at R hepatic duct
S/p outpatient laparoscopic cholecystectomy with cholangiogram and removal of previously placed percutaneous cholecystostomy tube on 03-17 (h/o percutaneous cholecystostomy on 01-20 for acute cholecystitis)
Ent faecalis bacteriemia (1/2 blood cxs 03-18)
Strep agalactiae bilious ascites 03-19 (reportedly specimen leaked in transit to micro lab, possible contamination)
Acute cholecystitis
MRCP: 1 mm choledocholithiasis, Ent faec
S/p percutaneous cholecystostomy 01-20
Influenza/COVID/ARDS/PNA requiring ECMO prolonged Hospital Stay Nov 2022-March 2023, complicated w/ PE/DVT, cardiac arrest, ICH, GI. On apixaban
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
GIB Jan 2023, required cauterization
Influenza A, adm 10-29 to [id number] 2021
COVID pneumonia, adm 10-18 to , d/c on O2 2L
Breakthrough case in vaccinated Pfizer/J&J
2 weeks onset of symptoms, COVID + 10/13/22
Diffuse GGOs consistent with COVID PNA
PR2/MPO negative, IgG 496 (10-24)
Chronic immunosuppression
History of microscopic polyangiitis, on chronic methylprednisone 4mg daily, past h/o use of rituxan
Follows with Rheum Dr. Velázquez ([phone])
ILD: multifactorial, bilateral fibrotic changes, traction bronchiectasis.
Follows Dr. Gonzalez also evaluated at [facility] Dr. Henry
GERD
Restrictive lung disease
History of pneumonia
Mixed simple and mucopurulent chronic bronchitis
Nonsmoker
Depression
Medical marijuana
Assessment and plan:
Patient well-known to myself
Steroids started 11/28. Patient feels improved today
Chest exam with less crackles per my review
Chest x-ray appears to be somewhat improved compared to drapery and upholstery measurer film on CT chest
[facility] records reviewed, patient was doing well up until recently in regards to his underlying pulmonary process.
Last visit with Dr. Gonzalez-10/14/2024-apparently per [facility] records patient was improving.
Only using oxygen at night at 4 L. Maintaining pulse ox above 88%.
Completed full anticoagulation for his history of pulmonary embolism.
He also was contemplated for IVIG infusions due to hypogammaglobulinemia. Was to see immunology at [place].
-
Oxygen requirement seems to have worsened, now on [address] scan nonspecific could be infectious or inflammatory.
-
Leukocytosis stable.
Low-grade fever noted.
-
Broad-spectrum antibiotics: Zosyn/doxycycline
Negative COVID and influenza.
MRSA screening, if positive will add vancomycin.
Sputum culture i-negative so far. f able to produce.
Blood culture
Legionella, pneumococcal antibodies negative.
-
Continue IV steroids for now with eventual transition to oral prednisone 40 mg
Once transition, would consider slow taper down to baseline 4 mg methylprednisolone which she takes as an outpatient. This taper can occur over 2 to 3 weeks
He also has received previously Rituxan few years ago follows up with rheumatology, Dr. Zaman.
If there is negative microbiology without strong evidence of infection or worsening hypoxemia despite antibiotics we will give high doses of IV corticosteroids. Continue to hold for now.
CRP and sedimentation rate elevated-nonspecific
Repeat ambulatory saturation in the a.m.
-
Continue oxygen supplementation to maintain pulse ox above 88%.
His oxygen requirements have been weaned off in the outpatient setting.
-
DVT prophylaxis
-
Will continue to follow
Reviewed with
Disposition efforts
Subjective Data
-
Date of Service:
Date of Service: November 29, 2024
Chief Complaint: Pulmonary Follow Up (Pneumonia/hypoxemic respiratory failure)
Subjective:
Patient seen and examined multiple times throughout the day. Overall he feels somewhat improved. at bedside. Less cough, less shortness of breath, less chest congestion. Denies nausea. Appears to be in good spirits
Objective Data
Data Reviewed
Vital Signs / I&O / Oxygen:
Vital Signs
Temp Pulse Resp BP Pulse Ox
98.1 F 56 18 126/74 100
11/29/24 11:50 11/29/24 11:50 11/29/24 11:50 11/29/24 11:50 11/29/24 11:50
Intake and Output
11/28/24 11/29/24 11/30/24
06:59 06:59 06:59
Intake Total 3190 / 3190 1320 / 1320
Output Total 950 / 950 750 / 750
Balance 2240 / 2240 570 / 570
SaO2 100
Nasal Cannula flow liters per 4
minute
Physical Exam
General: Comfortable
HEENT: Normocephalic and Anicteric
Cardiovascular: S1-S2, Regular Rhythm, Murmur (n) and Rub (n)
Respiratory: Wheeze (n), Crackles (Mild bibasilar, improved), Rhonchi (n), Non-Labored Respirations and Stridor (n)
GI: Soft and Non Distended
Neurology: Awake, Alert and No Motor Deficits
Skin: Good Color
Labs/Micro/Reports
Lab Data
11/29/24 06:38
11/29/24 08:43
Microbiology
11/28/24 04:54 Sputum Respiratory Culture - Preliminary
Yeast
11/28/24 04:54 Sputum Gram Stain - Preliminary
11/26/24 20:50 Nose MRSA Screen - Final
No Methicillin Resistant Staphylococcus aureus isolated.
11/26/24 17:34 Urine Legionella Urinary Antigen - Final
Negative for Legionella pneumophila Serogroup 1 antigen.
A negative result does not rule out the possiblity of
Legionella infection due to other serogroups or species of
Legionella. Clinical correlation is recommended.
11/26/24 17:34 Urine Streptococcus pneumoniae Antigen (M - Final
Negative for Streptococcus pneumoniae antigen.
A negative result does not exclude infection with
Streptococcus pneumoniae. Clinical correlation is
recommended.
11/26/24 15:21 Nasal Swab Influenza Types A & B (NEIL) - Final
Negative for Influenza A & B, NAAT
Negative results must be combined with clinical observations
and patient history.
Nucleic Acid Amplification test (NAAT)performed on the
[employer] platform.
[2024-11-29] MEDS: LOVENOX 40 MG SC (16:44)
[2024-11-29 17:06] VITALS: BP 147/85
[2024-11-29 19:29] VITALS: BP 133/78
[2024-11-29] MEDS: VIBRAMYCIN 100 MG PO (20:17)
[2024-11-29] MEDS: CATAPRES PO (22:35)
[2024-11-30] MEDS: SOLU-MEDROL PF 40 MG IV ×2 (00:08→11:54)
[2024-11-30] MEDS: ZOSYN 50 IV ×3 (02:38→13:52)
[2024-11-30 03:51] VITALS: BP 124/64
[2024-11-30 08:14] VITALS: BP 148/91
--- NOTE | 2024-11-30 08:40 | W.PN.PUL3 ---
Today's Communication / Plan
-
Transition down to prednisone 40mg daily and reduce by 10mg every 6th day, and once he has completed his 5 day course of 10mg then he should go back to his usual dose of methylprednisone 4mg daily
Complete a 7 day course of ABx - send home on Cefpodoxime 200mg BID and change doxy from IV to PO
Check walking pulse oximetry today prior to discharge
GERD therapy with pepcid
Continue close pulmonary follow-up
Echocardiogram done today shows normal biventricular size and systolic function without regional WMA with mild AI
Patient is stable for discharge home today with outpatient pulmonary office follow-up. Pulmonary service will continue to follow along while he remains hospitalized. Thank you for allowing us to be involved in the care of this patient.
Assessment
-
54-year-old male with history of interstitial lung disease, microscopic cholangitis has been on prednisone and Rituxan. Chronically on low-dose methylprednisolone up until recently was doing well from the pulmonary perspective. Comes to the
hospital with few days of cough and mild phlegm production. Started on amoxicillin in the outpatient setting. Symptoms progressed with increased shortness of breath and now worsening hypoxemia. CT chest with diffuse groundglass opacities we were
consulted for evaluation.
Acute hypoxemic respiratory failure: Currently on 4 L
Pneumonitis: Infectious versus interstitial lung disease flare.
CT chest 11/26/2024: No evidence for large pulmonary embolism. Bilateral diffuse increased reticulonodular and groundglass opacities as compared with previous examination, infectious versus inflammatory. Chronic fibrotic changes.
Negative influenza/negative COVID
Leukocytosis
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
History of microscopic polyangiitis: On low-dose methylprednisolone-not on Rituxan for years.
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
Biliary leak 03/2024
S/p ERCP 03-20: biliary sphincterotomy and plastic stent placement at R hepatic duct
S/p outpatient laparoscopic cholecystectomy with cholangiogram and removal of previously placed percutaneous cholecystostomy tube on 03-17 (h/o percutaneous cholecystostomy on 01-20 for acute cholecystitis)
Ent faecalis bacteriemia (1/2 blood cxs 03-18)
Strep agalactiae bilious ascites 03-19 (reportedly specimen leaked in transit to micro lab, possible contamination)
Acute cholecystitis
MRCP: 1 mm choledocholithiasis, Ent faec
S/p percutaneous cholecystostomy 01-20
Influenza/COVID/ARDS/PNA requiring ECMO prolonged Hospital Stay Nov 2022-March 2023, complicated w/ PE/DVT, cardiac arrest, ICH, GI. On apixaban
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
GIB Jan 2023, required cauterization
Influenza A, adm 10-29 to [id number] 2022
COVID pneumonia, adm 10-18 to , d/c on O2 2L
Breakthrough case in vaccinated Pfizer/J&J
2 weeks onset of symptoms, COVID + 10/13/22
Diffuse GGOs consistent with COVID PNA
PR2/MPO negative, IgG 496 (10-24)
Chronic immunosuppression
History of microscopic polyangiitis, on chronic methylprednisone 4mg daily, past h/o use of rituxan
Follows with Rheum Dr. Velázquez ([phone])
ILD: multifactorial, bilateral fibrotic changes, traction bronchiectasis.
Follows Dr. Gonzalez also evaluated at [facility] Dr. Henry
GERD
Restrictive lung disease
History of pneumonia
Mixed simple and mucopurulent chronic bronchitis
Nonsmoker
Depression
Medical marijuana
Assessment and plan:
Patient well-known to Dr. Gonzalez
Steroids started 11/28. Patient continues to feel improved, currently on Solu-Medrol 40 mg IV q12hr
Chest x-ray from 11/29/2024 appears to be somewhat improved compared to recovery unit operator film on CT chest
[facility] records reviewed, patient was doing well up until recently in regards to his underlying pulmonary process.
Last visit with Dr. Gonzalez-10/14/2024-apparently per [facility] records patient was improving.
Only using oxygen at night at 4 L. Maintaining pulse ox above 88%.
Completed full anticoagulation for his history of pulmonary embolism.
He also was contemplated for IVIG infusions due to hypogammaglobulinemia. Was to see immunology at [place] - advised to follow up
-
CT scan nonspecific could be infectious or inflammatory.
-
Leukocytosis stable; remains afebrile
-
Broad-spectrum antibiotics: Zosyn/doxycycline --> recommend to complete a 7 day course - can send home on Cefpodoxime 200mg BID and change doxy from IV to PO
Negative COVID and influenza.
MRSA screening, if positive will add vancomycin.
Sputum culture (11/20/2024): Trupti albicans, likely contaminant
Legionella, pneumococcal antibodies negative.
-
Patient has improved with downtrending of inflammatory markers (CRP: 59 today, ESR: 36 today)
Currently patient is on Solu-Medrol 40 mg IV q12hr-->transition down to prednisone 40mg daily and reduce by 10mg every 6th day, and once he has completed his 5 day course of 10mg then he should go back to his usual dose of methylprednisone 4mg daily
He also has received previously Rituxan few years ago follows up with rheumatology, Dr. Zaman.
CRP and sedimentation rate are improving
Check walking pulse oximetry today prior to discharge
-
Continue oxygen supplementation to maintain pulse ox >90%
-
DVT prophylaxis
-
Will continue to follow while he remains hospitalized and we will arrange for outpatient follow-up s/p discharge
Reviewed with
Disposition efforts -patient is stable for discharge today
Total time spent today was 36 minutes for this encounter. Time includes reviewing laboratory test/imaging results, reviewing pertinent medical records, obtaining and reviewing medical history, performing an appropriate exam, ordering medications,
tests and procedures. Time also includes documentation of this encounter, coordinating patient care and communicating with other healthcare professionals. Total time does not include separately billed tests performed on this date of service.
Subjective Data
-
Date of Service:
Date of Service: November 30, 2024
Chief Complaint: Pulmonary Follow Up (Pneumonia/hypoxemic respiratory failure)
Subjective:
Patient seen and evaluated today at bedside. Patient's , Arlene, at bedside and answered all of her questions. Patient feels well, eager to go home. Currently on 4 L/min and saturating 97%. Able to ambulate around the yoder and desaturated
to 94% while on 4 L/min but then quickly recovers back to the upper 90s with rest. He denies chest pain, headache, abdominal pain, nausea, fevers or chills. Has a dry cough.
Review of Systems
General: Other (Negative unless mentioned above)
Objective Data
Data Reviewed
Vital Signs / I&O / Oxygen:
Vital Signs
Temp Pulse Resp BP Pulse Ox
97.5 F 81 18 148/91 95
11/30/24 08:14 11/30/24 08:42 11/30/24 08:14 11/30/24 08:42 11/30/24 08:41
Intake and Output
11/29/24 11/30/24 12/01/24
06:59 06:59 06:59
Intake Total 1320 / 1320 288 / 288
Output Total 750 / 750
Balance 570 / 570 288 / 288
SaO2 95
Nasal Cannula flow liters per 4
minute
Physical Exam
General: Respiratory Distress (negative), Comfortable, Chills (negative), Sweats (negative) and Good Appetite
HEENT: Normocephalic and Anicteric
Cardiovascular: S1-S2, Murmur (n), Rub (n) and Peripheral Edema (negative)
Respiratory: Wheeze (n), Crackles (bilateral (R>L)), Rhonchi (n), Non-Labored Respirations and Stridor (n)
GI: Soft, Non Distended, Non Tender and Normal Bowel Sounds
Neurology: AO x 3 and Tremors (negative)
Skin: Warm, Dry, Jaundice (negative) and Rash (negative)
Labs/Micro/Reports
Lab Data
11/30/24 09:01
Microbiology
11/28/24 04:54 Sputum Respiratory Culture - Preliminary
Yeast
11/28/24 04:54 Sputum Gram Stain - Preliminary
11/26/24 20:50 Nose MRSA Screen - Final
No Methicillin Resistant Staphylococcus aureus isolated.
11/26/24 17:34 Urine Legionella Urinary Antigen - Final
Negative for Legionella pneumophila Serogroup 1 antigen.
A negative result does not rule out the possiblity of
Legionella infection due to other serogroups or species of
Legionella. Clinical correlation is recommended.
11/26/24 17:34 Urine Streptococcus pneumoniae Antigen (M - Final
Negative for Streptococcus pneumoniae antigen.
A negative result does not exclude infection with
Streptococcus pneumoniae. Clinical correlation is
recommended.
[2024-11-30] MEDS: NEURONTIN 400 MG PO (08:42)
[2024-11-30] MEDS: MUCINEX 600 MG PO (08:42)
[2024-11-30] MEDS: CATAPRES 0.2 MG PO (08:42)
[2024-11-30] MEDS: PEPCID 40 MG PO (08:42)
[2024-11-30] MEDS: VIBRAMYCIN 100 MG PO (08:42)
[2024-11-30] MEDS: ZOLOFT 100 MG PO (08:43)
--- NOTE | 2024-11-30 09:11 | W.PN.HOSP.TC ---
Today's Communication/Plan
-
Discharge today
Assessment / Plan
Assessment / Plan
#Acute hypoxemic respiratory failure
#ILD flare
#Possible CAP
-Initially suspected to be predominantly bacterial pneumonia, not improving despite multiple antibiotic
-Initially requiring 2 L supplemental oxygen however worsened to 4 L on antibiotics alone
-Was transitioned from home steroid regimen to IV Solu-Medrol 40 mg every 12 hours
-Has since clinically improved subjectively, still requiring 4 L with SpO2 mid 90s
-Inflammatory markers and white cell count stable, has not been febrile here
-Chest x-ray unchanged, likely ILD with superimposed pneumonitis
-11/30/2024 patient requesting discharge
-Cleared by pulmonology for discharge on slow steroid taper and 7 days of antibiotics, doxycycline and Cefpodoxime 200mg BID
-Transition down to prednisone 40mg daily and reduce by 10mg every 6th day, and once he has completed his 5 day course of 10mg then he should go back to his usual dose of methylprednisone 4mg daily
-Follow-up with his usual psychological anthropologist in the office in 2-3 weeks
-Currently on room air at rest, requires 4 L with activity
#H/O microscopic polyangiitis
#Chronic ILD versus long COVID on chronic methylprednisolone
#Peripheral neuropathy
-Has history of microscopic polyangiitis as well as COVID requiring ECMO
-Chronically on 4 mg methylprednisolone daily at home
-Suspect peripheral neuropathy as part of microscopic polyangiitis complex
-Unclear of ILD is related to microscopic polyangiitis or other etiology
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
-Continue home gabapentin for neuropathy
#GERD
#H/O GIB requiring cauterization
-Continue home Pepcid
-No signs or symptoms of active bleeding as of now
#[place]'s syndrome
-Secondary to chronic steroid use, extrinsic etiology
-Initially hesitant to increase steroids however clinically necessary due to his respiratory status
#HTN
-Home medication includes clonidine 0.2 mg 3 times daily
-Blood pressure currently well-controlled on home regimen
#Depression
-Stable on home Zoloft
#H/O PE
-Completed 3 to 6-month course of anticoagulation
-May consider repeat CTA if respiratory status not improving with steroid
DVT prophylaxis: Subcutaneous Lovenox
Diet: Low-cholesterol
CODE STATUS: Full code
Updated on phone 11/30/24
Physical Exam
General: No acute distress
HEENT: Normocephalic, Atraumatic, EOMI, MMM
Respiratory: Bibasilar crackles
Cardiac: Normal S1/S2, Regular Rate and Rhythm
GI: Soft, Nontender, Nondistended, Normal Bowel Sounds
Extremities: No Clubbing, Cyanosis, or Edema
Neuro: Nonfocal/Grossly Intact
Psych: Calm, Cooperative
Derm: No Visible lesions
Anticipated Discharge: Today
Subjective/Interval History
-
Date of Service: November 30, 2024
Patient denies shortness of breath, denies chest pain. He has a mild dry cough in the morning. No fever, no vomiting.
Objective Data
-
Labs:
Laboratory Results
11/30/24
09:01
WBC Pending
Hgb Pending
Hct Pending
Plt Count Pending
Sodium Pending
Potassium Pending
Chloride Pending
Carbon Dioxide Pending
BUN Pending
Creatinine Pending
Glucose Pending
Calcium Pending
Vital Signs:
Vital Signs
Temp Pulse Resp BP Pulse Ox
97.5 F 81 18 148/91 95
11/30/24 08:14 11/30/24 08:42 11/30/24 08:14 11/30/24 08:42 11/30/24 08:41
I&O
11/29/24 11/30/24 12/01/24
06:59 06:59 06:59
Intake Total 1320 / 1320 288 / 288
Output Total 750 / 750
Balance 570 / 570 288 / 288
[2024-11-30 09:33] LABS: % Basophils 0.1 % (0-2); % Eosinophils 0.1 % (0-6); % Neutrophils 83.8 % (42.2-75.2); Absolute Immature Granulocytes 0.2 10^3/uL (0-0.05); Absolute Lymphocytes 1.5 10^3/uL (1.2-3.4); Absolute Neutrophils 14.1 10^3/uL (1.4-6.5); Hematocrit 41.7 % (39.0-52.0); Hemoglobin 13.2 g/dL (13.0-18.0); Mean Corp Hgb Conc. 31.7 g/dL (33.0-37.0); Mean Corpuscular Hgb 26.5 pg (27.0-31.0); Mean Corpuscular Volume 83.7 fL (80.0-94.0); Mean Platelet Volume 8.9 fL (7.4-10.4); Nucleated Red Blood Cells % 0 % (-); Platelet Count 498 10^3/uL (130-400); Red Blood Cell Count 4.98 10^6/uL (4.70-6.10); Red Cell Dist. Width 12.9 % (11.5-14.5); White Blood Cell Count 16.8 10^3/uL (4.8-10.8)
[2024-11-30 10:18] LABS: Blood Urea Nitrogen 18 mg/dl (9-20); Calcium 9.5 mg/dl (8.4-10.2); Carbon Dioxide 23 mmol/L (22-30); Chloride 103 mmol/L (98-107); Estimated Creatinine Clearance > 125 ml/min; Glucose 96 mg/dl (70-99); Potassium 4.6 mmol/L (3.5-5.1); Sodium 141 mmol/L (135-145); eGFR > 60.00
[2024-11-30 11:17] LABS: Erythrocyte Sed Rate 36 mm/hour (0-20)
--- NOTE | 2024-11-30 11:47 | CM ---
Addendum entered by Luli Roca 11/30/24 15:03:
Patient seen with , for discharge today. Son to bring portable O2. Patient and confirmed all home O2 concentrators go up to 10L.
Original Note:
CM reviewed chart, patient seen bedside with daughter. Patient inquiring about discharge. Patient confirms he has home O2 (portable and three different concentrators). Patient denies needs to CM at this time. Pulmonary following patient. CM will
continue to follow for all discharge planning needs.
Plan; home with home O2 when stable.
[2024-11-30] MEDS: FLUSH (NSS) 1 FLUSH IV ×2 (11:54→13:53)
[2024-11-30 12:03] VITALS: BP 133/72
--- NOTE | 2024-11-30 14:57 | W.DCSUMMARY ---
Discharge Summary
Discharge Data
Date of Admission: 11/26/24
Date of Discharge: 11/30/24
-
Pending Results: No
Hospital Course
Discharge diagnosis:
Acute hypoxic respiratory failure
Interstitial lung disease exacerbation
Probable community-acquired pneumonia
Peripheral neuropathy
Gastroesophageal reflux disease
History of microscopic polyangiitis
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
Essential hypertension
Depression
History of pulmonary embolism
Consults: Pulmonology
Chest CT:
1. Limited by respiratory motion artifact. No central or segmental pulmonary embolus.
2. Dilation of the main pulmonary artery system with pulmonary arterial hypertension. There is ectasia of the ascending aorta, 4.0 cm diameter.
3. Bilateral diffuse increased reticular and groundglass opacities as compared with previous examination, most suspicious for predominantly interstitial infectious process superimposed upon previously seen changes of pulmonary fibrosis.
Hospital course:
54-year-old male with a past medical history of interstitial lung disease on chronic steroids, gastroesophageal reflux disease, Erin syndrome, hypertension, and peripheral neuropathy was admitted for acute hypoxic respiratory failure secondary to
interstitial lung disease exacerbation and probable pneumonia.
Patient was seen in conjunction with pulmonology. He follows with Dr. Gonzalez in the office. He was treated with IV steroids and IV antibiotics.
After several days, his breathing improved. He does not require oxygen at home on a regular basis. He required as much as 4 L of oxygen in the hospital. On the day of discharge, he did not require any oxygen at rest, and requires 4 L with
activity.
Patient is medically stable and cleared by pulmonology for discharge. Pulmonology recommends discharge on a 7-day course of doxycycline and cefpodoxime. Pulmonology also recommends discharging on a slow prednisone taper, then resuming his previous
methylprednisolone 4 mg daily. He has been instructed to follow-up with his primary care doctor in 1 week, and pulmonology in the office in 2-3 weeks.
Disposition: Home self-care
Discharge planning: Required 48 minutes
Discharge Plan
-
Patient Disposition: Home (Routine Discharge)
Discharge Diagnosis/Procedures: Interstitial lung disease exacerbation, pneumonitis with possible pneumonia, hypoxia
Condition: Fair
Diet: Regular
Activity: As tolerated
Driving Restrictions: As prior to admission
Activity Restrictions/Additional Instructions:
You do not need oxygen at rest. Please wear 4 L with activity.
Pulmonology recommends taking prednisone 40mg daily and reduce by 10mg every 6th day.
Once you have completed the 5 day course of 10mg, then you should go back to your usual dose of methylprednisone 4mg daily.
Follow-up with your primary care doctor in 1 week, and pulmonology in the office in 2-3 weeks.
Referrals:
Keshia Gonzalez MD [Active] -
(3-4 week (need 30 min visit)
walk test, edilia)
Jabier Vela MD [Family Provider] - in one week
Prescriptions:
New
doxycycline hyclate 100 mg Capsule
100 mg PO BID 7 Days Qty: 14 0RF
cefpodoxime 200 mg tablet
200 mg PO BID 7 Days Qty: 14 0RF
prednisone 10 mg tablet
10 mg PO DIRECTED Qty: 90 0RF
Rx Instructions:
4tab daily x5d, then
3tab daily x5d, then
2tab daily x5d, then
1tab daily x5d, then resume previous steroid
Continued
famotidine 40 mg Tablet
40 mg PO DAILY
gabapentin 400 mg Capsule
400 mg PO TID
sertraline 100 mg Tablet
100 mg PO DAILY
calcium carbonate 500 mg calcium (1,250 mg) Tablet,Chewable
500 mg PO TIDPRN PRN (Reason: stomach discomfort)
clonidine HCl 0.2 mg Tablet
0.2 mg PO TID Qty: 90 0RF
acetaminophen [Tylenol 8 Hour] 650 mg Tablet Extended Release
1,300 mg PO [id number] PRN (Reason: mild pain)
Excedrin Extra Strength 250-250-65 mg Tablet
1 tab PO DAILYPRN PRN (Reason: headache)
Held
methylprednisolone 4 mg Tablet
4 mg PO DAILY
Hold Instructions: Resume on 12/21/24. Resume after you are finished taking your prednisone taper
Discontinued
amoxicillin-pot clavulanate [Augmentin] 875-125 mg Tablet
1 tab PO BID
Discharge Orders:
Discharge Patient (As Directed); Ordered 11/30/24
Ordered By: Jorge Hassan
Discharge Date and Time
Discharge Date/Time: 11/30/24 16:48
Print Language: WALLISIAN
[2024-11-30 15:46] VITALS: BP 154/100
== END 2024-11-30 16:48 | disposition home or self-care (01) | DRG 193 ==
LOC: 4 EAST ACU 16:14
PROVIDERS: Internal Medicine; Registered Nurse; ADMITTING PHYSICIAN Hospitalist; ATTENDING PHYSICIAN Family Medicine; CONSULT PHYSICIAN Internal Medicine Critical Care Medicine; EMERGENCY PHYSICIAN Student in an Organized Health Care Education/Training Program; FAMILY PHYSICIAN Family Medicine
DX: J18.9 Pneumonia, unspecified organism (principal); J96.01 Acute respiratory failure with hypoxia; M31.7 Microscopic polyangiitis; E24.9 Cushing's syndrome, unspecified; D80.1 Nonfamilial hypogammaglobulinemia; J84.10 Pulmonary fibrosis, unspecified; Z11.52 Encounter for screening for COVID-19; G62.9 Polyneuropathy, unspecified; K21.9 Gastro-esophageal reflux disease without esophagitis; Z79.52 Long term (current) use of systemic steroids; T38.0X5D Adverse effect of glucocorticoids and synthetic analogues, subsequent encounter; I10 Essential (primary) hypertension; F32.A Depression, unspecified; Z86.711 Personal history of pulmonary embolism; I27.21 Secondary pulmonary arterial hypertension; Z86.73 Personal history of transient ischemic attack (TIA), and cerebral infarction without residual deficits; Z88.2 Allergy status to sulfonamides; Z88.1 Allergy status to other antibiotic agents; Z79.82 Long term (current) use of aspirin; I77.810 Thoracic aortic ectasia; Z86.16 Personal history of COVID-19; Z87.01 Personal history of pneumonia (recurrent); J41.8 Mixed simple and mucopurulent chronic bronchitis; Z79.899 Other long term (current) drug therapy; Z82.0 Family history of epilepsy and other diseases of the nervous system; Z86.718 Personal history of other venous thrombosis and embolism; Z92.81 Personal history of extracorporeal membrane oxygenation (ECMO)
CPT/HCPCS: 71046; 71275; 80048; 80053; 81003; 83516; 83880; 84484; 85025; 85027; 85610; 85652; 85730; 86038; 86140; 86160; 87070; 87205; 87449; 87502; 87811; 87899; 93005; 93306; 94761; 96365; 96375; 99285; Q9967

== ENCOUNTER 2025-01-19 13:39 | Emergency (ER) | payer OTHER, SELFPAY ==
[2025-01-19 13:53] VITALS: BP 161/102
--- NOTE | 2025-01-19 13:59 | ED.GENMED ---
ED Provider Triage
<Manish Chadwick PA-C - Last Filed: 01/19/25 14:00>
-
Patient seen by provider in Triage?: Seen in Triage
Attestation: A medical screening examination has been initiated by a qualified medical provider. Based on the assessment performed at this time, it has been determined that an emergent medical condition may exist and the patient has been informed
that further medical evaluation and possible additional diagnostic testing may be needed.
HPI: Sudden onset headache started at 9:15 AM, patient had just finished going to the bathroom. Describes the headache to be frontotemporal bilaterally, nonradiating, constant pounding like sensation accompanied with nausea and vomiting. Has a
history of hemorrhagic stroke. Not on any anticoagulants. Denies any fevers or infectious symptoms. No other weakness or numbness. Still notes 10 out of 10 headache and light sensitivity. Patient sent for stat CT of the head and CTA of the head
and neck.
GENERAL: Alert , appears quite uncomfortable
EYE: No visual abnormalities.
NECK: Trachea midline
ENT: No visible abnormalities.
LUNGS: No acute respiratory distress
NEUROLOGICAL: Alert and oriented
SKIN: Skin intact. No visible changes.
MUSCULOSKELETAL: Moving extremities normally
PSYCH: Normal and appropriate interaction.
This is a medical evaluation conducted in person to initiate diagnostic evaluation and provide initial therapeutics. Please see further documentation by the treating clinician.
History of Present Illness
<Manish Chadwick PA-C - Last Filed: 01/19/25 14:00>
General
Chief Complaint: Headache
Time Seen by Provider: 01/19/25 14:26
<Harry Recio PA-C - Last Filed: 01/20/25 10:10>
History of Present Illness
History of Present Illness:
54-year-old male presents the emergency department for evaluation of a sudden onset severe headache beginning at 9 AM today. States it was a sudden onset and worst headache of his life. He has a history of intracranial hemorrhage while critically
ill on ECMO however no neurosurgery was conducted, this was several years ago. He has never had headaches like this. Denies vision changes, chest pain, shortness of breath, however has vomited several times. Usually takes Excedrin for minimal
headaches but this is not helped today
Past History
<Manish Chadwick PA-C - Last Filed: 01/19/25 14:00>
Past History
ED Past Medical History: COPD (Interstitial lung disease/restrictive airway disease status post severe COVID requiring ECMO), Other (Microscopic polyangiitis, interstitial lung disease, pericarditis) and Other (Severe COVID/ours requiring ECMO with
prolonged hospitalization November 2022 to March 2023. Hospitalization complicated by DVT/PE-on Eliquis, CVA with no residual symptoms, cardiac arrest, GI bleed.)
ED Past Surgical History: Cholecystectomy (March 18, 2024) and Other (Tracheostomy during prolonged hospitalization November 2022 to March 2023)
Social History
Tobacco: Non-smoker
Alcohol: Occasional
Drug: None
Personal:
Living: with family
Employment: Employed
Family History
Family History: Hypertension, CAD and Other (Grandmother with Parkinson's)
Review of Systems
<Harry Recio PA-C - Last Filed: 01/20/25 10:10>
Review of Systems
Allergies reviewed?: Yes
All Other Systems: ROS reviewed and negative except as documented in HPI and ROS
Phy Exam
<Harry Recio PA-C - Last Filed: 01/20/25 10:10>
Physical Exam
Physical Exam:
GEN: Visibly uncomfortable
HEENT: Oral mucosa moist, no scleral icterus, no nasal congestion
Cardiac: Regular rate
Lung: No respiratory distress, no tachypnea
MSK: No gross deformity or injuries
Skin: Good color, no pallor or jaundice, no rashes
Neuro: AO x3; CN II-XII grossly intact. BUE strength 5/5 in all robles, sensation intact and symmetric. BLE strength 5/5 in all robles, sensation intact and symmetric
Psych: Calm, cooperative
Course
<Manish Chadwick PA-C - Last Filed: 01/19/25 14:00>
Orders/Labs/Results
Orders:
Orders
01/19/25 13:54
CT Head W/o Iv Contrast Urgent
Comment:
Reason For Exam: sudden onset headache, hx of ICH
01/19/25 14:32
Ondansetron Injectable [Zofran] 4 mg .ROUTE .[facility] ONE
01/19/25 14:33
Fentanyl Citrate/Pf [Sublimaze] 100 mcg IV NOW STA
Ondansetron Injectable [Zofran] 4 mg IV NOW STA
01/19/25 14:45
Basic Metabolic Panel Urgent
Complete Blood Count/With Diff Urgent
PTT Urgent
Prothrombin Time Urgent
01/19/25 14:58
Ketorolac [Toradol] 15 mg IV NOW STA
Metoclopramide [Reglan] 10 mg IV NOW STA
01/19/25 15:27
CT Head & Neck Angio W/wo IV Urgent
Comment:
Reason For Exam: intractable headache
HYDROmorphone [Dilaudid] 0.5 mg IV NOW STA
01/19/25 16:35
Clonidine [Catapres] 0.2 mg PO NOW STA
Gabapentin [Neurontin] 400 mg PO NOW STA
Magnesium Sulfate 2 Gram/50 ml [Magnesium Sulfate] 2 gram in 50 ml IV NOW
Abnormal Lab Results
01/19/25
14:45
WBC 13.9 H 10^3/uL
(4.8-10.8)
MCH 25.8 L pg
(27.0-31.0)
MCHC 32.1 L g/dL
(33.0-37.0)
RDW 17.4 H %
(11.5-14.5)
Abs Immat Gran (auto) 0.1 H 10^3/uL
(0-0.05)
Absolute Neuts (auto) 11.7 H 10^3/uL
(1.4-6.5)
Immature Gran % 0.9 H %
(0-0.5)
Neutrophils % 84.2 H %
(42.2-75.2)
Lymphocytes % 10.5 L %
(20.5-51.1)
Glucose 111 H mg/dl
(70-99)
01/19/25 14:45
01/19/25 14:45
Vital Signs
Initial and Last Documented VS:
Initial Vital Signs
Temp Pulse Resp BP Pulse Ox
98.1 F 58 20 161/102 100
01/19/25 13:53 01/19/25 13:53 01/19/25 13:53 01/19/25 13:53 01/19/25 13:53
Last Documented Vital Signs
Temp Pulse Resp BP Pulse Ox
98.1 F 58 25 187/98 94
01/19/25 13:53 01/19/25 16:45 01/19/25 15:00 01/19/25 16:39 01/19/25 16:45
<Harry Recio PA-C - Last Filed: 01/20/25 10:10>
Orders/Labs/Results
Orders:
Orders
01/19/25 13:54
CT Head W/o Iv Contrast Urgent
Comment:
Reason For Exam: sudden onset headache, hx of ICH
01/19/25 14:32
Ondansetron Injectable [Zofran] 4 mg .ROUTE .[facility] ONE
01/19/25 14:33
Fentanyl Citrate/Pf [Sublimaze] 100 mcg IV NOW STA
Ondansetron Injectable [Zofran] 4 mg IV NOW STA
01/19/25 14:45
Basic Metabolic Panel Urgent
Complete Blood Count/With Diff Urgent
PTT Urgent
Prothrombin Time Urgent
01/19/25 14:58
Ketorolac [Toradol] 15 mg IV NOW STA
Metoclopramide [Reglan] 10 mg IV NOW STA
01/19/25 15:27
CT Head & Neck Angio W/wo IV Urgent
Comment:
Reason For Exam: intractable headache
HYDROmorphone [Dilaudid] 0.5 mg IV NOW STA
01/19/25 16:35
Clonidine [Catapres] 0.2 mg PO NOW STA
Gabapentin [Neurontin] 400 mg PO NOW STA
Magnesium Sulfate 2 Gram/50 ml [Magnesium Sulfate] 2 gram in 50 ml IV NOW
Abnormal Lab Results
01/19/25
14:45
WBC 13.9 H 10^3/uL
(4.8-10.8)
MCH 25.8 L pg
(27.0-31.0)
MCHC 32.1 L g/dL
(33.0-37.0)
RDW 17.4 H %
(11.5-14.5)
Abs Immat Gran (auto) 0.1 H 10^3/uL
(0-0.05)
Absolute Neuts (auto) 11.7 H 10^3/uL
(1.4-6.5)
Immature Gran % 0.9 H %
(0-0.5)
Neutrophils % 84.2 H %
(42.2-75.2)
Lymphocytes % 10.5 L %
(20.5-51.1)
Glucose 111 H mg/dl
(70-99)
01/19/25 14:45
01/19/25 14:45
Vital Signs
Initial and Last Documented VS:
Initial Vital Signs
Temp Pulse Resp BP Pulse Ox
98.1 F 58 20 161/102 100
01/19/25 13:53 01/19/25 13:53 01/19/25 13:53 01/19/25 13:53 01/19/25 13:53
Last Documented Vital Signs
Temp Pulse Resp BP Pulse Ox
98.1 F 58 25 187/98 94
01/19/25 13:53 01/19/25 16:45 01/19/25 15:00 01/19/25 16:39 01/19/25 16:45
<Harry Recio PA-C - Last Filed: 01/20/25 10:10>
MDM/Problems Addressed
MDM/Problems Addressed:
Imaging reassuring. Patient's headache gradually improved after treatment with IV opioids. Unclear etiology to pt's symptoms but certainly workup is unremarkable.
<Harry Recio PA-C - Last Filed: 01/20/25 10:10>
*Critical Care Note
Total Time (30-74mins, 75-104mins- exclusive of procedures): Not Applicable
ED Attending Note
<Manish Chadwick PA-C - Last Filed: 01/19/25 14:00>
-
Portions of this chart may have been created with voice recognition software.� Occasional wrong word or��sound alike� substitutions may have occurred due to the inherent limitations of voice recognition software.
Discharge Plan
Departure
Patient Disposition: Home (Routine Discharge)
Date of Disposition: 01/19/25
Time of Disposition: 17:18
Patient with high blood pressure during this ER visit?: Yes
Discharge Problem:
Headache
Instructions: Headache, Adult (DC)
Prescriptions:
No Action
famotidine 40 mg Tablet
40 mg PO DAILY
gabapentin 400 mg Capsule
400 mg PO TID
sertraline 100 mg Tablet
100 mg PO DAILY
methylprednisolone 4 mg Tablet
4 mg PO DAILY
calcium carbonate 500 mg calcium (1,250 mg) Tablet,Chewable
500 mg PO TIDPRN PRN (Reason: stomach discomfort)
clonidine HCl 0.2 mg Tablet
0.2 mg PO TID Qty: 90 0RF
acetaminophen [Tylenol 8 Hour] 650 mg Tablet Extended Release
1,300 mg PO [id number] PRN (Reason: mild pain)
Excedrin Extra Strength 250-250-65 mg Tablet
1 tab PO DAILYPRN PRN (Reason: headache)
doxycycline hyclate 100 mg Capsule
100 mg PO BID 7 Days Qty: 14 0RF
cefpodoxime 200 mg tablet
200 mg PO BID 7 Days Qty: 14 0RF
prednisone 10 mg tablet
10 mg PO DIRECTED Qty: 90 0RF
Rx Instructions:
4tab daily x5d, then
3tab daily x5d, then
2tab daily x5d, then
1tab daily x5d, then resume previous steroid
Referrals:
Jabier Vela MD [Family Provider] -
Interventions
Interventions:
*Risk Screen - Suicide Last Done: 01/19/25 13:53
*General Assessment Last Done: 01/19/25 13:53
*Neglect/Abuse Screening Last Done: 01/19/25 14:21
*ED COVID-19 Vaccine History Last Done: 01/19/25 14:21
*Nursing Disposition Last Done: 01/19/25 17:43
ED- Neurological Assessment Last Done: 01/19/25 14:21
Discharge Date and Time
Discharge Date/Time: 01/19/25 17:43
Print Language: TURKMEN
[2025-01-19 14:21] VITALS: BMI 28.1
[2025-01-19] MEDS: ZOFRAN 4 MG IV (14:39)
[2025-01-19 14:40] VITALS: BP 169/95
[2025-01-19] MEDS: SUBLIMAZE 100 MCG IV (14:42)
[2025-01-19 14:59] LABS: % Basophils 0.1 % (0-2); % Eosinophils 0.1 % (0-6); % Immature Granulocytes 0.9 % (0-0.5); % Lymphocytes 10.5 % (20.5-51.1); % Monocytes 4.2 % (1.7-9.3); % Neutrophils 84.2 % (42.2-75.2); Absolute Immature Granulocytes 0.1 10^3/uL (0-0.05); Absolute Lymphocytes 1.5 10^3/uL (1.2-3.4); Absolute Monocytes 0.6 10^3/uL (0.1-0.6); Absolute Neutrophils 11.7 10^3/uL (1.4-6.5); Hematocrit 45.2 % (39.0-52.0); Hemoglobin 14.5 g/dL (13.0-18.0); Mean Corp Hgb Conc. 32.1 g/dL (33.0-37.0); Mean Corpuscular Hgb 25.8 pg (27.0-31.0); Mean Corpuscular Volume 80.6 fL (80.0-94.0); Mean Platelet Volume 9.8 fL (7.4-10.4); Nucleated Red Blood Cells % 0 % (-); Platelet Count 268 10^3/uL (130-400); Red Blood Cell Count 5.61 10^6/uL (4.70-6.10); Red Cell Dist. Width 17.4 % (11.5-14.5); White Blood Cell Count 13.9 10^3/uL (4.8-10.8)
[2025-01-19 15:00] VITALS: BP 175/100
[2025-01-19] MEDS: TORADOL 15 MG IV (15:04)
[2025-01-19] MEDS: REGLAN 10 MG IV (15:05)
[2025-01-19 15:07] LABS: INR 0.87; PT 12.1 Sec (11.4-14.6)
[2025-01-19 15:11] LABS: Blood Urea Nitrogen 15 mg/dl (9-20); Calcium 9.7 mg/dl (8.4-10.2); Carbon Dioxide 24 mmol/L (22-30); Chloride 99 mmol/L (98-107); Estimated Creatinine Clearance > 125 ml/min; Glucose 111 mg/dl (70-99); Potassium 4.3 mmol/L (3.5-5.1); Sodium 136 mmol/L (135-145); eGFR > 60.00
[2025-01-19] MEDS: DILAUDID 0.5 MG IV (15:46)
[2025-01-19 16:00] VITALS: BP 187/98
[2025-01-19] MEDS: NEURONTIN 400 MG PO (16:39)
[2025-01-19] MEDS: CATAPRES 0.2 MG PO (16:39)
[2025-01-19] MEDS: MAGNESIUM SULFATE 50 IV (16:47)
== END 2025-01-19 17:43 | disposition home or self-care (01) ==
LOC: EMR 13:39
PROVIDERS: Physician Assistant Medical; EMERGENCY PHYSICIAN Emergency Medicine; FAMILY PHYSICIAN Family Medicine
DX: R51.9 Headache, unspecified (principal); R03.0 Elevated blood-pressure reading, without diagnosis of hypertension; Z86.73 Personal history of transient ischemic attack (TIA), and cerebral infarction without residual deficits
CPT/HCPCS: 99285; 96365; 96375 ×5; 70450; 70496; 70498; 80048; 85025; 85610; 85730; Q9967

== ENCOUNTER → 2025-03-16 09:00 | Outpatient (REF) | payer OTHER, SELFPAY | LOC: RAD 09:00 | PROVIDERS: ATTENDING PHYSICIAN Physician Assistant; FAMILY PHYSICIAN Family Medicine; OTHER PHYSICIAN Internal Medicine Critical Care Medicine | DX: M31.7 Microscopic polyangiitis (principal); R05.3 Chronic cough | CPT/HCPCS: 71046 ==

== ENCOUNTER → 2025-05-14 08:05 | Outpatient (REF) | payer OTHER, SELFPAY ==
[2025-05-14 09:27] LABS: % Basophils 0.4 % (0-2); % Eosinophils 2.3 % (0-6); % Immature Granulocytes 0.5 % (0-0.5); % Lymphocytes 18.8 % (20.5-51.1); % Monocytes 9.6 % (1.7-9.3); % Neutrophils 68.4 % (42.2-75.2); Absolute Eosinophils 0.2 10^3/uL (0-0.7); Absolute Immature Granulocytes 0.1 10^3/uL (0-0.05); Absolute Neutrophils 7.2 10^3/uL (1.4-6.5); Hematocrit 44.1 % (39.0-52.0); Hemoglobin 14.4 g/dL (13.0-18.0); Mean Corp Hgb Conc. 32.7 g/dL (33.0-37.0); Mean Corpuscular Hgb 29.2 pg (27.0-31.0); Mean Corpuscular Volume 89.5 fL (80.0-94.0); Mean Platelet Volume 9.5 fL (7.4-10.4); Nucleated Red Blood Cells % 0 % (-); Platelet Count 243 10^3/uL (130-400); Red Blood Cell Count 4.93 10^6/uL (4.70-6.10); Red Cell Dist. Width 13.8 % (11.5-14.5); White Blood Cell Count 10.5 10^3/uL (4.8-10.8)
[2025-05-14 12:16] LABS: ALT (SGPT) 32 U/L (0-50); AST (SGOT) 26 U/L (17-59); Albumin 4.7 g/dl (3.5-5.0); Alkaline Phosphatase 75 U/L (38-126); Blood Urea Nitrogen 13 mg/dl (9-20); Calcium 9.5 mg/dl (8.4-10.2); Carbon Dioxide 26 mmol/L (22-30); Chloride 110 mmol/L (98-107); Glucose 78 mg/dl (70-99); HDL Cholesterol 50 mg/dl; LDL Cholesterol, Calculated 187 mg/dl; Potassium 4.6 mmol/L (3.5-5.1); Sodium 145 mmol/L (135-145); Total Bilirubin 0.8 mg/dl (0.2-1.3); Total Cholesterol 299 mg/dl (50-199); Total Protein 7.3 g/dl (6.3-8.2); Triglyceride 314 mg/dl (10-149); Very Low Density Lipoprotein 62 mg/dl (0-30); eGFR > 60.00
[2025-05-14 14:37] LABS: TSH Reflex To Free T4 2.03 uIU/ml (0.47-4.68)
[2025-05-16 04:50] LABS: PSA Total 2.4 ng/mL (0.0-4.0)
[2025-05-16 19:07] LABS: Myeloperoxidase Antibody 4 AU/mL (0-19); Serine Protease-3, IgG 0 AU/mL (0-19)
== END ==
LOC: REG 08:05
PROVIDERS: ATTENDING PHYSICIAN Family Medicine; FAMILY PHYSICIAN Nurse Practitioner Family
DX: Z00.00 Encounter for general adult medical examination without abnormal findings (principal); Z12.5 Encounter for screening for malignant neoplasm of prostate; Z51.81 Encounter for therapeutic drug level monitoring; D60.1 Transient acquired pure red cell aplasia; M31.7 Microscopic polyangiitis
CPT/HCPCS: 36415; 80053; 80061; 83516; 84153; 84154; 84443; 85025; 86140

== ENCOUNTER 2025-05-31 18:31 | Inpatient (IN) | payer OTHER, SELFPAY ==
[2025-05-31] VITALS (11 sets, daily range): BP systolic 128–161; BP diastolic 73–106; BMI 28.9; BMI 30.1
[2025-05-31 16:01] LABS: Hematocrit 44.1 % (39.0-52.0); Hemoglobin 15.2 g/dL (13.0-18.0); Mean Corp Hgb Conc. 34.5 g/dL (33.0-37.0); Mean Corpuscular Volume 83.4 fL (80.0-94.0); Nucleated Red Blood Cells % 0 % (-); Platelet Count 218 10^3/uL (130-400); Red Cell Dist. Width 13.1 % (11.5-14.5)
[2025-05-31 16:21] LABS: ALT (SGPT) 48 U/L (0-50); AST (SGOT) 29 U/L (17-59); Albumin 4.9 g/dl (3.5-5.0); Alkaline Phosphatase 104 U/L (38-126); Blood Urea Nitrogen 11 mg/dl (9-20); Calcium 10.0 mg/dl (8.4-10.2); Carbon Dioxide 23 mmol/L (22-30); Chloride 105 mmol/L (98-107); Glucose 122 mg/dl (70-99); Potassium 4.8 mmol/L (3.5-5.1); Sodium 138 mmol/L (135-145); Total Protein 7.7 g/dl (6.3-8.2); eGFR > 60.00
--- NOTE | 2025-05-31 17:46 | ED.GENMED ---
History of Present Illness
General
Chief Complaint: Skin Problem
Source: patient
Exam Limitations: none
Time Seen by Provider: 05/31/25 17:35
History of Present Illness
History of Present Illness:
55yoM with a history of prior ECMO, hypertension, hyperlipidemia, interstitial lung disease on PRN oxygen, and history of pulmonary embolism presenting with his for evaluation of left thigh redness. Patient started with what he thought was an
insect bite to the back of his left thigh yesterday. He has developed worsening redness within the last 24 hours. He woke up this morning and was feeling so weak that he was unable to ambulate. He also reports fevers and chills.
Past History
Past History
ED Past Medical History: COPD (Interstitial lung disease/restrictive airway disease status post severe COVID requiring ECMO), Other (Microscopic polyangiitis, interstitial lung disease, pericarditis) and Other (Severe COVID/ours requiring ECMO with
prolonged hospitalization November 2022 to March 2023. Hospitalization complicated by DVT/PE-on Eliquis, CVA with no residual symptoms, cardiac arrest, GI bleed.)
ED Past Surgical History: Cholecystectomy (March 18, 2024) and Other (Tracheostomy during prolonged hospitalization November 2022 to March 2023)
Social History
Tobacco: Non-smoker
Alcohol: Occasional
Drug: None
Personal:
Living: with family
Employment: Employed
Family History
Family History: Hypertension, CAD and Other (Grandmother with Parkinson's)
Phy Exam
General Physical Exam
General Presentation: mild distress
General Skin: warm and dry
General Habitus: normal
General Mental: alert
ENT Exam
ENT Exam: normocephalic
Pulmonary Exam
Pulmonary Exam: no respiratory distress
Gastrointestinal Exam
Gastrointestinal Exam: non tender, soft and non distended
Neurological Exam
Neurological Exam: alert
Gabriel Coma Scale
Eye Opening: Spontaneous
Verbal Response: Oriented
Motor Response: Obeys Commands
GCS Total Score: 15
Skin Exam
Skin Exam: warm/dry and other (Wound noted to the L posterior thigh with surrounding erythema/warmth which was outlined with skin marker. No crepitus, pain out of proportion, or fluctuance. )
Psychiatric Exam
Psychiatric Exam: normal mood/affect
Course
Orders/Labs/Results
Orders:
Orders
05/31/25 Breakfast
Regular
At Your Request: Limited Participation
Does patient need a safe tray?: No
05/31/25 15:49
Complete Blood Count/With Diff Urgent
Comprehensive Metabolic Panel Urgent
05/31/25 17:07
Lactic Acid Q4H
Comment: ON ICE, CANCEL 2ND ORDER IF FIRST LACTIC ACID LEVEL <2
Blood Culture Q20M
[place] Source: Blood/Venous
Specimen Description:
Comment: Urgent from separate sites. If patient screens positive for possible sepsis
05/31/25 17:18
Blood Culture Q20M
[place] Source: Blood/Venous
Specimen Description:
Comment: Urgent from separate sites. If patient screens positive for possible sepsis
05/31/25 17:45
0.9% Sodium Chloride 1000 ml [Nss] 1,000 ml IV BOLUS
Acetaminophen [Tylenol] 1,000 mg PO NOW STA
CefTRIAXone [Rocephin] 2,000 mg IV NOW STA
05/31/25 17:50
Sterile Water [Sterile Water For Injection] 20 ml .ROUTE .[facility] ONE
Sterile Water [Sterile Water For Injection] 20 ml .ROUTE .[facility]
05/31/25 18:10
Admit/Transfer Patient As Directed
Co-Sign Provider:
Level of Care: Inpatient admission
Assign to:: Telemetry
Physician / Group: winston
Diagnosis: sepsis
Reason for Telemetry: Other
Other Reason for Telemetry: sepsis
Date to Stop Telemetry: 06/02/25
Time to Stop Telemetry: 11:00
Reason for Hospitalization: sepsis
Expected length of stay greater than two midnights?: Yes
ELOS- Estimated Length of Stay in days: 3
I certify the patient meets the requirements for IP care: Yes
PRN Pain Medication Management As Directed
May give lesser potent ordered pain med per pt: Yes
preference::
Protocol:: Medication orders for pain may be administered in a
manner that supports deferring to patient preference
when the pt is:
- Requesting an ordered lesser potent pain medication.
Least to most potent pain medications are defined
as: acetaminophen < NSAID < tramadol < opioids
(morphine, oxycodone, hydromorphone).
- Requesting a lesser dose of the same medication IF
ORDERED.
- Requesting a less intrusive route of administration
if both routes are prescribed by the provider (PO <
IV).
05/31/25 18:11
Code Status As Directed
Resuscitation Status: Full Code
05/31/25 19:24
Sodium Chloride 3% INH [Sodium Chloride 3% For Inhalation] 1 vial INH R BIDPRN PRN sob
05/31/25 19:24
Activity As Directed
Activity Level: Out of Bed-Early Mobility
Intake/ Output As Directed
Frequency: Per unit guidelines
Vital Signs As Directed
Frequency: Per unit guidelines
DX Deep Vein Thrombosis Video Routine
05/31/25 21:25
Lactic Acid Q4H
Comment: ON ICE, CANCEL 2ND ORDER IF FIRST LACTIC ACID LEVEL <2
05/31/25 22:00
Cetirizine HCl [Zyrtec] 10 mg PO HS
Gabapentin [Neurontin] 400 mg PO TID
05/31/25 23:58
Acetaminophen [Tylenol/Feverall] 650 mg RECTAL Q4HPRN PRN
Acetaminophen [Tylenol] 650 mg PO Q4HPRN PRN
06/01/25 06:00
Complete Blood Count/No Diff IN AM
06/01/25 08:00
Clonidine [Catapres] 0.2 mg PO DAILY
Famotidine [Pepcid] 40 mg PO DAILY
Losartan [Cozaar] 100 mg PO DAILY
Prednisone [Deltasone] 5 mg PO DAILY
Sertraline HCl [Zoloft] 100 mg PO DAILY
06/01/25 18:00
CefTRIAXone [Rocephin] 1,000 mg IV Q24H
Enoxaparin Sodium [Lovenox] 40 mg SC QPM
06/02/25 06:00
Complete Blood Count/No Diff IN AM
06/02/25 11:00
DC Protocol for Telemetry ONCE
06/03/25 06:00
Complete Blood Count/No Diff IN AM
Abnormal Lab Results
05/31/25 05/31/25
15:49 17:07
WBC 19.3 H 10^3/uL
(4.8-10.8)
Abs Immat Gran (auto) 0.1 H 10^3/uL
(0-0.05)
Absolute Neuts (auto) 16.4 H 10^3/uL
(1.4-6.5)
Absolute Monos (auto) 1.2 H 10^3/uL
(0.1-0.6)
Neutrophils % 84.9 H %
(42.2-75.2)
Lymphocytes % 8.0 L %
(20.5-51.1)
Glucose 122 H mg/dl
(70-99)
Lactic Acid 2.3 H mmol/L
(0.7-2.0)
Total Bilirubin 1.6 H mg/dl
(0.2-1.3)
05/31/25 15:49
05/31/25 15:49
Vital Signs
Initial and Last Documented VS:
Initial Vital Signs
Temp Pulse Resp BP Pulse Ox
98.5 F 124 16 148/97 95
05/31/25 15:36 05/31/25 15:36 05/31/25 15:36 05/31/25 15:36 05/31/25 15:36
Last Documented Vital Signs
Temp Pulse Resp BP Pulse Ox
98.4 F 82 20 128/73 98
05/31/25 23:45 05/31/25 23:45 05/31/25 23:45 05/31/25 23:45 05/31/25 23:45
MDM/Problems Addressed
Differential Diagnosis Includes:
55yoM here with an insect bite to L thigh x 1 day. Now with spreading redness, weakness, fever. Complex medical hx and has required ECMO in the past for a severe COVID infection. He is febrile to 100.5 on arrival. He is chronically ill-appearing
but nontoxic. There is a wound noted to the left posterior thigh with surrounding cellulitis. No clinical evidence of abscess or NSTI.
Workup initiated by nursing staff prior to initial exam. White count is 19.3 with a left shift and lactate 2.3. Patient meeting criteria for severe sepsis. Blood cultures pending. IV Rocephin ordered and patient admitted for further management.
*Pulse Oximetry
SaO2: 95
Nasal Cannula flow liters per minute: 3
Patient hypoxic: no (95%)
*Critical Care Note
Total Time (30-74mins, 75-104mins- exclusive of procedures): Not Applicable
ED Attending Note
-
Portions of this chart may have been created with voice recognition software.� Occasional wrong word or��sound alike� substitutions may have occurred due to the inherent limitations of voice recognition software.
Discharge Plan
Departure
Patient Disposition: Admit
Date of Disposition: 05/31/25
Time of Disposition: 17:52
Presentation/result/management discussed w/ accepting MD/DO: Hospitalist
Discharge Problem:
Severe sepsis, Cellulitis of left thigh
Interventions
Interventions:
*Risk Screen - Suicide Last Done: 05/31/25 19:38
*General Assessment Last Done: 05/31/25 16:53
*Neglect/Abuse Screening Last Done: 05/31/25 15:38
*ED- Fall Risk Assessment Last Done: 05/31/25 16:53
*ED COVID-19 Vaccine History Last Done: 05/31/25 16:53
*Nursing Disposition Last Done: 05/31/25 19:21
ED-Skin Assessment Last Done: 05/31/25 17:00
Discharge Date and Time
Discharge Date/Time: 05/31/25 19:21
--- NOTE | 2025-05-31 17:53 | HPS.HSE ---
Family Physician
-
Family Physician: SIMA Vidal
Chief Complaint
-
left thigh redness
History of Present Illness
55-year-old with past medical history of COPD, interstitial lung disease, restrictive airway disease status post COVID requiring ECMO, polyangiitis, pericarditis DVT, PE, CVA, GI bleed presented to us with left thigh redness.his noticed
bruising on Saturday night. the redness progressively got worse. it is painful. he is been complaining of for sob since yesterday. he usually use 2-4l at bedtime for sleep but since yesterday he is using oxygen during daytime. he was too weak to get
up from bed today. denied fever, chills, CHRISTENSEN, dizzy or syncope. denied chest pain. denied abdominal pain,n,v,d. denied dysuria or hematuria.
Patient received Tylenol, ceftriaxone, normal saline in ER. Blood culture sent from ER
Medical History
Past Medical History
Past Medical History: Reports Other
Additional Past Medical History:
Pneumonia
Restrictive lung disease
Interstitial lung disease
COVID
PE
[place] syndrome
CVA
GI bleed
Vasculitis
Polyangiitis
Hypertension
Bronchitis
GERD
C. difficile infection
Past Surgical History: Reports Other
Additional Past Surgical History:
Drain in place in gallbladder
Lap cholecystectomy with cholangiogram evacuation of biloma
Social History
Tobacco: Non-smoker
Alcohol: Occasional
Drug: None
Personal:
Living: With Family
Family History
Family History: Not pertinent
Allergies / Home Medications
Allergies reflects when Allergies were last updated in [facility].
Home Medications with original date entered in [facility]
Allergy/Medication List:
Allergies
Allergy/AdvReac Type Severity Reaction Status Date / Time
latex Allergy swelling - Verified 05/31/25 16:53
long skin
Sulfa (Sulfonamide Allergy Rash; Verified 05/31/25 16:53
Antibiotics) tolerates
furosemide
vancomycin Allergy Anaphylaxis/throat Verified 05/31/25 16:53
irritation
venom-honey bee (bee venom Allergy swelling - Verified 05/31/25 16:53
(honey bee)) throat
tightness
Home Medications
famotidine 40 mg tablet 40 mg PO DAILY Gastrointestinal Issue 01/19/24
gabapentin 400 mg capsule 400 mg PO TID Pain 01/19/24
sertraline 100 mg tablet 100 mg PO DAILY depression 01/19/24
acetaminophen 650 mg tablet,extended release (Tylenol 8 Hour) 1,300 mg PO [id number] PRN mild pain 11/26/24
cetirizine 10 mg tablet (Zyrtec) 10 mg PO HS 05/31/25
clonidine HCl 0.2 mg tablet 0.2 mg PO DAILY 05/31/25
losartan 100 mg tablet 100 mg PO DAILY 05/31/25
prednisone 10 mg tablet 5 mg PO DAILY 05/31/25
sodium chloride 3 % for nebulization 4 ml inhalation R BIDPRN PRN sob 05/31/25
Review of Systems
-
Constitutional: Reports No Symptoms
EENT: Reports No Symptoms
Respiratory: Reports No Symptoms
Cardiac: Reports No Symptoms
Abdomen/GI: Reports No Symptoms
: Reports No Symptoms
Musculoskeletal: Reports No Symptoms
Skin: Reports Other (left thigh redness)
Neurological: Reports No Symptoms
Endocrine: Reports No Symptoms
Hematologic/Lymphatic: Reports No Symptoms
Psych: Reports No Symptoms
Physical Exam
Vital Signs
Vital Signs
Temp Pulse Resp BP Pulse Ox
100.5 F H 101 18 141/93 95
05/31/25 16:55 05/31/25 17:30 05/31/25 17:30 05/31/25 17:00 05/31/25 17:47
Physical Exam
General: Well Developed, Well Nourished and No Apparent Distress
HEENT: NormoCephalic, Moist mucous membranes and Atraumatic
Respiratory: Clear
Cardiac: S1/S2 and Regular Rhythm; No Murmur or Rub
GI: Soft, Non Tender, Non Distended and Normal Bowel Sounds; No Organomegaly
Rectal: Deferred by Provider
Musculoskeletal: No Clubbing, No Cyanosis and No Edema
Skin: Rash and Other (left thigh redness)
Neuro: AO x 3 and Nonfocal/grossly intact
Psych: Calm
Laboratory Results
-
05/31/25 15:49
05/31/25 15:49
Laboratory Results
Lactic Acid 2.3 mmol/L (0.7-2.0) H 05/31/25 17:07
Total Bilirubin 1.6 mg/dl (0.2-1.3) H 05/31/25 15:49
AST 29 U/L (17-59) 05/31/25 15:49
ALT 48 U/L (0-50) 05/31/25 15:49
Alkaline Phosphatase 104 U/L (38-126) 05/31/25 15:49
Data Reviewed
-
Lab Data: Labs Reviewed by me
Impression/Plan
-
# Sepsis secondary to left thigh cellulitis
- Temperature 100.5, WBC 19, lactate 2.3, tachycardia
-Ceftriaxone continue
- Tylenol as needed for fever or pain
- Blood culture sent
# Short of breath /history of chronic respiratory failure secondary to prolonged COVID infection requiring ECMO
#History of for interstitial lung disease
-Will obtain chest x-ray
- Continue supplemental oxygen to keep sats in the 95, wean as tolerated
#H/O microscopic polyangiitis
#Chronic ILD versus long COVID on chronic prednisone
#Peripheral neuropathy
-Gabapentin continued
#GERD
#H/O GIB requiring cauterization
-Continue home Pepcid
-No signs or symptoms of active bleeding as of now
#[place]'s syndrome
#HTN
-Home medication includes clonidine 0.2 mg 3 times daily
-Losartan continued
#Depression
-Stable on home Zoloft
#H/O PE
-Completed 3 to 6-month course of anticoagulation
DVT prophylaxis: Subcutaneous Lovenox
Diet: Low-cholesterol
CODE STATUS: Full code
[2025-05-31] MEDS: NSS 1000 IV (17:56)
[2025-05-31] MEDS: TYLENOL 1000 MG PO (17:58)
[2025-05-31] MEDS: ROCEPHIN 2000 MG IV (18:02)
--- NOTE | 2025-05-31 18:05 | W.PN.UPDATE ---
Update Note
Progress Note Update
This is an addendum to H&P written by Jelly Kong on 05/31/2025. �Patient seen and examined independently with [employer].
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
pulmonary embolism, presenting with left thigh redness after what he thought was an insect bite to the left yesterday. �Worsening redness. Also fever.
More short of breath and has been using oxygen during the day.
Fever of 100.5. �Tachycardic.
Labs show leukocytosis. �Lactic acid 2.3.
Patient with sepsis secondary to left thigh cellulitis. �Blood cultures pending. �IV fluids. �Cefazolin.
Check chest x-ray due to increased shortness of breath.�
[2025-05-31] MEDS: ZYRTEC 10 MG PO (20:45)
[2025-05-31] MEDS: NEURONTIN 400 MG PO (20:48)
[2025-06-01 03:31] VITALS: BP 139/78
[2025-06-01] MEDS: TYLENOL 650 MG PO (06:04)
[2025-06-01 07:35] VITALS: BP 103/64
[2025-06-01 07:51] LABS: Hematocrit 42.2 % (39.0-52.0); Hemoglobin 14.2 g/dL (13.0-18.0); Mean Corp Hgb Conc. 33.6 g/dL (33.0-37.0); Mean Corpuscular Volume 85.4 fL (80.0-94.0); Platelet Count 183 10^3/uL (130-400); Red Cell Dist. Width 13.2 % (11.5-14.5)
--- NOTE | 2025-06-01 08:40 | W.PN.HOSP.TC ---
Today's Communication/Plan
-
IV antibiotics
Assessment / Plan
Assessment / Plan
Physical Exam
General: Acutely ill
HEENT: NormoCephalic, Moist mucous membranes and Atraumatic
Respiratory: Coarse crackles in the bases, no wheezes or rhonchi.
Cardiac: S1/S2 and Regular Rhythm; No Murmur or Rub
GI: Soft, Non Tender, Non Distended and Normal Bowel Sounds; No Organomegaly
Rectal: Deferred by Provider
Musculoskeletal: No Clubbing, No Cyanosis and No Edema
Skin: Rash and Other (left thigh redness)
Neuro: AO x 3 and Nonfocal/grossly intact
Psych: Calm
A/P:
# Sepsis secondary to left thigh cellulitis and pneumonia
- Temperature 100.5--> coming down, WBC 19-->15 today, lactate 2.3-->1.4, tachycardia--> coming down
-Ceftriaxone continue. Add doxycycline
- Tylenol as needed for fever or pain
- Blood culture no growth but still pending
- Updated at bedside
# Short of breath /history of chronic respiratory failure secondary to prolonged COVID infection requiring ECMO. Appears to have community-acquired pneumonia as well.
#History of for interstitial lung disease
-chest x-ray shows pneumonia bilateral lobes
- Continue supplemental oxygen to keep sats in the 95, wean as tolerated
- IV Rocephin and doxycycline
#H/O microscopic polyangiitis
#Chronic ILD versus long COVID on chronic prednisone
#Peripheral neuropathy
-Gabapentin continued
#GERD
#H/O GIB requiring cauterization
-Continue home Pepcid
-No signs or symptoms of active bleeding as of now
#[place]'s syndrome
#HTN
-Home medication includes clonidine 0.2 mg 3 times daily
-Losartan continued
#Depression
-Stable on home Zoloft
#H/O PE
-Completed 3 to 6-month course of anticoagulation
DVT prophylaxis: Subcutaneous Lovenox
CODE STATUS: Full code
Total time spent on today's encounter was 52 minutes which included time spent in counseling the patient/family regarding diagnosis and treatment plan as listed above, goals of care, and symptom management. Case was discussed with nursing staff,
specialists, and care coordinators/case management. All labs and imaging personally reviewed by me. Remainder the time spent in detailed review of previous records, lab data, imaging, and other medical provider documentation.
Anticipated Discharge: > 48 hours
Subjective/Interval History
-
Date of Service: June 01, 2025
Patient feels better overall. Erythema in the leg is receding. Still requires oxygen. Does complain of abdominal indigestion and diarrhea. Afebrile
Objective Data
-
Labs:
Laboratory Results
06/01/25
06:46
WBC 15.1 H
Hgb 14.2
Hct 42.2
Plt Count 183
Vital Signs:
Vital Signs
Temp Pulse Resp BP Pulse Ox
98.4 F 81 18 103/64 97
06/01/25 07:35 06/01/25 07:35 06/01/25 07:35 06/01/25 07:35 06/01/25 07:35
I&O
05/31/25 06/01/25 06/02/25
06:59 06:59 06:59
Intake Total 240 / 240
Balance 240 / 240
[2025-06-01] MEDS: PEPCID 40 MG PO (08:45)
[2025-06-01] MEDS: DELTASONE 5 MG PO (08:45)
[2025-06-01] MEDS: ZOLOFT 100 MG PO (08:50)
[2025-06-01] MEDS: NEURONTIN 400 MG PO ×3 (08:50→20:51)
[2025-06-01] MEDS: CATAPRES 0.2 MG PO (08:51)
[2025-06-01] MEDS: VIBRAMYCIN 100 MG PO ×2 (08:57→20:50)
[2025-06-01] MEDS: COZAAR 100 MG PO (09:46)
[2025-06-01] MEDS: ZOFRAN 4 MG IV ×2 (10:01→17:01)
[2025-06-01 11:25] VITALS: BP 104/66
[2025-06-01 15:40] VITALS: BP 106/63
[2025-06-01] MEDS: LOVENOX 40 MG SC (18:40)
[2025-06-01] MEDS: STERILE WATER FOR INJECTION 10 ML IV (18:41)
[2025-06-01] MEDS: ROCEPHIN 1000 MG IV (18:41)
[2025-06-01 19:40] VITALS: BP 102/66
[2025-06-01] MEDS: ZYRTEC 10 MG PO (20:51)
[2025-06-01 23:11] VITALS: BP 115/66
[2025-06-02 03:42] VITALS: BP 109/63
[2025-06-02] MEDS: TYLENOL 650 MG PO (03:43)
[2025-06-02] MEDS: ZOFRAN 4 MG IV ×2 (03:43→21:16)
[2025-06-02 07:45] VITALS: BP 128/53
[2025-06-02 07:45] LABS: Hematocrit 41.7 % (39.0-52.0); Hemoglobin 13.9 g/dL (13.0-18.0); Mean Corp Hgb Conc. 33.3 g/dL (33.0-37.0); Mean Corpuscular Volume 85.8 fL (80.0-94.0); Nucleated Red Blood Cells % 0 % (-); Platelet Count 170 10^3/uL (130-400); Red Cell Dist. Width 13.2 % (11.5-14.5)
[2025-06-02 08:09] LABS: Blood Urea Nitrogen 18 mg/dl (9-20); Calcium 8.9 mg/dl (8.4-10.2); Carbon Dioxide 22 mmol/L (22-30); Chloride 108 mmol/L (98-107); Estimated Creatinine Clearance 101 ml/min; Glucose 99 mg/dl (70-99); Potassium 4.3 mmol/L (3.5-5.1); Sodium 139 mmol/L (135-145); eGFR > 60.00
[2025-06-02] MEDS: ZOLOFT 100 MG PO (10:02)
[2025-06-02] MEDS: DELTASONE 5 MG PO (10:02)
[2025-06-02] MEDS: VIBRAMYCIN 100 MG PO ×2 (10:02→21:16)
[2025-06-02] MEDS: NEURONTIN 400 MG PO ×3 (10:02→21:16)
[2025-06-02] MEDS: PEPCID 40 MG PO (10:02)
--- NOTE | 2025-06-02 10:22 | W.PN.HOSP.TC ---
Today's Communication/Plan
-
IV antibiotic
Assessment / Plan
Assessment / Plan
Physical Exam
General: Acutely ill
HEENT: NormoCephalic, Moist mucous membranes and Atraumatic
Respiratory: Coarse crackles in the bases, no wheezes or rhonchi.
Cardiac: S1/S2 and Regular Rhythm; No Murmur or Rub
GI: Soft, Non Tender, Non Distended and Normal Bowel Sounds; No Organomegaly
Rectal: Deferred by Provider
Musculoskeletal: No Clubbing, No Cyanosis and No Edema
Skin: Rash and Other (left thigh redness)
Neuro: AO x 3 and Nonfocal/grossly intact
Psych: Calm
A/P:
# Sepsis secondary to left thigh cellulitis and pneumonia
- Temperature 100.5--> afebrile today, WBC 19-->9.5 today, lactate 2.3-->1.4, tachycardia--> normal sinus rhythm and sinus bradycardia
-Ceftriaxone continued. Continue doxycycline
- Tylenol as needed for fever or pain
- Blood culture no growth
- Updated at bedside
# Short of breath /history of chronic respiratory failure secondary to prolonged COVID infection requiring ECMO. Appears to have community-acquired pneumonia as well.
#History of for interstitial lung disease
-chest x-ray shows pneumonia bilateral lobes
- Continue supplemental oxygen to keep sats in the 95, wean as tolerated
- IV Rocephin and doxycycline
#H/O microscopic polyangiitis
#Chronic ILD versus long COVID on chronic prednisone
#Peripheral neuropathy
-Gabapentin continued
#GERD
#H/O GIB requiring cauterization
-Continue home Pepcid
-No signs or symptoms of active bleeding as of now
#[place]'s syndrome
#HTN
-Home medication includes clonidine 0.2 mg once a day daily and losartan. Both on hold due to bradycardia relatively hypotension with normotension but will restart later today or in a.m.
#Depression
-Stable on home Zoloft
#H/O PE
-Completed 3 to 6-month course of anticoagulation
DVT prophylaxis: Subcutaneous Lovenox
CODE STATUS: Full code
Time spent 35 minutes
Anticipated Discharge: Within 24 hours
Subjective/Interval History
-
Date of Service: June 02, 2025
Patient feels better overall. Afebrile
Objective Data
-
Labs:
Laboratory Results
06/02/25
06:21
WBC 9.5
Hgb 13.9
Hct 41.7
Plt Count 170
Sodium 139
Potassium 4.3
Chloride 108 H
Carbon Dioxide 22
BUN 18
Creatinine 1.0
Glucose 99
Calcium 8.9
Vital Signs:
Vital Signs
Temp Pulse Resp BP Pulse Ox
98.1 F 53 18 128/53 97
06/02/25 07:45 06/02/25 07:45 06/02/25 07:45 06/02/25 07:45 06/02/25 07:45
I&O
06/01/25 06/02/25 06/03/25
06:59 06:59 06:59
Intake Total 240 / 240 1200 / 1200
Balance 240 / 240 1200 / 1200
[2025-06-02] MEDS: COZAAR PO (10:38)
[2025-06-02] MEDS: CATAPRES PO (10:38)
[2025-06-02 11:40] VITALS: BP 141/80
[2025-06-02 15:29] VITALS: BP 165/92
--- NOTE | 2025-06-02 15:40 | CM ---
Met with patient to obtain information for assessment. Patient stated that he lives with his and children in a two story home with one step to enter. He described himself as independent with his ADLs, personal care, dressing and bathing. 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 He can drive and can transport herself to work, does his own shopping and is able to get to appointments. Patient stated that he has o2 at home that he uses, PRN. He had VN in the past but did not go to
a SNF.
Patient has a prescription plan and uses, [facility] in [place] for all of his medications.
Patient's PCP is, Marisa Lance.
Plan: Case management will continue to follow and assist with discharge planning. Home when stable. will transport.
[2025-06-02] MEDS: STERILE WATER FOR INJECTION 10 ML IV (17:22)
[2025-06-02] MEDS: COZAAR 100 MG PO (17:22)
[2025-06-02] MEDS: LOVENOX 40 MG SC (17:22)
[2025-06-02] MEDS: CATAPRES 0.2 MG PO (17:22)
[2025-06-02] MEDS: ROCEPHIN 1000 MG IV (17:22)
[2025-06-02] MEDS: ZYRTEC 10 MG PO (21:16)
[2025-06-02 23:44] VITALS: BP 136/75
[2025-06-03 03:44] VITALS: BP 105/51
[2025-06-03 07:30] VITALS: BP 128/71
[2025-06-03] MEDS: NEURONTIN 400 MG PO (08:21)
[2025-06-03] MEDS: DELTASONE 5 MG PO (08:21)
[2025-06-03] MEDS: COZAAR 100 MG PO (08:21)
[2025-06-03] MEDS: PEPCID 40 MG PO (08:22)
[2025-06-03] MEDS: VIBRAMYCIN 100 MG PO (08:22)
[2025-06-03] MEDS: CATAPRES 0.2 MG PO (08:22)
[2025-06-03] MEDS: ZOLOFT 100 MG PO (08:22)
[2025-06-03 11:15] VITALS: BP 127/79
--- NOTE | 2025-06-03 11:31 | W.PN.HOSP.TC ---
Today's Communication/Plan
-
Discharge planning today
Assessment / Plan
Assessment / Plan
Physical Exam
General: No acute distress
HEENT: NormoCephalic, Moist mucous membranes and Atraumatic
Respiratory: Clear to auscultation bilateral. No crackles or wheezes
Cardiac: S1/S2 and Regular Rhythm; No Murmur or Rub
GI: Soft, Non Tender, Non Distended and Normal Bowel Sounds; No Organomegaly
Rectal: Deferred by Provider
Musculoskeletal: No Clubbing, No Cyanosis and No Edema
Skin: Rash and Other (left thigh redness improving)
Neuro: AO x 3 and Nonfocal/grossly intact
Psych: Calm
A/P:
# Sepsis secondary to left thigh cellulitis
- Temperature 100.5--> afebrile today, WBC 19-->9.5 today, lactate 2.3-->1.4, tachycardia--> normal sinus rhythm and sinus bradycardia
- Tylenol as needed for fever or pain
- Blood culture no growth
- Updated at bedside
- Switch antibiotics to oral and plan to discharge today
# Short of breath /history of chronic respiratory failure secondary to prolonged COVID infection requiring ECMO. Less likely pneumonia since we do not have imaging upon admission and probably hypoxia related to sepsis. Now back to his baseline.
#History of for interstitial lung disease
-chest x-ray shows pneumonia bilateral lobes from previous chest x-ray but there was no chest x-ray at this time.
- Continue supplemental oxygen to keep sats in the 95, wean as tolerated
- Change antibiotics to oral
#H/O microscopic polyangiitis
#Chronic ILD versus long COVID on chronic prednisone
#Peripheral neuropathy
-Gabapentin continued
#GERD
#H/O GIB requiring cauterization
-Continue home Pepcid
-No signs or symptoms of active bleeding as of now
#Erin's syndrome
#HTN
-Home medication includes clonidine 0.2 mg once a day daily and losartan. Both on hold due to bradycardia relatively hypotension with normotension but will restart later today or in a.m.
#Depression
-Stable on home Zoloft
#H/O PE
-Completed 3 to 6-month course of anticoagulation
DVT prophylaxis: Subcutaneous Lovenox
CODE STATUS: Full code
Anticipated Discharge: Today
Subjective/Interval History
-
Date of Service: June 03, 2025
No new complaints. Feels back to baseline. Afebrile
Objective Data
-
Vital Signs:
Vital Signs
Temp Pulse Resp BP Pulse Ox
98.0 F 62 16 127/79 94
06/03/25 11:15 06/03/25 11:15 06/03/25 11:15 06/03/25 11:15 06/03/25 11:15
I&O
06/02/25 06/03/25 06/04/25
06:59 06:59 06:59
Intake Total 1200 / 1200 1440 / 1440
Balance 1200 / 1200 1440 / 1440
--- NOTE | 2025-06-03 11:42 | W.DCSUMMARY ---
Discharge Summary
Discharge Data
Date of Admission: 05/31/25
Date of Discharge: 06/03/25
Total time spent discharging patient (in min): 35
-
Pending Results: No
Hospital Course
Patient 55 years old male with complex past medical history including restrictive lung disease, interstitial lung disease, PE, Erin syndrome, CVA, GI bleed, vasculitis, polyangiitis, hypertension, GERD, C. difficile in the past, came into the
hospital with sepsis due to left lower extremity cellulitis. Etiology of his cellulitis was most likely related to insect bite. He received broad-spectrum IV antibiotics and fluid. His white blood cell count was as high as 19 and it came down to
normal 9.5 upon discharge. The erythema in his left thigh was significantly decreased upon discharge. He has remained afebrile. His antibiotics have been switched to oral. He required some extra oxygen during the day upon admission but he is
back to his baseline now and already requires oxygen at nighttime. He will be discharged in stable condition today.
Discharge duration: 35 minutes
Discharge Plan
-
Patient Disposition: Home (Routine Discharge)
Discharge Diagnosis/Procedures: Sepsis due to left lower extremity cellulitis. History of chronic hypoxic respiratory failure on home oxygen.
Diet: Low Cholesterol
Activity: As tolerated
Blood Work: Please PCP to order CBC, BMP within 1 week
Referrals:
Marisa Lance CRNP [Family Provider, Internal Medicine] - in less than 1 week
Prescriptions:
New
doxycycline hyclate 100 mg Capsule
100 mg PO Q12 7 Days Qty: 14 0RF
cephalexin 500 mg Capsule
500 mg PO QID 7 Days Qty: 28 0RF
Continued
famotidine 40 mg Tablet
40 mg PO DAILY
gabapentin 400 mg Capsule
400 mg PO TID
sertraline 100 mg Tablet
100 mg PO DAILY
acetaminophen [Tylenol 8 Hour] 650 mg Tablet Extended Release
1,300 mg PO [id number] PRN (Reason: mild pain)
cetirizine [Zyrtec] 10 mg Tablet
10 mg PO HS
sodium chloride 3 % Solution For Nebulization
4 ml INHALATION R BIDPRN PRN (Reason: sob)
losartan 100 mg Tablet
100 mg PO DAILY
prednisone 10 mg tablet
5 mg PO DAILY
clonidine HCl 0.2 mg tablet
0.2 mg PO DAILY
Discharge Orders:
Discharge Patient (As Directed); Ordered 06/03/25
Ordered By: Nick Hansen
Discharge Date and Time
Discharge Date/Time: 06/03/25 13:07
Print Language: AZERI
[2025-06-03] MEDS: KEFLEX 500 MG PO (12:31)
== END 2025-06-03 13:07 | disposition home or self-care (01) | DRG 872 ==
LOC: 4 EAST ACU 18:31
PROVIDERS: Emergency Medicine; Registered Nurse; ADMITTING PHYSICIAN Hospitalist; ATTENDING PHYSICIAN Hospitalist; EMERGENCY PHYSICIAN Student in an Organized Health Care Education/Training Program; FAMILY PHYSICIAN Nurse Practitioner Family
DX: A41.9 Sepsis, unspecified organism (principal); L03.116 Cellulitis of left lower limb; J84.9 Interstitial pulmonary disease, unspecified; E24.9 Cushing's syndrome, unspecified; R65.20 Severe sepsis without septic shock; G62.9 Polyneuropathy, unspecified; K21.9 Gastro-esophageal reflux disease without esophagitis; I10 Essential (primary) hypertension; F32.A Depression, unspecified
CPT/HCPCS: 80048; 80053; 83605; 85025; 85027; 87040; 96361; 96374; 99285

== ENCOUNTER → 2025-06-14 14:59 | Outpatient (REF) | payer OTHER, SELFPAY | LOC: RCS 14:59 | PROVIDERS: ATTENDING PHYSICIAN Internal Medicine Cardiovascular Disease; FAMILY PHYSICIAN Nurse Practitioner Family; OTHER PHYSICIAN Internal Medicine Critical Care Medicine | DX: R06.02 Shortness of breath (principal) | CPT/HCPCS: 93306 ==

== ENCOUNTER → 2025-06-23 08:04 | Outpatient (REF) | payer OTHER, SELFPAY ==
[2025-06-23 08:59] LABS: Hematocrit 41.3 % (39.0-52.0); Hemoglobin 13.5 g/dL (13.0-18.0); Mean Corp Hgb Conc. 32.7 g/dL (33.0-37.0); Mean Corpuscular Volume 85.2 fL (80.0-94.0); Nucleated Red Blood Cells % 0 % (-); Platelet Count 225 10^3/uL (130-400); Red Cell Dist. Width 13.9 % (11.5-14.5)
[2025-06-23 10:38] LABS: Blood Urea Nitrogen 18 mg/dl (9-20); Calcium 9.5 mg/dl (8.4-10.2); Carbon Dioxide 27 mmol/L (22-30); Chloride 108 mmol/L (98-107); Glucose 87 mg/dl (70-99); Potassium 4.7 mmol/L (3.5-5.1); Sodium 143 mmol/L (135-145); eGFR > 60.00
== END ==
LOC: REG 08:04
PROVIDERS: ATTENDING PHYSICIAN Nurse Practitioner Family
DX: T63.301S Toxic effect of unspecified spider venom, accidental (unintentional), sequela (principal)
CPT/HCPCS: 36415; 80048; 85025

== ENCOUNTER 2025-11-02 22:06 | Inpatient (IN) | payer OTHER, SELFPAY ==
[2025-11-02 17:25] VITALS: BP 134/93
[2025-11-02 18:20] LABS: COVID-19 Antigen Negative (Negative)
[2025-11-02 18:22] LABS: ALT (SGPT) 42 U/L (0-50); AST (SGOT) 37 U/L (17-59); Albumin 4.7 g/dl (3.5-5.0); Alkaline Phosphatase 100 U/L (38-126); Blood Urea Nitrogen 16 mg/dl (9-20); Calcium 9.3 mg/dl (8.4-10.2); Carbon Dioxide 29 mmol/L (22-30); Chloride 99 mmol/L (98-107); Glucose 100 mg/dl (70-99); Potassium 4.2 mmol/L (3.5-5.1); Sodium 135 mmol/L (135-145); Total Protein 7.9 g/dl (6.3-8.2); eGFR > 60.00
[2025-11-02 19:18] VITALS: BMI 30.9
[2025-11-02 19:21] VITALS: BP 146/88
--- NOTE | 2025-11-02 19:49 | ED.GENMED ---
History of Present Illness
General
Chief Complaint: Breathing Problem
Source: patient
Exam Limitations: none
Time Seen by Provider: 11/02/25 19:25
Nursing documentation reviewed up to this point in time: agreed with
History of Present Illness
History of Present Illness:
The patient is a pleasant 55-year-old man with past medical history of interstitial lung disease and COPD who comes in with complaints of chills, diffuse bodyaches, dry cough and congestion for several days. Patient reports he was evaluated at his
primary care doctor's office today and was encouraged to come to the ED due to an elevated heart rate and crackles on the right side of his lungs. Patient reports that he feels slightly more short of breath than usual, especially when he walks
around. He denies any definite fever. He denies headache and rash. He denies leg pain and leg swelling.
Past History
Past History
ED Past Medical History: COPD (Interstitial lung disease/restrictive airway disease status post severe COVID requiring ECMO), Other (Microscopic polyangiitis, interstitial lung disease, pericarditis) and Other (Severe COVID/ours requiring ECMO with
prolonged hospitalization November 2022 to March 2023. Hospitalization complicated by DVT/PE-on Eliquis, CVA with no residual symptoms, cardiac arrest, GI bleed.)
ED Past Surgical History: Cholecystectomy (March 18, 2024) and Other (Tracheostomy during prolonged hospitalization November 2022 to March 2023)
Social History
Tobacco: Non-smoker
Alcohol: Occasional
Drug: None
Personal:
Living: with family
Employment: Employed
Family History
Family History: Hypertension, CAD and Other (Grandmother with Parkinson's)
Review of Systems
Review of Systems
Allergies reviewed?: Yes
All Other Systems: ROS reviewed and negative except as documented in HPI and ROS
Constitutional: Reports fatigue and chills
EENT: Reports other (Sinus congestion, runny nose)
Respiratory: Reports cough and trouble breathing
Cardiac: Reports no symptoms
ABD/GI: Reports anorexia
: Reports no symptoms
Musculoskeletal: Reports no symptoms
Skin: Reports no symptoms
Neurological: Reports no symptoms
Endocrine: Reports no symptoms
Hematologic/Lymphatic: Reports no symptoms
Psychiatric: Reports no symptoms
Phy Exam
Physical Exam
Physical Exam:
Physical Exam
General: no apparent distress, not acutely ill. Patient appears flushed but nontoxic, conversational
Neck: supple. no meningeal signs. normal psoterior pharynx
Heart: Tachycardic
Lungs: Speaks comfortably in full sentences at rest. Right sided crackles
Abdomen: normal bowel sounds. not tender. no CVAT
Neuro: alert and oriented. no focal neurological deficits
Skin: no rash
Psychiatric: well kept. interactive and cooperative
Extremities: no edema. no calf tenderness. negative homans. good distal pulses
Scores
Heart Failure Risk
Heart Failure Risk Score: Not Applicable
Course
Orders/Labs/Results
Orders:
Orders
11/02/25 17:29
CR Chest - 2 Views Urgent
Comment:
Reason For Exam: sob
11/02/25 17:37
COVID-19 Antigen Urgent
Source: Nasal Swab
Comprehensive Metabolic Panel Urgent
Influenza A+B Rapid Molecular Urgent
[facility] Source: Nasal Swab
Specimen Description:
11/02/25 19:35
Electrocardiogram (*1) Urgent
Reason for Study: Bradycardia / Tachycardia
EKG- Treatment ONCE
11/02/25 19:46
0.9% Sodium Chloride 1000 ml [Nss] 1,000 ml IV BOLUS
Acetaminophen [Tylenol] 1,000 mg PO NOW STA
11/02/25 19:47
Doxycycline [Vibramycin] 100 mg PO NOW STA
11/02/25 19:54
LevoFLOXacin 750 MG/150 ML [Levaquin] 750 mg in 150 ml IV NOW
11/02/25 20:07
Complete Blood Count/With Diff Urgent
11/02/25 20:13
Ondansetron Injectable [Zofran] 4 mg IV NOW STA
11/02/25 20:49
Troponin I Urgent
Abnormal Lab Results
11/02/25 11/02/25
17:37 20:07
MCHC 32.4 L g/dL
(33.0-37.0)
Plt Count 125 L 10^3/uL
(130-400)
Absolute Monos (auto) 0.9 H 10^3/uL
(0.1-0.6)
Lymphocytes % 18.1 L %
(20.5-51.1)
Monocytes % 13.6 H %
(1.7-9.3)
Glucose 100 H mg/dl
(70-99)
11/02/25 20:07
11/02/25 17:37
Vital Signs
Initial and Last Documented VS:
Initial Vital Signs
Temp Pulse Resp BP Pulse Ox
97.6 F 120 20 134/93 95
11/02/25 17:25 11/02/25 17:25 11/02/25 17:25 11/02/25 17:25 11/02/25 17:25
Last Documented Vital Signs
Temp Pulse Resp BP Pulse Ox
97.6 F 113 30 146/96 94
11/02/25 17:25 11/02/25 20:00 11/02/25 20:00 11/02/25 20:00 11/02/25 20:00
MDM/Problems Addressed
Differential Diagnosis Includes:
Pneumonia, acute viral illness such as COVID or flu, CHF
MDM/Problems Addressed:
Patient presents with acute cough and chills
Chronic conditions affecting care:
COPD
Acute Exacerbation and/or Progression of Chronic Illness:
Patient may have acute exacerbation of COPD, however, he denies any wheezing and I do not appreciate any wheezing or prolonged expiratory phase on physical exam
*Radiology
Radiology exam reviewed: preliminary read by ED provider (Increased lung markings bilaterally) and radiology read reviewed
*Pulse Oximetry
SaO2: 95
Oxygen Mode of Delivery: Room air
Patient hypoxic: no
Comment: Patient is 95% on room air. Not hypoxic
*EKG
Interpreted by ED Provider?: Yes
Interpretation: abnormal
Comparison EKG: no comparison EKG present
Rate: tachycardiac
Rhythm: sinus
[place]: normal axis
Interval: normal interval
QRS Pattern: normal QRS
Ischemia: non-specific ST changes
*Herbarium Curator Interpretation
Rate: tachycardiac
Interpretation: abnormal
Rhythm: sinus
*Critical Care Note
Total Time (30-74mins, 75-104mins- exclusive of procedures): 32 minutes
comment:
32 minutes critical care with the patient including reassessing his respiratory effort, pulse ox, reviewing his lab work, EKG and chest x-ray
Data Reviewed
Review of Other/Old Records Reveals: Testing (Recent cardiac echo 2024 shows EF of 56%)
Source: patient and family
Update Note
Update Note:
9:00 PM patient transiently hypoxic at rest. Decision made to admit patient for oxygen, IV fluids and IV antibiotics.
ED Attending Note
-
Portions of this chart may have been created with voice recognition software.� Occasional wrong word or��sound alike� substitutions may have occurred due to the inherent limitations of voice recognition software.
Discharge Plan
Departure
Patient Disposition: Admit
Date of Disposition: 11/02/25
Time of Disposition: 21:23
Admit to: Med/Surg
Presentation/result/management discussed w/ accepting MD/DO: Hospitalist
Patient with high blood pressure during this ER visit?: Yes
Condition: Good
Covid-19: Negative COVID-19
Discharge Problem:
Pneumonia
Prescriptions:
No Action
famotidine 40 mg Tablet
40 mg PO DAILY
gabapentin 400 mg Capsule
400 mg PO TID
sertraline 100 mg Tablet
100 mg PO DAILY
acetaminophen [Tylenol 8 Hour] 650 mg Tablet Extended Release
1,300 mg PO [id number] PRN (Reason: mild pain)
cetirizine [Zyrtec] 10 mg Tablet
10 mg PO HS
sodium chloride 3 % Solution For Nebulization
4 ml INHALATION R BIDPRN PRN (Reason: sob)
losartan 100 mg Tablet
100 mg PO DAILY
prednisone 10 mg tablet
5 mg PO DAILY
clonidine HCl 0.2 mg tablet
0.2 mg PO DAILY
doxycycline hyclate 100 mg Capsule
100 mg PO Q12 7 Days Qty: 14 0RF
cephalexin 500 mg Capsule
500 mg PO QID 7 Days Qty: 28 0RF
Referrals:
Marisa Lance CRNP [Family Provider, Internal Medicine]
Interventions
Interventions:
*Risk Screen - Suicide Last Done: 11/02/25 17:25
*General Assessment Last Done: 11/02/25 17:25
*Neglect/Abuse Screening Last Done: 11/02/25 17:25
*ED COVID-19 Vaccine History Last Done: 11/02/25 19:18
*ED Influenza Vaccine History Last Done: 11/02/25 19:18
[facility] Fall Risk Assessment Tool Last Done: 11/02/25 19:18
ED- Cardiac Assessment Last Done: 11/02/25 19:18
ED- Pulmonary Assessment Last Done: 11/02/25 19:18
Discharge Date and Time
Print Language: DJIBOUTIAN
[2025-11-02] MEDS: TYLENOL 1000 MG PO (19:57)
[2025-11-02] MEDS: LEVAQUIN 150 IV (19:57)
[2025-11-02] MEDS: NSS 1000 IV ×2 (19:58→23:41)
[2025-11-02 20:00] VITALS: BP 146/96
[2025-11-02] MEDS: ZOFRAN 4 MG IV (20:22)
[2025-11-02 20:24] LABS: Hematocrit 47.2 % (39.0-52.0); Hemoglobin 15.3 g/dL (13.0-18.0); Mean Corp Hgb Conc. 32.4 g/dL (33.0-37.0); Mean Corpuscular Volume 85.7 fL (80.0-94.0); Nucleated Red Blood Cells % 0 % (-); Platelet Count 125 10^3/uL (130-400); Red Cell Dist. Width 14.3 % (11.5-14.5)
[2025-11-02 21:00] VITALS: BP 139/97
[2025-11-02 21:45] LABS: Troponin I 0.014 ng/ml
--- NOTE | 2025-11-02 21:55 | HPS.HSE ---
Family Physician
-
Family Physician: SIMA Vidal
Chief Complaint
-
shortness of breath
History of Present Illness
55-year-old male past medical history of interstitial lung disease no longer on home oxygen, severe COVID infection requiring ECMO, peripheral neuropathy, GERD, microscopic polyangiitis, [place] syndrome secondary to steroids, hypertension,
depression, pulmonary embolism, hemorrhagic CVA in 2022, GI bleeding, neuropathy, presenting with hypoxemia for the past 2 days associate with dry cough and shortness of breath. He also had sore throat, chills. Also some chest tightness. No sick
contacts. Denies leg pain or swelling.
Patient went to primary care physician office today and was told to come to the emergency room for elevated heart rate and crackles on the right side of the lungs. He is slightly more short of breath than usual when he walks around. Denies
definitive fever. He denies headache or rash. Denies leg pain or leg swelling.
Medical History
Past Medical History
Past Medical History: Reports Other ( interstitial lung disease no longer on home oxygen, severe COVID infection requiring ECMO, peripheral neuropathy, GERD, microscopic polyangiitis, [place] syndrome secondary to steroids, hypertension, depression,
pulmonary embolism, hemorrhagic CVA in 2022, GI bleeding, neuropathy,)
Past Surgical History: Reports Other (Cholecystectomy (March 18, 2024) and Other (Tracheostomy during prolonged hospitalization November 2022 to March 2023))
Social History
Tobacco: Non-smoker
Alcohol: Occasional
Drug: None
Family History
Family History: Not pertinent
Allergies / Home Medications
Allergies reflects when Allergies were last updated in [employer].
Home Medications with original date entered in [employer]
Allergy/Medication List:
Allergies
Allergy/AdvReac Type Severity Reaction Status Date / Time
latex Allergy swelling - Verified 11/02/25 17:28
long skin
Sulfa (Sulfonamide Allergy Rash; Verified 11/02/25 17:28
Antibiotics) tolerates
furosemide
vancomycin Allergy Anaphylaxis/throat Verified 11/02/25 17:28
irritation
venom-honey bee (bee venom Allergy swelling - Verified 11/02/25 17:28
(honey bee)) throat
tightness
Home Medications
famotidine 40 mg tablet 40 mg PO DAILY Gastrointestinal Issue 01/19/24
gabapentin 400 mg capsule 400 mg PO TID Pain 01/19/24
sertraline 100 mg tablet 100 mg PO DAILY depression 01/19/24
acetaminophen 650 mg tablet,extended release (Tylenol 8 Hour) 1,300 mg PO [id number] PRN mild pain 11/26/24
cetirizine 10 mg tablet (Zyrtec) 10 mg PO HS Allergies 05/31/25
clonidine HCl 0.2 mg tablet 0.2 mg PO DAILY Blood Pressure 05/31/25
losartan 100 mg tablet 100 mg PO DAILY Blood Pressure 05/31/25
prednisone 10 mg tablet 5 mg PO DAILY Anti-Inflammatory 05/31/25
sodium chloride 3 % for nebulization 4 ml inhalation R BIDPRN PRN sob 05/31/25
cephalexin 500 mg capsule 500 mg PO QID 7 days #28 caps 06/03/25
doxycycline hyclate 100 mg capsule 100 mg PO Q12 7 days #14 caps 06/03/25
Review of Systems
-
History Source: Patient
A 12 point ROS was completed and negative except as noted: Yes
Constitutional: Reports No Symptoms
EENT: Reports No Symptoms
Respiratory: Reports No Symptoms
Cardiac: Reports No Symptoms
Abdomen/GI: Reports No Symptoms
: Reports No Symptoms
Musculoskeletal: Reports No Symptoms
Skin: Reports No Symptoms
Neurological: Reports No Symptoms
Endocrine: Reports No Symptoms
Hematologic/Lymphatic: Reports No Symptoms
Psych: Reports No Symptoms
Physical Exam
Vital Signs
Vital Signs
Temp Pulse Resp BP Pulse Ox
97.6 F 113 30 146/96 94
11/02/25 17:25 11/02/25 20:00 11/02/25 20:00 11/02/25 20:00 11/02/25 20:00
Physical Exam
General: Well Developed, Well Nourished and No Apparent Distress
HEENT: NormoCephalic, Moist mucous membranes and Atraumatic
Respiratory: Clear
Cardiac: S1/S2 and Regular Rhythm; No Murmur or Rub
GI: Soft, Non Tender, Non Distended and Normal Bowel Sounds; No Organomegaly
Rectal: Deferred by Provider
Musculoskeletal: No Clubbing, No Cyanosis and No Edema
Skin: No Rash
Neuro: Nonfocal/grossly intact
Laboratory Results
-
11/02/25 20:07
11/02/25 17:37
Laboratory Results
Total Bilirubin 1.3 mg/dl (0.2-1.3) 11/02/25 17:37
AST 37 U/L (17-59) 11/02/25 17:37
ALT 42 U/L (0-50) 11/02/25 17:37
Alkaline Phosphatase 100 U/L (38-126) 11/02/25 17:37
Troponin I 0.014 ng/ml 11/02/25 20:49
Data Reviewed
-
Lab Data: Labs Reviewed by me
Old Records: Reviewed
Impression/Plan
-
IMPRESSION:
PLAN:
# Likely community-acquired pneumonia possibly viral
-Currently on 2 L oxygen
- Chest x-ray shows prominent reticular interstitial markings seen bilaterally possibly chronic
- COVID and influenza negative
-IV fluids
- Ceftriaxone/azithromycin
Interstitial lung disease
- No longer on oxygen at night
Microscopic polyangiitis
- Currently in remission
- On 5 mg prednisone at baseline, continue
History of severe COVID infection requiring ECMO
Peripheral neuropathy
- Continue gabapentin
GERD
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
Essential hypertension
- Continue losartan, clonidine
Depression
- Continue sertraline
History of pulmonary embolism
History of hemorrhagic CVA in 2022
History of GI bleeding
Full code
DVT prophylaxis�heparin
Regular diet
[2025-11-02 22:00] VITALS: BP 121/84
[2025-11-02] MEDS: NEURONTIN 400 MG PO (22:30)
[2025-11-02] MEDS: ZOLOFT 100 MG PO (22:31)
[2025-11-02] MEDS: PEPCID 40 MG PO (22:31)
[2025-11-02] MEDS: DELTASONE 5 MG PO (22:31)
--- NOTE | 2025-11-02 22:45 | PTCARENOTE ---
Pt arrived to floor via stretcher accompanied by ED staff. AAOx3, ambulatory to bed. VSS on 2L NC w/o complaints of pain. Pt oriented to room with call mariano within reach.
[2025-11-02 23:29] VITALS: BP 132/88; BMI 30.9
[2025-11-02] MEDS: ZITHROMAX INFUSION 250 IV (23:41)
[2025-11-02] MEDS: ROCEPHIN 1000 MG IV (23:42)
[2025-11-02] MEDS: STERILE WATER FOR INJECTION 10 ML IV (23:42)
[2025-11-03] MEDS: TYLENOL 650 MG PO ×2 (06:11→11:21)
[2025-11-03 07:25] VITALS: BP 138/83
[2025-11-03 07:49] LABS: Hematocrit 41.3 % (39.0-52.0); Hemoglobin 13.6 g/dL (13.0-18.0); Mean Corp Hgb Conc. 32.9 g/dL (33.0-37.0); Mean Corpuscular Volume 86.8 fL (80.0-94.0); Nucleated Red Blood Cells % 0 % (-); Platelet Count 105 10^3/uL (130-400); Red Cell Dist. Width 14.1 % (11.5-14.5)
--- NOTE | 2025-11-03 08:19 | W.PN.HOSP.TC ---
Today's Communication/Plan
-
Continue antibiotics.
one dose Fioricet for headache
Assessment / Plan
Assessment / Plan
Impression:
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
hypertension, depression, pulmonary embolism, hemorrhagic CVA (2022), GI bleeding
Presenting Complaint: Hypoxemia for 2 days associated with dry cough, shortness of breath, sore throat, chills, and mild chest tightness. No sick contacts. Denies leg pain/swelling, headache, rash, or definitive fever.
Additional Info: Seen by PCP today for tachycardia and right-sided crackles; advised ER evaluation. Slightly more dyspneic than baseline with exertion.
Assessment/plan:
Acute hypoxic respiratory failure� Likely Community-Acquired Pneumonia (Possibly Viral)
Currently on 2 L oxygen, patient no longer oxygen.
Chest X-ray: Prominent reticular interstitial markings bilaterally (likely chronic).
COVID & Influenza: Negative.
Plan:
IV fluids.
Started on ceftriaxone + azithromycin.
Interstitial Lung Disease
No longer requires nocturnal oxygen.
Microscopic Polyangiitis
In remission.
Continue prednisone 5 mg daily.
History of Severe COVID Infection (s/p ECMO)
No acute intervention.
Peripheral Neuropathy
Continue gabapentin.
GERD
Continue current management.
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
Monitor for complications.
Essential Hypertension
Continue losartan and clonidine.
Depression
Continue sertraline.
History of Pulmonary Embolism
No current anticoagulation noted; monitor.
History of Hemorrhagic CVA (2022)
No acute issues.
History of GI Bleeding
Monitor for recurrence.
CODE STATUS: Full code
DVT prophylaxis: Heparin
Diet: Regular diet
Disposition: Continue antibiotic
Total time spent on today's encounter was 51 minutes which included time spent in counseling the patient/family regarding diagnosis and treatment plan as listed above, goals of care, and symptom management. Case was discussed with nursing staff,
specialists, and care coordinators/case management. All labs and imaging personally reviewed by me. Remainder the time spent in detailed review of previous records, lab data, imaging, and other medical provider documentation.
Anticipated Discharge: 24 - 48 hours
Subjective/Interval History
-
Date of Service: November 03, 2025
Patient seen and examined at bedside, denies any chest pain , shortness of breath and cough improved, no abdominal pain, no nausea, no vomiting, no diarrhea or constipation.
Complaining of headaches
Objective Data
-
Labs:
Laboratory Results
11/02/25 11/03/25
20:07 06:46
WBC 6.7 5.9
Hgb 15.3 13.6
Hct 47.2 41.3
Plt Count 125 L 105 L
Sodium Pending
Potassium Pending
Chloride Pending
Carbon Dioxide Pending
BUN Pending
Creatinine Pending
Glucose Pending
Calcium Pending
Total Bilirubin Pending
AST Pending
ALT Pending
Alkaline Phosphatase Pending
Vital Signs:
Vital Signs
Temp Pulse Resp BP Pulse Ox
97.7 F 85 19 132/88 96
11/02/25 23:29 11/02/25 23:29 11/02/25 23:29 11/02/25 23:29 11/02/25 23:29
I&O
11/02/25 11/03/25 11/04/25
06:59 06:59 06:59
Intake Total 0 / 0
Balance 0 / 0
Physical Exam
-
General: Well Developed, Well Nourished, No Apparent Distress and Comfortable
HEENT: Normocephalic, Atraumatic, Moist Mucous Membranes, No Ptosis, PERRLA and Nose Appears Normal
Respiratory: Rales, Rhonchi, Crackles and Non Labored Respirations
Cardiac: Regular Rhythm and S1/S2
Breast: Deferred by me
GI: Soft, Nontender, Nondistended and Normal Bowel Sounds
Genito-urinary: No Costovertebral Tender
Musculoskeletal: No Clubbing, No Cyanosis and No Edema
Skin: Warm
Neuro: Awake, Alert, Oriented, AO x 3 and No Motor Deficits
Psych: Calm
Data Reviewed
-
Diagnostic Radiology: Image personally visualized and interpreted and Report Reviewed by me
CT Scan: Image personally visualized and interpreted and Report Reviewed by me
Ultrasound: Image personally visualized and interpreted and Report Reviewed by me
MRI: Image personally visualized and interpreted and Report Reviewed by me
Medical Tests (Nuc Med, Echo etc): Image personally visualized and interpreted and Report Reviewed by me
Labs: Labs Reviewed by me
Old Records: Reviewed
[2025-11-03 09:00] LABS: ALT (SGPT) 38 U/L (0-50); AST (SGOT) 33 U/L (17-59); Albumin 3.8 g/dl (3.5-5.0); Alkaline Phosphatase 81 U/L (38-126); Blood Urea Nitrogen 13 mg/dl (9-20); Calcium 8.2 mg/dl (8.4-10.2); Carbon Dioxide 26 mmol/L (22-30); Chloride 102 mmol/L (98-107); Estimated Creatinine Clearance > 125 ml/min; Glucose 92 mg/dl (70-99); Potassium 4.7 mmol/L (3.5-5.1); Sodium 135 mmol/L (135-145); Total Protein 6.3 g/dl (6.3-8.2); eGFR > 60.00
[2025-11-03] MEDS: NSS 1000 IV ×2 (09:08→19:39)
[2025-11-03] MEDS: HEPARIN 5000 UNITS SC ×2 (09:08→19:37)
[2025-11-03] MEDS: FIORICET 1 TAB PO (12:15)
[2025-11-03 15:09] VITALS: BP 149/80
[2025-11-03] MEDS: NEURONTIN 400 MG PO ×2 (15:15→20:50)
[2025-11-03] MEDS: BENADRYL 25 MG PO (20:58)
[2025-11-03] MEDS: ZITHROMAX INFUSION 250 IV (23:00)
[2025-11-03] MEDS: ROCEPHIN 1000 MG IV (23:00)
[2025-11-03] MEDS: STERILE WATER FOR INJECTION 10 ML IV (23:00)
[2025-11-03 23:10] VITALS: BP 141/99
[2025-11-04 00:30] VITALS: BP 138/84
[2025-11-04] MEDS: TYLENOL 650 MG PO ×2 (02:50→13:26)
[2025-11-04] MEDS: COMPAZINE 5 MG IV ×2 (02:51→13:27)
[2025-11-04] MEDS: NSS 1000 IV (05:35)
[2025-11-04 08:33] VITALS: BP 144/88
[2025-11-04] MEDS: HEPARIN 5000 UNITS SC (08:34)
[2025-11-04] MEDS: NEURONTIN 400 MG PO (08:34)
--- NOTE | 2025-11-04 10:40 | W.PN.HOSP.TC ---
Today's Communication/Plan
-
Discharge home today after ambulatory pulse ox
Assessment / Plan
Assessment / Plan
Impression:
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
hypertension, depression, pulmonary embolism, hemorrhagic CVA (2022), GI bleeding
Presenting Complaint: Hypoxemia for 2 days associated with dry cough, shortness of breath, sore throat, chills, and mild chest tightness. No sick contacts. Denies leg pain/swelling, headache, rash, or definitive fever.
Additional Info: Seen by PCP today for tachycardia and right-sided crackles; advised ER evaluation. Slightly more dyspneic than baseline with exertion.
Assessment/plan:
Sepsis with acute organ dysfunction secondary to pneumonia (acute hypoxic respiratory)
Acute hypoxic respiratory failure� Community-Acquired Pneumonia (Possibly Viral)
Currently on 2 L oxygen, patient no longer oxygen.
Chest X-ray: Prominent reticular interstitial markings bilaterally (likely chronic).
COVID & Influenza: Negative.
Plan:
IV fluids.
Started on ceftriaxone + azithromycin.
Ambulatory pulse ox on exertion.
Discharge home on cefdinir and azithromycin
Interstitial Lung Disease
No longer requires nocturnal oxygen.
Microscopic Polyangiitis
In remission.
Continue prednisone 5 mg daily.
History of Severe COVID Infection (s/p ECMO)
No acute intervention.
Peripheral Neuropathy
Continue gabapentin.
GERD
Continue current management.
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
Monitor for complications.
Essential Hypertension
Continue losartan and clonidine.
Depression
Continue sertraline.
History of Pulmonary Embolism
No current anticoagulation noted; monitor.
History of Hemorrhagic CVA (2022)
No acute issues.
History of GI Bleeding
Monitor for recurrence.
CODE STATUS: Full code
DVT prophylaxis: Heparin
Diet: Regular diet
Disposition: Discharge home today after ambulatory pulse ox
Total time spent on today's encounter was 51 minutes which included time spent in counseling the patient/family regarding diagnosis and treatment plan as listed above, goals of care, and symptom management. Case was discussed with nursing staff,
specialists, and care coordinators/case management. All labs and imaging personally reviewed by me. Remainder the time spent in detailed review of previous records, lab data, imaging, and other medical provider documentation.
Anticipated Discharge: Today
Subjective/Interval History
-
Date of Service: November 04, 2025
Patient seen and examined at bedside, denies any chest pain improved shortness of breath, no abdominal pain, no nausea, no vomiting, no diarrhea or constipation.
Objective Data
-
Vital Signs:
Vital Signs
Temp Pulse Resp BP Pulse Ox
97.6 F 71 18 144/88 96
11/04/25 08:33 11/04/25 08:33 11/04/25 08:33 11/04/25 08:33 11/04/25 08:33
I&O
11/03/25 11/04/25 11/05/25
06:59 06:59 06:59
Intake Total 0 / 0 2310 / 2310
Balance 0 / 0 0 / 2310
Physical Exam
-
General: Well Developed, Well Nourished, No Apparent Distress and Comfortable
HEENT: Normocephalic, Atraumatic, Moist Mucous Membranes, No Ptosis, PERRLA and Nose Appears Normal
Respiratory: Rales, Rhonchi, Crackles and Non Labored Respirations
Cardiac: Regular Rhythm and S1/S2
Breast: Deferred by me
GI: Soft, Nontender, Nondistended and Normal Bowel Sounds
Genito-urinary: No Costovertebral Tender
Musculoskeletal: No Clubbing, No Cyanosis and No Edema
Skin: Warm
Neuro: Awake, Alert, Oriented, AO x 3 and No Motor Deficits
Psych: Calm
[2025-11-04] MEDS: ROCEPHIN 1000 MG IV (13:28)
[2025-11-04] MEDS: ZITHROMAX INFUSION 250 IV (13:28)
[2025-11-04] MEDS: STERILE WATER FOR INJECTION 10 ML IV (13:28)
--- NOTE | 2025-11-04 14:41 | W.DCSUMMARY ---
Discharge Summary
Discharge Data
Date of Admission: 11/02/25
Date of Discharge: 11/04/25
Total time spent discharging patient (in min): 40
-
Pending Results: No
Hospital Course
Hospital course
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
hypertension, depression, pulmonary embolism, hemorrhagic CVA (2022), GI bleeding
Presenting Complaint: Hypoxemia for 2 days associated with dry cough, shortness of breath, sore throat, chills, and mild chest tightness. No sick contacts. Denies leg pain/swelling, headache, rash, or definitive fever.
Additional Info: Seen by PCP today for tachycardia and right-sided crackles; advised ER evaluation. Slightly more dyspneic than baseline with exertion.
During hospitalization patient was treated from the following
Sepsis with acute organ dysfunction secondary to pneumonia (acute hypoxic respiratory)
Acute hypoxic respiratory failure� Community-Acquired Pneumonia (Possibly Viral)
Currently on 2 L oxygen, patient no longer oxygen.
Chest X-ray: Prominent reticular interstitial markings bilaterally (likely chronic).
COVID & Influenza: Negative.
Plan:
IV fluids.
Started on ceftriaxone + azithromycin.
Ambulatory pulse ox on exertion.Discharge home on cefdinir and azithromycin
Interstitial Lung Disease
No longer requires nocturnal oxygen.
Microscopic Polyangiitis
In remission.
Continue prednisone 5 mg daily.
History of Severe COVID Infection (s/p ECMO)
No acute intervention.
Peripheral Neuropathy
Continue gabapentin.
GERD
Continue current management.
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
Monitor for complications.
Essential Hypertension
Continue losartan and clonidine.
Depression
Continue sertraline.
History of Pulmonary Embolism
No current anticoagulation noted; monitor.
History of Hemorrhagic CVA (2022)
No acute issues.
History of GI Bleeding
Monitor for recurrence.
CODE STATUS: Full code
DVT prophylaxis: Heparin
Diet: Regular diet
Disposition: Discharge home today .
Total time spent on today's encounter was 40 minutes which included time spent in counseling the patient/family regarding diagnosis and treatment plan as listed above, goals of care, and symptom management. Case was discussed with nursing staff,
specialists, and care coordinators/case management. All labs and imaging personally reviewed by me. Remainder the time spent in detailed review of previous records, lab data, imaging, and other medical provider documentation.
Anticipated Discharge: Today
Discharge Plan
-
Patient Disposition: Home (Routine Discharge)
Discharge Diagnosis/Procedures: Community-Acquired Pneumonia.
Interstitial Lung Disease
Diet: As tolerated and Regular
Activity: As tolerated
Referrals:
Marisa Lance CRNP [Family Provider, Internal Medicine]
Prescriptions:
New
cefdinir 300 mg capsule
300 mg PO Q12H Qty: 10 0RF
azithromycin [Zithromax] 500 mg tablet
500 mg PO DAILY 3 Days Qty: 3 0RF
Continued
famotidine 40 mg Tablet
40 mg PO DAILY
gabapentin 400 mg Capsule
400 mg PO TID
sertraline 100 mg Tablet
100 mg PO DAILY
acetaminophen [Tylenol 8 Hour] 650 mg Tablet Extended Release
1,300 mg PO [id number] PRN (Reason: mild pain)
cetirizine [Zyrtec] 10 mg Tablet
10 mg PO HS
sodium chloride 3 % Solution For Nebulization
4 ml INHALATION R BIDPRN PRN (Reason: sob)
losartan 100 mg Tablet
100 mg PO DAILY
prednisone 10 mg tablet
5 mg PO DAILY
Discontinued
doxycycline hyclate 100 mg Capsule
100 mg PO Q12 7 Days Qty: 14 0RF
Discharge Orders:
Discharge Patient (As Directed); Ordered 11/04/25
Ordered By: Yaakov Stewart
Discharge Date and Time
Print Language: FRISIAN
[2025-11-04 15:46] VITALS: BP 125/82
--- NOTE | 2025-11-04 15:59 | CM ---
IA completed. Independent in ADLs and IADLs. Lives in 2 story home with his and 5 children. there is 1 step at the entrance to the home and 13 steps inside the home. No DME. No insecurities identified. PCP, RX, insurance and drug coverage
confirmed
Has home O2 equipment but no longer needs it (3 concentrators, 1 portable tank and a nebulizer, nasal cannula)
Hx of HC for PT and VN with [facility]
Hx of Acute rehab at [facility]
PCP: Marisa Lance
Rx: [facility]/ [facility]/ [facility]
Plan: Pt is discharged to home, no needs
[2025-11-04] MEDS: FLUZONE (6 mos+) 2025-2026 FORMULA 0.5 ML IM (16:59)
== END 2025-11-04 17:15 | disposition home or self-care (01) | DRG 871 ==
LOC: 4 EAST ACU 22:06
PROVIDERS: Emergency Medicine; ADMITTING PHYSICIAN Hospitalist; ATTENDING PHYSICIAN General Practice; EMERGENCY PHYSICIAN Emergency Medicine; FAMILY PHYSICIAN Nurse Practitioner Family; REFERRING PHYSICIAN Internal Medicine Cardiovascular Disease
PROC: 3E02340 Introduction of Influenza Vaccine into Muscle, Percutaneous Approach (ICD-10-PCS; 2025-11-04)
DX: A41.9 Sepsis, unspecified organism (principal); J18.9 Pneumonia, unspecified organism; J96.01 Acute respiratory failure with hypoxia; E24.9 Cushing's syndrome, unspecified; M31.7 Microscopic polyangiitis; J44.0 Chronic obstructive pulmonary disease with (acute) lower respiratory infection; Z11.52 Encounter for screening for COVID-19; G62.9 Polyneuropathy, unspecified; K21.9 Gastro-esophageal reflux disease without esophagitis; T38.0X5A Adverse effect of glucocorticoids and synthetic analogues, initial encounter; I10 Essential (primary) hypertension; F32.A Depression, unspecified; Z86.16 Personal history of COVID-19; R65.20 Severe sepsis without septic shock; Z86.711 Personal history of pulmonary embolism; Z86.73 Personal history of transient ischemic attack (TIA), and cerebral infarction without residual deficits; Z23 Encounter for immunization
CPT/HCPCS: 71046; 80053; 84484; 85025; 87502; 87811; 93005; 96365; 96375; 99291

== ENCOUNTER → 2025-11-12 09:01 | Outpatient (REF) | payer OTHER, SELFPAY ==
[2025-11-12 10:12] LABS: Hematocrit 44.8 % (39.0-52.0); Hemoglobin 14.7 g/dL (13.0-18.0); Mean Corp Hgb Conc. 32.8 g/dL (33.0-37.0); Mean Corpuscular Volume 85.0 fL (80.0-94.0); Nucleated Red Blood Cells % 0 % (-); Platelet Count 313 10^3/uL (130-400); Red Cell Dist. Width 13.6 % (11.5-14.5)
[2025-11-12 10:45] LABS: Urine Character Clear (Clear)
[2025-11-12 10:51] LABS: ALT (SGPT) 45 U/L (0-50); AST (SGOT) 32 U/L (17-59); Albumin 4.4 g/dl (3.5-5.0); Alkaline Phosphatase 104 U/L (38-126); Blood Urea Nitrogen 13 mg/dl (9-20); Calcium 9.5 mg/dl (8.4-10.2); Carbon Dioxide 27 mmol/L (22-30); Chloride 104 mmol/L (98-107); Glucose 83 mg/dl (70-99); HDL Cholesterol 45 mg/dl; LDL Cholesterol, Calculated 78 mg/dl; Potassium 4.8 mmol/L (3.5-5.1); Sodium 139 mmol/L (135-145); Total Protein 7.3 g/dl (6.3-8.2); Very Low Density Lipoprotein 27 mg/dl (0-30); eGFR > 60.00
[2025-11-12 10:55] LABS: C-Reactive Protein 5.80 mg/L (0.0-10.00)
[2025-11-12 11:03] LABS: Urine Red Blood Cell 0-2 /HPF (0-2)
== END ==
LOC: REG 09:01
PROVIDERS: ATTENDING PHYSICIAN Internal Medicine Critical Care Medicine; FAMILY PHYSICIAN Nurse Practitioner Family; OTHER PHYSICIAN Internal Medicine Rheumatology
DX: I10 Essential (primary) hypertension (principal); M25.50 Pain in unspecified joint; M31.7 Microscopic polyangiitis; N28.9 Disorder of kidney and ureter, unspecified; Z51.81 Encounter for therapeutic drug level monitoring; J84.9 Interstitial pulmonary disease, unspecified; Z86.74 Personal history of sudden cardiac arrest; E78.2 Mixed hyperlipidemia
CPT/HCPCS: 36415; 80053; 80061; 81003; 81015; 82570; 82784; 82785; 83516; 84156; 85025; 86140; 87324; 87449